=== PATIENT | male | born 1940 | race Caucasian/White ===

== ENCOUNTER 2023-09-09 21:34 | Emergency (ER) | payer MEDICARE, OTHER, SELFPAY ==
--- NOTE | 2023-09-09 21:56 | ED_ITS ---
HPI - Weakness General Chief complaint: Weakness Stated complaint: UNABLE TO AMULATE W/ WEAKNESS IN R LEG Time Seen by Provider: 09/09/23 21:43 Source: patient and EMS Mode of arrival: EMS Limitations: no limitations History of Present Illness ED Provider: Oliver Yepez PA-C HPI Narrative: 83-year-old male with history of afib on eliquis, HTN, HLD, bronchiectasis, asthma, chronic BLE edema, and bilateral knee replacements presents to the ER via EMS for evaluation of weakness in the right leg causing him the inability to ambulate transiently. He had an MRI this afternoon for hip injury 1 month ago, he did not eat or drink all day because he did not want to have to go to the bathroom during the scan. After the scan went to dinner with his and when they were leaving dinner he could not lift his right leg up into the car. EMS was called and he was brought here for further evaluation. Reports similar episodes of this when he was dehydrated. Feeling stronger now while lying in stretcher and able to easily lift both legs up off of the bed. Denies weakness in any other parts of body. Complaint: focal weakness Onset (ago): hour(s) Duration: now resolved Location: RLE Migration: none Severity: similar to previous episodes Context: trauma/injury and history of similar Related Data Allergies Allergy/AdvReac Type Severity Reaction Status Date / Time cefazolin Allergy Rash Verified 09/09/23 22:38 Review of Systems 2 Review of Systems: Yes all other systems are reviewed and are negative [facility] Social History Social History Alcohol intake: current Alcohol intake frequency: a few times a week Smoked in Last 30 Days: No Advance Directives: No Advance Directives Information Provided: No Do you have a plan to hurt others: No Plan Physical Exam 2 Vital Signs: Vital Signs: Last Vital Signs Temp 98.2 F 09/09/23 22:35 Pulse 110 H 09/09/23 22:35 Resp 16 09/09/23 22:35 BP 106/50 L 09/09/23 22:35 Pulse Ox 98 09/09/23 22:35 O2 Del Method Room Air 09/09/23 22:35 BMI result Body Mass Index 50.1 Appearance: Alert. Oriented X3. No acute distress. Head: normocephalic, atraumatic. Eyes: Pupils equal, round and reactive to light. Neck: Normal inspection. Neck supple. CVS: Tachycardic heart rate and irregular rhythm. Pulses normal. Respiratory: No respiratory distress. Diffuse wheezes throughout lung cheema (chronic). Abdomen: Soft and nontender. +BS x4 Skin: Skin warm and dry. Normal skin turgor. No rashes. Several small areas of ecchymosis on arms and legs. skin tear right elbow area Extremities: 4+ bilateral lower extremity edema (chronic) w. erythema. No joint swelling. Neuro/psych: Oriented X 3. No motor deficit. No sensory deficit. CN II-XII intact. Normal speech and cognition. Medical Decision Making Medical Decision Making [facility] Narrative: 83-year-old male with history of afib on eliquis, HTN, HLD, bronchiectasis, asthma, chronic BLE edema, and bilateral knee replacements presents to the ER via EMS for evaluation of weakness in the right leg causing him the inability to ambulate transiently. Patient now is able to fully move his right leg and hip. He states had a similar episode when he was going up stairs and had weakness in the right hip. At that time he was dehydrated. On examination today patient is able to fully range the right lower extremity and hip. Strength is equal and symmetrical throughout. No evidence of acute neurologic process. He is up ambulating with a walker which is his baseline. His vital signs showed some tachycardia initially which improved without intervention. Basic labs were unremarkable. His lower extremity swelling is chronic. He is on antibiotics for lower extremity cellulitis. He states it is getting better. Low clinical suspicion for TIA as this seems to have been a muscle fatigue issue when trying to flex the right leg. History of similar episodes and patient is improved. Just had MRI of the hip and will follow-up with orthopedics. Stable for discharge home with outpatient follow-up. Differential Diagnosis Differential Diagnoses: The differential diagnosis associated with the presentation includes TIA, CVA, right hip AVN, osteoarthritis, general deconditioning, lower extremity swelling Admission/Observation Consideration of admission/observation: Escalation of care including admission/observation considered Elderly male with transient weakness, considered admission for possible TIA however does not seem to be the clinical presentation today Lab Data [facility] Lab Attestation statement: I reviewed the patient's lab results. 09/09/23 22:50 09/09/23 22:50 Labs: Lab Results 06/06/24 Range/Units 22:50 WBC 8.7 (4.8-10.8) X10*3/uL RBC 3.75 L (4.60-5.80) X10*6/uL Hgb 13.4 L (14.0-18.0) g/dl Hct 39.4 L (42.0-52.0) % MCV 105.1 H (80.0-98.0) fL MCH 35.7 H (27.0-33.0) pg MCHC 34.0 (31.0-36.0) g/dl RDW 14.0 (11.0-16.0) % Plt Count 147 L (160-400) X10*3/uL MPV 10.3 (9.4-12.4) fL Immature Gran % (Auto) 0.5 H (0.0-0.4) % Neut % (Auto) 76.6 H (45-73) % Lymph % (Auto) 11.6 L (20-40) % [place] % (Auto) 9.7 (2-11) % Eos % (Auto) 1.3 (0-4) % Baso % (Auto) 0.3 (0-2) % Lymph # (Auto) 1.0 L (1.2-4.9) X10*3/uL [place] # (Auto) 0.8 (0.1-1.2) X10*3/uL Eos # (Auto) 0.1 (0.0-0.4) X10*3/uL Baso # (Auto) 0.0 (0.0-0.2) X10*3/uL Abs Immat Gran (auto) 0.04 H (0.00-0.03) X10*3/uL Absolute Neuts (auto) 6.6 (2.0-8.3) x10*3/uL Absolute Nucleated RBC 0.000 (0.0-0.012) X10*3/uL Nucleated RBC % (auto) 0.0 (0.0-0.2) /100WBC Sodium 143 (135-145) mmol/L Potassium 3.7 (3.3-5.1) mmol/L Chloride 107 (96-108) mmol/L Carbon Dioxide 24 (22-29) mmol/L Anion Gap 16 (12-20) BUN 20 H (9-16) mg/dL Creatinine 0.74 (0.5-1.4) mg/dL Estim Creat Clear Calc 122.2 Estimated GFR > 60 Random Glucose 148 H (60-115) mg/dL Calcium 9.1 (8.4-10.2) mg/dL Magnesium 1.6 (1.6-2.6) mg/dL Total Bilirubin 1.5 H (0.0-1.0) mg/dL Direct Bilirubin 0.6 H (0.0-0.5) mg/dL AST 16 (5-37) U/L ALT 14 (0-40) U/L Alkaline Phosphatase 129 H (39-117) U/L Total Protein 6.6 (6.5-8.0) g/dL Albumin 3.3 L (3.5-5.0) g/dL Independent Historian Clinical information obtained from an independent historian. History obtained from or confirmed by: Spouse and EMS Tests considered The following testing was considered but not selected: CT of the head was considered Chronic Conditions Patient?s care impacted by: Other (Lower extremity swelling, AFib) Critical Care Time Critical Care Time Critical Care Time: No Discharge Plan Discharge Clinical Impression: Swelling of both lower extremities, Weakness of right hip Patient Disposition: Home, Self-Care Instructions: Leg Edema (ED) Additional Instructions: Your lab workup today showed some mild anemia, which was at her baseline. Your lab work did not show any evidence of dehydration. Follow-up with your orthopedic for results of the MRI. If you develop new or worsening symptoms call 911 or come back to the ER for further evaluation. Print Language: Macedonian
[2023-09-09 22:15] VITALS: BP 106/50; PULSE 110; RESP 16; TEMP 36.8; O2SAT 94
[2023-09-09 22:28] VITALS: BP 140/80; PULSE 16; O2SAT 96
[2023-09-09 22:35] VITALS: BP 106/50; PULSE 110; RESP 16; TEMP 36.8; O2SAT 98; BMI 50.1
[2023-09-09 22:53] LABS: MANUAL DIFF FLAG NO
[2023-09-09 22:54] LABS: Basophils Percent Auto 0.3 % (0-2); Eosinophils Absolute Auto 0.1 X10*3/uL (0.0-0.4); Eosinophils Percent Auto 1.3 % (0-4); Hematocrit 39.4 % (42.0-52.0); Hemoglobin 13.4 g/dl (14.0-18.0); Imm Gran Abs Auto 0.04 X10*3/uL (0.00-0.03); Imm Gran Pct Auto 0.5 % (0.0-0.4); Lymphocytes Percent Auto 11.6 % (20-40); Mean Corpuscular Hemoglobin 35.7 pg (27.0-33.0); Mean Corpuscular Volume 105.1 fL (80.0-98.0); Mean Platelet Volume 10.3 fL (9.4-12.4); Monocytes Absolute Auto 0.8 X10*3/uL (0.1-1.2); Monocytes Percent Auto 9.7 % (2-11); Neutrophils Absolute Auto 6.6 x10*3/uL (2.0-8.3); Neutrophils Percent Auto 76.6 % (45-73); Platelet Count 147 X10*3/uL (160-400); Red Blood Count 3.75 X10*6/uL (4.60-5.80); White Blood Count 8.7 X10*3/uL (4.8-10.8)
--- NOTE | 2023-09-09 22:56 | PC.NURSE ---
pt presents from [facility] via EMS. pt was ambulating to his car when he had a sudden onset of right leg weakness preventing him from ambulating. pt had an MRI at [facility] today. no fall, no LOC, no HS
--- NOTE | 2023-09-09 22:57 | PC.NURSE ---
pending labs an ambulation trial
[2023-09-09 23:08] LABS: Alanine Aminotransferase 14 U/L (0-40); Albumin Level 3.3 g/dL (3.5-5.0); Alkaline Phosphatase 129 U/L (39-117); Anion Gap 16 (12-20); Aspartate Amino Transferase 16 U/L (5-37); Bilirubin Direct 0.6 mg/dL (0.0-0.5); Bilirubin Total 1.5 mg/dL (0.0-1.0); Blood Urea Nitrogen 20 mg/dL (9-16); Calcium 9.1 mg/dL (8.4-10.2); Carbon Dioxide 24 mmol/L (22-29); Chloride 107 mmol/L (96-108); Creatinine Clr Calc Pharmacy 122.2; Estimated Glomerular Filt Rate > 60; Glucose Random 148 mg/dL (60-115); Magnesium 1.6 mg/dL (1.6-2.6); Potassium 3.7 mmol/L (3.3-5.1); Sodium 143 mmol/L (135-145); Total Protein 6.6 g/dL (6.5-8.0)
[2023-09-10 00:35] VITALS: BP 106/50; PULSE 110; RESP 16; TEMP 36.8; O2SAT 98
== END 2023-09-10 00:37 | disposition home or self-care (01) ==
PROVIDERS: Physician Assistant; Emergency Provider Internal Medicine; PCP Nurse Practitioner Family
DX: R26.2 Difficulty in walking, not elsewhere classified (principal); I48.91 Unspecified atrial fibrillation; R60.0 Localized edema; R53.1 Weakness; Z79.01 Long term (current) use of anticoagulants; Z79.899 Other long term (current) drug therapy
CPT/HCPCS: 36415; 80048; 80076; 83735; 85025; 99283; 99284

== ENCOUNTER 2024-01-10 11:09 | Outpatient (REF) | payer MEDICARE, OTHER, SELFPAY ==
--- NOTE | ~2024-01-10 | CT_ITS ---
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 COMPARISON: None available. TECHNIQUE: Test bolus sequences followed by intravenous administration 75 mL of Omnipaque 350 intravenous contrast. Volumetric imaging was performed in the axial plane from the skull base to the vertex. Precontrast and delayed postcontrast imaging of the head was also performed. The data was processed at the cytogenetics technologist workstation for generation of MIP sequences. Three-dimensional volume rendered reformatted images were also generated at an offline 3-D workstation. The degree of stenosis determined by NASCET criteria. This CT examination was performed using dose optimization techniques as appropriate, variously including the following: *Automated exposure control *Adjustment of mA and/or kV according to patient size (this includes techniques or standardized protocols for targeted exams where dose is matched to indication/reason for exam; i.e. extremities or head) *Use of iterative reconstruction technique DLP: 2615 mGy-cm. FINDINGS: CT HEAD: Moderate generalized diffuse brain parenchymal volume loss is noted, with associated [id number] prominence of the 3rd and lateral ventricles, likely reflecting volume loss. There are scattered subtle, small, patchy zones of hypodensity in the white matter of both cerebral hemispheres, likely reflecting minimal chronic ischemic microangiopathy in a patient of this age. There is a tiny hypodensity in the inferior right putamen bordering the globus pallidus, which could reflect a tiny remote lacunar infarct or perivascular space. There is a 3 mm hypodensity bordering the left globus pallidus and anterior limb of the left internal capsule, which may reflect an age-indeterminate lacune, with a similar finding in the left lateral thalamus. No intracranial hemorrhage or extra-axial fluid collection. No intracranial mass lesions or pathologic intracranial enhancement are identified. The bony structures appear intact and the visualized airspaces are predominantly unopacified. Visualized orbital structures appear intact with evidence of previous bilateral lens replacements. CTA: The visualized V3 segments of the vertebral arteries are normal in caliber and patent bilaterally. There are small zones of calcified plaque in the V4 segments of the proximal intracranial vertebral arteries with less than 50% diameter reduction stenosis. The basilar artery is normal in caliber and configuration. The left PICA is visualized. A right PICA is present but the origin is not well seen. The superior cerebellar and posterior cerebral arteries are patent and normal in caliber. The intracranial ICAs are patent and normal in caliber. The M1 segments, MCA bifurcations and M2 branches are patent and normal in caliber. There is normal arborization of the M2 branches bilaterally. The A1 and A2 segments are patent and normal in caliber. The anterior communicating artery is diminutive but unremarkable. The posterior communicating arteries are not visualized. Delayed venous views demonstrate normal opacification of the major dural venous sinuses. The left jugular bulb is diminutive and not well visualized. CT/CT angio head IMPRESSION: 1. Essentially unremarkable CT angiogram of the brain. No evidence for intracranial arterial stenosis, occlusion, aneurysm or AVM. 2. No pathologic intracranial enhancement. No extra-axial fluid collection, space-occupying process or mass effect. 3. Moderate generalized diffuse brain parenchymal volume loss and minimal chronic ischemic microangiopathy in the white matter of both cerebral hemispheres. 4. Tiny remote lacunar infarct versus perivascular space in the inferior right putamen and age-indeterminate lacune in the left globus pallidus and left lateral thalamus. Electronically signed by: Fabian Leon MD 03/08/2024 04:12 PM QUINN YEN
[2024-01-10] MEDS: iohexoL 350 MG/ML 75 ML INFUS..BTL IV (12:57)
[2024-01-10 14:25] LABS: Creatinine POC 0.7 mg/dL (0.5-1.4); GFR POC > 60
== END 2024-01-10 11:10 | disposition home or self-care (01) ==
LOC: HO.CT 11:09
PROVIDERS: PCP Family Medicine; Visit Provider Psychiatry & Neurology Neurology
DX: G83.30 Monoplegia, unspecified affecting unspecified side (principal)
CPT/HCPCS: 70496; 82565; Q9967

== ENCOUNTER 2024-05-29 14:18 | Inpatient (IN) | payer OTHER, SELFPAY ==
[2024-05-29] VITALS (21 sets, daily range): BP systolic 74–219; BP diastolic 34–191; PULSE 72–160; RESP 15–38; TEMP 36.6–40.1; O2SAT 94–99; BMI 46.8; BMI 45.0
--- NOTE | ~2024-05-29 | XR_ITS ---
EXAMINATION: XR CHEST 1 VIEW HISTORY: SOB COMPARISON: There are no prior studies for comparison. FINDINGS: A single AP portable view of the chest performed at 2:48 PM is submitted. There are mild increased interstitial markings which may be chronic. No focal airspace opacity is seen. There is no pleural effusion, pneumothorax, or pulmonary vascular congestion. The heart is normal in size given technique. There is degenerative disc disease of the spine. There is severe degenerative change of the bilateral shoulders. XR/XR chest 1V IMPRESSION: Mild increased interstitial markings which may be chronic. Electronically signed by: Salvatore Jackson MD 05/29/2024 03:04 PM [facility]
--- NOTE | ~2024-05-29 | US_ITS ---
CLINICAL HISTORY: Septic shock, UTI, R O obstruction US abdomen limited Comparison: None Findings: Examination is limited by bowel gas. Pancreas is not visualized. The liver is normal in size with increased echogenicity. There is no intrahepatic bile duct dilatation. The common duct is 4.0 mm in diameter. There are gallstones in the gallbladder. Normal wall thickness of the gallbladder. The right kidney is 10.6 cm in length. 5.7 x 4.6 x 4.7 cm cyst with septation in the midpole. No ascites. IMPRESSION: Cholelithiasis. Hepatic steatosis. Complex cyst of the right kidney with thin septation. This document has been electronically signed by: Kiran Mckeon MD on 05/29/2024 18:37:30
--- NOTE | ~2024-05-29 | CT_ITS ---
CLINICAL HISTORY: cholelithiasis CT abdomen and pelvis without contrast Comparison: None Findings: Examination is limited by without contrast. Atelectatic change of the lung base. Liver, Pancreas, Spleen and both adrenals show normal size, shape and attenuation on present unenhanced scan. No CBD dilatation. There are stones in the gallbladder. Both kidneys reveal normal in size, shape, position and attenuation. Limited evaluation of the multiple cystic lesions of the bilateral kidneys. No kidney stone. No hydronephrosis. The IVC, aorta and portal vein are within normal position and caliber. Atherosclerosis calcification of the aorta. No evidence of retroperitoneal lymphadenopathy or ascites. Possible reactive inguinal lymph nodes. The visible parts of the bowel loops show no obvious mass lesions or wall thickening. Mild colonic diverticulosis. Appendix appears normal. Urinary bladder reveals normal lumen and smalls. The pelvic organs are unremarkable. Multilevel degenerative changes of the lumbar spine. There is vacuum phenomena in the T12-L1. Possible Schmorl's node of the superior endplate of L1. IMPRESSION: Cholelithiasis. No noncontrast CT evidence of acute cholecystitis. Limited evaluation of the multiple cystic lesions of the bilateral kidneys. There are complex cystic lesions of the bilateral kidneys. Ultrasound follow-up as indicated. Mild colonic diverticulosis. Additional findings as above. This document has been electronically signed by: Kiran Mckeon MD on 05/29/2024 20:48:34
--- NOTE | 2024-05-29 14:32 | ECG_ITS ---
Test Reason : sob Blood Pressure : */* mmHG Vent. Rate : 123 BPM Atrial Rate : * BPM P-R Int : * ms QRS Dur : 90 ms QT Int : 332 ms P-R-T Axes : * 25 7 degrees QTcB Int : 475 ms Atrial fibrillation with rapid ventricular response Abnormal ECG When compared with ECG of 24-Jun-2007 14:46, Atrial fibrillation has replaced Sinus rhythm Vent. rate has increased by 51 bpm Non-specific change in ST segment in Lateral leads Referred By: Darrel Ordoñez Electronically Signed By: JOHN JAIN
--- NOTE | 2024-05-29 14:48 | ED_ITS ---
HPI - General Adult General Chief complaint: Altered Mental Status Stated complaint: AMS,FEVER,RAPID AFIB 150 PER EMS Time Seen by Provider: 05/29/24 14:32 Source: patient, family (Spouse) and EMS Mode of arrival: EMS Limitations: no limitations History of Present Illness ED Provider: DR. Ordoñez HPI narrative: 84-year-old male history of AFib on Eliquis, HTN, HLD, bronchiectasis, asthma use CPAP at nighttime at home, chronic bilateral lower extremity lymphedema on Lasix, presented by EMS from home after was found with a change mental status and confusion as per , also complaining of shortness of breath and coughing. With bilateral lower extremities cellulitis. Related Data Home Medications ?Medication ?Instructions ?Recorded ?Confirmed allopurinol 300 mg tablet 300 mg PO DAILY 05/29/24 apixaban 5 mg tablet (Eliquis) 5 mg PO BID 05/29/24 atorvastatin 40 mg tablet 40 mg PO BEDTIME 05/29/24 fluticasone fur. 200 mcg-umeclid 1 ea inhalation DAILY 05/29/24 62.5 mcg-vilant 25 mcg inhalat.powder (Trelegy Ellipta) furosemide 40 mg tablet 40 mg PO BID 05/29/24 gabapentin 300 mg capsule 900 mg PO TID 05/29/24 metoprolol tartrate 25 mg tablet 25 mg PO BID 05/29/24 mupirocin 2 % topical ointment 1 appl topical TID 05/29/24 potassium chloride 20 mEq 20 meq PO BID 05/29/24 tablet,extended release ropinirole 1 mg tablet 1.5 mg PO QPM 05/29/24 tamsulosin 0.4 mg capsule 0.4 mg PO BEDTIME 05/29/24 triamcinolone acetonide 0.1 % 1 appl topical BID 05/29/24 topical cream Allergies Allergy/AdvReac Type Severity Reaction Status Date / Time cefazolin Allergy Rash Verified 05/29/24 14:34 Review of Systems 2 Review of Systems: All other systems are reviewed and are negative Constitutional: Reports as per HPI and Reports no additional constitutional complaints Eyes: Reports as per HPI and Reports no additional eye complaints Reports system reviewed and no additional complaints, except as documented Cardiovascular: Reports as per HPI and Reports no additional cardiovascular complaints Respiratory: Reports as per HPI and Reports no additional respiratory complaints Gastrointestinal: Reports as per HPI and Reports no additional gastrointestinal complaints Genitourinary: Reports no additional female genitourinary complaints Musculoskeletal: Reports no additional musculoskeletal complaints Skin/Breast: Reports system reviewed and no additional complaints, except as docu Psychiatric: Reports no additional psychiatric complaints Endocrine: Reports no additional endocrine complaints Hematologic/Lymphatic: Reports no additional hematologic/lymphatic complaints Allergic/Immunologic: Reports no additional allergic/immunologic complaints Reports system reviewed and no additional complaints, except as documented and Reports Abnormal speech present [facility] Past Medical History Medical History (Updated 05/29/24 @ 20:31 by Aisha Couch NP) Alcohol abuse Lymphedema LES (obstructive sleep apnea) Asthma Hyperlipidemia Hypertension Atrial fibrillation Congestive heart failure Social History Social History Household Members: Spouse Housing: House Do you presently have visiting nurse or other home services: No Alcohol intake: current Alcohol intake frequency: a few times a week Patient Tobacco Use Status: Former Tobacco user Tobacco use type: Cigarette Smoked in Last 30 Days: No e-Cigarette/Vaping Use: Former Use Use of substances other than those prescribed or required for medical reasons: No Have you been hit, kicked, punched, or otherwise hurt by someone within the past year? If so, by whom?: No Do you feel safe in your current relationship?: Yes Is there a partner from a previous relationship who is making you feel unsafe now?: No Are you made to feel afraid or neglected: No Advance Directives: Yes Advance Directives Information Provided: Yes Advance Directives on File: No Advance Directives Date on File: 05/29/24 Do you have a plan to hurt others: No Plan Recently lost weight without trying: No How much weight loss: Unsure Eating poorly because of decreased appetite: No Nutrition screen score: 2 Nutrition Risks: No Nutritional Risk Poor oral hygiene: No Physical Exam ED Vital Signs: Vital Signs - 24 hr 05/29/24 14:31 05/29/24 14:37 05/29/24 14:46 Temperature Pulse Rate 134 H 130 H Respiratory Rate 30 H 33 H 32 H Blood Pressure 219/191 H Pulse Oximetry 95 Oxygen Delivery Method CPAP Oxygen Flow Rate 05/29/24 15:27 05/29/24 15:47 05/29/24 16:16 Temperature 104.2 F H 103.6 F H 103.3 F H Pulse Rate 149 H 135 H 132 H Respiratory Rate 38 H 22 H 28 H Blood Pressure 122/34 L 103/39 L 89/79 L Pulse Oximetry 94 96 98 Oxygen Delivery Method CPAP CPAP CPAP Oxygen Flow Rate 05/29/24 16:29 05/29/24 16:45 05/29/24 17:03 Temperature 103.1 F H 102.7 F H 102.4 F H Pulse Rate 112 H 121 H 120 H Respiratory Rate 24 H 26 H 22 H Blood Pressure 76/37 L 82/40 L 79/40 L Pulse Oximetry 98 97 99 Oxygen Delivery Method CPAP CPAP CPAP Oxygen Flow Rate 05/29/24 17:18 05/29/24 17:54 05/29/24 18:19 Temperature 102 F H 99.5 F 99.9 F Pulse Rate 114 H 112 H 116 H Respiratory Rate 22 H 15 16 Blood Pressure 74/35 L 99/44 L 88/48 L Pulse Oximetry 98 99 98 Oxygen Delivery Method CPAP Oxymask Oxymask Oxygen Flow Rate 2 2 BMI result Body Mass Index 46.8 Vital signs have been reviewed and appear to be correct. Blood pressure elevated. Heart rate normal. Respiratory rate normal. Temperature normal. Oxygen saturation normal. Appearance: Alert. Oriented X3. No acute distress. Head: Normal external exam. Normocephalic. Atraumatic. No Teague signs noted. No raccoon eyes noted Eyes: PERRLA. EOMI. Conjunctiva and sclera normal. Eyelids normal. ENT: TM's Normal. Pharynx normal. Uvula midline. Moist mucous membranes. No trismus noted. No drooling noted. No muffled voice noted. Neck: Normal inspection. Neck supple. FROM. No adenopathy. Thyroid Normal. No meningeal signs. No neck mass noted. CVS: Normal heart rate and rhythm. Heart sound normal. No murmurs noted. Pulses normal throughout. Respiratory: No respiratory distress. Painless inspiration. Breath sounds normal. No wheezes/rales/rhonchi noted. Chest nontender. No accessory muscle usage noted or decreased air movement noted. Abdomen: Soft and nontender. Bowel sounds normal in all 4 quadrants. No distention noted. No organomegaly noted. No visible injury noted. Back: No CVA tenderness. Full range of motion noted. Skin: Skin warm and dry. Normal skin color. Normal skin turgor. No rashes/lesions/lacerations noted. Extremities: Bilateral +2 lower extremity edema, +erythema + redness. Extremities exhibit normal range of motion. Extremities nontender. Neuro: Oriented X 3. Cranial nerve exam: II-XII are grossly intact No motor deficit. No sensory deficit. Reflexes normal. Course Reevaluation(s) Reevaluation #1: Patient is septic meet criteria for septic shock secondary to bilateral lower extremity cellulitis and UTI, had 1 episode of hypotension after receiving a 1 L of fluid, 500 cc of fluid bolus was ordered, please refer to sepsis exclusion order, will start on Levophed and ICU admission. Time: 16:53 Reevaluation #2: FOCUSED EXAM: Hypotension did not improve with IV fluids/albumin boluses can not get the patient 30 cc/kg secondary to CHF, will start on Levophed drip, the case discussed with Dr. Malone who accepted the patient to ICU. Ultrasound shows no obstructive uropathy. Time: 20:00 Medications Administered Generic Name Dose Route Start Last Admin Trade Name Freq PRN Reason Stop Dose Admin Apixaban 5 mg 05/29/24 21:00 05/29/24 20:23 Apixaban 5 Mg Tablet PO 5 mg BID ELGIN Administration Norepinephrine Bitartrate 8 mg in 250 mls @ 0 mls/hr 05/29/24 18:30 05/29/24 18:38 Levophed IVCONT 0.07 mcg/kg/min .Q0M ELGIN 19.44 mls/hr Titration Protocol Per Protocol Cefepime HCl 2 gm in 50 mls @ 100 mls/hr 05/29/24 20:00 05/29/24 20:23 Maxipime IV 100 mls/hr Q12H ELGIN Administration Potassium Phosphate 15 mmol in 250 mls @ 62.5 mls/hr 05/29/24 20:04 05/29/24 20:23 Kphos IV 05/30/24 00:03 62.5 mls/hr ONCE ONE Administration Ropinirole HCl 0.5 mg 05/29/24 21:00 05/29/24 20:23 Ropinirole Hcl 0.5 Mg Tablet PO 0.5 mg BEDTIME ELGIN Administration Discontinued Medications Generic Name Dose Route Start Last Admin Trade Name Freq PRN Reason Stop Dose Admin Ceftriaxone Sodium 1 gm 05/29/24 14:32 05/29/24 15:10 Ceftriaxone Sodium 1 Gm Vial IVPUSH 05/29/24 14:33 1 gm ONCE ONE Administration Albuterol Sulfate 5 mg/ 0 mg 05/29/24 14:46 05/29/24 14:57 Albuterol/Ipratropium 3 ml INHALE 05/29/24 14:47 7.5 each ONCE ONE Administration Furosemide 40 mg 05/29/24 20:06 05/29/24 20:22 Furosemide 40 Mg/4 Ml Vial IVPUSH 05/29/24 20:07 40 mg ONCE ONE Administration Protocol Sodium Chloride 1,000 mls @ 999 mls/hr 05/29/24 14:32 05/29/24 16:12 Ns IV 05/29/24 15:32 Infused .Q1H1M ONE Infusion Magnesium Sulfate 2 gm in 50 mls @ 25 mls/hr 05/29/24 14:32 05/29/24 17:10 Magnesium Sulfate/H2o IV 05/29/24 16:31 Infused ONCE ONE Infusion Acetaminophen 1,000 mg in 100 mls @ 400 mls/hr 05/29/24 15:38 05/29/24 16:04 Ofirmev IV 05/29/24 15:52 Infused ONCE ONE Infusion Vancomycin HCl 1,500 mg/ 500 mls @ 333.333 mls/hr 05/29/24 15:39 05/29/24 17:53 Sodium Chloride IV 05/29/24 17:08 Infused ONCE ONE Infusion Sodium Chloride 1,000 mls @ 500 mls/hr 05/29/24 16:26 05/29/24 18:20 Ns IV 05/29/24 18:25 Infused .Q2H ONE Infusion Albumin Human 50 mls @ 100 mls/hr 05/29/24 16:57 05/29/24 17:53 Kedbumin 25 % IV 05/29/24 17:26 Infused ONCE ONE Infusion Influenza Virus Vaccine 0.5 ml 05/29/24 20:04 05/29/24 20:39 Flu Vacc [id number](6mos Up)/Pf 0.5 Ml Syringe IM 05/29/24 20:05 Not Given .ONCE ONE Methylprednisolone Sodium Succinate 125 mg 05/29/24 14:32 05/29/24 15:10 Methylprednisolone Sod Succ 125 Mg/2 Ml Vial IVPUSH 05/29/24 14:33 125 mg ONCE ONE Administration Medical Decision Making Differential Diagnosis Differential Diagnoses: The differential diagnosis associated with the presentation includes (Pneumonia, pneumothorax, pleural effusion, congestive heart failure, UTI, pyelonephritis, obstructive uropathy, septic shock, electrolyte derangement, severe anemia.) Admission/Observation Consideration of admission/observation: Escalation of care including admission/observation considered Lab Data MDM Lab Attestation statement: I reviewed the patient's lab results. 05/29/24 15:07 05/29/24 15:07 Labs: Lab Results 05/29/24 05/29/24 05/29/24 Range/Units 15:07 15:11 16:17 WBC 17.4 H (4.8-10.8) X10*3/uL RBC 3.83 L (4.60-5.80) X10*6/uL Hgb 13.3 L (14.0-18.0) g/dl Hct 39.0 L (42.0-52.0) % MCV 101.8 H (80.0-98.0) fL MCH 34.7 H (27.0-33.0) pg MCHC 34.1 (31.0-36.0) g/dl RDW 15.4 (11.0-16.0) % Plt Count 130 L (160-400) X10*3/uL MPV 10.5 (9.4-12.4) fL Immature Gran % (Auto) Cancelled Neut % (Auto) Cancelled Lymph % (Auto) Cancelled [place] % (Auto) Cancelled Eos % (Auto) Cancelled Baso % (Auto) Cancelled Lymph # (Auto) Cancelled [place] # (Auto) Cancelled Eos # (Auto) Cancelled Baso # (Auto) Cancelled Abs Immat Gran (auto) Cancelled Absolute Neuts (auto) Cancelled Absolute Nucleated RBC 0.000 (0.0-0.012) X10*3/uL Nucleated RBC % (auto) 0.0 (0.0-0.2) /100WBC Neutrophils % (Manual) 84 H (45-73) % Band Neutrophils % 8 H (3-5) % Lymphocytes % (Manual) 3 L (20-40) % Monocytes % (Manual) 5 (2-11) % Abs Neuts (Manual) 16.0 H (2.0-8.3) X10*3/uL Lymphocytes # (Manual) 0.5 L (1.2-4.9) X10*3/uL Monocytes # (Manual) 0.9 (0.1-1.2) X10*3/uL Toxic Vacuolation PRESENT Platelet Estimate NORMAL (NORMAL) Plt Morphology Comment NORMAL RBC Morphology NORMAL Ovalocytes 1+ (5-14) /OIF Keely Cells 1+ (0-2) /OIF Schistocytes 1+ (0-2) /OIF Smear Tech's Comments MANUAL DIFF Hold Blue Top SEE NOTE Sodium 139 (135-145) mmol/L Potassium 3.3 (3.3-5.1) mmol/L Chloride 104 (96-108) mmol/L Carbon Dioxide 26 (22-29) mmol/L Anion Gap 12 (12-20) BUN 19 H (9-16) mg/dL Creatinine 0.79 (0.5-1.4) mg/dL Estim Creat Clear Calc 105.0 Estimated GFR > 60 Random Glucose 154 H (60-115) mg/dL Lactic Acid 2.0 (0.5-2.0) mmol/L Calcium 9.1 (8.4-10.2) mg/dL Phosphorus 1.5 L (2.7-4.5) mg/dL Total Bilirubin 3.8 H (0.0-1.0) mg/dL Direct Bilirubin 0.4 (0.0-0.5) mg/dL AST 22 (5-37) U/L ALT 6 (0-40) U/L Alkaline Phosphatase 127 H (39-117) U/L Troponin I High Sens 21.9 (<3.5-35.0) ng/L B-Natriuretic Peptide 194 H (<100) pg/mL Total Protein 7.5 (6.5-8.0) g/dL Albumin 3.4 L (3.5-5.0) g/dL Lipase 11 (8-78) U/L Urine Color Dark Yellow Urine Appearance Turbid Urine pH 7.5 (5.0-9.0) Ur Specific [place] 1.020 (1.005-1.025) Urine Protein 30 (1+) H (Neg-Trace) mg/dL Urine Glucose (UA) Negative (Negative) mg/dL Urine Ketones Negative (Negative) mg/dL Urine Blood Trace H (Negative) Urine Nitrite Negative (Negative) Ur Leukocyte Esterase Large (3+) H (Negative) Urine RBC 6-10 H (0-2) /HPF Urine WBC >50 H (0-5) /HPF Ur Squamous Epith Cells 6-10 (0-2) /HPF Urine Bacteria 4+ (None Seen) Hyaline Casts 3-5 (0-2) /LPF Influenza Type A (PCR) NEGATIVE (Negative) Influenza Type B (PCR) NEGATIVE (Negative) RSV RNA Qual (PCR) NEGATIVE (Negative) SARS-CoV-2 RNA (RT-PCR) NEGATIVE (Negative) Independent Interpretation I performed an independent interpretation of an: Plain X-Ray (Chest:Mild increased interstitial markings which may be chronic.) and Ultrasound (Of the abdomen pelvis showing cholelithiasis.) Radiology Impression Discussion of test interpretation with radiology: I have reviewed the radiologist's reading. Critical Care Time Critical Care Time Critical Care Time: Yes Total Critical Care Time: 60 Attestation: The patient was critically ill with a high probability of imminent or life- threatening deterioration. I spent greater than 30 minutes of discontinuous time evaluating the patient, delivering critical care at the bedside, discussing evaluating data with consultants. Critical care time does not include time spent performing separately billable procedures or teaching. Time spent performing critical care was 60 minutes. Discharge Plan Discharge Clinical Impression: Altered mental status, Septic shock, Cellulitis, Acute UTI Patient Disposition: Admitted As Inpatient
[2024-05-29] MEDS: Albuterol Sulfate 5 MG, Albuterol/Iprat 2.5/0.5MG 3 ML 3 ML INHALE (14:57)
[2024-05-29] MEDS: cefTRIAXone sodium 1 GM VIAL IVPUSH (15:10)
[2024-05-29] MEDS: Magnesium Sulfate/H2O 2 GM/50 ML PIGGYBACK IV (15:10)
[2024-05-29] MEDS: methylPREDNISolone Sod Succ 125 MG/2 ML VIAL IVPUSH (15:10)
[2024-05-29] MEDS: 0.9 % Sodium Chloride 1,000 ML 999 ML IV (15:11)
[2024-05-29 15:19] LABS: Hemoglobin 13.3 g/dl (14.0-18.0); Mean Corpuscular HGB Conc 34.1 g/dl (31.0-36.0); Mean Corpuscular Hemoglobin 34.7 pg (27.0-33.0); Mean Corpuscular Volume 101.8 fL (80.0-98.0); Mean Platelet Volume 10.5 fL (9.4-12.4); Platelet Count 130 X10*3/uL (160-400); Red Blood Count 3.83 X10*6/uL (4.60-5.80); Red Cell Distribution Width 15.4 % (11.0-16.0); White Blood Count 17.4 X10*3/uL (4.8-10.8)
--- NOTE | 2024-05-29 15:30 | PC.NURSE ---
Addendum entered by Macey Alves 05/29/24 20:34: no IVF (30ml/kg) per MD order d/t hx CHF. Original Note: pt presents to the ED biba from home - called EMS d/t increased AMS (unknown baseline) x for an unknown amount of time. per family members - pt recently admitted for PNA. upon EMS arrival - pt noted to 95% on RA but extremely tachypneic in the 40s. pt placed on CPAP via EMS s/p duoneb. upon ED arrival - RT bedside - pt remains on cpap at this time d/t remaining tachypneic and displaying w/ sob/wob. afib RVR on the vehicle monitor technician - HR between 115-160bpm. pt denies chest pain/palpitations. 20gIV in the right AC via EMS - patent intact. additional 18gIV in the left AC - labs obtained/sent to lab. delay in abx administration during sepsis alert d/t pt being uncooperative w/ staff as well as medical equipment and being a difficult stick. eventually another 20gIV in the left hand. abx/IVF administered per provider order. bedside for support. plan of care ongoing. call patel placed within reach.
[2024-05-29 15:38] LABS: B Type Natriuretic Peptide 194 pg/mL (<100); Troponin-I High Sensitivity 21.9 ng/L (<3.5-35.0)
[2024-05-29] MEDS: Acetaminophen 1,000 MG/100 ML PIGGYBACK 400 MG IV (15:49)
[2024-05-29] MEDS: vancomycin HCL 1,500 MG in 0.9 % Sodium Chloride 500 ML 333.33 MG IV (15:50)
[2024-05-29 15:52] LABS: SLIDE REVIEW MANUAL DIFF
[2024-05-29 15:58] LABS: Band Neutrophils Percent 8 % (3-5); Lymphocytes Absolute Manual 0.5 X10*3/uL (1.2-4.9); Lymphocytes Percent Manual 3 % (20-40); Monocytes Absolute Manual 0.9 X10*3/uL (0.1-1.2); Monocytes Percent Manual 5 % (2-11); Neutrophils Percent Manual 84 % (45-73); Ovalocytes 1+ (5-14) /OIF; RBC Morphology NORMAL; Schistocytes 1+ (0-2) /OIF
[2024-05-29 15:59] LABS: Influenza A PCR NEGATIVE (Negative); Influenza B PCR NEGATIVE (Negative); Resp Syncy Virus RNA Qual PCR NEGATIVE (Negative); SARS COV2 PCR INHOUSE NEGATIVE (Negative); Toxic Vacuolation PRESENT
[2024-05-29 16:00] LABS: Burr Cells 1+ (0-2) /OIF; Platelet Estimate NORMAL (NORMAL); Platelet Morphology Comment NORMAL
[2024-05-29 16:24] LABS: Appearance Urine Turbid; Color Urine Dark Yellow; Glucose Urine UA Negative (Negative); Leukocyte Esterase Urine Large (3+) (Negative); Nitrite Urine Negative (Negative); PH 7.5 (5.0-9.0); UMIC TRIGGER UACC YES; Urine Blood Trace (Negative); Urine Ketones Negative (Negative); Urine Protein 30 (1+) mg/dL (Neg-Trace)
[2024-05-29] MEDS: 0.9 % Sodium Chloride 1,000 ML 500 ML IV (16:27)
[2024-05-29 16:29] LABS: Bacteria Urine 4+ (None Seen); UACC Culture Trigger YES; WBC Urine >50 /HPF (0-5)
--- NOTE | 2024-05-29 16:29 | PM.SEPSBOL4 ---
Sepsis Bolus Exclusion Sepsis Bolus Exclusion CHF/Renal Failure Date of Occurrence: 05/29/24 Time of Occurrence:: 16:30 This patient met severe sepsis criteria due to the following condition(s):: Hypotension In my clinical judgement the administration of 30 ml/kg of crystalloid would be detrimental to this patient due to the patient's following conditions:: NYHA class III or IV Heart Failure(symptoms with low exertion or rest) Replace the 30 mls/kg with (Zero amount not acceptable and all fluids for severe sepsis must be given at GREATER than 125 mls/hr) *Note: One of the cheema must be documented Crystalloids amount given in mls: (rate must be at least 150cc/hr): 1,500 Colloids amount given in mls:: 100 At a rate of (must be > 125 cchr):: 250
--- NOTE | 2024-05-29 16:30 | PC.NURSE ---
pt noted to be hypotensive despite previous interventions. additional IVF bolus administered per provider order. effectiveness pending.
[2024-05-29 17:13] LABS: Alanine Aminotransferase 6 U/L (0-40); Albumin Level 3.4 g/dL (3.5-5.0); Anion Gap 12 (12-20); Bilirubin Direct 0.4 mg/dL (0.0-0.5); Bilirubin Total 3.8 mg/dL (0.0-1.0); Blood Urea Nitrogen 19 mg/dL (9-16); Calcium 9.1 mg/dL (8.4-10.2); Carbon Dioxide 26 mmol/L (22-29); Chloride 104 mmol/L (96-108); Estimated Glomerular Filt Rate > 60; Glucose Random 154 mg/dL (60-115); Lipase 11 U/L (8-78); Potassium 3.3 mmol/L (3.3-5.1); Sodium 139 mmol/L (135-145); Total Protein 7.5 g/dL (6.5-8.0)
[2024-05-29 17:14] LABS: Alkaline Phosphatase 127 U/L (39-117)
[2024-05-29] MEDS: Albumin Human 25 % 50 ML 100 ML IV (17:18)
--- NOTE | 2024-05-29 17:20 | PC.NURSE ---
pt continues to remain hypotensive despite additional IVF boluses. provider notified/aware. medication administered per provider order. ICU being consulted by ED MD at this time.
--- OUTSIDE RECORDS SUMMARY | 2024-05-29 17:47 | XMS_ITS | Encounter Summary ---
Author Name [facility] Organization [facility] [place] Address [address] [place] [address] Care Team Providers Care Cell Room Operator Name Role Phone SOTO DESAI Primary Care Provider Unavaila ble Insurance Providers: All historical and current Section Date Range: From patient's date of to the date document was created. This section includes the names of all active insurance providers for the patient. Insurance Provider Type of Coverage Plan Name Start of Policy Coverage End of Policy Coverage Group Number Member ID Insurance Provider's Telephone Number Policy Cano's Name Patient's Relationship to Policy Cano [employer] SUPPLEMEN JUAN Apr 05, 2007 MEDICAR E SUPPLEM E [id number] [phone] MILLER,WILL MATTEO PATIENT [employer] CO MEDICARE SUPPLEMEN JUAN BANKE RS Apr 05, 2007 NONE [id number] MILLER,WILL MATTEO PATIENT MEDICARE (WNR) MEDICARE (M) PART A Apr 05, 2007 PART A [id number] MILLER,WILL MATTEO PATIENT MEDICARE (WNR) MEDICARE (M) PART B Apr 05, 2007 PART B [id number] [phone] MILLER,WILL MATTEO PATIENT MEDICARE (WNR) MEDICARE (M) PART A Apr 05, 2007 PART A [id number] [phone] MILLER,WILL MATTEO PATIENT MEDICARE (WNR) MEDICARE (M) PART B Apr 05, 2007 PART B [id number] AREN MILLER PATIENT Selected Encounter This section includes the information on record at [place] for the Encounter. Date/Time Encounter Type Encounter Description Reason Provider Source May 04, 2024 08:18 AM NQHP OL DIG ASSMT&MGMT 5-10 [facility] ICD-10-CM I48.91 Unspecified atrial fibrillation KATHY WHITMAN A IHE Encounter Template Text not used by [place] Assessments - Encounter Diagnoses This section includes the primary and secondary diagnoses documented for the Encounter. Date/Time Primary/Secondary Diagnosis Diagnosis Name Provider Source May 04, 2024 08:18 AM PRIMARY Unspecified atrial fibrillation SOTO GEE [facility] Plan of Treatment: Future Appointments (+ 6 months) and Future Tests (+/- 45 days) The Plan of Treatment section includes future care activities for the patient from all [place] treatmentfacilities. This section includes future appointments and future orders which are active, pending or scheduled. Future Appointments This section includes appointments that were scheduled to occur 6 months from the date of the Encounter, up to a maximum of 20 appointments. The data comes from all [place] treatment facilities. Appointment Date/Time Appointment Type Appointme nt Facility Name Jul 26, 2024 02:00 PM AMBULATORY - MEDICINE [facility] Vital Signs: All taken on the encounter date This section contains inpatient and outpatient Vital Signs collected on the date of the Encounter. Date/Time Temperature Pulse Blood Pressure Respiratory Rate SP02 Pain Height Weight Body Mass Index Source May 04, 2024 12:58 PM 98.1 92 107/58 20 96 0 71 302 42 [facility] Social History: Smoking Status (Most current) and Tobacco Use (All prior to encounter date) This section includes the most current, and the historical, smoking and tobacco- related health factors from the [place] facility where the Encounter took place. Current Smoking Status This section includes the most current smoking, or tobacco-related health factor, from the [place] facility where the Encounter took place. Date/Time Current Smoking Status Comment Isael contreras Jul 29, 2023 02:00 PM [place]-TOBACCO FORMER USER [facility] Tobacco Use History This section includes a history of the smoking, or tobacco-related health factors, that were collected on or before the date of the Encounter. The data comes from the [place] facility where the Encounter took place. Date/Time Smoking Status/Tobac co Use Comment Facility Jul 29, 2023 02:00 PM VA-TOBACCO QUIT 15 YRS OR MORE [facility] [facility] Jul 09, 2022 02:00 PM VA-TOBACCO NEVER USED [facility] [place] [facility] Jul 10, 2021 02:30 PM VA-TOBACCO FORMER USER [facility] [place] [facility] Jul 10, 2021 02:30 PM VA-TOBACCO QUIT 15 YRS OR MORE [facility] [place] [facility] May 28, 2020 10:30 AM VA-TOBACCO FORMER USER [facility] [place] [facility] May 28, 2020 10:30 AM VA-TOBACCO QUIT 15 YRS OR MORE [facility] [place] [facility] May 21, 2019 08:03 AM VA-TOBACCO FORMER USER [facility] [place] [facility] May 21, 2019 08:03 AM VA-TOBACCO QUIT 15 YRS OR MORE [facility] [place] [facility] May 24, 2018 11:31 AM VA-TOBACCO FORMER USER [facility] [place] [facility] May 24, 2018 11:31 AM VA-TOBACCO QUIT 15 YRS OR MORE [facility] [place] [facility] Mar 09, 2017 10:08 AM QUIT TOBACCO USE > 7 YEARS AGO [facility] [place] [facility] Feb 19, 2016 10:24 AM QUIT TOBACCO USE > 7 YEARS AGO quit 40 yrs ago [facility] [place] [facility] Mar 08, 2015 01:01 PM QUIT TOBACCO USE > 7 YEARS AGO 40 yrs ago [facility] [place] [facility] Feb 02, 2007 10:39 AM QUIT TOBACCO USE > 7 YEARS AGO quit 40 years ago [facility] [place] [facility] Encounter Notes: All associated encounter notes This section contains the clinical notes associated to the Encounter. Date/Time Encounter Note(s) Provider Source May 04, 2024 08:36 AM ADDENDUM: LOCAL TITLE: Addendum STANDARD TITLE: ADDENDUM DATE OF NOTE: MAY 04, 2024@08:36:40 ENTRY DATE: MAY 04, 2024@08:36:41 AUTHOR: SHEILA MADDOX EXP COSIGNER: URGENCY: STATUS: COMPLETED Alert to PCP please note discrepency in medications prescribed by [facility] vs [facility] Taken from [facility] Portal PCP note DOS: 05/03/24 Provider: Dr. Heath A/P: 1. Septic shock: resolved 2. Pneumonia: resolved 3. Atrial Fibrillation: Rate controlled 4. Bronchiectasis since age 19: stable same plan f/u w pulmonology Ordered: CBC w/ Differential, Comprehensive Metabolic Panel, Hemoglobin A1C 5. Diabetes mellitus with diabetic neuropathy: stable same plan 6. Essential hypertension: BP at goal continue current plan patient had been on metoprolol 100 mg twice daily but is in the hospital decreased to 25 twice daily his home BPs are in the 1 teens to 120s systolic Ordered: CBC w/ Differential, Comprehensive Metabolic Panel, Hemoglobin A1C 7. Type 2 diabetes mellitus with obesity: At goal con't same plan Ordered: CBC w/ Differential, Comprehensive Metabolic Panel, Hemoglobin A1C 8. Type 2 diabetes mellitus: At goal con't same plan Ordered: CBC w/ Differential, Comprehensive Metabolic Panel, Hemoglobin A1C 9. Severe obesity: work on diet and exercise 10. Right arm numbness: Neurology consult per patient request 11. 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 Ordered: CBC w/ Differential, Comprehensive Metabolic Panel, Hemoglobin A1C Orders: Metoprolol, 25 mg, 1, tablet, By Mouth, 2 times a day Medication Llisting from Visit: Albuterol (Eqv-ProAir HFA), Inhalation Allopurinol, 300 mg, Daily Alprazolam, By Mouth ammonium lactate 12% topical lotion, 2 times a day atorvastatin 40 mg tablet, Daily Compression Stockings Eliquis 5 mg, 2 times a day Gabapentin, 900 mg HydroCORTisone, 2.5 mg Lasix 40 mg Daily metoprolol 25 mg 2 times a day Multivitamin Daily pantoprazole 40 mg Potassium Citrate 1080 mg, 2 times a day rOPINIRole 0.5 mg, 4 times a day Spiriva Respimat 60 ACT 2.5 mcg/inh, 2 puffs, Daily, tadalafil tamsulosin 0.4 mg Daily Vitamin C Daily Vitamin D3 Daily Wixela Inhub 500 mcg-50 mcg, 2 times a day zinc (as acetate) 50 mg Daily /es/ Sheila Maddox MSN RN CNL Primary Care RN Signed: 05/04/2024 08:44 Receipt Acknowledged By: 05/04/2024 09:57 /eliu/ LILLIANA Arthur DNP, CNL Primary Care Nurse Practitioner === --- Original Document --- 05/04/24 [facility] PRESCRIPTION NOTE: Pharmacy has received a [facility] prescription. The prescription below CANNOT BE FILLED due to the absence of an active consult. Clinic: [facility] Adult Provider: Salvatore Heath [address] [place] [address] P: [phone] eRx Drug : metoprolol 25 mg oral tablet eRx SIG : 1 tablet By Mouth 2 times a day qty: 60 refills: 5 Please re-write the above prescription for the [place] input a new consult. IF A NEW CONSULT IS PLACED PLEASE: 1. Reach out to the to have them get a new prescription, OR 2. Call the community care provider's office directly for them to resend Thank you /eliu/ SOTO GEE CC Treatment Technician Signed: 05/04/2024 08:20 Receipt Acknowledged By: 05/04/2024 09:56 /eliu/ LILLIANA Arthur DNP, CNL Primary Care Nurse Practitioner 05/04/2024 08:44 /eliu/ Sheila JON Primary Care SHEILA ZAMAN [facility] [place] [facility] May 04, 2024 08:18 AM PHARMACY OUTPATIENT MEDICATION MGT NOTE: LOCAL TITLE: [facility] PRESCRIPTION NOTE STANDARD TITLE: PHARMACY OUTPATIENT MEDICATION MGT NOTE DATE OF NOTE: MAY 04, 2024@08:18 ENTRY DATE: MAY 04, 2024@08:18:36 AUTHOR: SOTO GEE COSIGNER: URGENCY: STATUS: COMPLETED [facility] PRESCRIPTION NOTE Has ADDENDA Pharmacy has received a COMM[facility]ITY CARE prescription. The prescription below CANNOT BE FILLED due to the absence of an active consult. Clinic: [facility] Adult Provider: Salvatore Heath [address] [place] [address] P: [phone] eRx Drug : metoprolol 25 mg oral tablet eRx SIG : 1 tablet By Mouth 2 times a day qty: 60 refills: 5 Please re-write the above prescription for the [place] input a new consult. IF A NEW CONSULT IS PLACED PLEASE: 1. Reach out to the to have them get a new prescription, OR 2. Call the community care provider's office directly for them to resend Thank you /eliu/ SOTO GEE CC Treatment Technician Signed: 05/04/2024 08:20 Receipt Acknowledged By: 05/04/2024 09:56 /eliu/ Soto Desai DNP, SENIOR HUMAN RESOURCES REPRESENTATIVE-BC, CNL Primary Care Nurse Practitioner 05/04/2024 08:44 /es/ Sheila Maddox MSN RN CNL Primary Care RN 05/04/2024 ADDENDUM STATUS: COMPLETED Alert to PCP please note discrepency in medications prescribed by [facility] PCP vs [facility] Taken from [facility] Portal PCP note DOS: 05/03/24 Provider: Dr. Heath A/P: 1. Septic shock: resolved 2. Pneumonia: resolved 3. Atrial Fibrillation: Rate controlled 4. Bronchiectasis since age 19: stable same plan f/u w pulmonology Ordered: CBC w/ Differential, Comprehensive Metabolic Panel, Hemoglobin A1C 5. Diabetes mellitus with diabetic neuropathy: stable same plan 6. Essential hypertension: BP at goal continue current plan patient had been on metoprolol 100 mg twice daily but is in the hospital decreased to 25 twice daily his home BPs are in the 1 teens to 120s systolic Ordered: CBC w/ Differential, Comprehensive Metabolic Panel, Hemoglobin A1C 7. Type 2 diabetes mellitus with obesity: At goal con't same plan Ordered: CBC w/ Differential, Comprehensive Metabolic Panel, Hemoglobin A1C 8. Type 2 diabetes mellitus: At goal con't same plan Ordered: CBC w/ Differential, Comprehensive Metabolic Panel, Hemoglobin A1C 9. Severe obesity: work on diet and exercise 10. Right arm numbness: Neurology consult per patient request 11. 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 Ordered: CBC w/ Differential, Comprehensive Metabolic Panel, Hemoglobin A1C Orders: Metoprolol, 25 mg, 1, tablet, By Mouth, 2 times a day Medication Llisting from Visit: Albuterol (Eqv-ProAir HFA), Inhalation Allopurinol, 300 mg, Daily Alprazolam, By Mouth ammonium lactate 12% topical lotion, 2 times a day atorvastatin 40 mg tablet, Daily Compression Stockings Eliquis 5 mg, 2 times a day Gabapentin, 900 mg HydroCORTisone, 2.5 mg Lasix 40 mg Daily metoprolol 25 mg 2 times a day Multivitamin Daily pantoprazole 40 mg Potassium Citrate 1080 mg, 2 times a day rOPINIRole 0.5 mg, 4 times a day Spiriva Respimat 60 ACT 2.5 mcg/inh, 2 puffs, Daily, tadalafil tamsulosin 0.4 mg Daily Vitamin C Daily Vitamin D3 Daily Wixela Inhub 500 mcg-50 mcg, 2 times a day zinc (as acetate) 50 mg Daily /es/ Sheila Maddox MSN RN CNL Primary Care RN Signed: 05/04/2024 08:44 Receipt Acknowledged By: * AWAITING SIGNATURE * SOTO DESAI WILLIAM R [facility]
--- OUTSIDE RECORDS SUMMARY | 2024-05-29 17:47 | XMS_ITS | Continuity of Care Document ---
Author Organization [facility] Address [address] [place] [address]- Care Team Providers Care Manager Bar Name Role Phone Salvatore Heath DO Primary Care Physician Encounter [facility] Date(s): 04/17/24 - 05/17/24 [facility] [address] [place] [address]- Encounter Type: Triage Allergies, Adverse Reactions, Alerts Substance Criticality Severity Reaction Reaction Severity Status cefazolin rash hives Active amoxicillin Diarrhea Diarrhea Active Farxiga 1 Urinary bladder Acti ve Bactrim DS Foggy mind Active Other Environmental Allergy 2 Active 1urinary urgency 2pt sts told allergy to cats, dogs, environmental Immunizations Given and Recorded Vaccine Date Status Refusal Reason RSV vaccine preF3, recombinant 12/15/23 Recorded influenza virus vaccine, inactivated 12/15/23 Sea rded influenza virus vaccine, inactivated 12/28/22 Sea rded influenza virus vaccine, inactivated 01/30/22 Sea rded influenza virus vaccine, inactivated 12/27/18 Sea rded influenza virus vaccine, inactivated 1 01/12/18 Re corded influenza virus vaccine, inactivated 2 01/11/17 Re corded influenza virus vaccine, inactivated 01/05/17 Sea rded influenza virus vaccine, inactivated 01/09/16 Give n influenza virus vaccine, inactivated 3 01/02/15 Gi camila influenza virus vaccine, inactivated 4 12/27/13 Gi camila influenza virus vaccine, inactivated 5 04/11/13 Gi camila influenza virus vaccine, inactivated 01/02/10 Give n SARS-CoV-2 mRNA ([id number]) vax 6 01/13/23 Recorded [id number] bivalent booster vax 03/05/22 Recorded SARS-CoV-2 (COVID-19) mRNA-1273 vaccine 08/30/21 R ecorded SARS-CoV-2 (COVID-19) mRNA-1273 vaccine 03/25/21 R ecorded SARS-CoV-2 (COVID-19) mRNA-1273 vaccine 05/22/20 R ecorded SARS-CoV-2 (COVID-19) mRNA BNT-162b2 vac 7 04/24/20 Recorded Influenza Virus Vaccine (oldterm) 01/18/20 Recorde d Influenza Virus Vaccine (oldterm) 8 12/28/18 Recor ded Influenza Virus Vaccine (oldterm) 01/03/05 Given pneumococcal 13-valent vaccine 07/18/14 Given tetanus/diphtheria/pertussis, acel(Tdap) 04/11/13 Given influ virus vac, H1N1, inactive(oldterm) 9 01/26/11 Given pneumococcal 23-valent vaccine 07/30/10 Given Pneumococcal Vaccine (oldterm) 01/03/05 Given Tetanus Toxoid Vaccine (oldterm) 09/11/03 Given [facility]: [facility] 5Admin Note: 12-16 [place] [facility] [place] 7Result Comment: [facility] at the [place] [facility] 9Admin Note: rcvd elsewhere Problem List Condition Confirmation Course Effective Dates Status Health Status Informant Allergic rhinitis Confirmed Active Anxiety Confirmed Active Asthma 1, 2 Confirmed 06/18/08 Active Atrial Fibrillation Confirmed Active Bronchiectasis since age 19 Confirmed Active Cellulitis of leg Confirmed Active Diabetes mellitus with diabetic neuropathy Confirmed Active Leg wound, left Confirmed Active 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 Erectile dysfunction Confirmed 09/02/06 Active Essential hypertension Confirmed Active FH - Family history 3 Confirmed 12/19/07 Active Tremor of both hands Confirmed Active Hypercholesterolemia Confirmed Active Iron deficiency anemia Confirmed Active Anticoagulant long-term use Confirmed Active Right arm numbness Confirmed Active LES - Obstructive sleep apnea 4 Confirmed 06/18/08 Active Pneumonia Confirmed Active Prostatic hypertrophy Confirmed 04/10/08 Active Restless legs syndrome Confirmed Active Septic shock Confirmed Active Severe obesity Confirmed Active Type 2 diabetes mellitus Confirmed Active Type 2 diabetes mellitus with obesity Confirmed Active 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 The patient's father had lung disease he was a smoker and also had osteoarthritis and a basal cell cancer. Mom may have had congestive heart failure and had arthritis and fractured her hip and had hypertension. One sister has asthma. 4CPAP 12 cm H2O Social History Social History Type Response Smoking Status Former smoker, quit more than 30 days ago entered on: 01/27/24 Sex Sex Representation Male (finding) Patient Care team information Care Team Personnel Name: Tereza Livingston RN Position: [facility] RN Supv Member Role: Primary Care Nurse Name: Parminder Hyman RN Position: S RN Member Role: Primary Care Nurse Name: George Laura RN Position: S RN Member Role: Primary Care Nurse Name: Salvatore Heath DO Position: [facility] Physician - Primary Care Member Role: PCP Address: [address] [place], [place] [id number] Telecom: Name: Brandi Bonilla RN Position: [facility] OB RN Member Role: Primary Care Nurse Name: Sheila Mayer RN Position: [facility] SN RN Member Role: Primary Care Nurse Care Team Related Persons Name: TEJ MILLER Insurance Providers Guarantor name: CHANDRIKA ANGELA Health Plan Information #: 1 Payer: MEDICARE PART B OUTPT Member Number: NA Policy Number: NA Group Number: NA Health Plan Information #: 2 Payer: I10 MEDICARE SUPPL 2NDRY Member Number: NA Policy Number: NA Group Number: NA
--- OUTSIDE RECORDS SUMMARY | 2024-05-29 17:47 | XMS_ITS | Continuity of Care Document ---
Author Organization [facility] Address [address] [place] [address]- Care Team Providers Care Decal Decorator Name Role Phone Salvatore Heath DO Primary Care Physician Encounter [facility] Date(s): 01/27/24 - 05/07/24 [facility] [address] [place] [place] [address] Attending Physician: Estelita Trejo MD Admitting Physician: Estelita Trejo MD Referring Physician: Salvatore Heath DO Encounter Type: Pre-OutPatient One Time Allergies, Adverse Reactions, Alerts Substance Criticality Severity Reaction Reaction Severity Status cefazolin rash hives Active amoxicillin Diarrhea Diarrhea Active Bactrim DS Foggy mind Active Other Environmental Allergy 1 Active Farxiga 2 Urinary bladder Acti ve 1pt sts told allergy to cats, dogs, environmental 2urinary urgency Immunizations Given and Recorded Vaccine Date Status [...] vaccine, inactivated 01/02/10 Give n SARS-CoV-2 mRNA ([id number]) vax 6 01/13/23 Recorded [id number] bivalent booster vax 03/05/22 Recorded SARS-CoV-2 (COVID-19) [...] [facility] 5Admin Note: [facility]-16 [place] [facility] [place] 7Result Comment: [facility] at the [place] 8[facility] Comment[facility] 9Admin Note: rcvd elsewhere [...] Team Personnel Name: Tereza Livingston RN Position: S RN Supv Member Role: Primary Care Nurse Name: Parminder Hyman RN Position: S RN Member Role: Primary Care Nurse Name: George Laura RN Position: S RN Member Role: Primary Care Nurse Name: Salvatore Heath DO Position: S Physician - Primary Care Member Role: PCP Address: [address] [place] [address] Telecom: Name: Brandi Bonilla RN Position: [facility] OB RN Member Role: Primary Care Nurse Name: Sheila Mayer RN Position: [facility] SN RN Member Role: Primary Care Nurse Care Team Related Persons Name: TEJ MILLER Insurance Providers Guarantor name: CHANDRIKA MILLER Health Plan Information #: 2 Payer: I10 MEDICARE SUPPL 2NDRY Member Number: [id number] Policy Number: NA Group Number: [id number] Health Plan Information #: 1 Payer: MEDICARE PART B OUTPT Member Number: [id number] Policy Number: NA Group Number: NA
--- OUTSIDE RECORDS SUMMARY | 2024-05-29 17:47 | XMS_ITS | Continuity of Care Document ---
Author Organization [facility] Brian lt Address [address] [place] [address]- Care Team Providers Care Technical Asst Name Role Phone Salvatore Heath DO Primary Care Physician [phone] [place] [facility] [place]03[place]24 - 05/10/24 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) - 05/02/24 Type 2 diabetes mellitus(Discharge Diagnosis) - 05/02/24 Severe obesity(Discharge Diagnosis) - 05/02/24 Right arm numbness(Discharge Diagnosis) - 05/03/24 Attending Physician: Salvatore Heath DO Encounter Type: Office Visit Allergies, Adverse Reactions, Alerts Substance Criticality Severity [...] vaccine, inactivated 01/02/10 Give n SARS-CoV-2 mRNA ([id number]-wcpp-fzgba) vax 6 01/13/23 Recorded [id number] bivalent booster vax 03/05/22 Recorded SARS-CoV-2 (COVID-19) [...] [facility] [place] [facility] 9Admin Note: rcvd elsewhere [...] sister has asthma. 4CPAP 12 cm H2O Diagnosis Diagnosis Type Effective Dates Health Status Clinical Service Informant Septic shock Discharge Diagnosis 05/02/24 Pneumonia Discharge Diagnosis 05/02/24 Atrial Fibrillation Discharge Diagnosis 05/02/24 Bronchiectasis since age 19 Discharge Diagnosis 05/02/24 Diabetes mellitus with diabetic neuropathy Discharge Diagnosis 05/02/24 Essential hypertension Discharge Diagnosis 05/02/24 Type 2 diabetes mellitus with obesity Discharge Diagnosis 05/02/24 Type 2 diabetes mellitus Discharge Diagnosis 05/02/24 Severe obesity Discharge Diagnosis 05/02/24 Right arm numbness Discharge Diagnosis 05/03/24 Vital Signs Most recent to oldest [Reference Range]: 1 Height 180 cm (05/03/24 3:51 PM) Weight 137 kg (05/03/24 3:51 PM) Oxygen Saturation [94-100 %] 96 % (05/03/24 3:51 PM) Pulse Rate [55-90 bpm] 72 bpm (05/03/24 3:51 PM) Body Mass Index [18.5-24.99 kg/m2] 42.28 kg/m2 *>HHI* (05/03/24 3:51 PM) Blood Pressure [90-138/55-84 mm Hg] 106/ 72mm Hg (05/03/24 3:51 PM) Respiratory Rate [16-30 br/min] 16 br/mi n (05/03/24 3:51 PM) Mode of Delivery (Oxygen) Room air (05/03/24 3:51 PM) Blood pressure sites Arm, left (05/03/24 3:51 PM) Temperature Route Oral (05/03/24 3:51 PM) Weight Obtained Via Standing scale (05/03/24 3:51 PM) Social History Social History Type Response Smoking Status Former smoker, quit more than 30 days ago entered on: 01/27/24 Sex Sex Representation Male (finding) Note * Landy Magana: PERFORM Event Display: Patient Education/Instruction Authored Date: [id number] Ambulatory Adult Visit Summary [facility] Adult [facility] [address] [place] [address] Name: CHANDRIKA MILLER : 1940?? Visit: 05/03/2024 15:37?? Ambulatory Visit Instructions ?? Your Care Team Primary Care Provider Salvatore Heath DO? This Visit Provider Salvatore Heath DO Diagnosis Septic shock Pneumonia Atrial Fibrillation Bronchiectasis since age 19 Diabetes mellitus with diabetic neuropathy Essential hypertension Type 2 diabetes mellitus with obesity Type 2 diabetes mellitus Severe obesity Right arm numbness 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 Vitals Signs Pulse Rate: 72 bpm Height: 180 cm Respiratory Rate: 16 br/min Weight: 137 kg Systolic Blood Pressure: 106 mm Hg Body Mass Index:??42.28 kg/m2??Critical Diastolic Blood Pressure: 72 mm Hg Body surface area: 2.62 Oxygen Saturation: 96 % ?? What to do next Instructions From Your Provider BP at goal continue current plan check BP at home and bring to next visit Con't current medication Labs today?? elevated legs?? Call if gain > 2lbs 2 days in a row or 5 lbs in one day? followup if leg swelling or Shortness or breath??worsens changes or fails to resolve? Scheduled Follow-Up Appointments Wednesday 8:50 AM EST ?? With: Salvatore Heath DO Where: [facility] [address] [place] [address]- Status: Pending 2024 9:30 AM EST ?? With: Mylene Carrington Where: [facility] [address] [place] [address]- Status: Pending Follow-Up Appointments Follow Up with??f/u 1 month Why: Keep MW visit 05/31 Follow Up with??PCP 1 month Future Orders Comprehensive Metabolic Panel - Routine, Once, 07/30/23 3:00:00 EDT, Future Order, [facility], Blood?? Lipid Panel - Routine, Once, 07/30/23 3:00:00 EDT, Future Order, [facility], Blood?? Hemoglobin A1C (Monitoring) - Routine, Once, 07/30/23 3:00:00 EDT, Future Order, [facility], Blood?? Microalbumin Urine (Urine Microalbumin) - Routine, Once, 07/30/23 3:00:00 EDT, [facility], Urine?? CBC w/ Differential - Routine, Once, 07/30/23 3:00:00 EDT, Future Order, [facility], Blood?? Hepatic Function Panel - Routine, Once, 12/15/23 3:00:00 EDT, Future Order, [facility], Blood?? Hemoglobin A1C (Monitoring) (Hgb A1C (Monitoring)) - Routine, Once, 12/29/23 10:49:00 EDT, Order for Today, [facility], Blood?? Microalbumin Urine - Routine, Once, 12/29/23 10:49:00 EDT, Order for Today, [facility], Urine?? CBC w/ Differential - Routine, Once, 05/03/24 16:39:00 EST, Order for Today, [facility], Blood?? Comprehensive Metabolic Panel - Routine, Once, 05/03/24 16:39:00 EST, Order for Today, [facility], Blood?? Hemoglobin A1C (Monitoring) (Hgb A1C (Monitoring)) - Routine, Once, 05/03/24 16:39:00 EST, Order for Today, [facility], Blood?? Medications The list below reflects the information in our records and provided by you today along with any changes made during this visit. Please continue your medications until treatment is completed or stopped by your provider. If this is different from the information you have or there are other questions,please contact the prescribing provider. What How Much When Why Instructions Changed Metoprolol (metoprolol 25 mg oral tablet) 1 tab(s) Oral Twice a day Pickup at [facility] Unchanged Albuterol (Albuterol (Eqv-ProAir HFA)) Inhalation PRN ?? Unchanged Allopurinol 300 Milligram Oral Daily Unchanged Alprazolam Oral Unchanged Ammonium Lactate 12% (ammonium lactate 12% topical lotion) 1 luan Topically Twice a day Duration: 14 Days apply and rub in well ?? Unchanged apixaban (Eliquis 5 mg oral tablet) 1 tab(s) Oral Twice a day Duration: 30 Days Unchanged Ascorbic Acid (Vitamin C) Oral Daily Unchanged Atorvastatin (atorvastatin 40 mg oral tablet) 1 tab(s) Oral Daily Unchanged Cholecalciferol (Vitamin D3 2000 intl units oral capsule) 1 capsule Oral Daily Unchanged Durable Medical Equipment (1 pair wrap-around compression stockings knee high bilateral) See instructions 1 pair wrap around knee high compression stockings bilateral use as directed Length of need Lifetime height 180 cm weight 158.4 dx lower extremity edema, venous insufficiency. Icd 10 R60.0 R06.00 ?? Unchanged Durable Medical Equipment (Aquacel Ag) See instructions Wound of right leg Leg wound, left Use as directed ?? Unchanged Durable Medical Equipment (Compression Stockings) See instructions Knee high, 20-30 mmHg compression DX: ??Venous insufficiency edema use as directed ?? Unchanged Durable Medical Equipment (CPAP Equipment) See instructions CPAP SUPPLIES MASK, TUBING, FILTERS, HEADGEAR AND WATER CHAMBER DX: LES ?? Unchanged Durable Medical Equipment (Heavy duty bariatric rollator walker with large seat and breaks) See instructions Balance problem Use as directed DX: Balance problems ??R26.81 Height: 5'11 Weight 340lbs. Length of need: Lifetime ?? Unchanged Durable Medical Equipment (Wheelchair) See instructions HEIGHT: 6'0 WEIGHT: 362 LBS DX: all, gait weakness, imbalance, severe obesity ?? Unchanged Fluticasone-Salmeterol (Wixela Inhub 500 mcg-50 mcg inhalation powder) 1 inhalation Inhalation Twice a day rinse mouth and throat after use, j44.9 ?? Unchanged Furosemide (Lasix 40 mg oral tablet) 1 tab(s) Oral Daily Unchanged Gabapentin 900 Milligram Oral Unchanged HydroCORTisone 2.5 Milligram PRN ?? Unchanged Multivitamin Oral Daily Unchanged Pantoprazole (pantoprazole 40 mg oral delayed release tablet) 1 tab(s) Unchanged Potassium Citrate 1,080 Milligram Oral Twice a day Unchanged Ropinirole (rOPINIRole 0.5 mg oral tablet) 1 tab(s) Oral 4 times a day Unchanged tadalafil Oral Here and there ?? Unchanged Tamsulosin (tamsulosin 0.4 mg oral capsule) 1 capsule Oral Daily Unchanged Tiotropium (Spiriva Respimat 60 ACT 2.5 mcg/ inh inhalation aerosol) 2 puff(s) Inhalation Daily Duration: 30 Days Unchanged Zinc Acetate (zinc (as acetate) 50 mg oral capsule) 1 capsule Oral Daily Pharmacy Information [facility]: [address], [place] [id number] [phone] Test Performed Below is a partial list of the tests performed during your Visit. You may have had other tests and procedures not included in this list. Please discuss all test results with your provider. CBC w/ Differential?-- Results Pending -- Comprehensive Metabolic Panel?-- Results Pending -- Hgb A1C (Monitoring)?-- Results Pending -- Medications and Immunizations Administered Medications Given During Visit No medications given during this visit.?? Allergies (NKA means No Known Allergies) Bactrim DS??(Foggy mind) Farxiga??(Urinary bladder) Other Environmental Allergy amoxicillin??(Diarrhea, Diarrhea) cefazolin??(rash, hives) Common Emergency Awareness Tips IS IT A STROKE? Act FAST and Check for these signs: FACE Does the face look uneven? ARM Does one arm drift down? SPEECH Does their speech sound strange? TIME Call at any sign of stroke ?? Heart Attack Signs Chest discomfort: Most heart attacks involve discomfort in the center of the chest and lasts more than a few minutes, or goes away and comes back. It can feel like uncomfortable pressure, squeezing, fullness or pain. Discomfort in upper body: Symptoms can include pain or discomfort in one or both arms, back, neck, jaw or stomach. Shortness of breath: With or without discomfort. Other signs: Breaking out in a cold sweat, nausea, or lightheaded. Remember, MINUTES DO MATTER. If you experience any of these heart attack warning signs, call to get immediate medical attention! ?? Smoking can increase your chances of developing chronic health problems and can cause harmful effects to other family members in your house. If you smoke, you are strongly encouraged to quit. Please call [facility] at [phone] or [phone] ([phone]) or log in to [email or web address] for referrals to smoking cessation programs. ?? The National Suicide Prevention Hotline is available 26/10 if you or someone you know needs to find a reason to keep living. By calling 4-036-439-TradeHero (4794) you'll be connected to a skilled, trained counselor at a crisis center in your area. [facility] Portal You can view and manage your care through the patient portal or by using a health care luan of your choosing. [facility] is a website that allows you to securely view your medical information including your hospital discharge summary, office visit summaries, medications and follow-up visits. You can also request appointments, renew medications, and request access to your medical information using a health care luan of your choosing, or just ask a question. You can enroll at [email or web address] or register during your next office visit. [facility], in keeping with [facility] guidance, no longer requires face masks for staff, patientsor visitors in most situations. Similiar to time spent indoors at other locations, there is the chance that you were exposed to repiratory viruses during your time with us (such as flu or COVID-19). If you develop symptoms concerning for a viral respiratory infection, please seek testing (and treatment if indicated) from your medical provider or home test kit. ?? Disclaimer: The information provided is of a general nature and is intended to be used in conjunction with the recommendations and advice of your health care practitioner. Every effort has been made to ensure that the information provided is accurate and complete at the time it is provided to you however, as your needs change, or, as new information becomes available, different or additional instructions may be required. ?? If you have questions, please consult with your primary care provider or pharmacist, as appropriate. This information is not intended to serve as substitution for assessment and evaluation by a qualified health care provider. If you do not have a primary care provider, you may find a [facility] provider by calling [facility] at [phone]. Patient Care team information Care Team Personnel Name: Tereza Livingston RN Position: [facility] RN Supv Member Role: Primary Care Nurse Name: Parminder Hyman RN Position: S RN Member Role: Primary Care Nurse Name: George Laura RN Position: S RN Member Role: Primary Care Nurse Name: Salvatore Heath DO Position: [facility] Physician - Primary Care Member Role: PCP Address: [address] [place] [id number] Telecom: Name: Brandi Bonilla RN Position: [facility] OB RN Member Role: Primary Care Nurse Name: Sheila Mayer RN Position: [facility] SN RN Member Role: Primary Care Nurse Care Team Related Persons Name: TEJ MILLER Insurance Providers Guarantor name: CHANDRIKA MILLER Health Plan Information #: 1 Payer: MEDICARE PART B OUTPT Member Number: [id number] Policy Number: NA Group Number: NA Health Plan Information #: 2 Payer: I10 MEDICARE SUPPL 2NDRY Member Number: [id number] Policy Number: NA Group Number: [id number] Health Plan Information #: 3 Payer: [facility] [facility] Member Number: [id number] Policy Number: NA Group Number: NA
--- OUTSIDE RECORDS SUMMARY | 2024-05-29 17:47 | XMS_ITS | Continuity of Care Document ---
Author Organization [facility] Brian lt Address [address] [place] [address]- Care Team Providers Care Store Leader Name Role Phone Salvatore Heath DO Primary Care Physician [phone] En[place] [facility] [place] 04/25/24 - 05/25/24 [facility] Adult [address] [place] [address]- Encounter Type: Triage Allergies, Adverse Reactions, Alerts [...] vaccine, inactivated 01/02/10 Give n SARS-CoV-2 mRNA (tlxhwow-qbvl-psezn) vax 6 01/13/23 Recorded [id number] bivalent booster vax 03/05/22 Recorded SARS-CoV-2 (COVID-19) [...] [facility]: [facility] [place] [facility] [place] [facility] [facility] [place] [facility] [place] 8[facility] 9Admin Note: rcvd elsewhere [...] Team Personnel Name: Tereza Livingston RN Position: [facility] RN Supv Member Role: Primary Care Nurse Name: Parminder Hyman RN Position: S RN Member Role: Primary Care Nurse Name: George Laura RN Position: S RN Member Role: Primary Care Nurse Name: Salvatore Heath DO Position: [facility] Physician - Primary Care Member Role: PCP Address: [address] [place] [address] Telecom: Name: Brandi Bonilla RN Position: [facility] OB RN Member Role: Primary Care Nurse Name: Sheila Mayer RN Position: [facility] SN RN Member Role: Primary [...]
--- OUTSIDE RECORDS SUMMARY | 2024-05-29 17:47 | XMS_ITS | Continuity of Care Document ---
Author Organization [facility] Brian lt Address [address] [place] [address]- Care Team Providers Care Bung Driver Name Role Phone Salvatore Heath DO Primary Care Physician Encounter [facility] [place] Date(s): 04/11/24 - 05/11/24 [facility] Adult [address] [place] [address]- Encounter Type: Triage Allergies, Adverse Reactions, Alerts Substance Criticality Severity Reaction Reaction Severity Status cefazolin rash hives Active amoxicillin Diarrhea Diarrhea Active Bactrim DS Foggy mind Active Farxiga 1 Urinary bladder Acti ve Other Environmental Allergy 2 Active 1urinary urgency [...] vaccine, inactivated 01/02/10 Give n SARS-CoV-2 mRNA (gdlvlqo-anax-ricmd) vax 6 01/13/23 Recorded [id number] bivalent booster vax 03/05/22 Recorded SARS-CoV-2 (COVID-19) [...] [facility]: [facility] 5[place] [place] [facility] [place] [facility] [place] 8[facility] 9Admin Note: rcvd elsewhere [...] Team Personnel Name: Tereza Livingston RN Position: [facility] RN Supv Member Role: Primary Care Nurse Name: Parminder Hyman RN Position: S RN Member Role: Primary Care Nurse Name: George Laura RN Position: S RN Member Role: Primary Care Nurse Name: Salvatore Heath DO Position: [facility] Physician - Primary Care Member Role: PCP Address: [address] [place] [address] Telecom: Name: Brandi Bonilla RN Position: [facility] [...]
--- OUTSIDE RECORDS SUMMARY | 2024-05-29 17:47 | XMS_ITS ---
Author Organization [facility] Address [address] [place] [address] Care Team Providers Care Duco Polisher Name Role Phone Salvatore Heath Primary Care Provider José Ryder [phone] REASON FOR VISIT rs from 02/09/24 t Encounters Encounter Location Date Provider Diagnosis [address] [address] 02/04/2024 José Cook Plan Of Treatment Next Appt Details Provider Name:Aiyana camilo, 06/20/2024 03:00:00 PM, [address] [place] [address], [phone], Progress Notes * Soto MILLERDOB:1940 (83 yo M)Acc No.[id number]:02/04/2024 Patient:?Soto Miller :1940???Age:83 Y???Sex:Male Address:[address] [place] [address], [phone] * true * Date:? Generated for Printi ng/Faxing/eTransmitting on:?05/29/2024 05:47 PM EST
--- OUTSIDE RECORDS SUMMARY | 2024-05-29 17:47 | XMS_ITS | Continuity of Care Document ---
Author Organization [facility] Brian lt Address [address] [place] [address]- Care Team Providers Care Risk Assessor Name Role Phone Salvatore Heath DO Primary Care Physician [phone] Encounter [facility] [place] Date(s): 04/28/24 - 05/28/24 [facility] Adult [address] [place] [address]- Encounter Type: Triage Allergies, Adverse Reactions, Alerts [...] vaccine, inactivated 01/02/10 Give n SARS-CoV-2 mRNA (zoeewqe-wxok-bdayl) vax 6 01/13/23 Recorded [id number] bivalent booster vax 03/05/22 Recorded SARS-CoV-2 (COVID-19) [...] [facility]: GOT AT [facility]: [place] [facility] [place] [facility] [place] [facility]: [facility] Problem List Condition Confirmation Course Effective Dates Status Health Status Informant Allergic rhinitis Confirmed Active Anxiety Confirmed Active Asthma 1, 2 Confirmed 06/18/08 Active Atrial Fibrillation Confirmed Active Bronchiectasis since age 19 Confirmed Active Diabetes mellitus with diabetic neuropathy [...] Obstructive sleep apnea 4 Confirmed 06/18/08 Active Medicare annual wellness visit, subsequent Confirmed Active Pneumonia Confirmed Active Prostatic hypertrophy Confirmed [...] Team Personnel Name: Tereza Livingston RN Position: [facility] RN Supv Member Role: Primary Care Nurse Name: Parminder Hyman RN Position: S RN Member Role: Primary Care Nurse Name: George Laura RN Position: S RN Member Role: Primary Care Nurse Name: Salvatore Heath DO Position: S Physician - Primary Care Member Role: PCP Address: [address] [place] [address] Telecom: Name: Brandi Bonilla RN Position: [facility] OB RN Member Role: Primary Care Nurse Name: Sheila Mayer RN Position: [facility] SN RN Member Role: Primary Care [...]
--- OUTSIDE RECORDS SUMMARY | 2024-05-29 17:47 | XMS_ITS | Continuity of Care Document ---
Author Organization [facility] Address [address] [place] [address]- Care Team Providers Care Paramedic Name Role Phone Salvatore Heath DO Primary Care Physician [place] [facility] [place] 05/13/24 [facility] [address] [place], [place] [address] Encounter Type: Triage Allergies, Adverse Reactions, Alerts [...] vaccine, inactivated 01/02/10 Give n SARS-CoV-2 mRNA (ggjgqnt-mwvd-yukvr) vax 6 01/13/23 Recorded [id number] bivalent booster vax 03/05/22 Recorded SARS-CoV-2 (COVID-19) [...] [facility] Note: GOT AT [facility] 5Admin [place]: [place] [place] [facility] [place] [facility] Comment[facility] at [facility] [place] 8[facility] 9Admin Note: rcvd elsewhere [...] Team Personnel Name: Tereza Livingston RN Position: [facility] RN Supv Member Role: Primary Care Nurse Name: Parminder Hyman RN Position: S RN Member Role: Primary Care Nurse Name: George Laura RN Position: S RN Member Role: Primary Care Nurse Name: Salvatore Heath DO Position: [facility] Physician - Primary Care Member Role: PCP Address: [address] [place], [place] [id number] Telecom: Name: Brandi Bonilla RN Position: [facility] OB RN Member Role: Primary Care Nurse Name: Sheila Mayer RN Position: [facility] SN RN Member Role: Primary [...]
--- OUTSIDE RECORDS SUMMARY | 2024-05-29 17:47 | XMS_ITS ---
Author Organization [facility] Address [address] [place] [address] Care Team Providers Care Survey Supervisor Name Role Phone Salvatore Heath Primary Care Provider José Ryder Unavailable [phone] Aiyana Fong [phone] Encounters Encounter Location Date Provider Diagnosis [address] [address] 02/09/2024 Aiyana Fong Plan Of Treatment Next Appt Details Provider Name:Aiyana camilo, 06/20/2024 03:00:00 PM, [address] [place], [address], Progress Notes * Soto MILLERDOB:1940 (84 yo M)Acc No.[id number]:02/09/2024 Progress Note Patient:?Soto MILLER Provider:?Aiyana Fong DPM :1940???Age:83 Y???Sex:Male Gigi e:02/09/2024 Address:[address] [place] [id number] Pcp:Salvatore Heath Subjective: * Chief Complaints: * ??? * Medical History:? Objective: * Vitals:? Assessment: Plan: * Treatment: * Images: * The named appointment provid er may or may not be the originator of this progress note, and it is not deemed complete until electronically signed by the appointment provider. Sign off status: Pending * Provider:?Aiyana Fong DPM Date:?09/2023 Generated for Anmol busby/Rohini/Genaroitting on:?05/29/2024 05:47 PM EST
--- OUTSIDE RECORDS SUMMARY | 2024-05-29 17:47 | XMS_ITS | Encounter Summary ---
Author Name [facility] Organization [facility] Address [address] [place] [id number] Care Team Providers Care Blanket Folder Name Role Phone DESAI, SOTO Primary Care Provider Unavaila ble Insurance Providers: [...] Apr 05, 2007 MEDICAR E SUPPLEM E [id number] [phone] MILLER,WILL MATTEO PATIENT [employer] [place] MEDICARE SUPPLEMEN JUAN BANKE RS Apr 05, 2007 NONE [id number] [phone] MILLER,WILL MATTEO PATIENT MEDICARE (WNR) MEDICARE (M) PART A Apr 05, 2007 PART A [id number] [phone] MILLER,WILL MATTEO PATIENT MEDICARE (WNR) MEDICARE (M) PART B Apr 05, 2007 PART B [id number] MILLER,WILL MATTEO PATIENT MEDICARE (WNR) MEDICARE (M) PART A Apr 05, 2007 PART A [id number] MILLER,WILL MATTEO PATIENT MEDICARE (WNR) MEDICARE (M) PART B Apr 05, 2007 PART B [id number] MILLERAREN PATIENT Selected Encounter This section includes the information on record at [place] for the Encounter. Date/Time Encounter Type Encounter Description Reason Provider Source Jul 29, 2023 02:00 PM OFFICE O/P EST MOD 30 MIN PRIMARY CARE/MEDICINE ICD-10-CM G25.81 Restless legs syndrome ANNA DESAI AM IHE Encounter Template Text not used by [place] Assessments - Encounter Diagnoses This section includes the primary and secondary diagnoses documented for the Encounter. Date/Time Primary/Secondary Diagnosis Diagnosis Name Provider Source August 07, 2023 12:14 PM PRIMARY Restless legs syndrome DESAIAREN [facility] August 07, 2023 12:14 PM SECONDARY Mild intermittent asthma with (acute) exacerbation DESAIAREN [facility] Ari [facility] August 07, 2023 12:14 PM SECONDARY Unspecified atrial fibrillation DESAIAREN [facility] Plan of Treatment: Future Appointments (+ 6 months) and Future Tests (+/- 45 days) The Plan of Treatment section includes future care activities for the patient from all [place] treatmentfacilities. This section includes future appointments and future orders which are active, pending or scheduled. Future Appointments This section includes appointments that were scheduled to occur 6 months from the date of the Encounter, up to a maximum of 20 appointments. The data comes from all [place] treatment facilities. Appointment Date/Time Appointment Type Appointme nt Facility Name Jan 28, 2024 02:00 PM AMBULATORY - MEDICINE [facility] Lab Results: +/- 30 days of the encounter This section includes the Chemistry and Hematology Lab Results on record with [place] for the patient. Radiology Reports and Pathology Reports are provided separately, in subsequent sections. Lab Results This section contains the Chemistry/Hematology Results that were resulted 30 days before or 30 daysafter the date of the Encounter. Date/Time Source Result Type Result - Unit Interpretation Reference Range Comment Jul 20, 2023 09:06 AM [facility] PT & INR (PROTIME) Specimen Type: PLASMA No comment entered. Ordering Provider: ANNA DESAI AM Report Released Date/Time: Jul 15, 2023 11:55 AM Reporting [facility] [address] [facility] [address] Performing Lab: [facility] [address] [facility] [address] INR 1.6 PROTIME 17.5 s H 10.0-13.1 Jul 20, 2023 09:06 AM [facility] LIPID PANEL, NON FASTING Specimen Type: SERUM No comment entered. Ordering Provider: ANNA DESAI AM Report Released Date/Time: Jul 15, 2023 11:55 AM Reporting Lab: [facility] [address] [facility] [facility] [address] Performing Lab: [address] [address] CHOLESTEROL 119 mg/dL TRIGLYCERIDE 52 mg/dL 0-150 LDL calculated 62 mg/dL 0-129 CHOL/HDL 2.5 HDL CHOLESTEROL 47 mg/dL 40-60 Jul 20, 2023 09:06 AM [facility] BASIC METABOLIC PANEL (non-fasting) Specimen Type: SERUM No comment entered. Ordering Provider: ANNA DESAI AM Report Released Date/Time: Jul 15, 2023 11:55 AM Reporting Lab: [facility] [address] [facility] [address] Performing Lab: [address] [address] UREA NITROGEN 25 mg/dL 7-25 GLUCOSE 118 mg/dL H 65-100 SODIUM 138 mmol/L 135-145 POTASSIUM 4.2 mmol/L 3.5-5.0 CHLORIDE 102 mmol/L 100-110 CO2 28 meq/L 20-30 CREATININE, Serum 0.85 mg/dL 0.50-1.40 eGFR(CKD-EPI 2020) 87 mL/min >60 Jul 20, 2023 09:06 AM [facility] CBC Specimen Type: BLOOD No comment entered. Ordering Provider: ANNA DESAI AM Report Released Date/Time: Jul 15, 2023 11:55 AM Reporting Lab: [address] [address] Performing Lab: [address] [address] WBC 6.78 10*3/uL 4.50-11.00 RBC 3.89 10*6/uL L 4.23-5.66 HGB 13.7 g/dL 12.8-17 HCT 40.8 39.2-50.4 MCV 104.9 fL H 82-99 MCHC 33.6 g/dL 30.8-35.1 PLT 131 10*3/uL L 140-360 RDW-CV 13.4 12.0-16.0 MCH 35.2 pg H 26.2-32.6 Jul 20, 2023 09:06 AM [facility] LIVER FUNCTION Specimen Type: SERUM No comment entered. Ordering Provider: ANNA DESAI AM Report Released Date/Time: Jul 15, 2023 11:55 AM Reporting Lab: [address] [address] Performing Lab: [address] [address] PROTEIN,TOTAL 6.7 g/dL 6.0-8.3 ALBUMIN 3.4 g/dL L 3.5-5.0 ALKALINE PHOSPHATASE 127 U/L 40-150 AST 17 U/L 5-34 ALT 14 U/L BILIRUBIN, TOTAL 1.9 mg/dL H 0.2-1.2 BILIRUBIN, DIRECT 0.7 mg/dL H 0-0.5 Jul 20, 2023 09:05 AM [facility] HEMOGLOBIN A1C PANEL Specimen Type: BLOOD Comment: Values obtained from A1C measurements can vary. For atypical A1C assays, a reported value of 7.0 could actually be between 6.72 and 7.28 if measured by a reference method. A reported value of 9.0 could actually be between 8.73 and 9.27. Ref: http://www.ngs p.org/CAPdata. asp Ordering Provider: ANNA DESAI AM Report Released Date/Time: Jul 19, 2023 08:18 AM Reporting Lab: [address] [address] Performing Lab: [facility] [place] [facility] [address] [facility] [address] HEMOGLOBIN A1C 6.4 H 4.0-5.6 Vital Signs: All taken on the encounter date This section contains inpatient and outpatient Vital Signs collected on the date of the Encounter. Date/Time Temperature Pulse Blood Pressure Respiratory Rate SP02 Pain Height Weight Body Mass Index Source Jul 29, 2023 01:54 PM 98 77 98/50 20 98 5 71 344 48 [facility] [place] [facility] Social History: Smoking Status (Most current) and Tobacco Use (All prior to encounter date) This section includes the most current, and the historical, smoking and tobacco- related health factors from the [place] facility where the Encounter took place. Current Smoking Status This section includes the most current smoking, or tobacco-related health factor, from the [place] facility where the Encounter took place. Date/Time Current Smoking Status Comment [facility] it Jul 29, 2023 02:00 PM VA-TOBACCO FORMER USER [facility] [place] [facility] Tobacco Use History This section includes a history of the smoking, or tobacco-related health factors, that were collected on or before the date of the Encounter. The data comes from the [place] facility where the Encounter took place. Date/Time Smoking Status/Tobac co Use Comment Facility Jul 29, 2023 02:00 PM VA-TOBACCO QUIT 15 YRS OR MORE [facility] [place] [facility] Jul 09, 2022 02:00 PM VA-TOBACCO NEVER USED [facility] [place] [facility] Jul 10, 2021 02:30 PM VA-TOBACCO FORMER USER [facility] [place] [facility] Jul 10, 2021 02:30 PM VA-TOBACCO QUIT 15 YRS OR MORE [facility] [place] [facility] May 28, 2020 10:30 AM VA-TOBACCO FORMER USER [facility] [place] [facility] May 28, 2020 10:30 AM VA-TOBACCO QUIT 15 YRS OR MORE [facility] [place] [facility] May 21, 2019 08:03 AM VA-TOBACCO FORMER USER [facility] [place] [facility] May 21, 2019 08:03 AM VA-TOBACCO QUIT 15 YRS OR MORE [facility] [place] [facility] May 24, 2018 11:31 AM VA-TOBACCO FORMER USER [facility] [place] [facility] May 24, 2018 11:31 AM VA-TOBACCO QUIT 15 YRS OR MORE [facility] [place] [facility] Mar 09, 2017 10:08 AM QUIT TOBACCO USE > 7 YEARS AGO [facility] [place] [facility] Feb 19, 2016 10:24 AM QUIT TOBACCO USE > 7 YEARS AGO quit 40 yrs [facility] [place] [facility] Mar 08, 2015 01:01 PM QUIT TOBACCO USE > 7 YEARS AGO 40 yrs ago [facility] [place] [facility] Feb 02, 2007 10:39 AM QUIT TOBACCO USE > 7 YEARS AGO quit 40 years [facility] Encounter Notes: All associated encounter notes This section contains the clinical notes associated to the Encounter. Date/Time Encounter Note(s) Provider Source Sep 24, 2023 09:29 AM PRIMARY CARE TELEPHONE ENCOUNTER NOTE: LOCAL TITLE: TELEPHONE NOTE/PRIMARY CARE STANDARD TITLE: PRIMARY CARE TELEPHONE ENCOUNTER NOTE DATE OF NOTE: SEP 24, 2023@09:29 ENTRY DATE: SEP 24, 2023@09:29:29 AUTHOR: SHEILA BARBA EXP COSIGNER: URGENCY: STATUS: COMPLETED Taken from , system error unable to save note: Message 09/24/[address] Desai: I I now require men?s diapers . How do I go about getting them size 56. To 66 I have had PT for the past year. Now I was I was seen by [facility] I could not lift my right Leg. They have ordered PT for my right hip on 09/13. Also saw my primary for Celulitis both legs today.. My local. Doctor was not happy with my. Blood Work Vet had sent several SMs which were not understood by RN. RN contacted Vet via phone to understand concerns/requests Vet has concerns for medication renewals, explained process through [facility] as far as setting refills and requesting renewals. Also provided RN direct ext with any concerns. Vet will send SM later today with any medications needed as he will review pill box first. Vet also expressed his recent labs at community PCP office were concerning, will alert PCP to this. It is unclear if additional labs were viewed by community PCP. Vet also asks about obtaining incontinance briefs, pull up style for his waist size. Sizes discussed, he reports frequency of using 4 per day. Order entered HFS by PCP as this is a new item for Vet. Will alert PCP to above message from Vet as FYI. /eliu/ Sheila ROPER RN DANAY Primary Care RN Signed: 09/24/2023 09:34 Receipt Acknowledged By: 09/24/2023 12:49 /LILLIANA Crouch DNP, CNL Primary Care Nurse Practitioner SHEILA BARBA [facility] Sep 20, 2023 07:20 AM ACCOUNTING OF DISCLOSURES NOTE: LOCAL TITLE: STATE PRESCRIPTION DRUG MONITORING PROGRAM STANDARD TITLE: ACCOUNTING OF DISCLOSURES NOTE DATE OF NOTE: SEP 20, 2023@07:20:33 ENTRY DATE: SEP 20, 2023@07:20:33 AUTHOR: SOTO DESAI EXP COSIGNER: URGENCY: STATUS: COMPLETED This PDMP query was submitted by Soto Desai SCUBA DIVER. The clinical justification for this PDMP query is to review controlled substances prescribed outside of the [facility], and any additional information that may become available, as an important component of standard clinical care, and in accordance with [facility] policy. Patient information was shared with the PDMP [place]. Prescription(s) filled outside the [facility] in the last 90 days are noted. However, they do not raise significant safety concerns and do not influence the treatment plan at this time. see /eliu/ LILLIANA Arthur DNP, DANAY Primary Care Nurse Practitioner Signed: 09/20/2023 07:[address] [facility] Jul 29, 2023 02:21 PM PRIMARY CARE NURSE PRACTITIONER OUTPATIENT NOTE: LOCAL TITLE: NURSE PRACTITIONER OUTPATIENT NOTE STANDARD TITLE: PRIMARY CARE NURSE PRACTITIONER OUTPATIENT NOTE DATE OF NOTE: JUL 29, 2023@14:21 ENTRY DATE: JUL 29, 2023@14:21:28 AUTHOR: SOTO DESAI EXP COSIGNER: URGENCY: STATUS: COMPLETED Chief complaint: Patient is a 83 year old [place]. HPI: Pleasant male here to follow up. He is followed in the community, PCP, Nettie Jolly SCUBA DIVER at [facility], Dr Mullen cardiology. [facility] pulm. Allergies: CEFAZOLIN The following VA and Non-VA meds were reconciled with patient. The patient was educated on the use of the medications including indication and side effects. Active and Recently Outpatient Medications (excluding Supplies): Active Outpatient Medications Status = 1) ALBUTEROL 3/IPRATROP 0.5MG/3ML INHL 3ML INHALE 1 VIAL ACTIVE (3ML) IN NEBULIZER FOUR TIMES DAILY NEEDED FOR BREATHING 2) ALBUTEROL 90MCG (CFC-F) 200D ORAL INHL INHALE 2 PUFFS ACTIVE BY MOUTH EVERY 4 HOURS NEEDED 3) ALLOPURINOL 300MG TAB TAKE ONE TABLET BY MOUTH DAILY ACTIVE 4) APIXABAN 5MG TAB TAKE ONE TABLET BY MOUTH TWICE DAILY ACTIVE 5) ATORVASTATIN CALCIUM 40MG TAB TAKE ONE TABLET BY ACTIVE MOUTH ONCE DAILY FOR CHOLESTEROL 6) FLUTICAS 500/SALMETEROL 50 INHL DISK 60 INHALE 1 PUFF ACTIVE (S) BY MOUTH TWICE DAILY - RINSE MOUTH AFTER USE 7) GABAPENTIN 300MG CAP TAKE THREE CAPSULES BY MOUTH ACTIVE THREE TIMES A DAY 8) LOSARTAN 25MG TAB TAKE ONE TABLET BY MOUTH ONCE DAILY ACTIVE (S) FOR BLOOD PRESSURE/HEART 9) METOPROLOL TARTRATE 100MG TAB TAKE ONE TABLET BY ACTIVE MOUTH TWICE DAILY FOR BLOOD PRESSURE/HEART 10) POTASSIUM CITRATE 10MEQ SA TAB TAKE ONE TABLET BY ACTIVE MOUTH TWICE DAILY 11) ROPINIROLE HCL 0.5MG TAB TAKE TWO TABLETS BY MOUTH ACTIVE (S) EVERY AFTERNOON NEEDED AND TAKE THREE TABLETS AT BEDTIME 12) TAMSULOSIN HCL 0.4MG CAP TAKE ONE CAPSULE BY MOUTH AT ACTIVE BEDTIME Inactive Outpatient Medications Status = 1) FUROSEMIDE 40MG TAB TAKE ONE TABLET BY MOUTH ONCE DAILY TO REMOVE FLUID/CONTROL BLOOD PRESSURE Active Non-VA Medications Status = 1) Non-VA CHOLECALCIF 25MCG (D3-1,000UNIT) TAB 2000UNIT ACTIVE BY MOUTH DAILY 2) Non-VA COENZYME Q10 CAP/TAB 200MG BY MOUTH DAILY ACTIVE 3) Non-VA MULTIVITAMIN/MINERALS CAP/TAB 1 TABLET BY ACTIVE MOUTH DAILY 4) Non-VA TIZANIDINE HCL TAB DIRECTED BY MOUTH ACTIVE DIRECTED 5) Non-VA TRIAMCINOLONE ACETONIDE 0.1% CREAM THIN LAYER ACTIVE TOPICALLY TWICE DAILY NEEDED 18 Total Medications Review of Systems: Constitutional: (-)for Fevers, chills, weakness, nights sweats On examination: 98 F [36.7 C] (07/29/2023 13:54)98/50 (07/29/2023 13:54)77 (07/29/2023 13:54)20 (07/29/2023 13:54)5 (07/29/2023 13:54)BMI: 48.1344 lb [156.04 kg] (07/29/2023 13:54) is alert and oriented X3 Cardiovasc: 2plus carotids without bruits, no JVD Heart Reguler rate and irreg rhythm NL S1S2 no S3 or murmur Respiration: Normal respiratory effort, some bilat wheezing ABD: Benign normal active bowel sounds no HSM no rebound or referred pain EXT: 2+ bilat lower ext edema. CMS intact. All diagnostics from past month were reviewed with patient. Assessment/plan: Active problems - Computerized Problem List is the source for the followin. Restless legs - stable on ropinirole 2. Atrial fibrillation - rate controlled 3. Parkinson's disease - was following with neurology, presently sx stable on current medication 4. Obstructive sleep apnea syndrome - uses CPAP 5. History of lung lobectomy (SNOMED CT [id number]) - Follows non va pulm, stable. He has nebulizer alb, suggested using 1-2 times per day and as needed. 6. edema - recent ECHO, he was told stable. Was seen by vascular, being monitored Review of medial record = 5mins Time spent with Patient including shared decision making = 20 mins Post visit documentation = 5mins Total time = 30 mins Follow up visit in 6 mos. Alert to PACT RN - Labs as necessary to address clinical status. Medication Reconciliation: Outpatient: Has the patient been taking medications as documented in the EMLR? YES: The patient has been taking medications as documented in the EMLR. Essential Medication List for Review used to complete this medication reconciliation. INCLUDED IN THIS LIST: Alphabetical list of active outpatient prescriptions dispensed from this [place] (local) and dispensed from another [place] or [facility] facility (remote) as well as inpatient orders (local, pending and active), local clinic medications, locally documented non-VA medications, and local prescriptions that have or been discontinued in the past 90 days. - All changes in medications, including all non-VA/Herbal/OTC medications were entered into CPRS. - If there were any medications the patient should no longer take, they were discontinued. - The patient/caregiver was instructed to update this list, discard old lists, and take this list to the next appointment, whether with a VA or non-VA provider. /eliu/ Soto Desai [facility], OPTIMIZATION CONSULTANT-, CNL Primary Care Nurse Practitioner Signed: 07/29/2023 14:34 SOTO DESAI [facility] [place] [facility] Jul 29, 2023 02:02 PM PREVENTIVE MEDICINE NURSING NOTE: LOCAL TITLE: CLINICAL REMINDERS/NURSING STANDARD TITLE: PREVENTIVE MEDICINE NURSING NOTE DATE OF NOTE: JUL 29, 2023@14:02 ENTRY DATE: JUL 29, 2023@14:02:25 AUTHOR: JEYSON CASSIDY EXP COSIGNER: URGENCY: STATUS: COMPLETED Suicide Screen: C-SSRS Screening [place]-Suicide Severity Rating Scale (C-SSRS Screener) 1. Over the past month, have you wished you were or wished you could go to sleep and not wake up? No 2. Over the past month, have you had any actual thoughts of killing yourself? No 3. Over the past month, have you been thinking about how you might do this? Response not required due to responses to other questions. 4. Over the past month, have you had these thoughts and had some intention of acting on them? Response not required due to responses to other questions. 5. Over the past month, have you started to work out or worked out the details of how to kill yourself? Response not required due to responses to other questions. 6. If yes, at any time in the past month did you intend to carry out this plan? Response not required due to responses to other questions. 7. In your lifetime, have you ever done anything, started to do anything, or prepared to do anything to end your life (for example, collected pills, obtained a gun, gave away valuables, went to the roof but didn't jump)? No 8. If YES, was this within the past 3 months? Response not required due to responses to other questions. Homelessness/Food Insecurity Screen: In the past 2 months, have you been living in stable housing that you own, rent, or stay in as part of a household? Yes - Living in stable housing. Are you worried or concerned that in the next 2 months you may NOT have stable housing that you own, rent, or stay in as part of a household? No - Not worried about housing near future The reports the following: Within the past 12 months, you worried whether your food would run out before you got money to buy more. Never true Within the past 12 months, the food you bought just didn't last and you didn't have money to get more. Never true Depression Screening: Perform PHQ-2 A PHQ-2 screen was performed. The score was 0 which is a negative screen for depression. Over the past two weeks, how often have you been bothered by the following problems? 1. Little interest or pleasure in doing things Not at all 2. Feeling down, depressed, or hopeless Not at all Tobacco Use Screening: The patient is a former tobacco user. The patient quit fifteen or more years ago. Alcohol Use Screen (AUDIT-C): Alcohol Screen: SCREEN FOR ALCOHOL (AUDIT-C) An alcohol screening test (AUDIT-C) was negative (score=1). 1. How often did you have a drink containing alcohol in the past year? Consider a drink to be a 12 ounce can or bottle of regular beer, 8 ounces of malt liquor, a 5 ounce glass of table wine, or a 1.5 ounce shot of liquor (like scotch, gin, or vodka). Monthly or less 2. How many drinks containing alcohol did you have on a typical day when you were drinking in the past year? One or two drinks 3. How often did you have six or more drinks on one occasion in the past year? Never /es/ Jeyson Cassidy, Health Optical Systems Engineer CUST[employer]S BROKERAGE AGENT,PRIMARY CARE Signed: 07/29/2023 14:04 JEYSON CASSIDY [facility]
--- OUTSIDE RECORDS SUMMARY | 2024-05-29 17:47 | XMS_ITS | Patient Health Record ---
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 Role Phone Salvatore Heath Primary Care Provider José Ryder Unavailable [phone] Aiyana Fong Unavailable [phone] Allergies Allergen (clinical drug ingredient) Drug/Non Drug Allergy documented on EMR Reaction Allergy Type Onset Date Status PredniSONE afib Drug Allergy Active Medicinal cephalosporin and acting as antibacterial agent (FN) Cephalosporins redness Drug Allergy Active Results Component Value Reference Range Notes HEMOGLOBIN A1C (GLYCOHEMOGLO BIN) Reviewed date:12/21/2023 11:05:02 AM Interpretation: Performing Lab: Notes/Report: HEMOGLOBIN A1C (HH) 6.4 HEMOGLOBIN A1C (GLYCOHEMOGLO BIN) Reviewed date:01/10/2024 10:26:28 AM Interpretation: Performing Lab: Notes/Report: TOTAL HEMOGLOBIN (HGBA1C) 7.0 Reason For Referral No Information Medications Medication SIG (Take, Route, Frequency, Duration) Notes Start Date End Date Status Atorvastatin Calcium Active Calcium + D Active Econazole Nitrate 1 % 1 application to affected area Externally Once a day for 30 days 06/03/2015 Not-Taking Pantoprazole Sodium Active Econazole Nitrate 1 % 1 application to affected area Externally Once a day for 30 days Not-Taking zinc Active Losartan Potassium 50 MG 1 tablet Orally Once a day Active Econazole Nitrate 1 % 1 application to affected area Externally Once a day for 30 days Not-Taking Multivitamins as directed Orally Active Econazole Nitrate 1 % 1 application to affected area Externally Once a day for 30 days Not-Taking Nadolol Active Econazole Nitrate 1 % 1 application to affected area Externally Once a day for 30 days Not-Taking rOPINIRole HCl Activ e Pradaxa 150 MG 1 capsule Orally Twice a day for 30 day(s) Not-Taking Tamsulosin HCl Activ e Diclofenac 1 % top gel Not-Carlos ing Allopurinol 100 MG 1 tablet Orally Once a day for 30 day(s) Active Coumadin Not-Taking Albuterol Sulfate 0.63 MG/3ML as directed Inhalation PRN Active Physical Therapy . . . 2-3x/week for 3-4 weeks Not-Taking Eliquis Active Walking Boot/Pneumatic As directed Wear Daily for Until further notice Not-Taking Furosemide Active Econazole Nitrate 1 % 1 application to affected area Externally Once a day for 30 days 03/14/2014 Not-Taking Gabapentin Active Hydrocortisone 2.5 % 1 application to affected area Rectal Twice a day for 30 day(s) PRN Active Systane Not-Taking Clindamycin HCl 300 MG 1 capsule Orally every 12 hrs for 10 days 06/24/2023 Not-Taking potassium Active Clindamycin HCl 10days Not- Taking Vitamin D3 Active [employer] as directed 07/04/2014 Not-Taking Vitamin C Active Symbicort 80-4.5 MCG/ACT 2 puffs Inhalation Twice a day Not-Taking Wixela Inhub Active Potassium & Magnesium Aspartat 250-250 MG 1 capsule with a meal Orally Once a day for 30 day(s) Not-Taking [employer] Orthotics as directed A ctive Ciclopirox Olamine 0.77 % 1 application Externally Twice a day for 30 days Active Medical From: . . . Patient had hammertoe surgery left 4th toe, no PT for 48 hrs and minimal left foot activity for 1 week 12/14/2023 Active Doxycycline Monohydrate 100 MG 1 capsule Orally Twice a day for 7 days 12/21/2023 Active Voltaren 1 % as directed Externally Not-Taking Immunizations Vaccine Route Administration Date Status Comme nts COVID-19 Moderna Vaccine Unknown 05/22/2020 Administere d 1# 04/19/20 Influenza Unknown 12/04/2022 Administered Social History Tobacco Use: Social History Observation Description Date Details (start date - stop date) Former Smoker NA - NA Tobacco Use/Smoking Question Answer Notes Are you a: former smoker Additional Findings: Tobacco Non-User Current no n-smoker Alcohol Screen Question Answer Notes Did you have a drink contain ing alcohol in the past year? Yes How often did you have a dri nk containing alcohol in the past year? 4 or more times a week (4 points) Points 4 Interpretation Positive Tobacco use other than smoking: Question Answer Notes Are you an other tobacco user? 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 (321759752518022) Unspecified atherosclerosis of zuni arteries of extremities, 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 Problem Non-pressure chronic ulcer of other part of left foot limited to breakdown of skin (L97.521) Active confirmed Problem Acquired hammer toe of left foot (1530015744666958 ) Other hammer toe(s) (acquired), left foot (M20.42) Active confirmed Problem Acquired hammer toe of left foot (9965300434596646 ) Other hammer toe(s) (acquired), left foot (M20.42) Active confirmed Problem Acquired hammer toe of right foot (8247586625498815 ) Hammer toe of right foot (M20.41) Active confirmed Problem Acquired hammer toe of left foot (5424434279465640 ) Hammer toe of left foot (M20.42) Active confirmed Problem 506829963 Lymphedema (I89.0) Active confirmed Problem Localized, primary osteoarthritis of the ankle and/or foot (364507849) Arthritis of joint of lesser toe, left (M19.072) Active confirmed Problem Ischemic ulcer o f left foot with fat layer exposed (L97.522) Active confirmed Response to treatment Vital Signs Blood pressure diastolic 61 mm Hg 03/22/2024 Height 5 ft 11 in in 03/22/2024 Blood pressure systolic 122 mm Hg 03/22/2024 Weight 322 lbs 03/22/2024 BMI 44.9 kg/m2 03/22/2024 Procedures Procedure Date Ordered Date Performed Result Body Sit e 42029-EDXIGAV SKIN/TISSUE 06/24/2023 N/A 55336- Debride <25 sq cm 10/13/2023 N/A Encounters Encounter Location Date Provider Diagnosis [address] [address] 06/24/2023 José Cook Tinea unguium B35.1 ; Pain in right toe(s) M79.674 ; Unspecified atherosclerosis of zuni arteries of extremities, bilateral legs I70.203 ; Pain in left toe(s) M79.675 ; Calcaneal spur, left foot M77.32 ; Dermatitis L30.9 ; Primary osteoarthritis, left ankle and foot M19.072 ; Xerosis cutis L85.3 ; Other hammer toe(s) (acquired), left foot M20.42 ; Non-pressure chronic ulcer of other part of left foot with fat layer exposed L97.522 and Abscess, toe, left L02.[address] [address] 07/28/2023 José Cook Non-pressure chronic ulcer of other part of left foot limited to breakdown of skin L97.521 ; Unspecified atherosclerosis of zuni arteries of extremities, bilateral legs I70.203 ; Pain in left toe(s) M79.675 ; Other hammer toe(s) (acquired), left foot M20.42 and Lymphedema I89.[address] [address] 09/01/2023 Aiyana Fong Pain in left toe(s) M79.675 ; Other hammer toe(s) (acquired), left foot M20.42 ; Tinea pedis of both feet B35.3 ; Ischemic ulcer of left foot with fat layer exposed L97.522 ; Arthritis of joint of lesser toe, left M19.072 and Unspecified atherosclerosis of zuni arteries of extremities, bilateral legs I70.[address] [address] 10/13/2023 José Cook Tinea unguium B35.1 ; Pain in right toe(s) M79.674 ; Unspecified atherosclerosis of zuni arteries of extremities, bilateral legs I70.203 ; Pain in left toe(s) M79.675 ; Calcaneal spur, left foot M77.32 ; Dermatitis L30.9 ; Primary osteoarthritis, left ankle and foot M19.072 ; Xerosis cutis L85.3 ; Other hammer toe(s) (acquired), left foot M20.42 and Non-pressure chronic ulcer of other part of left foot with fat layer exposed L97.[address] [address] 12/14/2023 Aiyana Perica Hammer toe of left foot M20.42 ; Unspecified atherosclerosis of zuni arteries of extremities, bilateral legs I70.203 and Non-pressure chronic ulcer of other part of left foot limited to breakdown of skin L97.[address] [address] 12/21/2023 Aiyana Perica Hammer toe of left foot M20.42 ; Unspecified atherosclerosis of zuni arteries of extremities, bilateral legs I70.203 and Non-pressure chronic ulcer of other part of left foot limited to breakdown of skin L97.[address] [address] 12/29/2023 Aiyana Perica Unspecified atherosclerosis of zuni arteries of extremities, bilateral legs I70.203 and Hammer toe of left foot M20.[address] [address] 03/22/2024 Aiyana Perica Unspecified atherosclerosis of zuni arteries of extremities, bilateral legs I70.203 ; Pain in left toe(s) M79.675 ; Pain in right toe(s) M79.674 and Tinea unguium B35.1 [facility] [address] [address] 06/24/[address] [address] 07/14/[address] [address] 07/29/[address] [address] 08/04/[address] [address] 12/14/2023 [facility] [address] [place] [address] 02/04/2024 José Cook Assessments Encounter Date Diagnosis (ICD Code) Assessment Notes Treatment Notes Treatment Clinical Notes Section Notes 06/24/2023 Tinea unguium (ICD-10 - B35.1) 06/24/2023 Pain in right toe(s) (ICD-10 - M79.674) 07/28/2023 Unspecified atherosclerosis of zuni arteries of extremities, bilateral legs (ICD-10 - I70.203) 07/28/2023 Non-pressure chronic ulcer of other part of left foot limited to breakdown of skin (ICD-10 - L97.521) 09/01/2023 Pain in left toe(s) (ICD-10 - M79.675) 09/01/2023 Other hammer toe(s) (acquired), left foot (ICD-10 - M20.42) 10/13/2023 Tinea unguium (ICD-10 - B35.1) 10/13/2023 Pain in right toe(s) (ICD-10 - M79.674) 12/14/2023 Unspecified atherosclerosis of zuni arteries of extremities, bilateral legs (ICD-10 - I70.203) 12/21/2023 Hammer toe of left foot (ICD-10 - M20.42) 12/29/2023 Unspecified atherosclerosis of zuni arteries of extremities, bilateral legs (ICD-10 - I70.203) 12/29/2023 Hammer toe of left foot (ICD-10 - M20.42) 12/14/2023 Hammer toe of left foot (ICD-10 - M20.42) 12/21/2023 Unspecified atherosclerosis of zuni arteries of extremities, bilateral legs (ICD-10 - I70.203) 03/22/2024 Pain in left toe(s) (ICD-10 - M79.675) 03/22/2024 Unspecified atherosclerosis of zuni arteries of extremities, bilateral legs (ICD-10 - I70.203) 12/21/2023 Non-pressure chronic ulcer of other part of left foot limited to breakdown of skin (ICD-10 - L97.521) 12/14/2023 Non-pressure chronic ulcer of other part of left foot limited to breakdown of skin (ICD-10 - L97.521) 10/13/2023 Unspecified atherosclerosis of zuni arteries of extremities, bilateral legs (ICD-10 - I70.203) 09/01/2023 Tinea pedis of both feet (ICD-10 - B35.3) 03/22/2024 Pain in right toe(s) (ICD-10 - M79.674) 07/28/2023 Pain in left toe(s) (ICD-10 - M79.675) 06/24/2023 Unspecified atherosclerosis of zuni arteries of extremities, bilateral legs (ICD-10 - I70.203) 06/24/2023 Pain in left toe(s) (ICD-10 - M79.675) 07/28/2023 Other hammer toe(s) (acquired), left foot (ICD-10 - M20.42) 09/01/2023 Ischemic ulcer of left foot with fat layer exposed (ICD-10 - L97.522) Response to treatment Patient Educated with: WOUND CARE INSTRUCTIONS. pdf (WOUND CARE INSTRUCTIONS. pdf) 10/13/2023 Pain in left toe(s) (ICD-10 - M79.675) 03/22/2024 Tinea unguium (ICD-10 - B35.1) 10/13/2023 Calcaneal spur, left foot (ICD-10 - M77.32) 09/01/2023 Arthritis of joint of lesser toe, left (ICD-10 - M19.072) 07/28/2023 Lymphedema (ICD-10 - I89.0) 06/24/2023 Calcaneal spur, left foot (ICD-10 - M77.32) 09/01/2023 Unspecified atherosclerosis of zuni arteries of extremities, bilateral legs (ICD-10 - I70.203) 06/24/2023 Dermatitis (ICD-10 - L30.9) 10/13/2023 Dermatitis (ICD-10 - L30.9) 10/13/2023 Primary osteoarthritis, left ankle and foot (ICD-10 - M19.072) 06/24/2023 Primary osteoarthritis, left ankle and foot (ICD-10 - M19.072) 06/24/2023 Xerosis cutis (ICD-10 - L85.3) 10/13/2023 Xerosis cutis (ICD-10 - L85.3) 10/13/2023 Other hammer toe(s) (acquired), left foot (ICD-10 - M20.42) 06/24/2023 Other hammer toe(s) (acquired), left foot (ICD-10 - M20.42) 06/24/2023 Non-pressure chronic ulcer of other part of left foot with fat layer exposed (ICD-10 - L97.522) 10/13/2023 Non-pressure chronic ulcer of other part of left foot with fat layer exposed (ICD-10 - L97.522) 06/24/2023 Abscess, toe, left (ICD-10 - L02.612) Plan Of Treatment Pending Test Test Name Order Date X ray : Foot, left 3V 01/28/2017 X ray : Foot, left 3V 04/06/2017 63546-ZHXRRAU NAIL, 6 OR MORE 01/28/2017 11563-YWOFYHT NAIL, 6 OR MORE 10/15/2016 95415-QJXVRSZ NAIL, 6 OR MORE 09/09/2015 97566-OSXVUTP NAIL, 6 OR MORE 12/26/2015 74742-INLNDKU NAIL, 6 OR MORE 04/16/2016 30812-SJSIATV NAIL, 6 OR MORE 07/16/2016 35372-DVLLAGO NAIL, 6 OR MORE 05/06/2017 68323-JXAIKLR NAIL, 6 OR MORE 07/15/2017 54222-HKACPSQ NAIL, 6 OR MORE 09/20/2017 42283-BKMURDN NAIL, 6 OR MORE 12/20/2017 63764-SOIGDFW NAIL, 6 OR MORE 01/08/2011 22666-UODUIDM NAIL, 6 OR MORE 04/16/2011 19137-SGSIWDO NAIL, 6 OR MORE 08/05/2011 74913-SWUZYZY NAIL, 6 OR MORE 11/04/2011 83117-HUFUXQH NAIL, 6 OR MORE 03/02/2012 55102-ENMZZKN NAIL, 6 OR MORE 06/01/2012 44958-FMECJCD NAIL, 6 OR MORE 08/17/2012 94228-HHQHDJD NAIL, 6 OR MORE 11/16/2012 89304-ZQSTGSV NAIL, 6 OR MORE 03/13/2013 00954-JOJOSRA NAIL, 6 OR MORE 06/19/2013 79160-SCPHYOE NAIL, 6 OR MORE 09/18/2013 84380-QBXIFKV NAIL, 6 OR MORE 12/20/2013 71828-GNDUNBG NAIL, 6 OR MORE 03/14/2014 72312-LTBWTTP NAIL, 6 OR MORE 07/04/2014 84018-TSYTPER NAIL, 6 OR MORE 10/01/2014 68861-ALCPGYO NAIL, 6 OR MORE 01/30/2015 50172-TVPRCSL NAIL, 6 OR MORE 06/03/2015 49536-Csdnyqiu Plate 03/13/2013 75826- Debride <25 sq cm 01/28/2017 97587- Debride <25 sq cm 02/11/2017 83309- Debride <25 sq cm 10/13/2023 96752-XDXATWS SKIN/TISSUE 03/10/2023 96550-ZGMNQBI SKIN/TISSUE 04/21/2023 85560-SHQAJZS SKIN/TISSUE 06/24/2023 99624-GETE SKIN LESIONS, OVER 4 05/06/19 18 86241-RGFJ SKIN LESIONS, OVER 4 01/29/20 17 74001-LJFL SKIN LESIONS, OVER 4 07/17/19 17 50835-LLKO SKIN LESIONS, OVER 4 10/16/19 17 12122-RNTC SKIN LESIONS, OVER 4 04/16/19 17 16747-IKSK SKIN LESIONS, OVER 4 12/26/19 16 59121-TOYE SKIN LESIONS, OVER 4 09/09/19 16 36016-YSYN SKIN LESIONS, OVER 4 12/21/19 18 83979-VXMD SKIN LESIONS, OVER 4 09/21/19 18 47955-ZNRY SKIN LESIONS, OVER 4 07/16/19 18 21082-BWLO SKIN LESIONS, OVER 4 04/21/19 19 97324-IXOL SKIN LESIONS, OVER 4 07/29/19 19 20607-CKRC SKIN LESIONS, OVER 4 10/28/19 19 32451-JYST SKIN LESIONS, OVER 4 01/24/20 19 66700-AHLN SKIN LESIONS, OVER 4 05/01/19 20 78463-SFVZ SKIN LESIONS, OVER 4 01/03/20 20 64608-ZPQR SKIN LESIONS, OVER 4 05/29/19 21 21217-KRCT SKIN LESIONS, OVER 4 08/30/19 21 25691-VKLM SKIN LESIONS, OVER 4 06/03/19 16 90141-VENB SKIN LESIONS, OVER 4 01/31/20 15 41442-NEPC SKIN LESIONS, OVER 4 10/02/19 15 65389-LLXT SKIN LESIONS, OVER 4 07/05/19 15 06850-WUZX SKIN LESIONS, OVER 4 03/14/20 14 27481-DSLO SKIN LESIONS, OVER 4 12/21/19 14 43234-NTYS SKIN LESIONS, OVER 4 09/19/19 14 43818-ONMV SKIN LESIONS, OVER 4 06/20/19 14 23075-DCYR SKIN LESIONS, OVER 4 03/13/20 13 98846-RIOR SKIN LESIONS, 2 TO 4 11/17/19 13 92978-FKHH SKIN LESIONS, 2 TO 4 08/18/19 13 39117-SZZD SKIN LESIONS, 2 TO 4 06/01/19 13 33695-TYLA SKIN LESIONS, 2 TO 4 03/02/20 12 87781-TNBF SKIN LESIONS, 2 TO 4 11/04/19 12 62232-SZAK SKIN LESIONS, 2 TO 4 08/05/19 12 43757-OCJZ SKIN LESIONS, 2 TO 4 04/16/19 12 80087-GIHNSGHI OF HEMATOMA/FLUID 018 Next Appt Details Provider Name:Aiyana camilo, 06/20/2024 03:00:00 PM, [address] [facility], [place], [address], Insurance Providers Payer Name Payer Address Payer Phone Subscriber Number Group Number Insured Name Patient Relationship to Insured Coverage Start Date Coverage End Date Medicare National [employer] [address] [place] [address] [id number] Soto Duran Self - patient is the insured 8 [employer] [address] [place] [address] [id number] Soto Duran Self - patient is the insured Medical (General) History Medical History History ICD Code measles chicken pox joint implants/screws kidney disease hypertension cataracts cancer back, hip, knee pain asthma Arthritis afib Cellulitis Surgical History Surgery Date(Month/Year) back surgery 2005 carpal tunnel surgery 2002 left knee replacement, right knee replac ement 2006, 2008 left lower lobe of lung removed 2010 cataracts OU 2008, 2009 right hand trigger finger 2011 AFIB correction 12/2011 flex n times 2 12/2023 Hospitalization History Reason Date(Month/Year) [facility] - Fall stay 2 nights 01/11/20 [facility] 2 days for Pneumonia 01/2016
--- OUTSIDE RECORDS SUMMARY | 2024-05-29 17:47 | XMS_ITS | Encounter Summary ---
Author Name [facility] Organization [facility] Address [address] [place] [address] Care Team Providers Care Shooting Gallery Operator Name Role Phone DESAI, SOTO Primary Care [...] Apr 05, 2007 MEDICAR E SUPPLEM E [id number] [phone] MILLER,WILL MATTEO PATIENT [facility] MEDICARE SUPPLEMEN JUAN BANKE RS Apr 05, 2007 NONE [id number] [phone] MILLER,WILL MATTEO PATIENT MEDICARE (WNR) MEDICARE (M) PART A Apr 05, 2007 PART A [id number] MILLER,WILL MATTEO PATIENT MEDICARE (WNR) MEDICARE (M) PART B Apr 05, 2007 PART B [id number] MILLER,WILL MATTEO PATIENT MEDICARE (WNR) MEDICARE (M) PART A Apr 05, 2007 PART A [id number] [phone] MILLER,WILL MATTEO PATIENT MEDICARE (WNR) MEDICARE (M) PART B Apr 05, 2007 PART B [id number] [phone] ANGELA,WILL MATTEO PATIENT Selected Encounter This section includes the information on record at [place] for the Encounter. Date/Time Encounter Type Encounter Description Reason Provider Source Jan 28, 2024 02:00 PM OFFICE O/P EST LOW 20 MIN PRIMARY CARE/MEDICINE ICD-10-CM J47.9 Bronchiectasis, uncomplicated DESAI,WILL MATTEO J IHE Encounter Template Text not used by [place] Assessments - Encounter Diagnoses This section includes the primary and secondary diagnoses documented for the Encounter. Date/Time Primary/Secondary Diagnosis Diagnosis Name Provider Source Jan 28, 2024 02:24 PM PRIMARY Bronchiectasis, uncomplicated PATTIE BARBA [facility] [place] [facility] Jan 28, 2024 02:24 PM SECONDARY Encounter for immunization PATTIE BARBA [facility] [place] [facility] Jan 28, 2024 02:24 PM SECONDARY Essential (primary) hypertension PATTIE BARBA [facility] [place] [facility] Jan 28, 2024 02:24 PM SECONDARY Obstructive sleep apnea (adult) (pediatric) PATTIE BARBA [facility] [place] [facility] Plan of Treatment: Future Appointments (+ 6 months) and Future Tests (+/- 45 days) The Plan of Treatment section includes future care activities for the patient from all [place] [facility]. This section includes future appointments and future orders which are active, pending or scheduled. Future Appointments This section includes appointments that were scheduled to occur 6 months from the date of the Encounter, up to a maximum of 20 appointments. The data comes from all [place] treatment facilities. Appointment Date/Time Appointment Type Appointme nt Facility Name Apr 07, 2024 02:30 PM AMBULATORY - MEDICINE [facility] [place] [facility] Apr 07, 2024 04:40 PM AMBULATORY - MEDICINE [facility] [place] [facility] May 04, 2024 01:00 PM AMBULATORY - MEDICINE [facility] [place] [facility] Jul 26, 2024 02:00 PM AMBULATORY - MEDICINE [facility] [place] [facility] Active, Pending, and Scheduled Orders This section includes a listing of several types of active, pending, and scheduled orders, including clinic medications orders, diagnostic test orders, procedure orders and consult orders; where the start date of the order is 45 days before the date of the Encounter or 45 days after the date of theEncounter. The data comes from all [place] treatment facilities. Test Date/Time Test Type Test Details Facility Name Jan 06, 2024 12:00 AM Laboratory - Chemistry Order MICROALBUMIN CREATININE RATIO PANEL URINE (RANDOM) SP [facility] Jan 28, 2024 02:12 PM Consult Order COMMUNITY CARE-PULMONARY Cons Salvage Worker's Choice [facility] Lab Results: +/- 30 days of the encounter This section includes the Chemistry and Hematology Lab Results on record with [place] for the patient. Radiology Reports and Pathology Reports are provided separately, in subsequent sections. Lab Results This section contains the Chemistry/Hematology Results that were resulted 30 days before or 30 daysafter the date of the Encounter. Date/Time Source Result Type Result - Unit Interpretation Reference Range Comment Jan 21, 2024 01:23 PM [facility] LIPID PANEL, NON FASTING Specimen Type: SERUM No comment entered. Ordering Provider: ANNA DESAI AM Report Released Date/Time: Jan 06, 2024 02:24 PM Reporting Lab: [address] [address] Performing Lab: [address] [address] CHOLESTEROL 123 mg/dL TRIGLYCERIDE 58 mg/dL 0-150 LDL calculated 72 mg/dL 0-129 CHOL/HDL 3.2 HDL CHOLESTEROL 39 mg/dL L 40-60 Jan 21, 2024 01:23 PM [facility] HEMOGLOBIN A1C PANEL Specimen Type: BLOOD Comment: Values obtained from A1C measurements can vary. For atypical A1C assays, a reported value of 7.0 could actually be between 6.72 and 7.28 if measured by a reference method. A reported value of 9.0 could actually be between 8.73 and 9.27. Ref: http://www.ngs p.org/CAPdata. asp Ordering Provider: ANNA DESAI AM Report Released Date/Time: Jan 06, 2024 02:24 PM Reporting Lab: [address] [place] [address] Performing Lab: [facility] [address] [facility] [address] [address] HEMOGLOBIN A1C 6.6 H 4.0-5.6 Jan 21, 2024 01:23 PM [facility] PT & INR (PROTIME) Specimen Type: PLASMA No comment entered. Ordering Provider: ANNA DESAI AM Report Released Date/Time: Jan 06, 2024 02:24 PM Reporting Lab: [facility] [address] [facility] [address] Performing Lab: [address] [address] INR 1.5 PROTIME 16.7 s H 10.0-13.1 Jan 21, 2024 01:23 PM [facility] BASIC METABOLIC PANEL (non-fasting) Specimen Type: SERUM No comment entered. Ordering Provider: ANNA DESAI AM Report Released Date/Time: Jan 06, 2024 02:24 PM Reporting Lab: [facility] [address] [facility] [address] Performing Lab: [address] [address] UREA NITROGEN 16 mg/dL 7-25 GLUCOSE 151 mg/dL H 65-100 SODIUM 141 mmol/L 135-145 POTASSIUM 4.1 mmol/L 3.5-5.0 CHLORIDE 106 mmol/L 100-110 CO2 28 meq/L 20-30 CREATININE, Serum 0.75 mg/dL 0.50-1.40 eGFR(CKD-EPI 2020) >90 mL/min >60 Jan 21, 2024 01:23 PM [facility] LIVER FUNCTION Specimen Type: SERUM No comment entered. Ordering Provider: ANNA DESAI AM Report Released Date/Time: Jan 06, 2024 02:24 PM Reporting Lab: [address] [address] Performing Lab: [address] [address] PROTEIN,TOTAL 6.0 g/dL 6.0-8.3 ALBUMIN 2.7 g/dL L 3.5-5.0 ALKALINE PHOSPHATASE 132 U/L 40-150 AST 16 U/L 5-34 ALT 14 U/L BILIRUBIN, TOTAL 1.4 mg/dL H 0.2-1.2 BILIRUBIN, DIRECT 0.6 mg/dL H 0-0.5 Jan 21, 2024 01:23 PM [facility] CBC Specimen Type: BLOOD No comment entered. Ordering Provider: ANNA DESAI AM Report Released Date/Time: Jan 06, 2024 02:24 PM Reporting Lab: [facility] [address] [facility] [address] Performing Lab: [address] [address] WBC 7.54 10*3/uL 4.50-11.00 RBC 3.49 10*6/uL L 4.23-5.66 HGB 12.0 g/dL L 12.8-17 HCT 36.7 L 39.2-50.4 MCV 105.2 fL H 82-99 MCHC 32.7 g/dL 30.8-35.1 PLT 185 10*3/uL 140-360 RDW-CV 14.4 12.0-16.0 MCH 34.4 pg H 26.2-32.6 Vital Signs: All taken on the encounter date This section contains inpatient and outpatient Vital Signs collected on the date of the Encounter. Date/Time Temperature Pulse Blood Pressure Respiratory Rate SP02 Pain Height Weight Body Mass Index Source Jan 28, 2024 01:52 PM 98.3 92 129/74 20 98 0 71 330 46 [facility] Immunizations: All administered on the encounter date This section contains immunizations associated to the Encounter. Immunization Series Date Issued Reaction Comments COVID-19 (MODERNA), MRNA, LN P-S, PF, 50 MCG/0.5 ML (AGES 12+ YEARS) Jan 28, 2024 Social History: Smoking Status (Most current) and Tobacco Use (All prior to encounter date) This section includes the most current, and the historical, smoking and tobacco- related health factors from the [place] facility where the Encounter took place. Current Smoking Status This section includes the most current smoking, or tobacco-related health factor, from the [place] facility where the Encounter took place. Date/Time Current Smoking Status Comment Facil [facility] Jul 29, 2023 02:00 PM VA-TOBACCO QUIT 15 YRS OR MORE [facility] [place] [facility] Tobacco Use History This section includes a history of the smoking, or tobacco-related health factors, that were collected on or before the date of the Encounter. The data comes from the PR facility where the Encounter took place. Date/Time Smoking Status/Tobac co Use Comment Facility Jul 29, 2023 02:00 PM VA-TOBACCO QUIT 15 YRS OR MORE [facility] [place] [facility] Jul 09, 2022 02:00 PM VA-TOBACCO NEVER USED [facility] [place] [facility] Jul 10, 2021 02:30 PM VA-TOBACCO FORMER USER [facility] [place] [facility] Jul 10, 2021 02:30 PM VA-TOBACCO QUIT 15 YRS OR MORE [facility] [place] [facility] May 28, 2020 10:30 AM VA-TOBACCO FORMER USER [facility] [place] [facility] May 28, 2020 10:30 AM VA-TOBACCO QUIT 15 YRS OR MORE [facility] [place] [facility] May 21, 2019 08:03 AM VA-TOBACCO FORMER USER [facility] [place] [facility] May 21, 2019 08:03 AM VA-TOBACCO QUIT 15 YRS OR MORE [facility] [place] [facility] May 24, 2018 11:31 AM VA-TOBACCO FORMER USER [facility] [place] [facility] May 24, 2018 11:31 AM VA-TOBACCO QUIT 15 YRS OR MORE [facility] [place] [facility] Mar 09, 2017 10:08 AM QUIT TOBACCO USE > 7 YEARS AGO [facility] [place] [facility] Feb 19, 2016 10:24 AM QUIT TOBACCO USE > 7 YEARS AGO quit 40 yrs ago [facility] [place] [facility] Mar 08, 2015 01:01 PM QUIT TOBACCO USE > 7 YEARS AGO 40 yrs ago [facility] [place] [facility] Feb 02, 2007 10:39 AM QUIT TOBACCO USE > 7 YEARS AGO quit 40 years ago [facility] Encounter Notes: All associated encounter notes This section contains the clinical notes associated to the Encounter. Date/Time Encounter Note(s) Provider Source Mar 23, 2024 03:02 PM ACCOUNTING OF DISCLOSURES NOTE: LOCAL TITLE: STATE PRESCRIPTION DRUG MONITORING PROGRAM STANDARD TITLE: ACCOUNTING OF DISCLOSURES NOTE DATE OF NOTE: MAR 23, 2024@15:02:39 ENTRY DATE: MAR 23, 2024@15:02:39 AUTHOR: SOTO DESAI EXP COSIGNER: URGENCY: STATUS: COMPLETED This PDMP query was submitted by Soto Desai VAT TENDER. The clinical justification for this PDMP query is to review controlled substances prescribed outside of the VA, and any additional information that may become available, as an important component of standard clinical care, and in accordance with [facility] policy. Patient information was shared with the PDMP [place]. No prescription(s) for controlled substances outside the VA were found in the last 90 days. /eliu/ Soto Desai DNP, CITY SURVEYOR-BC, CNL Primary Care Nurse Practitioner Signed: 03/23/2024 15:02 SOTO DESAI [facility] Jan 28, 2024 02:16 PM PRIMARY CARE NURSE PRACTITIONER OUTPATIENT NOTE: LOCAL TITLE: NURSE PRACTITIONER OUTPATIENT NOTE STANDARD TITLE: PRIMARY CARE NURSE PRACTITIONER OUTPATIENT NOTE DATE OF NOTE: JAN 28, 2024@14:16 ENTRY DATE: JAN 28, 2024@14:17:02 AUTHOR: SOTO DESAI EXP COSIGNER: URGENCY: STATUS: COMPLETED Chief complaint: Patient is a 83 year old . HPI: Pleasant male here to follow up. Feeling well. He is also followed in the community at [facility]. Allergies: CEFAZOLIN The following VA and Non-VA meds were reconciled with patient. The patient was educated on the use of the medications including indication and side effects. Active and Recently Outpatient Medications (excluding Supplies): Active Outpatient Medications Status 1) ALBUTEROL 3/IPRATROP 0.5MG/3ML INHL 3ML INHALE 1 VIAL ACTIVE (S) (3ML) IN NEBULIZER FOUR TIMES DAILY NEEDED FOR BREATHING 2) ALBUTEROL 90MCG (CFC-F) 200D ORAL INHL INHALE 2 PUFFS ACTIVE (S) BY MOUTH EVERY 4 HOURS NEEDED 3) ALLOPURINOL 300MG TAB TAKE ONE TABLET BY MOUTH DAILY ACTIVE 4) APIXABAN 5MG TAB TAKE ONE TABLET BY MOUTH TWICE DAILY ACTIVE 5) ATORVASTATIN CALCIUM 40MG TAB TAKE ONE TABLET BY ACTIVE (S) MOUTH ONCE DAILY FOR CHOLESTEROL 6) FLUTICAS 500/SALMETEROL 50 INHL DISK 60 INHALE 1 PUFF ACTIVE (S) BY MOUTH TWICE DAILY - RINSE MOUTH AFTER USE 7) FUROSEMIDE 40MG TAB TAKE ONE TABLET BY MOUTH ONCE ACTIVE (S) DAILY TO REMOVE FLUID/CONTROL BLOOD PRESSURE 8) GABAPENTIN 300MG CAP TAKE THREE CAPSULES BY MOUTH ACTIVE (S) THREE TIMES A DAY 9) LOSARTAN 25MG TAB TAKE ONE TABLET BY MOUTH ONCE DAILY ACTIVE FOR BLOOD PRESSURE/HEART 10) METOPROLOL TARTRATE 100MG TAB TAKE ONE TABLET BY ACTIVE MOUTH TWICE DAILY FOR BLOOD PRESSURE/HEART 11) POTASSIUM CITRATE 10MEQ SA TAB TAKE ONE TABLET BY ACTIVE MOUTH TWICE DAILY 12) ROPINIROLE HCL 0.5MG TAB TAKE TWO TABLETS BY MOUTH ACTIVE EVERY AFTERNOON NEEDED AND TAKE THREE TABLETS AT BEDTIME 13) TAMSULOSIN HCL 0.4MG CAP TAKE ONE CAPSULE BY MOUTH AT ACTIVE BEDTIME 14) TIOTROPIUM 2.5MCG/ACTUAT 60D ORAL INHL INHALE 2 PUFFS ACTIVE (S) BY MOUTH ONCE DAILY Active Non-VA Medications Status 1) Non-VA CHOLECALCIF 25MCG (D3-1,000UNIT) TAB 2000UNIT ACTIVE BY MOUTH DAILY 2) Non-VA COENZYME Q10 CAP/TAB 200MG BY MOUTH DAILY ACTIVE 3) Non-VA MULTIVITAMIN/MINERALS CAP/TAB 1 TABLET BY ACTIVE MOUTH DAILY 4) Non-VA TIZANIDINE HCL TAB DIRECTED BY MOUTH ACTIVE DIRECTED 5) Non-VA TRIAMCINOLONE ACETONIDE 0.1% CREAM THIN LAYER ACTIVE TOPICALLY TWICE DAILY NEEDED 19 Total Medications Review of Systems: Constitutional: (-)for Fevers, chills, weakness, nights sweats On examination: 98.3 F [36.8 C] (01/28/2024 13:52)129/74 (01/28/2024 13:52)92 (01/28/2024 13:52)20 (01/28/2024 13:52)0 (01/28/2024 13:52)BMI: 46.1330 lb [149.69 kg] (01/28/2024 13:52) is alert and oriented X3 Cardiovasc: 2plus carotids without bruits, no JVD Heart Reguler rate and rhythm NL S1S2 no S3 or murmur Respiration: Normal respiratory effort, lungs clear ABD: Benign normal active bowel sounds no HSM no rebound or referred pain EXT: no clubbing, edema, or cyanosis All diagnostics from past month were reviewed with patient. Assessment/plan: Active problems - Computerized Problem List is the source for the followin. Atrial fibrillation - rate controlled, follows [facility] card. 2. Parkinson's disease - follows with [facility] neuro, he had brain mri and has follow up to discuss. 3. Bronchiectasis - follows Dr. Trejo at [facility], recently started on spiriva 4. Obstructive sleep apnea syndrome - uses cpap 5. Hypertension - well controlled Health Care Maintenance: covid given in clinic Review of medial record = 5mins Time spent with Patient including shared decision making = 20 mins Post visit documentation = 5mins Total time = 30 mins Follow up visit in 6 mos. Medication Reconciliation: Outpatient: Has the patient been taking medications as documented in the EMLR? YES: The patient has been taking medications as documented in the EMLR. Essential Medication List for Review used to complete this medication reconciliation. INCLUDED IN THIS LIST: Alphabetical list of active outpatient prescriptions dispensed from this VA (local) and dispensed from another VA or DoD facility (remote) as well as inpatient orders [...] VA or non-VA provider. /eliu/ Soto Desai DNP, CITY SURVEYOR-BC, CNL Primary Care Nurse Practitioner Signed: 01/28/2024 14:23 SOTO DESAI [facility] [place] [facility] Jan 28, 2024 01:57 PM PREVENTIVE MEDICINE NURSING NOTE: LOCAL TITLE: CLINICAL REMINDERS/NURSING STANDARD TITLE: PREVENTIVE MEDICINE NURSING NOTE DATE OF NOTE: JAN 28, 2024@13:57 ENTRY DATE: JAN 28, 2024@13:57:34 AUTHOR: JEYSON CASSIDY COSIGNER: URGENCY: STATUS: COMPLETED CLINICAL REMINDERS/NURSING Has ADDENDA Advance Directive Screen MH AD: The patient has an Advance Directive on file at another [facility] that may require updating with the assistance of Social Work Service. A consult to Social Work Service has been entered. (See Orders) The patient received education about Advance Directives and written notification of his/her rights. Falls & Incontinence Screen: Falls Screen: 4. No falls within the past year. Incontinence Screen: During the past 12 months, has the patient has any characteristics of incontinence (ability, voiding, leakage, etc.)? No incontinence. RHS Screen: RHS Screen Session Format: Face to Face Environmental Check Upon inquiry, the individual reports that the environment is safe to proceed. Informed Consent to Screen and Document The individual consents to proceed with screening. The individual consents to documentation of responses. PRIMARY SCREEN: In the past 12 months, how often did a current or former intimate partner (e.g., boyfriend, girlfriend, , , sexual partner): 1. Scream or curse at you Never 2. Insult or talk down to you Never 3. Threaten you with harm Never 4. Physically hurt you Never 5. Force or pressure you to have sexual contact against your will, or when you were unable to say no Never ?? The HITS tool (items 1-4 above) is US copyright protected by Travis Santos MD, and the user has full rights to use it throughout the [place] system. PRIMARY SCREEN RESULT: The Primary Screen is NEGATIVE. 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 Lot: [id number] Exp Date: Sep 09, 2024 [facility]: [id number] Admin Route/Site: INTRAMUSCULAR/RIGHT DELTOID Dosage: 0.5mL Vaccine Information Statement(s): COVID-19 MRNA VACCINE (12+ YRS) VACCINE VIS Jan 21, 2023 (UKRAINIAN) Order By: Policy Administered By: Sheila Barba Vaccine administered without complications. /eliu/ Sheila Barba MSN RN CNL Primary Care RN Signed: 01/28/2024 14:25 JEYSON CASSIDY [facility]
--- OUTSIDE RECORDS SUMMARY | 2024-05-29 17:47 | XMS_ITS | Continuity of Care Document ---
Author Organization [facility] Will Brian lt Address [address] [place] [address]- Care Team Providers Care Supervisor [employer] Name Role Phone Salvatore Heath DO Primary Care Physician Encounter [facility] Date(s): 04/25/24 - 05/25/24 [facility] [address] [place] [address]- Encounter Type: Triage Allergies, Adverse Reactions, Alerts [...] vaccine, inactivated 01/02/10 Give n SARS-CoV-2 mRNA ([id number]) vax 6 01/13/23 Recorded [id number] bivalent booster vax 03/05/22 Recorded SARS-CoV-2 (COVID-19) [...] [facility] 4Admin Note: GOT AT [facility] 5Admin Note: 12-16 [place] [facility] [place] [facility] Comment: [facility] at the [place] [facility]Admin Note: [facility] elsewhere [...] Team Personnel Name: Tereza Livingston RN Position: [facility] RN Supv Member Role: Primary Care Nurse Name: Parminder Hyman RN Position: S RN Member Role: Primary Care Nurse Name: George Laura RN Position: S RN Member Role: Primary Care Nurse Name: Salvatore Heath DO Position: [facility] Physician - Primary Care Member Role: PCP Address: [address] [place], [place] [address] Telecom: Name: Brandi Bonilla RN Position: [facility] OB RN Member Role: Primary Care Nurse Name: Sheila Mayer RN Position: [facility] SN RN Member Role: Primary Care Nurse [...]
--- OUTSIDE RECORDS SUMMARY | 2024-05-29 17:47 | XMS_ITS ---
Author Organization [facility] mis[place] Address [address] [place] [address] Care Team Providers Care Web Specialist Name Role Phone Salvatore Heath Primary Care Provider José Ryder Unavailable [phone] Aiyana Fong Unavailable [phone] Allergies Allergen (clinical drug ingredient) Drug/Non Drug Allergy documented on EMR Reaction Allergy Type Onset Date Status PredniSONE afib Drug Allergy Active Medicinal cephalosporin and acting as antibacterial agent (FN) Cephalosporins redness Drug Allergy Active REASON FOR VISIT At Risk Footcare, Painful Nail(s) aggrevated by shoes and causing difficulty standing/walking. Medications Medication SIG (Take, Route, Frequency, Duration) Notes Start Date End Date Status Potassium & Magnesium Aspartat 250-250 MG 1 capsule with a meal Orally Once a day for 30 day(s) Not-Taking Atorvastatin Calcium Active Calcium + D Active Pantoprazole Sodium Active zinc Active Econazole Nitrate 1 % 1 application to affected area Externally Once a day for 30 days Not-Taking Econazole Nitrate 1 % 1 application to affected area Externally Once a day for 30 days Not-Taking Econazole Nitrate 1 % 1 application to affected area Externally Once a day for 30 days Not-Taking Econazole Nitrate 1 % 1 application to affected area Externally Once a day for 30 days Not-Taking Pradaxa 150 MG 1 capsule Orally Twice a day for 30 day(s) Not-Taking Coumadin Not-Taking Physical Therapy . . . 2-3x/week for 3-4 weeks Not-Taking Walking Boot/Pneumatic As directed Wear Daily for Until further notice Not-Taking Econazole Nitrate 1 % 1 application to affected area Externally Once a day for 30 days 03/14/2014 Not-Taking Econazole Nitrate 1 % 1 application to affected area Externally Once a day for 30 days 06/03/2015 Not-Taking Diclofenac 1 % top gel Not-Carlos ing Clindamycin HCl 300 MG 1 capsule Orally every 12 hrs for 10 days 06/24/2023 Not-Taking Clindamycin HCl 10days Not- Taking Custom Orthotics as directed 07/04/2014 Not-Taking Symbicort 80-4.5 MCG/ACT 2 puffs Inhalation Twice a day Not-Taking Ciclopirox Olamine 0.77 % 1 application Externally Twice a day for 30 days Active Medical From: . . . Patient had hammertoe surgery left 4th toe, no PT for 48 hrs and minimal left foot activity for 1 week 12/14/2023 Active Doxycycline Monohydrate 100 MG 1 capsule Orally Twice a day for 7 days 12/21/2023 Active Voltaren 1 % as directed Externally Not-Taking Systane Not-Taking Wixela Inhub Active Custom Orthotics as directed A ctive Multivitamins as directed Orally Active Nadolol Active rOPINIRole HCl Activ e Eliquis Active Furosemide Active Gabapentin Active Hydrocortisone 2.5 % 1 application to affected area Rectal Twice a day for 30 day(s) PRN Active Losartan Potassium 50 MG 1 tablet Orally Once a day Active Tamsulosin HCl Activ e Allopurinol 100 MG 1 tablet Orally Once a day for 30 day(s) Active Albuterol Sulfate 0.63 MG/3ML as directed Inhalation PRN Active Vitamin D3 Active Vitamin C Active potassium Active Social History Tobacco Use: Social History Observation Description Date Details (start date - stop date) Former Smoker NA - NA Tobacco Use/Smoking Question Answer Notes Are you a: former smoker Additional Findings: Tobacco Non-User Current no n-smoker Tobacco use other than smoking: Question Answer Notes Are you an other tobacco user? No Vital Signs Height 5 ft 11 in in 03/22/2024 Weight 322 lbs 03/22/2024 BMI 44.9 kg/m2 03/22/2024 Blood pressure systolic 122 mm Hg 03/22/20 24 Blood pressure diastolic 61 mm Hg 024 Encounters Encounter Location Date Provider Diagnosis [facility] [place] [address] [place] [address] 03/22/2024 Aiyana Fong Unspecified atherosclerosis of [place] arteries of extremities, bilateral legs I70.203 ; Pain in left toe(s) M79.675 ; Pain in right toe(s) M79.674 and Tinea unguium B35.1 Assessments Encounter Date Diagnosis (ICD Code) Assessment Notes Treatment Notes Treatment Clinical Notes Section Notes 03/22/2024 Unspecified atherosclerosis of [place] arteries of extremities, bilateral legs (ICD-10 - I70.203) 03/22/2024 Pain in left toe(s) (ICD-10 - M79.675) 03/22/2024 Pain in right toe(s) (ICD-10 - M79.674) 03/22/2024 Tinea unguium (ICD-10 - B35.1) Plan Of Treatment Next Appt Details Follow Up: 3 Months, Reason: Provider Name:Aiyana camilo, 06/20/2024 03:00:00 PM, [address] [place] [address], [id number], Procedure Notes * Category Sub-Category Detail Notes Debride Nail 6-10 Nail debridement Due to the cl inical pathology outlined in the exam findings, performance of this nail treatment is medically necessary as its management by an unskilled/untrained nonprofessional would put this patients foot and overall health at risk. Therefore, debridement to affected nail(s), as described in exam ( TA, T1, T2, T3, T4, T5, T6, T7, T8, T9, ), was performed exclusively by the physician of record to reduce/remove overall nail length, girth, thickness, subungual debris, and necrotic tissue, by manual and/or electrical means through the use of a nail nipper and/or dremel-type concrete grinder operator, to a more viable healthy nail plate or bed tissue 6-10 nails in total. Silver nitrate was used for any petechial bleeding as necessary. Definitive antifungal treatment options, both pharmaceutical and surgical, have been reviewed and discussed with the patient. The patient solely prefers the use of intermittent/as needed professional debridement services for their nail condition and understands the need for additional periodic treatments to maintain effectiveness in symptomatic relief - 08091 Keratoma Treatment Parring or Cutting o f Benign Hyperkeratotic Lesion(s) (-56) 2-4 Lesions - Due to the at risk nature of the patients medical condition as documented in the exam findings, performance of this keratoderma treatment is medically necessary as its management by an unskilled/untrained nonprofessional would put this patients foot and overall health at risk. Therefore, the benign hyperkeratotic lesions, ( 3) in total, locations as stated and described in the exam ( TA, T2, T5), were pared, and/or cut utilizing a sterile 15 blade, tissue nippers, and/or power dremel instrumentation by the physician of record - 06108 Progress Notes * Soto MILLERDOB:1940 (83 yo M)Acc No.[id number]:03/22/2024 Progress Note Patient:?Soto MILLER Provider:?Aiyana Fong DPM :1940???Age:83 Y???Sex:Male Gigi e:03/22/2024 Address:[address] [place], [place] [id number] Pcp:Salvatore Heath Subjective: * Chief Complaints: * ???At Risk FootcarePainful N ail(s) aggrevated by shoes and causing difficulty standing/walking. * HPI: ???At Risk footcare:?Pt States Last PCP Visit:?Date?12/22/2023 * ROS:?General/Constitutional:?Nausea?denies.?Vomiting?denies.?Hunger Thirst?denies.?Loss appetite?denies.?Chills?denies.?Fatigue?denies.?Fever?denies.?Night Sweats?denies.?Unexplained weight loss?denies.?Unexplained weight gain?denies.?HEENTM:?Dentures?denies.?Dizziness?denies.?Glasses/contacts?admits.?Retinopathy?den ies.?Blurred/double vision?denies.?TMJ?denies.?Discharge/drainage?denies.?Implants?denies.?Sore throat?denies.?Dental implants?denies.?Hard of hearing ?denies.?Difficulty chewing/swallowing/speaking?denies.?Nose bleeds?denies.?Sore mouth?denies.?Respiratory:?On O xygen?denies.?Pneumonia/pleurisy?denies.?Bronchitis?denies.?Emphysema?denies.?Co ughing?denies.?Cough blood?denies.?Shortness of breath?denies.?Wheezing?denies.?Cardiovascular:?Pacemaker?denies.?MVP?denies.?WPW?denies.?CHF?denies.?Heart attack?denies.?Septal defect?denies.?Rapid beat?denies.?Chest pain ?denies.?Atrial Fib.?admits.?Murmur/Palpitations?denies.?Gastrointestinal:?Hemorrhoids?denies.?Stomach/Abdominal pain?denies.?Dark blood stool?denies.?Irritable bowel ?denies.?Constipation?denies.?Diarrhea?denies.?Hematology:?Swelling?denies.?Clots?denies.?Varicose Veins?denies.?Bruising?denies.?Bleeding problem?denies.?Genitourinary:?Blood urine?denies.?Frequent/Painfu/urination/bladder control?denies.?Kidney stones?denies.?Infection (UTI)?denies.?Nephropathy?denies.?sex trans dis (STD)?denies.?Prostate?denies.?Musculoskeletal:?Hammertoes?denies.?Bunions?denies.?Back Pain?denies.?Muscle Cramps/ Resting?denies.?Muscle cramps / walking?denies.?Generalized aches and pains?denies.?Weakness?denies.?Integ.:?Mccartney?denies.?Scars?denies.?Corns/calluses?denies.?Ingrown nails?denies.?Painful nails?denies.?Open Sores?denies.?Rashes?denies.?Neurologic:?Difficulty sleeping?denies.?Brain disorder?denies.?Numbness?denies.?Balance t rouble?denies.?Confusion?denies.?Fainting/blackouts?denies.?Tingling?denies.?Federico mors?denies.? * Medical History:? * Surgical History:?back surge ry 2005carpal tunnel surgery 2003left knee replacement, right knee replacement 2006, 2009left lower lobe of lung removed 2011cataracts OU 2008, 2010right hand trigger finger 2012AFIB correction 12/2011flex n times 2 12/2023 * Hospitalization/Major Diagno stic Procedure:?[facility] 2 days for Pneumonia 01/2016[facility] - Fall stay 2 nights 01/11/20 * Family History:?Mother: dece ased, diagnosed with Family history of arthritis.?Father: , diagnosed with Other malignant neoplasm of unspecified site, Family history of arthritis.?Son(s): alive.?3 son(s) . .? * Social History:?Tobacco Use:?Tobacco Use/Smoking?Are you a:?former smoker ?Additional Findings: Tobacco Non-User?Current non-smoker ?Tobacco use other than smoking?Are you an other tobacco user??No * Medications:?TakingAtorvasta tin Calcium Calcium + D Pantoprazole Sodium zinc potassium Vitamin D3 Vitamin C Tamsulosin HCl Allopurinol 100 MG Tablet 1 tablet Orally Once a day Albuterol Sulfate 0.63 MG/3ML Nebulization Solution as directed Inhalation , Notes to Pharmacist: PRNEliquis Furosemide Gabapentin Hydrocortisone 2.5 % Cream 1 application to affected area Rectal Twice a day , Notes to Pharmacist: PRNLosartan Potassium 50 MG Tablet 1 tablet Orally Once a day Multivitamins Tablet as directed Orally Nadolol rOPINIRole HCl Wixela Inhub Custom Orthotics as directed Ciclopirox Olamine 0.77 % Cream 1 application Externally Twice a day Medical From: . . . . Patient had hammertoe surgery left 4th toe, no PT for 48 hrs and minimal left foot activity for 1 week Doxycycline Monohydrate 100 MG Capsule 1 capsule Orally Twice a day Taking Atorvastatin Calcium Taking Calcium + D Taking Pantoprazole Sodium Taking zinc Taking potassium Taking Vitamin D3 Taking Vitamin C Taking Tamsulosin HCl Taking Allopurinol 100 MG Tablet 1 tablet Orally Once a day Taking Albuterol Sulfate 0.63 MG/3ML Nebulization Solution as directed Inhalation , Notes to Pharmacist: PRNTaking Eliquis Taking Furosemide Taking Gabapentin Taking Hydrocortisone 2.5 % Cream 1 application to affected area Rectal Twice a day , Notes to Pharmacist: PRNTaking Losartan Potassium 50 MG Tablet 1 tablet Orally Once a day Taking Multivitamins Tablet as directed Orally Taking Nadolol Taking rOPINIRole HCl Taking Wixela Inhub Taking Custom Orthotics as directed Taking Ciclopirox Olamine 0.77 % Cream 1 application Externally Twice a day Taking Medical From: . . . . Patient had hammertoe surgery left 4th toe, no PT for 48 hrs and minimal left foot activity for 1 week Taking Doxycycline Monohydrate 100 MG Capsule 1 capsule Orally Twice a day Not-Taking/PRNVoltaren 1 % Gel as directed Externally Systane Clindamycin HCl 300 MG Capsule 1 capsule Orally every 12 hrs Clindamycin HCl , Notes to Pharmacist: 10daysCustom Orthotics as directed Symbicort 80-4.5 MCG/ACT Aerosol 2 puffs Inhalation Twice a day Diclofenac , Notes to Pharmacist: 1 % top gelCoumadin Physical Therapy . . . . 2-3x/week Walking Boot/Pneumatic As directed Wear Daily Econazole Nitrate 1 % Cream 1 application to affected area Externally Once a day Econazole Nitrate 1 % Cream 1 application to affected area Externally Once a day Econazole Nitrate 1 % Cream 1 application to affected area Externally Once a day Econazole Nitrate 1 % Cream 1 application to affected area Externally Once a day Econazole Nitrate 1 % Cream 1 application to affected area Externally Once a day Econazole Nitrate 1 % Cream 1 application to affected area Externally Once a day Pradaxa 150 MG Capsule 1 capsule Orally Twice a day Potassium & Magnesium Aspartat 250-250 MG Capsule 1 capsule with a meal Orally Once a day Medication List reviewed and reconciled with the patientNot-Taking/PRN Voltaren 1 % Gel as directed Externally Not-Taking/PRN Systane Not-Taking/PRN Clindamycin HCl 300 MG Capsule 1 capsule Orally every 12 hrs Not-Taking/PRN Clindamycin HCl , Notes to Pharmacist: 10daysNot-Taking/PRN Custom Orthotics as directed Not-Taking/PRN Symbicort 80- 4.5 MCG/ACT Aerosol 2 puffs Inhalation Twice a day Not-Taking/PRN Diclofenac , Notes to Pharmacist: 1 % top gelNot-Taking/PRN Coumadin Not-Taking/PRN Physical Therapy . . . . 2-3x/week Not-Taking/PRN Walking Boot/Pneumatic As directed Wear Daily Not-Taking/PRN Econazole Nitrate 1 % Cream 1 application to affected area Externally Once a day Not-Taking/PRN Econazole Nitrate 1 % Cream 1 application to affected area Externally Once a day Not-Taking/PRN Econazole Nitrate 1 % Cream 1 application to affected area Externally Once a day Not-Taking/PRN Econazole Nitrate 1 % Cream 1 application to affected area Externally Once a day Not-Taking/PRN Econazole Nitrate 1 % Cream 1 application to affected area Externally Once a day Not-Taking/PRN Econazole Nitrate 1 % Cream 1 application to affected area Externally Once a day Not- Taking/PRN Pradaxa 150 MG Capsule 1 capsule Orally Twice a day Not-Taking/PRN Potassium & Magnesium Aspartat 250-250 MG Capsule 1 capsule with a meal Orally Once a day Medication List reviewed and reconciled with the patient * Allergies:?PredniSONE: afibC ephalosporins: rednessyes[Allergies Verified] Objective: * Vitals:?Ht: 5 ft 11 in, Wt: 322, BMI: 44.9, Shoe size: 15WW, BP: 122/61 mm Hg, BS: not taken, Wt-k.06 kg. * ???Past Orders: ???Lab:HEMOGLOBIN A1C (GLYCO HEMOGLOBIN) (Order Date - 12/05/2023) (Collection Date & Time - 12/05/2023 02:17 PM) ? Value Reference Range ?TOTAL HEMOGLOBIN (HGBA1C) 7.0 * Examination: ???Ophthalmology Referral: ?DIABETES EYE EXAM?Neurological: ?SENSORY:?Neurological exam reveals intact sensorium, pain sensation normal, vibration sensation intact, pinprick sensation is normal in the lower extremities, Pt denies, anesthesia, burning, paresthesia, tingling, B/L.?Dermatologic: ?SKIN FINDINGS:?Skin exam reveals Keratotic lesion(s) located at, Medial plantar, TA, T5, T2; compression wraps to B/L lower legs and feet.?Vascular: ?DP PULSES (B):?0/4, B/L.?PT PULSES (B):?0/4, B/L.?CAPILLARY FILL TIME:?3 secs. per digit. B/L.?TROPHIC CONDITION-TEXTURE/ELASTICITY/TURGOR/HAIR GROWTH (B):?with sparse to absent hair growth, fragile, thin, shiny skin.?PIGMENTATION:?mottled, B/L.?EDEMA (C):?3/4, B/L.?TELANGECTASIA:?absent.?Nails: ?NAILS are:?Elongated, overgrown, dystrophic, lytic, greater than 3mm thick, discolored and friable with crumbly malodorous subungual debris, with pain on palpation, TA, T1, T2, T3, T4, T5, T6, T7, T8, T9.?General Examination: ?GENERAL APPEARANCE:?Reveals a pleasant, alert, well nourished, well developed, well hydrated individual, who demonstrates proper attention to hygene/body habitus, and is in no acute distress.?ORIENTED:?person, place, and time.?Orthopedic: ?MUSCLE STRENGTH:?5/5 all groups in a symmetrical fashion, B/L.?GAIT ABNORMALITY:? walker-assisted, antalgic, apropulsive.?FOOT MORPHOLOGY:? Pes Planus structure, B/L.? Assessment: * Assessment: 1.?Pain in left toe(s) - M79 .675???2.?Unspecified atherosclerosis of [place] arteries of extremities, bilateral legs - I70.203 (Primary)???3.?Pain in right toe(s) - M79.674???4.?Tinea unguium - B35.1??? Plan: * Treatment: * Procedures:?Debride Nail 6-10:?Nail debridement?Due to the clinical pathology outlined in the exam findings, performance of this nail treatment is medically necessary as its management by an unskilled/untrained nonprofessional would put this patients foot and overall health at risk. Therefore, debridement to affected nail(s), as described in exam ( TA, T1, T2, T3, T4, T5, T6, T7, T8, T9, ), was performed exclusively by the physician of record to reduce/remove overall nail length, girth, thickness, subungual debris, and necrotic tissue, by manual and/or electrical means through the use of a nail nipper and/or dremel-type concrete grinder operator, to a more viable healthy nail plate or bed tissue 6- 10 nails in total. Silver nitrate was used for any petechial bleeding as necessary. Definitive antifungal treatment options, both pharmaceutical and surgical, have been reviewed and discussed with the patient. The patient solely prefers the use of intermittent/as needed professional debridement services for their nail condition and understands the need for additional periodic treatments to maintain effectiveness in symptomatic relief - 16382.?Keratoma Treatment:?Parring or Cutting of Benign Hyperkeratotic Lesion(s)?(-56) 2-4 Lesions - Due to the at risk nature of the patients medical condition as documented in the exam findings, performance of this keratoderma treatment is medically necessary as its management by an unskilled/untrained nonprofessional would put this patients foot and overall health at risk. Therefore, the benign hyperkeratotic lesions, ( 3) in total, locations as stated and described in the exam ( TA, T2, T5), were pared, and/or cut utilizing a sterile 15 blade, tissue nippers, and/or power dremel instrumentation by the physician of record - 70111.? * Procedure Codes:?87701 DEBRI DE NAIL, 6 OR MORE, Modifiers: XS 18420 TRIM SKIN LESIONS, 2 TO 4, Modifiers: XS , Q8 * Follow Up:?3 Months * Images: * Sign off status: Completed true * Provider:?Aiyana Fong DPM Date:? Generated for Anmol busby/Rohini/Giulia on:?05/29/2024 05:46 PM EST History and Physical Notes * HPI (History of Present Illness) Category Sub-Category Detail Notes Category Not es At Risk footcare Pt States Last PCP Visit: Date: Examination Category Sub-Category Detail Notes Category Not es Neurological SENSORY: Neurological exa m reveals intact sensorium, pain sensation normal, vibration sensation intact, pinprick sensation is normal in the lower extremities, Pt denies, anesthesia, burning, paresthesia, tingling, B/L Dermatologic SKIN FINDINGS: Skin exam reveal s Keratotic lesion(s) located at, Medial plantar, TA, T5, T2; compression wraps to B/L lower legs and feet Orthopedic GAIT ABNORMALITY: walker-assisted, antalg ic, apropulsive FOOT MORPHOLOGY: Pes Planus structure , B/L MUSCLE STRENGTH: 5/5 all groups in a symmetrical fashion, B/L General Examination GENERAL APPEARANCE: Reveals a pleasant, alert, well nourished, well developed, well hydrated individual, who demonstrates proper attention to hygene/body habitus, and is in no acute distress ORIENTED: person, place, and t carito Ophthalmology Referral DIABETES EYE EXAM Procedure Perform ed:: Yes ?Date of Exam Performed: 04/05/2023 Findings of Diabetic Eye Exam:: no retin opathy Vascular DP PULSES (B): 0/4, B/L PT PULSES (B): 0/4, B/L CAPILLARY FILL TIME: 3 secs. per digit. B/L TROPHIC CONDITION-TEXTURE/ELASTICITY/TURGOR/HAIR GROWTH (B): with sparse to absent hair growth, fragi le, thin, shiny skin EDEMA (C): 3/4, B/L TELANGECTASIA: absent PIGMENTATION: mottled, B/L Nails NAILS are: Elongated, overg rown, dystrophic, lytic, greater than 3mm thick, discolored and friable with crumbly malodorous subungual debris, with pain on palpation, TA, T1, T2, T3, T4, T5, T6, T7, T8, T9
--- OUTSIDE RECORDS SUMMARY | 2024-05-29 17:48 | XMS_ITS | Continuity of Care Document ---
Author Organization [facility] Address [address] [place] [address]- Care Team Providers Care Supervisor Cigar Processing Name Role Phone Salvatore Heath DO Primary Care Physician Encounter [facility] Date(s): 04/07/24 - 05/07/24 [facility] [address] [place] [address] [address] [place], [place] [address] Attending Physician: AdmSandra saucedo Admitting Physician: AdmtrSandra Referring Physician: Admtr, Ar8 Encounter Type: Triage Allergies, Adverse Reactions, Alerts [...] vaccine, inactivated 01/02/10 Give n SARS-CoV-2 mRNA ([id number]) vax 6 01/13/23 Recorded [id number] bivalent booster vax 03/05/22 Recorded SARS-CoV-2 (COVID-19) [...] [facility]Admin Note: GOT AT [facility] 5Admin Note: 12-16 [place] [facility] [place] [facility]Result Comment: [facility] at the [place] [facility]Result [facility]Admin Note: rcvd elsewhere [...] Care Nurse Name: Salvatore Heath DO Position: [facility] Physician - Primary Care Member Role: PCP Address: [address] [place] [address] Telecom: Name: Brandi Bonilla RN Position: [facility] OB RN Member Role: Primary Care Nurse Name: Sheila Mayer RN Position: [facility] SN RN Member Role: Primary Care Nurse [...]
--- OUTSIDE RECORDS SUMMARY | 2024-05-29 17:48 | XMS_ITS | Clinical Summary ---
Author Organization [facility] Address [address] [place] [address] Phone Care Team Providers Care Bi Tester Name Role Phone Salvatore Heath DO Primary Care Provider [phone] Allergies Active Allergy Reactions Criticality Noted Date Comments Amoxicillin-Pot Clavulanate Diarrhea Low 02/09/2024 Cefazolin Rash Medium 02/09/2024 Tolerated ceftazidime at [facility] 04/04/24 Medications albuterol HFA (PROAIR HFA ; PROVENTIL HFA ; VENTOLIN HFA) 90 mcg/actuation inhaler Inhale 2 puffs by mouth every 6 hours as needed. 0 Active allopurinoL (ZYLOPRIM) 300 mg tablet Take 1 tablet (300 mg total) by mouth daily. 0 Active apixaban (ELIQUIS) 5 mg tablet Take 1 tablet (5 mg total) by mouth 2 times daily. 0 Active atorvastatin (LIPITOR) 40 mg tablet Take 1 tablet (40 mg total) by mouth daily. 0 Active cholecalcifero l (VITAMIN D-3) 50 mcg (2,000 unit) capsule Take 1 capsule (2,000 Units total) by mouth daily. 0 Active fluticasone propion-salmet Kwesi (ADVAIR DISKUS) 500-50 mcg/dose diskus inhaler Inhale by mouth. 3 Active furosemide (LASIX) 40 mg tablet Take 1 tablet (40 mg total) by mouth. 0 Active gabapentin (NEURONTIN) 300 mg capsule Take 3 capsules (900 mg total) by mouth 3 (three) times a day. 4 Active potassium citrate (UROCIT-K) 10 mEq (1,080 mg) CR tablet Take 1 tablet (10 mEq total) by mouth 2 times daily. 0 Active rOPINIRole (REQUIP) 0.5 mg tablet Take 1 tablet (0.5 mg total) by mouth. 2 tablets by mouth at 3 PM and 3 tablets at 9 PM 0 Active tamsulosin (FLOMAX) 0.4 mg 24 hr capsule Take 1 capsule (0.4 mg total) by mouth. 0 Active zinc acetate 50 mg (zinc) capsule Take 50 mg by mouth. 0 Active multivitamin with minerals tablet Take 1 tablet by mouth 1 (one) time each day. Active ascorbic acid (VITAMIN C) 500 mg CR capsule Take 1 capsule (500 mg total) by mouth 1 (one) time each day. Active cyanocobalamin (VITAMIN B-12) 250 mcg tablet Take 1 tablet (250 mcg total) by mouth 1 (one) time each day. Active triamcinolone (KENALOG) 0.1 % cream Apply topically 2 (two) times a day. 195 g 4 Active metoprolol tartrate (LOPRESSOR) 25 mg tablet Take 1 tablet (25 mg total) by mouth 2 (two) times a day. 5 Active ipratropium-al buteroL (DUONEB) 0.5-2.5 mg/3 mL nebulizer solutionIndica tions:Wheezing Take 3 mL by nebulization 4 (four) times a day if needed for wheezing. 5 Active fluticasone/um eclidin/vilant er (TRELEGY ELLIPTA INHL) Inhale by mouth. Active mupirocin (BACTROBAN) 2 % ointment Apply topically 3 (three) times a day for 14 days. 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 02/09/2024 Lymphedema, not elsewhere classified 02/09/2024 Resolved Problems Problem Noted Date Diagnosed Date Resolved Date Hypotension 04/03/2024 04/06/2024 Encounters Date Type Department Care Team Description 04/26/2024 2:45 PM EST Office Visit [facility] [address] [place] [phone] Sonal Robert, JUAN JOSE Chronic venous hypertension (idiopathic) with ulcer and inflammation of left lower extremity (CMS/HCC) (Primary Dx); Lymphedema, not elsewhere classified 04/20/2024 8:45 AM EST Office Visit [facility] [address] [place] [phone] Edy Grove MD Lymphedema, not elsewhere classified (Primary Dx); Chronic venous hypertension (idiopathic) with ulcer and inflammation of left lower extremity (CMS/HCC); Non-pressure chronic ulcer of other part of left lower leg limited to breakdown of skin (CMS/HCC); Abrasion of left lower leg, initial encounter; Ulcer of left lower leg, limited to breakdown of skin (CMS/HCC) 04/14/2024 Lab Requisition [facility] [address] [place] [phone] Isabel Cardona MD Encounter for other general examination 04/10/[address] [facility] [address] [place] [phone] Isabel Cardona MD Encounter for other general examination 04/07/2024 Lab Requisition [facility] [address] [place] [phone] Isabel Cardona MD Encounter for other general examination 04/03/2024 12:38 AM EST - 04/06/2024 4:13 PM EST Hospital Encounter [facility] [place] [phone] Hardy Evans MD Zhang, He, MD Matsuo, Ken, MD Chaudhary, Radhika, MD D'Souza, Keith Mccall MD Congestive heart failure, unspecified HF chronicity, unspecified heart failure type (CMS/HCC) (Primary Dx); Hypotension, unspecified hypotension type; Wheezing Discharge Disposition: [facility]dc Facility 03/20/2024 Telephone [facility] [address] [place] [phone] Mylene Parks RN Wound Care 03/15/2024 3:00 PM EST Office Visit [facility] [address] [place] [phone] Sonal Robert MANAGER WIND Chronic venous hypertension (idiopathic) with ulcer and inflammation of right lower extremity (CMS/HCC) (Primary Dx); Non-pressure chronic ulcer of other part of right lower leg limited to breakdown of skin (CMS/HCC); Lymphedema, not elsewhere classified; Chronic venous hypertension (idiopathic) with ulcer and inflammation of left lower extremity (CMS/HCC); Non-pressure chronic ulcer of other part of left lower leg limited to breakdown of skin (CMS/HCC) 03/08/2024 11:15 AM EST Office Visit [facility] [address] [place] [phone] Sonal Robert MANAGER [employer]IND Chronic venous hypertension (idiopathic) with ulcer and inflammation of right lower extremity (CMS/HCC) (Primary Dx); Non-pressure chronic ulcer of other part of right lower leg limited to breakdown of skin (CMS/HCC); Lymphedema, not elsewhere classified; Non-pressure chronic ulcer of other part of left lower leg limited to breakdown of skin (CMS/HCC); Chronic venous hypertension (idiopathic) with ulcer and inflammation of left lower extremity (CMS/HCC) from Last 3 Months Surgical History Surgery Date Site/Laterality Comments CATARACT EXTRACTION Bilateral LUNG LOBECTOMY 04/05/2010 - 04/04/2011 Left KNEE SURGERY Bilateral CARPAL TUNNEL RELEASE Bilateral Medical History Medical History Date Comments Lymphedema Hypertension Arthritis Asthma Bronchiectasis (CMS/HCC) Cataract Skin cancer A-fib (CMS/HCC) CHF (congestive heart failure) (CMS/HCC) Pneumonia Family History Medical History Relation Name Comments No Known Problems Father Relation Name Status Comments Father Social History Tobacco Use Types Packs/Day Years Used Date Smoking Tobacco: Former Cigarettes 0.5 11 1 4 - 1974 Smokeless Tobacco: Never Tobacco Cessation:Counseling Given: Not Answered Alcohol Use Standard Drinks/Week Comments Yes 14 (1 standard drink = 0.6 oz pu re alcohol) Interpersonal Safety Answer Date Record ed Physical Abuse 04/03/2024 Verbal Abuse 04/03/2024 Sex and Gender Information Value Date Recorded Sex Assigned at Not on file Legal Sex Male 4:08 PM EST Gender Identity Not on file Sexual Orientation Not on file Obstetrics History Last Filed Vital Signs Vital Sign Reading Time Taken Comments Blood Pressure 108/39 04/26/2024 2:39 PM EST Pulse 78 04/26/2024 2:39 PM EST Temperature 36.2 ??C (97.2 ??F) 04/26/2024 2:39 PM ES T Respiratory Rate 18 04/26/2024 2:39 PM EST Oxygen Saturation 98% 04/26/2024 2:39 PM EST Inhaled Oxygen Concentration - - Weight 146 kg (322 lb) 04/04/2024 9:30 AM EST Height 180 cm (5' 10.87 ) 04/04/2024 9:30 AM EST Body Mass Index 45.08 04/04/2024 9:30 AM EST Plan of Treatment Health Maintenance Due Date Last Done Comments Diabetes: Annual Foot Exam 1952 Diabetes: Annual Retina Eye Exam 1950 Hepatitis A Vaccines (1 of 2 - Risk 2-dose series) 1961 Cholesterol Screening (Lipid Panel) 03/04/2022 Depression Screening 03/04/2022 Medicare Annual Wellness Visit 03/04/2022 Social Influencers of Health Screening 03/04/2022 DTaP,Tdap,and Td Vaccines (5 - Td or Tdap) 04/11/2023 04/11/2013, 04/05/2012, 10/20/2010, Additional history exists Diabetes: Annual Urine Albumin-Creatinine Ratio (uACR) 02/09/2024 Diabetes: Blood Sugar Control Test (HGBA1C) 10/02/2024 04/03/2024 Falls Risk Assessment 04/06/2025 04/06/2024 Diabetes: Annual GFR (Glomerular Filtration Rate) 04/14/2025 04/14/2024, 04/10/2024, 04/07/2024, Additional history exists Hypertension/CHF/CAD Annual BMP Blood Test 04/14/2025 04/14/2024, 04/10/2024, 04/07/2024, Additional history exists Pneumococcal Vaccine: 50+ Years Completed 07/18/2014, 06/03/2014, 10/20/2010, Additional history exists Zoster Vaccines Completed 05/24/2018, 05/2017, 07/19/2008 Influenza Vaccine Completed 12/15/2023, , 01/30/2022, Additional history exists RSV Immunization Patients 60+ Years Old Completed 12/15/2023 COVID-19 Vaccine Completed 01/28/2024, 02/2023, 03/05/2022, Additional history exists HIB Vaccines Aged Out No longer eligi ble based on patient's age to complete this topic HPV Vaccines Aged Out No longer eligi ble based on patient's age to complete this topic Hepatitis B Vaccines Aged Out No long er eligible based on patient's age to complete this topic IPV Vaccines Aged Out No longer eligi ble based on patient's age to complete this topic MMR Vaccines Aged Out No longer eligi ble based on patient's age to complete this topic Meningococcal ACWY Vaccine Aged Out N o longer eligible based on patient's age to complete this topic Meningococcal B Vacine Aged Out No lo nger eligible based on patient's age to complete this topic RSV Immunization Patients Under 20 months Aged Out No longer eligible based on patient's age to complete this topic Varicella Vaccines Aged Out No longer eligible based on patient's age to complete this topic Goals Goal Patient Goal Type Associated Problems Recent Progress Patient-Stated? Author Wound volume breakdown reduced by X% by week 4 Care Plan Impaired Tissue No Paola Villalobos RN Wound volume breakdown reduced by X% by week 8 Care Plan Impaired Tissue No Paola Villalobos RN Wound volume breakdown reduced by X% by week 12 Care Plan Impaired Tissue No Paola Villalobos RN Quit using tobacco (cigarettes, smokeless, etc) Care Plan Education needed on impact of smoking on wound Paola Leslie RN Reduce tobacco use (cigarettes, smokeless, etc) Care Plan Education needed on impact of smoking on wound No Paloa Villalobos RN Decrease Wound Volume by X% by date (in notes) Care Plan Education needed on impact of smoking on wound No Paola Villalobos RN Patient and Caregiver Understand Wound Care Education Care Plan Education needed related to ulceration/compr omised skin integrity. No Paola Villalobos RN Procedures Procedure Name Priority Date/Time Associated Diagnosis Comments WOUND CARE PROCEDURE Routine 04/20/2024 9:45 AM EST Lymphedema, not elsewhere classified LAVENDER - EDTA Routine 04/14/2024 6:24 AM EST Encounter for other general examination MAGNESIUM Routine 04/14/2024 6:24 AM EST Encounter for other general examination BASIC METABOLIC PANEL Routine 04/14/2024 6:24 AM EST Encounter for other general examination CBC WITH AUTO DIFFERENTIAL Routine 04/10/2024 5:55 AM EST Encounter for other general examination MAGNESIUM Routine 04/10/2024 5:55 AM EST Encounter for other general examination CBC AND DIFFERENTIAL Routine 04/10/2024 5:55 AM EST Encounter for other general examination COMPREHENSIVE METABOLIC PANEL Routine 04/10/2024 5:55 AM EST Encounter for other general examination CBC WITH AUTO DIFFERENTIAL Routine 04/07/2024 5:36 AM EST Encounter for other general examination MAGNESIUM Routine 04/07/2024 5:36 AM EST Encounter for other general examination CBC AND DIFFERENTIAL Routine 04/07/2024 5:36 AM EST Encounter for other general examination COMPREHENSIVE METABOLIC PANEL Routine 04/07/2024 5:36 AM EST Encounter for other general examination POCT GLUCOSE BLOOD Routine 04/06/2024 12 :10 PM EST POCT GLUCOSE BLOOD Routine 04/06/2024 7: 45 AM EST LAVENDER - EDTA Routine 04/06/2024 5:38 AM EST EXTRA TUBES Routine 04/06/2024 5:38 AM EST MAGNESIUM Routine 04/06/2024 5:38 AM EST BASIC METABOLIC PANEL Routine 04/06/2024 5:38 AM EST POCT GLUCOSE BLOOD Routine 04/05/2024 9: 35 PM EST POCT GLUCOSE BLOOD Routine 04/05/2024 5: 07 PM EST POCT GLUCOSE BLOOD Routine 04/05/2024 11 :49 AM EST POCT GLUCOSE BLOOD Routine 04/05/2024 7: 30 AM EST COMPLETE BLOOD COUNT Timed 04/05/2024 4:49 AM EST BASIC METABOLIC PANEL Timed 04/05/2024 4:49 AM EST MAGNESIUM Timed 04/05/2024 4:49 AM EST PHOSPHORUS Timed 04/05/2024 4:49 AM EST POCT GLUCOSE BLOOD Routine 04/04/2024 9: 28 PM EST POCT GLUCOSE BLOOD Routine 04/04/2024 3: 29 PM EST POCT GLUCOSE BLOOD Routine 04/04/2024 11 :44 AM EST TRANSTHORACIC ECHOCARDIOGRAM (TTE) COMPLETE W/ CONTRAST Routine 04/04/2024 9:31 AM EST Congestive heart failure, unspecified HF chronicity, unspecified heart failure type (CMS/HCC) MRSA PCR Routine 04/04/2024 9:01 AM EST POCT GLUCOSE BLOOD Routine 04/04/2024 7: 45 AM EST VANCOMYCIN, TROUGH Timed 04/04/2024 4: 51 AM EST HEPATIC FUNCTION PANEL Routine 4:50 AM EST COMPLETE BLOOD COUNT Timed 04/04/2024 4:50 AM EST BASIC METABOLIC PANEL Timed 04/04/2024 4:50 AM EST MAGNESIUM Timed 04/04/2024 4:50 AM EST PHOSPHORUS Timed 04/04/2024 4:50 AM EST POCT GLUCOSE BLOOD Routine 04/03/2024 9: 04 PM EST POCT GLUCOSE BLOOD Routine 04/03/2024 4: [address] CHEST WO CONTRAST STAT 04/03/2024 4:33 PM EST US ABDOMEN COMPLETE Routine 04/03/2024 2 :40 PM EST POCT GLUCOSE BLOOD Routine 04/03/2024 11 :57 AM EST POCT GLUCOSE BLOOD Routine 04/03/2024 8: 38 AM EST ECG 12-LEAD Routine 04/03/2024 7:34 AM EST XR CHEST 1 VIEW Routine 04/03/2024 6:41 AM EST GENERAL Routine 04/03/2024 6:00 AM EST Congestive heart failure, unspecified HF chronicity, unspecified heart failure type (CMS/HCC) Hypotension, unspecified hypotension type LACTATE DEHYDROGENASE Add-On 04/03/2024 5:47 AM EST HAPTOGLOBIN Add-On 04/03/2024 5:47 AM EST RETICULOCYTE COUNT Add-On 04/03/2024 5: 47 AM EST HEMOGLOBIN A1C Add-On 04/03/2024 5:47 AM EST HEPATIC FUNCTION PANEL STAT 5:47 AM EST ACTIVATED PARTIAL THROMBOPLASTIN TIME STAT 04/03/2024 5:47 AM EST PROTHROMBIN TIME WITH INR STAT 04/03/2024 5:47 AM EST COMPLETE BLOOD COUNT Timed 04/03/2024 5:47 AM EST BASIC METABOLIC PANEL Timed 04/03/2024 5:47 AM EST MAGNESIUM Timed 04/03/2024 5:47 AM EST PHOSPHORUS Timed 04/03/2024 5:47 AM EST CULTURE BLOOD STAT 04/03/2024 5:47 AM EST CULTURE BLOOD Routine 04/03/2024 5:47 AM EST RESPIRATORY VIRUS PANEL MOLECULAR STUDY Routine 04/03/2024 3:20 AM EST URINALYSIS WITH REFLEX MICROSCOPIC Routine 04/03/2024 3:19 AM EST URINALYSIS WITH REFLEX MICROSCOPIC Routine 04/03/2024 3:19 AM EST LEGIONELLA ANTIGEN URINE, EIA Routine 04/03/2024 3:19 AM EST WOUND CARE PROCEDURE Routine 03/15/2024 4:26 PM EST Lymphedema, not elsewhere classified Chronic venous hypertension (idiopathic) with ulcer and inflammation of left lower extremity (CMS/HCC) Non-pressure chronic ulcer of other part of left lower leg limited to breakdown of skin (CMS/HCC) WOUND CARE PROCEDURE Routine 03/15/2024 4:25 PM EST Lymphedema, not elsewhere classified Chronic venous hypertension (idiopathic) with ulcer and inflammation of left lower extremity (CMS/HCC) Non-pressure chronic ulcer of other part of left lower leg limited to breakdown of skin (CMS/HCC) WOUND CARE PROCEDURE Routine 03/08/2024 12:18 PM EST Lymphedema, not elsewhere classified Non-pressure chronic ulcer of other part of left lower leg limited to breakdown of skin (CMS/HCC) Chronic venous hypertension (idiopathic) with ulcer and inflammation of left lower extremity (CMS/HCC) WOUND CARE PROCEDURE Routine 03/08/2024 12:17 PM EST Chronic venous hypertension (idiopathic) with ulcer and inflammation of right lower extremity (CMS/HCC) Non-pressure chronic ulcer of other part of right lower leg limited to breakdown of skin (CMS/HCC) Lymphedema, not elsewhere classified from Last 3 Months Results * Wound Care Procedure (04/20/2024 9:45 AM EST) Narrative Edy Grove MD - 04/20/2024 9:45 AM EST Edy Grove MD ? 04/20/2024 10:50 AM Wound Care Procedure Date/Time: 04/20/2024 9:45 AM Performed by: Edy Grove MD Authorized by: Edy Grove MD ?? Consent: ??Consent obtained: ??Verbal ??Consent given by: ??Patient ??Risks, benefits, and alternatives were discussed: yes ?Risks discussed: ??Infection and pain ??Alternatives discussed: ??Delayed treatment [place] protocol: ??Procedure explained and questions answered to patient or proxy's satisfaction: yes ?Relevant documents present and verified: yes ?Patient identity confirmed: ??Verbally with patient Sedation: ??Sedation type: ??None Anesthesia: ??Anesthesia method: ??None Procedure details: ??Indications comment: ??Lymphedema ??Wound location: ??Leg ??Leg location: ??R lower leg Dressing: ??Wrapped with: Coban 2. Post-procedure details: ??Procedure completion: ??Tolerated Edy Grove MD IN CLINIC/BEDSIDE ORDERAB LES Final Result * Lavender tube (04/14/2024 6:24 AM EST) Only the most recent of2 resultswithin the time period is included. Extra Tube Hold for add-ons. 04/14/2024 9:01 AM EST [facility] Comment:Auto resulted. Blood Venous blood specimen / Unknown Venipuncture / Unknown 04/14/2024 6:24 AM EST 04/14/2024 7:39 AM EST Isabel Cardona MD LAB BLOOD ORDERABLES Final Resu lt Performing Organization Address [facility]/ZIP Co de Phone Number [facility] [address] [place] [address], [place] [phone] * (ABNORMAL) Magnesium (04/14/2024 6:24 AM EST) Only the most recent of7 resultswithin the time period is included. [facility] Magnesium 1.8(L) 1.9 - 2.6 mg/dL LAB CHEMISTRY METHOD 04/14/2024 8:16 AM EST [facility] Blood Venous blood specimen / Unknown Venipuncture / Unknown 04/14/2024 6:24 AM EST 04/14/2024 7:39 AM EST us Isabel Cardona MD LAB BLOOD ORDERABLES Final Resu lt Performing Organization Address City/[facility]/ZIP Co de Phone Number [facility] [address] [place] [address], [place] [phone] * (ABNORMAL) Basic metabolic panel (04/14/2024 6:24 AM EST) Only the most recent of5 resultswithin the time period is included. Sodium 135 133 - 145 mmol/L LAB CHEMISTRY METHOD 04/14/2024 8:16 AM [facility] Potassium 4.0 3.5 - 5.5 mmol/L LAB CHEMISTRY METHOD 04/14/2024 8:16 AM [facility] Chloride 101 96 - 110 mmol/L LAB CHEMISTRY METHOD 04/14/2024 8:16 AM [facility] CO2 30 21 - 32 mmol/L LAB CHEMISTRY METHOD 04/14/2024 8:16 AM [facility] Anion Gap 4 3 - 11 LAB CHEMISTRY METHOD 04/14/2024 8:16 AM [facility] Glucose 142(H) 70 - 100 mg/dL LAB CHEMISTRY METHOD 04/14/2024 8:16 AM [facility] BUN 29(H) 5 - 25 mg/dL LAB CHEMISTRY METHOD 04/14/2024 8:16 AM [facility] Creatinine 0.71 0.70 - 1.30 mg/dL LAB CHEMISTRY METHOD 04/14/2024 8:16 AM [facility] eGFR 92 >=60 mL/min/1. 73m2 LAB CHEMISTRY METHOD 04/14/2024 8:16 AM [facility] Comment:Calculation based on the??Chronic Kidney Disease Epidemiology Collaboration (CKD-EPI) equation refit??without adjustment for race. BUN/Creatinine Ratio 40.8 LAB CHEMISTRY METHOD 04/14/2024 8:16 AM [facility] Calcium 8.8 8.5 - 10.5 mg/dL LAB CHEMISTRY METHOD 04/14/2024 8:16 AM [facility] Blood Venous blood specimen / Unknown Venipuncture / Unknown 04/14/2024 6:24 AM EST 04/14/2024 7:39 AM EST us Isabel Cardona MD LAB BLOOD ORDERABLES Final Resu lt [facility] [address] [place] [address], [place] [phone] * (ABNORMAL) CBC auto differential (04/10/2024 5:55 AM EST) Only the most recent of2 resultswithin the time period is included. WBC 8.3 4.8 - 10.8 K/mcL LAB HEMETOLOGY METHOD 04/10/2024 1:37 PM [facility] RBC 4.20(L) 4.50 - 5.50 M/mcL LAB HEMETOLOGY METHOD 04/10/2024 1:37 PM [facility] Hemoglobin 14.2 13.5 - 17.5 g/dL LAB HEMETOLOGY METHOD 04/10/2024 1:37 PM [facility] Hematocrit 44.1 42.0 - 54.0 % LAB HEMETOLOGY METHOD 04/10/2024 1:37 PM [facility] MCV 104.5(H) 79.0 - 98.0 FL LAB HEMETOLOGY METHOD 04/10/2024 1:37 PM [facility] MCH 33.6(H) 27.0 - 32.0 pcg LAB HEMETOLOGY METHOD 04/10/2024 1:37 PM [facility] MCHC 32.2 32.0 - 37.0 g/dL LAB HEMETOLOGY METHOD 04/10/2024 1:37 PM [facility] RDW 14.0 11.0 - 15.0 % LAB HEMETOLOGY METHOD 04/10/2024 1:37 PM [facility] Platelets 197 130 - 400 K/mcL LAB HEMETOLOGY METHOD 04/10/2024 1:37 PM [facility] MPV 11.1(H) 7.0 - 11.0 FL LAB HEMETOLOGY METHOD 04/10/2024 1:37 PM [facility] NRBC 0.0 <1.0 % LAB HEMETOLOGY METHOD 04/10/2024 1:37 PM [facility] NRBC Absolute 0.00 <0.10 K/mcL LAB HEMETOLOGY METHOD 04/10/2024 1:37 PM [facility] Neutrophils Relative 65.7 % LAB HEMETOLOGY METHOD 04/10/2024 1:37 PM [facility] Lymphocytes Relative 21.7 % LAB HEMETOLOGY METHOD 04/10/2024 1:37 PM [facility] Monocytes Relative 8.6 % LAB HEMETOLOGY METHOD 04/10/2024 1:37 PM [facility] Eosinophils Relative 2.4 % LAB HEMETOLOGY METHOD 04/10/2024 1:37 PM [facility] Basophils Relative 0.5 % LAB HEMETOLOGY METHOD 04/10/2024 1:37 PM [facility] Immature Granulocytes Relative 1.1 % LAB HEMETOLOGY METHOD 04/10/2024 1:37 PM [facility] Neutrophils Absolute 5.46 1.50 - 7.00 K/mcL LAB HEMETOLOGY METHOD 04/10/2024 1:37 PM [facility] Lymphocytes Absolute 1.80 1.00 - 5.00 K/mcL LAB HEMETOLOGY METHOD 04/10/2024 1:37 PM [facility] Monocytes Absolute 0.71 0.20 - 1.00 K/mcL LAB HEMETOLOGY METHOD 04/10/2024 1:37 PM [facility] Eosinophils Absolute 0.20 0.00 - 0.50 K/mcL LAB HEMETOLOGY METHOD 04/10/2024 1:37 PM [facility] Basophils Absolute 0.04 0.00 - 0.20 K/mcL LAB HEMETOLOGY METHOD 04/10/2024 1:37 PM [facility] Immature Granulocytes Absolute 0.09(H) 0.00 - 0.03 K/mcL LAB HEMETOLOGY METHOD 04/10/2024 1:37 PM EST [facility] Blood Venous blood specimen / Unknown Venipuncture / Unknown 04/10/2024 5:55 AM EST 04/10/2024 12:12 PM EST us Isabel Cardona MD LAB BLOOD ORDERABLES Final Resu lt [facility] [address] [place] [address], [place] [phone] * (ABNORMAL) Comprehensive metabolic panel (04/10/2024 5:55 AM EST) Only the most recent of2 resultswithin the time period is included. Sodium 136 133 - 145 mmol/L LAB CHEMISTRY METHOD 04/10/2024 5:14 PM [facility] Potassium 3.9 3.5 - 5.5 mmol/L LAB CHEMISTRY METHOD 04/10/2024 5:14 PM [facility] Chloride 99 96 - 110 mmol/L LAB CHEMISTRY METHOD 04/10/2024 5:14 PM [facility] CO2 30 21 - 32 mmol/L LAB CHEMISTRY METHOD 04/10/2024 5:14 PM [facility] Anion Gap 7 3 - 11 LAB CHEMISTRY METHOD 04/10/2024 5:14 PM [facility] Glucose 102(H) 70 - 100 mg/dL LAB CHEMISTRY METHOD 04/10/2024 5:14 PM [facility] BUN 29(H) 5 - 25 mg/dL LAB CHEMISTRY METHOD 04/10/2024 5:14 PM [facility] Creatinine 0.70 0.70 - 1.30 mg/dL LAB CHEMISTRY METHOD 04/10/2024 5:14 PM [facility] eGFR 92 >=60 mL/min/1. 73m2 LAB CHEMISTRY METHOD 04/10/2024 5:14 PM [facility] Comment:Calculation based on the??Chronic Kidney Disease Epidemiology Collaboration (CKD-EPI) equation refit??without adjustment for race. BUN/Creatinine Ratio 41.4 LAB CHEMISTRY METHOD 04/10/2024 5:14 PM [facility] Calcium 8.7 8.5 - 10.5 mg/dL LAB CHEMISTRY METHOD 04/10/2024 5:14 PM [facility] AST (SGOT) 14 10 - 42 unit/L LAB CHEMISTRY METHOD 04/10/2024 5:14 PM [facility] ALT (SGPT) 21 10 - 60 unit/L LAB CHEMISTRY METHOD 04/10/2024 5:14 PM [facility] Alkaline Phosphatase 126(H) 42 - 121 unit/L LAB CHEMISTRY METHOD 04/10/2024 5:14 PM [facility] Total Protein 6.6 6.0 - 8.0 g/dL LAB CHEMISTRY METHOD 04/10/2024 5:14 PM [facility] Albumin 3.0(L) 3.2 - 5.0 g/dL LAB CHEMISTRY METHOD 04/10/2024 5:14 PM [facility] Total Bilirubin 1.8(H) 0.0 - 1.4 mg/dL LAB CHEMISTRY METHOD 04/10/2024 5:14 PM [facility] Blood Venous blood specimen / Unknown Venipuncture / Unknown 04/10/2024 5:55 AM EST 04/10/2024 12:12 PM EST us Isabel Cardona MD LAB BLOOD ORDERABLES Final Resu lt [facility] [address] [place] [address], [place] [phone] * (ABNORMAL) POCT Glucose, blood (04/06/2024 12:10 PM EST) Only the most recent of14 resultswithin the time period is included. Glucose POCT 145(H) 70 - 105 mg/dL 04/06/2024 12:[address] [facility] Blood Capillary blood specimen / Unknown 04/06/2024 12:10 PM EST 04/06/2024 12:12 PM EST Keith Garcia MD LAB POINT OF CARE T EST DOCKED DEVICE UNSOLICITED RESULTS Final Result [facility] [address] [place] [address], [place] [phone] * (ABNORMAL) Complete blood count (04/05/2024 4:49 AM EST) Only the most recent of3 resultswithin the time period is included. [facility] WBC 10.0 4.0 - 10.5 K/mcL LAB HEMETOLOGY METHOD 04/05/2024 5:54 AM [facility] RBC 3.72(L) 4.70 - 6.00 M/mcL LAB HEMETOLOGY METHOD 04/05/2024 5:54 AM [facility] Hemoglobin 12.4(L) 13.5 - 18.0 g/dL LAB HEMETOLOGY METHOD 04/05/2024 5:54 AM [facility] Hematocrit 39.2(L) 42.0 - 54.0 % LAB HEMETOLOGY METHOD 04/05/2024 5:54 AM [facility] MCV 105.4(H) 78.0 - 100.0 FL LAB HEMETOLOGY METHOD 04/05/2024 5:54 AM [facility] MCH 33.3(H) 27.0 - 31.0 pcg LAB HEMETOLOGY METHOD 04/05/2024 5:54 AM [facility] MCHC 31.6(L) 32.0 - 36.0 g/dL LAB HEMETOLOGY METHOD 04/05/2024 5:[address] [facility] RDW 14.1(H) 11.5 - 14.0 % LAB HEMETOLOGY METHOD 04/05/2024 5:[address] [facility] Platelets 149(L) 150 - 450 K/mcL LAB HEMETOLOGY METHOD 04/05/2024 5:[address] [facility] MPV 10.4 8.3 - 11.8 FL LAB HEMETOLOGY METHOD 04/05/2024 5:[address] [facility] Blood Venous blood specimen / Unknown Venipuncture / Unknown 04/05/2024 4:49 AM EST 04/05/2024 5:29 AM EST Hardy Evans MD LAB BLOOD ORDERABLES F inal Result [facility] [address] [place] [address], [place] [phone] * Phosphorus (04/05/2024 4:49 AM EST) Only the most recent of3 resultswithin the time period is included. Phosphorus 3.3 2.4 - 5.1 mg/dL LAB CHEMISTRY METHOD 04/05/2024 6:[address] [facility] Blood Venous blood specimen / Unknown Venipuncture / Unknown 04/05/2024 4:49 AM EST 04/05/2024 5:29 AM EST us Hardy Evans MD LAB BLOOD ORDERABLES F inal Result [facility] [address] [place] [address], [place] [phone] * (ABNORMAL) TRANSTHORACIC ECHOCARDIOGRAM (TTE) COMPLETE W/ CONTRAST (04/04/2024 9:31 AM EST) [facility] BSA 2.7 m2 CV PACS LV EDV (A2C) 209 mL CV PACS LV EDV (A4C) 164 mL CV PACS LV Diastolic Volume (BP) 187(A) 62 - 150 mL CV PACS LV ESV (A2C) 94 mL CV PACS LV ESV (A4C) 95 mL CV PACS LV Systolic Volume (BP) 95(A) 21 - 61 mL CV PACS IVSD 1.0 0.6 - 1.0 cm CV PACS LVIDD 5.8 4.2 - 5.8 cm CV PACS LVIDS 3.8 2.5 - 4.0 cm CV PACS LVOT Diameter 2.2 cm CV PACS LVOT Mean Grad 2 mmHg CV PACS LVOT Peak VTI 22.9 cm CV PACS LVOT Mean Wander 0.7 m/s CV PACS LVOT Peak Wander 1.1 m/s CV PACS LVOT Peak Gradient 5 mmHg CV PACS LVPWD 0.8 0.6 - 1.0 cm CV PACS Ejection Fraction (A2C) 55 % CV PACS Ejection Fraction (A4C) 42 % CV PACS Ejection Fraction (BP) 49 % CV PACS LVOT Area 3.8 cm2 CV PACS LVOT Stroke Volume 87 mL CV PACS Left Atrium Minor [place] 8.5 cm CV PACS Left Atrium Major [place] 9.2 cm CV PACS LA Area Sys (A2C) 38 cm2 CV PACS LA Area Sys (A4C) 40 cm2 CV PACS LA Volume (BP) 137 mL CV PACS LA Size 4.4 cm CV PACS RA Area 39.5 cm2 CV PACS RA 2D Volume 147 mL CV PACS AV Peak Wander 1.4 m/s CV PACS AV Peak Gradient 8 mmHg CV PACS AV Area Peak Velocity 3.0 cm2 CV PACS Aortic Sinus Valsalva 3.9 cm CV PACS Ascending Aorta 3.9 cm CV PACS PV Peak Velocity 0.9 m/s CV PACS PV Peak Gradient 3 mmHg CV PACS RV Diastolic Basal Dimension 4.5(A) 2.5 - 4.1 cm CV PACS RV Diastolic Mid Dimension 3.3 1.9 - 3.5 cm CV PACS RV S' 12 cm/s CV PACS TAPSE 23 mm CV PACS LV ESV Index (A4C) 37 mL/m2 CV PACS LV EDV Index (A4C) 64 mL/m2 CV PACS LVOT Stroke Index 34 mL/m2 CV PACS LA Dimension Index 2D 1.7 cm/m2 CV PACS Relative Wall Thickness ratio 0.28 CV PACS FS 34 % CV PACS LV Mass 2D 203 g CV PACS Ascending Aorta Index 1.51 cm/m2 CV PACS LVOT flow 266 mL/s CV PACS RA 2D Volume Index 57 mL/m2 CV PACS JOCELYN Index (Pk Wander) 1.16 cm2/m2 CV PACS LVIDD Index 2.25 cm/m2 CV PACS LVIDS Index 1.47 cm/m2 CV PACS AV Velocity Ratio 0.79 CV PACS LV Systolic Volume Index (BP) 37 mL/m2 CV PACS LV Diastolic Volume Index (BP) 72 mL/m2 CV PACS LA Volume Index (BP) 53 mL/m2 CV PACS LV Mass Index 2D 79 g/m2 CV PACS LV EDV Index (A2C) 81 mL/m2 CV PACS LV ESV Index (A2C) 36 mL/m2 CV PACS Anatomical Region Laterality Modality Ultrasound Narrative 04/04/2024 4:36 PM EST ?Technically limited study with poor acoustic windows ?Left ventricle cavity size is normal. Left ventricular systolic function is mildly decreased. EF by 2D Buchanan biplane is 49%. ?The left ventricular wall motion is globally hypokinetic. ?No regional LV wall motion abnormalities noted. ?Left ventricle wall thickness is normal. ?RV was not well-visualized but appears to be mildly enlarged with low normal systolic function ?Severely dilated right and left atrium ?Mild mitral, tricuspid and pulmonic regurgitation. ?The Sinus of Valsalva is dilated (3.9 cm). The ascending aorta is dilated (3.9 cm). ?There is no prior study available for comparison. Left Ventricle Left ventricle cavity size is normal. Wall thickness is normal. Systolic function is mildly decreased. The quantitative EF by 2D Buchanan biplane is 49%. There are no regional LV wall motion abnormalities. Unable to assess diastolic function due to atrial fibrillation. Right Ventricle Right ventricle cavity is mildly dilated. Systolic function is low normal. Left Atrium Left atrium cavity is severely dilated. Left atrium volume index is severely increased. Right Atrium Right atrium cavity is severely dilated. IVC/SVC Inferior vena cava is dilated. RA pressures is estimated to be 15 mmHg (IVC diameter >21 mm and decreases <50% during inspiration). Mitral Valve Mitral valve structure is normal. There is mild regurgitation. There is no significant stenosis noted. Tricuspid Valve Tricuspid valve structure is normal. There is mild regurgitation. There is no significant tricuspid valve stenosis. Aortic Valve The aortic valve is trileaflet. The leaflets are not thickened and exhibit normal excursion. There is no regurgitation or stenosis. Pulmonic Valve The pulmonic valve was not well visualized. There is mild pulmonic valve regurgitation. No significant pulmonary valve stenosis noted. Ascending Aorta The Sinus of Valsalva is dilated (3.9 cm). The ascending aorta is dilated (3.9 cm). Pericardium Pericardium appears normal. There is no pericardial effusion. Study Details Overall the study quality was adequate. Definity contrast was given to enhance imaging. Study was difficult due to: poor endocardial visualization and patient body habitus. Prior Study There is no prior study available for comparison. Wall Scoring Baseline Score Index: 2.00 The left ventricular wall motion is globally hypokinetic. Hardy Evans MD CV ECHO PROCEDURES Fin al Result * MRSA molecular study (04/04/2024 9:01 AM EST) Pathologist [facility] MRSA Screen PCR Negative Negative LAB MOLECULAR DIAGNOSTICS METHOD 04/04/2024 10:[address] [facility] Swab Both anterior nares / Unknown Non-blood Collection / Unknown 04/04/2024 9:01 AM EST 04/04/2024 9:13 AM EST Ileana Izaguirre MD LAB MICROBIOLOGY - GENERAL ORDERABLES Final Result [facility] [address] [place] [address], [place] [phone] * (ABNORMAL) Vancomycin, trough (04/04/2024 4:51 AM EST) Pathologist [facility] Vancomycin Trough 23.7(HH) 5.0 - 10.0 mcg/mL LAB CHEMISTRY METHOD 04/04/2024 6:31 AM [facility] Blood Venous blood specimen / Unknown Venipuncture / Unknown 04/04/2024 4:51 AM EST 04/04/2024 5:58 AM EST Da Mckeon MD LAB BLOOD ORDERABLES Final Resul t [facility] [address] [place] [address], [place] [phone] * (ABNORMAL) Hepatic function panel (04/04/2024 4:50 AM EST) Only the most recent of2 resultswithin the time period is included. [facility] ALT (SGPT) 12 10 - 49 unit/L LAB CHEMISTRY METHOD 04/04/2024 6:52 AM [facility] AST (SGOT) 29 <34 unit/L LAB CHEMISTRY METHOD 04/04/2024 6:52 AM [facility] Alkaline Phosphatase 100 46 - 116 unit/L LAB CHEMISTRY METHOD 04/04/2024 6:52 AM [facility] Bilirubin, Direct 0.8(H) 0.0 - 0.3 mg/dL LAB CHEMISTRY METHOD 04/04/2024 6:52 AM [facility] Total Bilirubin 1.9(H) 0.2 - 1.1 mg/dL LAB CHEMISTRY METHOD 04/04/2024 6:52 AM [facility] Total Protein 6.0 5.7 - 8.2 g/dL LAB CHEMISTRY METHOD 04/04/2024 6:52 AM [facility] Albumin 3.0(L) 3.2 - 4.8 g/dL LAB CHEMISTRY METHOD 04/04/2024 6:52 AM [facility] Globulin, Total 3.0 2.3 - 3.5 g/dL LAB CHEMISTRY METHOD 04/04/2024 6:[address] [facility] A/G Ratio 1.0 1.0 - 1.7 LAB CHEMISTRY METHOD 04/04/2024 6:[address] [facility] Blood Venous blood specimen / Unknown Venipuncture / Unknown 04/04/2024 4:50 AM EST 04/04/2024 5:59 AM EST us Da Mckeon MD LAB BLOOD ORDERABLES Final Resul t [facility] [address] [place] [address], [place] [phone] * CT Chest wo Contrast (04/03/2024 4:33 PM EST) Anatomical Region Laterality Modality Body Computed Tomogra phy 04/03/2024 4:52 PM EST Impressions 04/03/2024 4:56 PM EST * ??Patchy density predominantly along the left lower lobe and most prominent towards the left lung base and most compatible with pneumonia. * ??Small left pleural effusion with questionable trace right pleural fluid. * ??Mild prominence of interstitial markings predominantly along the interlobular septae and most prominent along the right upper lobe. Findings likely represent mild chronic interstitial changes. * ??Mild cardiomegaly. * ??Atherosclerosis. * ??Small scattered mediastinal lymph nodes, likely reactive. Report reviewed and signed by : Dr. Joseph Escalante MD on 04/03/2024 4:56 PM. Workstation Name - [id number] -------- FINAL REPORT -------- Dictated By: Joseph Escalante Dictated Date: 04/03/2024 16:52 ET Assigned Physician: Joseph Escalante Reviewed and Electronically Signed By: Joseph Escalante Signed Date: 04/03/2024 16:56 ET Workstation ID: [id number] Transcribed By: Self Edit Transcribed Date: 04/03/2024 16:52 ET Narrative 04/03/2024 4:56 PM EST TECHNIQUE: ??Reformatted images were obtained by post processing in multiple planes. A patient individualized dose optimization technique was employed for this procedure. CONTRAST: No contrast. ?? COMPARISON: Correlation is made with x-ray performed earlier the same day. FINDINGS: AXILLA/SUPRACLAVICULAR: There is no axillary or supraclavicular adenopathy by size criteria. MEDIASTINUM ADENOPATHY: There are small scattered mediastinal lymph nodes predominantly seen along the prevascular region with additional small lymph nodes in the right paratracheal, pretracheal, AP window and subcarinal regions. The largest lymph node measures approximately 1.1 cm short axis. AIRWAY: Central tracheobronchial tree is unremarkable. VASCULATURE: There is [id number] atherosclerosis of the thoracic aorta and coronary arteries. MASS: There are no mediastinal masses. CARDIAC: Heart is mildly enlarged. Mild calcified coronary artery disease. TOYA: There is no definite hilar adenopathy on this unenhanced study. LUNGS: There is mild prominence of interstitial markings predominantly along the interlobular septae and most prominent along the right upper lobe. Findings likely represent mild chronic interstitial changes. There is patchy density seen predominantly along the left lower lobe and most prominent towards the left lung base and most compatible with pneumonia. PULMONARY NODULES: There are no discrete pulmonary masses or nodules within the visualized aerated lungs. PLEURA: There is a small left pleural effusion with questionable trace right pleural fluid. CHEST WALL: Unremarkable. LIMITED ABDOMEN: Visualized superior liver, spleen and pancreas are normal on this unenhanced study. OSSEOUS: Bone windows show multilevel thoracic spondylosis. Procedure Note Joseph Escalante MD - 04/03/2024 TECHNIQUE: Reformatted images were obtained by post processing inmultiple planes. A patient individualized dose optimization technique wasemployed for this procedure. CONTRAST: No contrast. COMPARISON: Correlation is made with x-ray performed earlier the sameday. FINDINGS: AXILLA/SUPRACLAVICULAR: There is no axillary or supraclavicular adenopathyby size criteria. MEDIASTINUM ADENOPATHY: There are small scattered mediastinal lymph nodespredominantly seen along the prevascular region with additional smalllymph nodes in the right paratracheal, pretracheal, AP window andsubcarinal regions. The largest lymph node measures approximately 1.1 cmshort axis. AIRWAY: Central tracheobronchial tree is unremarkable. VASCULATURE: There is vpoc-[id number] atherosclerosis of the thoracicaorta and coronary arteries. MASS: There are no mediastinal masses. CARDIAC: Heart is mildly enlarged. Mild calcified coronary artery disease. TOYA: There is no definite hilar adenopathy on this unenhanced study. LUNGS: There is mild prominence of interstitial markings predominantlyalong the interlobular septae and most prominent along the right upperlobe. Findings likely represent mild chronic interstitial changes. Thereis patchy density seen predominantly along the left lower lobe and mostprominent towards the left lung base and most compatible with pneumonia. PULMONARY NODULES: There are no discrete pulmonary masses or noduleswithin the visualized aerated lungs. PLEURA: There is a small left pleural effusion with questionable traceright pleural fluid. CHEST WALL: Unremarkable. LIMITED ABDOMEN: Visualized superior liver, spleen and pancreas are normalon this unenhanced study. OSSEOUS: Bone windows show multilevel thoracic spondylosis. IMPRESSION: * Patchy density predominantly along the left lower lobe and mostprominent towards the left lung base and most compatible with pneumonia. * Small left pleural effusion with questionable trace right pleuralfluid. * Mild prominence of interstitial markings predominantly along theinterlobular septae and most prominent along the right upper lobe.Findings likely represent mild chronic interstitial changes. * Mild cardiomegaly. * Atherosclerosis. * Small scattered mediastinal lymph nodes, likely reactive. Report reviewed and signed by : Dr. Joseph Escalante MD on 04/03/2024 4:56PM. Workstation Name - [id number] -------- FINAL REPORT -------- Dictated By: Joseph Escalante Dictated Date: 04/03/2024 16:52 ET Assigned Physician: Joseph Escalante Reviewed and Electronically Signed By: Joseph Escalante Signed Date: 04/03/2024 16:56 ET Workstation ID: [id number] Transcribed By: Self Edit Transcribed Date: 04/03/2024 16:52 ET us Da Mckeon MD IMG CT PROCEDURES Final Result * US Abdomen Complete (04/03/2024 2:40 PM EST) Anatomical Region Laterality Modality Body Ultrasound 04/03/2024 3:24 PM EST Impressions 04/03/2024 3:27 PM EST * ??Cholelithiasis with no evidence for acute cholecystitis or biliary dilatation. * ??Bilateral renal cysts. Report reviewed and signed by : Dr. Joseph Escalante MD on 04/03/2024 3:27 PM. Workstation Name - [id number] -------- FINAL REPORT -------- Dictated By: Joseph Escalante Dictated Date: 04/03/2024 15:24 ET Assigned Physician: Joseph Escalante Reviewed and Electronically Signed By: Joseph Escalante Signed Date: 04/03/2024 15:27 ET Workstation ID: [id number] Transcribed By: Self Edit Transcribed Date: 04/03/2024 15:24 ET Narrative 04/03/2024 3:27 PM EST COMPARISON: No prior studies. FINDINGS: LIVER: Normal. BILE DUCTS: There is no biliary dilatation. The common duct measures approximately 2 mm in diameter. GALLBLADDER: The gallbladder shows echogenic foci along the dependent portion of the lumen with posterior shadowing compatible with gallstones. There is no gallbladder wall thickening or pericholecystic fluid. There is no sonographic Bang sign. RIGHT KIDNEY: The right kidney measures approximately 12.4 cm. There is no hydronephrosis, nephrolithiasis or focal renal masses. There is an upper pole cyst measuring 4.7 x 5.4 x 4.3 cm. LEFT KIDNEY: The left kidney measures approximately 10.9 cm. There is no hydronephrosis, nephrolithiasis or focal renal masses. There is a mid kidney cyst measuring 3.6 x 4.2 x 3.6 cm. There is an upper pole exophytic cyst measuring 3.7 x 3.6 x 2.7 cm. SPLEEN: Normal. PANCREAS: Visualized pancreas appears normal although detail is partially obscured by overlying bowel gas. AORTA: Normal. IVC: The visualized portion of the IVC appears normal. PERITONEAL FLUID: There is no free fluid. PORTAL VEIN: Color Doppler imaging demonstrates normal color flow indicating patency. Procedure Note Joseph Escalante MD - 04/03/2024 COMPARISON: No prior studies. FINDINGS: LIVER: Normal. BILE DUCTS: There is no biliary dilatation. The common duct measuresapproximately 2 mm in diameter. GALLBLADDER: The gallbladder shows echogenic foci along the dependentportion of the lumen with posterior shadowing compatible with gallstones.There is no gallbladder wall thickening or pericholecystic fluid. There isno sonographic Bang sign. RIGHT KIDNEY: The right kidney measures approximately 12.4 cm. There is nohydronephrosis, nephrolithiasis or focal renal masses. There is an upperpole cyst measuring 4.7 x 5.4 x 4.3 cm. LEFT KIDNEY: The left kidney measures approximately 10.9 cm. There is nohydronephrosis, nephrolithiasis or focal renal masses. There is a midkidney cyst measuring 3.6 x 4.2 x 3.6 cm. There is an upper pole exophyticcyst measuring 3.7 x 3.6 x 2.7 cm. SPLEEN: Normal. PANCREAS: Visualized pancreas appears normal although detail is partiallyobscured by overlying bowel gas. AORTA: Normal. IVC: The visualized portion of the IVC appears normal. PERITONEAL FLUID: There is no free fluid. PORTAL VEIN: Color Doppler imaging demonstrates normal color flowindicating patency. IMPRESSION: * Cholelithiasis with no evidence for acute cholecystitis or biliarydilatation. * Bilateral renal cysts. Report reviewed and signed by : Dr. Joseph Escalante MD on 04/03/2024 3:27PM. Workstation Name - [id number] -------- FINAL REPORT -------- Dictated By: Joseph Escalante Dictated Date: 04/03/2024 15:24 ET Assigned Physician: Joseph Escalante Reviewed and Electronically Signed By: Joseph Escalante Signed Date: 04/03/2024 15:27 ET Workstation ID: [id number] Transcribed By: Self Edit Transcribed Date: 04/03/2024 15:24 ET Da Mckeon MD G US PROCEDURES Final Result * ECG 12 lead (04/03/2024 7:34 AM EST) Ventricular Rate ECG 83 BPM GEMUSE Atrial Rate 111 BPM GEMUSE QRS Duration 94 ms GEMUSE Q-T Interval 408 ms GEMUSE QTc 479 ms GEMUSE R [place] 45 degrees GEMUSE T [place] 31 degrees GEMUSE ECG Interpretation Atrial fibrillation with premature ventricular or aberrantly conducted complexes Prolongation of QT interval Abnormal ECG No previous ECGs available Confirmed by Osman Carrillo ([id number]) on 04/03/2024 9:16:30 AM GEMUSE 04/03/2024 7:34 AM EST 04/03/2024 9:16 AM EST us Hardy Evans MD ECG ORDERABLES Final Result GEMUSE * XR Chest 1 View (04/03/2024 6:41 AM EST) Anatomical Region Laterality Modality Body Radiographic Francia ging 04/03/2024 7:25 AM EST Impressions 04/03/2024 7:27 AM EST Cardiomegaly with mild pulmonary venous congestion/congestive heart failure. Retrocardiac infiltrate in keeping with asymmetric pulmonary edema or pneumonia. Report reviewed and signed by : Dr. Jonathan Jose MD on 04/03/2024 7:27 AM. Workstation Name - [id number] -------- FINAL REPORT -------- Dictated By: Jonathan Jose Dictated Date: 04/03/2024 07:25 ET Assigned Physician: Jonathan Jose Reviewed and Electronically Signed By: Jonathan Jose Signed Date: 04/03/2024 07:27 ET Workstation ID: [id number] Transcribed By: Self Edit Transcribed Date: 04/03/2024 07:25 ET Narrative 04/03/2024 7:27 AM EST VIEWS: AP view of the chest. COMPARISON: ??No prior. ?? FINDINGS: Cardiac silhouette is enlarged with effacement of the left heart border. ??Unfolded aorta. ??Prominence of the pulmonary vascularity and interstitium. ??Retrocardiac infiltrate with effacement of the left heart border. ??Cannot exclude left effusion. ??No pneumothorax. ??Degenerative changes dorsal spine. ??Degenerative changes of the shoulder joints with loss of the subacromial space bilaterally in keeping with rotator cuff tears. Procedure Note Gaston Jose MD - 04/03/2024 VIEWS: AP view of the chest. COMPARISON: No prior. FINDINGS: Cardiac silhouette is enlarged with effacement of the left heartborder. Unfolded aorta. Prominence of the pulmonary vascularity andinterstitium. Retrocardiac infiltrate with effacement of the left heartborder. Cannot exclude left effusion. No pneumothorax. Degenerativechanges dorsal spine. Degenerative changes of the shoulder joints withloss of the subacromial space bilaterally in keeping with rotator cufftears. IMPRESSION: Cardiomegaly with mild pulmonary venous congestion/congestive heartfailure. Retrocardiac infiltrate in keeping with asymmetric pulmonaryedema or pneumonia. Report reviewed and signed by : Dr. Jontahan Jose MD on 04/03/2024 7:27AM. Workstation Name - [id number] -------- FINAL REPORT -------- Dictated By: Jonathan Jose Dictated Date: 04/03/2024 07:25 ET Assigned Physician: Jonathan Jose Reviewed and Electronically Signed By: Jonathan Jose Signed Date: 04/03/2024 07:27 ET Workstation ID: [id number] Transcribed By: Self Edit Transcribed Date: 04/03/2024 07:25 ET Hardy Evans MD IMG XR PROCEDURES Elina l Result * Arterial Line (04/03/2024 6:00 AM EST) Narrative Da Mckeon MD - 04/03/2024 6:00 AM EST Herber Heath MD ? 04/03/2024 11:48 AM Arterial Line Date/Time: 04/03/2024 6:00 AM Performed by: Herber Heath MD Authorized by: Da Mckeon MD ?? Consent: ??Consent obtained: ??Verbal and written ??Consent given by: ??Patient ??Risks discussed: ??Bleeding and infection [place] protocol: ??Procedure explained and questions answered to patient or proxy's satisfaction: yes ?Relevant documents present and verified: yes ?Test results available: yes ?Imaging studies available: yes ?Required blood products, implants, devices, and special equipment available: yes ?Site/side marked: yes ?Immediately prior to procedure, a time out was called: yes ?Patient identity confirmed: ??Arm band Indications: ??Indications: ??Hemodynamic instability Pre-procedure details: ??Skin preparation: ??Chlorhexidine with alcohol Sedation: ??Sedation type: ??None Anesthesia: ??Anesthesia method: ??Local infiltration ??Local anesthetic: ??Lidocaine 1% w/o epi Procedure specific details: ?? 20G arterial catheter placed in right radial artery without acute complication Post-procedure details: ??Procedure completion: ??Tolerated well, no immediate complications us Da Mckeon MD IN CLINIC/BEDSIDE ORDERABLES Fin al Result * Blood Culture, Peripheral Draw #2 (04/03/2024 5:47 AM EST) Only the most recent of2 resultswithin the time period is included. Pathologist [facility] Culture, Blood No growth at 5 days LAB MICROBIOLOGY METHOD 04/08/2024 7:[address] [facility] Blood Venous blood specimen / Unknown Venipuncture / Unknown 04/03/2024 5:47 AM EST 04/03/2024 6:04 AM EST us Hardy Evans MD LAB MICROBIOLOGY - GEN ERAL ORDERABLES Final Result [facility] [address] [place] [address], [place] [phone] * (ABNORMAL) Activated Partial Thromboplastin Time - STAT (04/03/2024 5:47 AM EST) Pathologist [facility] aPTT 38.1(H) 25.0 - 37.0 sec LAB COAGULATION METHOD 04/03/2024 6:[address] [facility] Blood Venous blood specimen / Unknown Venipuncture / Unknown 04/03/2024 5:47 AM EST 04/03/2024 6:14 AM EST us Hardy Evans MD LAB BLOOD ORDERABLES F inal Result Performing Organization Address [facility]/ZIP Co de Phone Number [facility] [address] [place] [address], * (ABNORMAL) Prothrombin Time with INR - STAT (04/03/2024 5:47 AM EST) [facility] Protime 18.5(H) 10.5 - 13.3 sec LAB COAGULATION METHOD 04/03/2024 6:[address] [facility] INR 1.6(H) 0.8 - 1.1 LAB COAGULATION METHOD 04/03/2024 6:[address] [facility] Blood Venous blood specimen / Unknown Venipuncture / Unknown 04/03/2024 5:47 AM EST 04/03/2024 6:[address] [facility] - 04/03/2024 6:32 AM EST Std. Therapy ?2.0-3.0 INR High Dose Therapy 3.0-4.5 INR Ranges may vary depending on clinical indications and protocol. us Hardy Evans MD LAB BLOOD ORDERABLES F inal Result Performing Organization Address [facility]/ZIP Co de Phone Number [facility] [address] [place] [id number], [place] [phone] * Reticulocyte count (04/03/2024 5:47 AM EST) [facility] Retic Ct Pct 1.4 0.7 - 1.7 % LAB HEMETOLOGY METHOD 04/03/2024 9:[address] [facility] Blood Venous blood specimen / Unknown Venipuncture / Unknown 04/03/2024 5:47 AM EST 04/03/2024 6:13 AM EST us Da Mckeon MD LAB BLOOD ORDERABLES Final Resul t Performing Organization Address [facility] Co de Phone Number [facility] [address] [place] [address], * Lactate dehydrogenase (04/03/2024 5:47 AM EST) LDH 225 120 - 246 unit/L LAB CHEMISTRY METHOD 04/03/2024 9:[address] [facility] Blood Venous blood specimen / Unknown Venipuncture / Unknown 04/03/2024 5:47 AM EST 04/03/2024 6:12 AM EST us Da Mckeon MD LAB BLOOD ORDERABLES Final Resul t Performing Organization Address [facility] Phone Number [facility] [address] [place] [address], * (ABNORMAL) Hemoglobin A1c (04/03/2024 5:47 AM EST) Hemoglobin A1C 6.8(H) <5.7 % LAB CHEMISTRY METHOD 04/03/2024 11:[address] [facility] Mean Bld Glu Estim. 148 mg/dL LAB CHEMISTRY METHOD 04/03/2024 11:[address] [facility] Blood Venous blood specimen / Unknown Venipuncture / Unknown 04/03/2024 5:47 AM EST 04/03/2024 6:[address] [facility] - 04/03/2024 11:26 AM EST ADA Guidelines: ?? Increased risk Diabetes Mellitus A1C 5.7 - 6.4% and Fasting Blood Glucose 100 - 125 mg/dl Diabetes Mellitus: A1C >6.5% and Fasting Blood Glucose >125 mg/dl us Da Mckeon MD LAB BLOOD ORDERABLES Final Resul t Performing Organization Address [facility]/ZIP Co de Phone Number [facility] [address] [place] [address], [place] [phone] * Haptoglobin (04/03/2024 5:47 AM EST) [facility] Haptoglobin 114 30 - 200 mg/dL LAB CHEMISTRY METHOD 04/03/2024 9:[address] [facility] Blood Venous blood specimen / Unknown Venipuncture / Unknown 04/03/2024 5:47 AM EST 04/03/2024 6:12 AM EST Da Mckeon MD LAB BLOOD ORDERABLES Final Resul t [facility] [address] [place] [address], [place] [phone] * Respiratory virus panel molecular study (04/03/2024 3:20 AM EST) [facility] Adenovirus Not Detected Not Detected LAB MICROBIOLOGY METHOD 04/03/2024 11:[address] [facility] Influenza A PCR Not Detected Not Detected LAB MICROBIOLOGY METHOD 04/03/2024 11:[address] [facility] Comment:Performance characte ristics for Influenza A were established when A/H1 and A/H3 were the predominant influenza viruses in circulations. Test performance may vary depending upon the dominant strains in circulation or the emergence of novel influenza strains which may not be detected. Influenza A H1 Not Detected Not Detected LAB MICROBIOLOGY METHOD 04/03/2024 11:[address] [facility] Influenza A H3 Not Detected Not Detected LAB MICROBIOLOGY METHOD 04/03/2024 11:[address] [facility] Influenza B PCR Not Detected Not Detected LAB MICROBIOLOGY METHOD 04/03/2024 11:[address] [facility] Parainfluenza Virus 1 Not Detected Not Detected LAB MICROBIOLOGY METHOD 04/03/2024 11:[address] [facility] Parainfluenza Virus 2 Not Detected Not Detected LAB MICROBIOLOGY METHOD 04/03/2024 11:[address] [facility] Parainfluenza Virus 3 Not Detected Not Detected LAB MICROBIOLOGY METHOD 04/03/2024 11:[address] [facility] Parainfluenza Virus 4 Not Detected Not Detected LAB MICROBIOLOGY METHOD 04/03/2024 11:[address] [facility] Human Metapneumovirus A and B Not Detected Not Detected LAB MICROBIOLOGY METHOD 04/03/2024 11:[address] [facility] RSV A Not Detected Not Detected LAB MICROBIOLOGY METHOD 04/03/2024 11:47 AM [facility] RSV B Not Detected Not Detected LAB MICROBIOLOGY METHOD 04/03/2024 11:47 AM [facility] Rhinovirus Not Detected Not Detected LAB MICROBIOLOGY METHOD 04/03/2024 11:47 AM [facility] Comment:Due to the Similarit y between Human Rhinovirus and Enterovirus, some strains of Enterovirus may be Detected as Rhinovirus. Cross Reactivity with Human Poliovirus 2, Human Poliovirus 3, Enterovirus D68, and Coxsackie A24 was demonstrated through empirical testing. Swab Both anterior nares / Unknown Non-blood Collection / Unknown 04/03/2024 3:20 AM EST 04/03/2024 3:52 AM EST [facility] - 04/03/2024 11:47 AM EST ASSAY NOTES: 1. Interpret results together with patients's medical history, clinical signs, and symptoms, and the results of other diagnostic tests. 2. Detection of Viral and or Bacterial targets are dependent on proper specimen collection, handling, transport, storage, and preparation. Failure to observe proper procedures in any of these steps could lead to incorrect results. 3. Positive and Negative predictive values are highly dependent on prevalence. When prevalence is high, false negative results are more likely to occur. When prevalence is low, false positive results are more likely to occur. Hardy Evans MD LAB MICROBIOLOGY - GEN ERAL ORDERABLES Final Result [facility] [address] [place] [address], * (ABNORMAL) Urinalysis with reflex microscopic (04/03/2024 3:19 AM EST) Color, Urine Yellow Yellow LAB URINALYSIS - AUTOMATED METHOD 04/03/2024 6:39 AM [facility] Clarity, Urine Clear Clear LAB URINALYSIS - AUTOMATED METHOD 04/03/2024 6:39 AM [facility] Specific [place] Urine 1.009 1.005 - 1.030 LAB URINALYSIS - AUTOMATED METHOD 04/03/2024 6:39 AM [facility] pH, Urine 6.0 5.0 - 8.0 pH LAB URINALYSIS - AUTOMATED METHOD 04/03/2024 6:39 AM [facility] Leukocytes, Urine Negative Negative WBCs/mcL LAB URINALYSIS - AUTOMATED METHOD 04/03/2024 6:39 AM [facility] Nitrite, Urine Negative Negative LAB URINALYSIS - AUTOMATED METHOD 04/03/2024 6:39 AM [facility] Protein, Urine Negative Negative mg/dL LAB URINALYSIS - AUTOMATED METHOD 04/03/2024 6:39 AM [facility] Glucose, Urine Normal Normal mg/dL LAB URINALYSIS - AUTOMATED METHOD 04/03/2024 6:39 AM [facility] Ketones, Urine Negative Negative, <10 mg/dL LAB URINALYSIS - AUTOMATED METHOD 04/03/2024 6:39 AM [facility] Urobilinogen, Urine Normal Normal (<2.0) mg/dL LAB URINALYSIS - AUTOMATED METHOD 04/03/2024 6:39 AM [facility] Bilirubin, Urine Negative Negative mg/dL LAB URINALYSIS - AUTOMATED METHOD 04/03/2024 6:39 AM [facility] Blood, Urine 0.1(A) <=1.0 mg/dL LAB URINALYSIS - AUTOMATED METHOD 04/03/2024 6:39 AM [facility] Urine Urine specimen from urinary conduit / Unknown Non-blood Collection / Unknown 04/03/2024 3:19 AM EST 04/03/2024 6:34 AM EST Hardy Evans MD LAB URINE ORDERABLES F inal Result [facility] [address] [place] [id number], * Legionella antigen urine, EIA (04/03/2024 3:19 AM EST) Legionella Antigen, Ur Negative Negative 04/03/2024 7:38 AM [facility] Urine Urine specimen obtained by clean catch procedure / Unknown Non-blood Collection / Unknown 04/03/2024 3:19 AM EST 04/03/2024 6:34 AM EST Hardy Evans MD LAB URINE ORDERABLES F inal Result [facility] [address] [place] [id number], * Wound Care Procedure Venous Ulcer Left;Lower Leg (03/15/2024 4:26 PM EST) Narrative Lorraine Lawrence RN - 03/15/2024 4:26 PM EST Lorraine Lawrence RN ? 03/15/2024 ??4:56 PM Wound Care Procedure Venous Ulcer Left;Lower Leg Date/Time: 03/15/2024 4:26 PM Performed by: Lorraine Lawrence RN Authorized by: Sonal Robert NP ?? Associated wounds: Wound Venous Ulcer 01/12/24 Leg Left;Lower Consent: ??Consent obtained: ??Verbal ??Consent given by: ??Patient ??Risks, benefits, and alternatives were discussed: yes ?Risks discussed: ??Infection and pain ??Alternatives discussed: ??Delayed treatment [place] protocol: ??Procedure explained and questions answered to patient or proxy's satisfaction: yes ?Relevant documents present and verified: yes ?Test results available: yes ?Patient identity confirmed: ??Verbally with patient Sedation: ??Sedation type: ??None Anesthesia: ??Anesthesia method: ??None Procedure details: ??Indications: open wounds ?Wound location: ??Leg ??Leg location: ??L lower leg ??Wound age (days): ??>14 Dressing: ??Dressing: coban 2 compression system. Post-procedure details: ??Procedure completion: ??Tolerated us Sonal Robert NP IN CLINIC/BEDSIDE ORDERABLES Final Result * Wound Care Procedure Venous Ulcer Right;Lower Leg (03/15/2024 4:25 PM EST) Lorraine Mathews RN - 03/15/2024 4:25 PM EST Lorraine Lawrence RN ? 03/15/2024 ??4:56 PM Wound Care Procedure Venous Ulcer Right;Lower Leg Date/Time: 03/15/2024 4:25 PM Performed by: Lorraine Lawrence RN Authorized by: Sonal Robert NP ?? Associated wounds: Wound Venous Ulcer 01/12/24 Leg Right;Lower Consent: ??Consent obtained: ??Verbal ??Consent given by: ??Patient ??Risks, benefits, and alternatives were discussed: yes ?Risks discussed: ??Infection and pain ??Alternatives discussed: ??Delayed treatment [place] protocol: ??Procedure explained and questions answered to patient or proxy's satisfaction: yes ?Relevant documents present and verified: yes ?Test results available: yes ?Patient identity confirmed: ??Verbally with patient Sedation: ??Sedation type: ??None Anesthesia: ??Anesthesia method: ??None Procedure details: ??Indications: open wounds ?Wound location: ??Leg ??Leg location: ??R lower leg ??Wound age (days): ??>14 Dressing: ??Dressing: coban 2 compression system. Post-procedure details: ??Procedure completion: ??Tolerated Sonal Robert NP IN CLINIC/BEDSIDE ORDERABLES Final Result * Wound Care Procedure Venous Ulcer Left;Lower Leg (03/08/2024 12:18 PM EST) Lorraine Mathews RN - 03/08/2024 12:18 PM EST Lorraine Lawrence RN ? 03/08/2024 ??1:27 PM Wound Care Procedure Venous Ulcer Left;Lower Leg Date/Time: 03/08/2024 12:18 PM Performed by: Lorraine Lawrence RN Authorized by: Sonal Robert NP ?? Associated wounds: Wound Venous Ulcer 01/12/24 Leg Left;Lower Consent: ??Consent obtained: ??Verbal ??Consent given by: ??Patient ??Risks, benefits, and alternatives were discussed: yes ?Risks discussed: ??Infection and pain ??Alternatives discussed: ??Delayed treatment [place] protocol: ??Procedure explained and questions answered to patient or proxy's satisfaction: yes ?Relevant documents present and verified: yes ?Test results available: yes ?Patient identity confirmed: ??Verbally with patient Sedation: ??Sedation type: ??None Anesthesia: ??Anesthesia method: ??None Procedure details: ??Indications: open wounds ?Wound location: ??Leg ??Leg location: ??L lower leg ??Wound age (days): ??>14 Dressing: ??Dressing: coban 2 wrap system. Post-procedure details: ??Procedure completion: ??Tolerated Sonal Robert NP IN CLINIC/BEDSIDE ORDERABLES Final Result * Wound Care Procedure Venous Ulcer Right;Lower Leg (03/08/2024 12:17 PM EST) Lorraine Mathews RN - 03/08/2024 12:17 PM EST Lorraine Lawrence RN ? 03/08/2024 ??1:27 PM Wound Care Procedure Venous Ulcer Right;Lower Leg Date/Time: 03/08/2024 12:17 PM Performed by: Lorraine Lawrence RN Authorized by: Sonal Robert NP ?? Associated wounds: Wound Venous Ulcer 01/12/24 Leg Right;Lower Consent: ??Consent obtained: ??Verbal ??Consent given by: ??Patient ??Risks, benefits, and alternatives were discussed: yes ?Risks discussed: ??Infection and pain ??Alternatives discussed: ??Delayed treatment [place] protocol: ??Procedure explained and questions answered to patient or proxy's satisfaction: yes ?Relevant documents present and verified: yes ?Test results available: yes ?Patient identity confirmed: ??Verbally with patient Sedation: ??Sedation type: ??None Anesthesia: ??Anesthesia method: ??None Procedure details: ??Indications: open wounds ?Wound location: ??Leg ??Leg location: ??R lower leg ??Wound age (days): ??>14 Dressing: ??Dressing: coban 2 wrap system. Post-procedure details: ??Procedure completion: ??Tolerated us Sonal Robert NP IN CLINIC/BEDSIDE ORDERABLES Final Result from Last 3 Months Additional Health Concerns Active Problems Noted Date Diagnosed Date Impaired Tissue 02/23/2024 Education needed on impact of smoking on wound 1 04/24/2023 Education needed related to ulceration/compromised skin integrity. 02/23/2024 [place] [id number] [employer] Advance Directives * Full Code - Confirmed (Latest Code Status on File) Date Activated Date Inactivated Comments 04/03/2024 1:48 AM 04/06/2024 6:[address] [facility] was ascertained in the following way: Code status discussion: discussion with patient To update the patient's code status, place a code status order. Do not modify or discontinue any currently active code status orders. * Full Code - Default Date Activated Date Inactivated Comments 04/03/2024 1:46 AM 04/03/2024 1:48 AM This is or nigel is used when code status has not been discussed with the patient, or code status is otherwise unknown/unconfirmed To update the patient's code status, place a code status order. Do not modify or discontinue any currently active code status orders. Care Teams Bi Tester Relationship Specialty Start Date End Date [facility] [place] [place] [facility] - General Family Medicine 02/09/24
--- OUTSIDE RECORDS SUMMARY | 2024-05-29 17:48 | XMS_ITS ---
Author Name [facility] Organization Unknown Results Test Name/Text Value Interpretation Date Range Source Final No growth at 5 days. Normal [id number] [facility] Glucose Bld-mCnc 145mg/dL Above high normal [id number] 70 - 105 [facility] Glucose Bld-mCnc 113mg/dL Above high normal [id number] 70 - 105 [facility] Glucose SerPl-mCnc 111mg/dL Normal [id number] 70 - 199 [facility] eGFRcr SerPlBld CKD-EPI 2020 90mL/min/1.73m2 Normal [id number] - [facility] Creat SerPl-mCnc 0.76mg/dL Normal [id number] 0.7 - 1.3 [facility] Calcium SerPl-mCnc 9.6mg/dL Normal [id number] 8.7 - 10 .4 [facility] CO2 SerPl-sCnc 29mmol/L Normal [id number] 20 - 31 [facility] Sodium SerPl-sCnc 141mmol/L Normal [id number] 136 - 145 [facility] BUN SerPl-mCnc 21mg/dL Normal [id number] 9 - 23 [facility] BUN/Creat SerPl 27.6 Above high normal [id number] 12 - 20 [facility] Anion Gap SerPl-sCnc 6 Normal [id number] 5 - 14 [facility] Chloride SerPl-sCnc 106mmol/L Normal [id number] 98 - 10 7 [facility] Potassium SerPl-sCnc 3.8mmol/L Normal [id number] 3.5 - 5.1 [facility] Magnesium SerPl-mCnc 1.8mg/dL Normal [id number] 1.6 - 2.6 [facility] Glucose Bld-mCnc 170mg/dL Above high normal [id number] 70 - 105 [facility] Glucose Bld-mCnc 190mg/dL Above high normal [id number] 70 - 105 [facility] Glucose Bld-mCnc 172mg/dL Above high normal [id number] 70 - 105 [facility] POCT Comment Notified Nurse Normal [id number] [facility] Glucose Bld-mCnc 125mg/dL Above high normal [id number] 70 - 105 [facility] Glucose SerPl-mCnc 124mg/dL Normal [id number] 70 - 199 [facility] eGFRcr SerPlBld CKD-EPI 2020 90mL/min/1.73m2 Normal [id number] - [facility] Creat SerPl-mCnc 0.77mg/dL Normal [id number] 0.7 - 1.3 [facility] Calcium SerPl-mCnc 9.2mg/dL Normal [id number] 8.7 - 10 .4 [facility] CO2 SerPl-sCnc 27mmol/L Normal [id number] 20 - 31 [facility] Sodium SerPl-sCnc 141mmol/L Normal [id number] 136 - 145 [facility] BUN SerPl-mCnc 19mg/dL Normal [id number] 9 - 23 [facility] BUN/Creat SerPl 24.7 Above high normal [id number] 12 - 20 [facility] Anion Gap SerPl-sCnc 8 Normal [id number] 5 - 14 [facility] Chloride SerPl-sCnc 106mmol/L Normal [id number] 98 - 10 7 [facility] Potassium SerPl-sCnc 4mmol/L Normal [id number] 3.5 - 5.1 [facility] Phosphate SerPl-mCnc 3.3mg/dL Normal [id number] 2.4 - 5.1 [facility] Magnesium SerPl-mCnc 2mg/dL Normal [id number] 1.6 - 2.6 [facility] MCV RBC Auto 105.4FL Above high normal [id number] 78 - 1 00 [facility] RBC # Bld Auto 3.72M/mcL Below low normal [id number] 4.7 - 6 [facility] WBC # Bld Auto 10K/mcL Normal [id number] 4 - 10.5 [facility] RDW RBC Auto-Rto 14.1% Above high normal [id number] 11 .5 - 14 [facility] Hct VFr Bld Auto 39.2% Below low normal [id number] 42 - 54 [facility] Platelet # Bld Auto 149K/mcL Below low normal [id number] 150 - 450 [facility] PMV Bld Auto 10.4FL Normal [id number] 8.3 - 11.8 [facility] Hgb Bld-mCnc 12.4g/dL Below low normal [id number] 13.5 - 18 [facility] MCH RBC Qn Auto 33.3pcg Above high normal [id number] 27 - 31 [facility] MCHC RBC Auto-mCnc 31.6g/dL Below low normal [id number] 3 2 - 36 [facility] Glucose Bld-mCnc 229mg/dL Above high normal [id number] 70 - 105 [facility] Glucose Bld-mCnc 252mg/dL Above high normal [id number] 70 - 105 [facility] Glucose Bld-mCnc 151mg/dL Above high normal [id number] 70 - 105 [facility] MRB mecC Islt/Spm Ql Negative Normal [id number] - [facility] Glucose Bld-mCnc 195mg/dL Above high normal [id number] 70 - 105 [facility] Glucose SerPl-mCnc 182mg/dL Normal [id number] 70 - 199 [facility] eGFRcr SerPlBld CKD-EPI 2020 94mL/min/1.73m2 Normal [id number] - [facility] Creat SerPl-mCnc 0.66mg/dL Below low normal [id number] 0.7 - 1.3 [facility] Calcium SerPl-mCnc 8.8mg/dL Normal 8.7 - 10 .4 [facility] CO2 SerPl-sCnc 24mmol/L Normal 20 - 31 [facility] Sodium SerPl-sCnc 139mmol/L Normal [id number] 136 - 145 [facility] BUN SerPl-mCnc 17mg/dL Normal [id number] 9 - 23 [facility] BUN/Creat SerPl 25.8 Above high normal 12 - 20 [facility] Anion Gap SerPl-sCnc 6 Normal 5 - 14 [facility] Chloride SerPl-sCnc 109mmol/L Above high normal 98 - 107 [facility] Potassium SerPl-sCnc 3.9mmol/L Normal 3.5 - 5.1 [facility] ALT SerPl-cCnc 12unit/L Normal 10 - 49 [facility] AST SerPl-cCnc 29unit/L Normal - 34 [facility] Globulin Ser Calc-mCnc 3g/dL Normal 2.3 - 3.5 [facility] Bilirub Direct SerPl-mCnc 0.8mg/dL Above high normal 0 - 0.3 [facility] ALP SerPl-cCnc 100unit/L Normal 46 - 116 [facility] Bilirub SerPl-mCnc 1.9mg/dL Above high normal 0.2 - 1.1 [facility] Albumin/Glob SerPl 1 Normal 1 - 1.7 [facility] Prot SerPl-mCnc 6g/dL Normal 5.7 - 8.2 [facility] Albumin SerPl-mCnc 3g/dL Below low normal [id number] 3 .2 - 4.8 [facility] Magnesium SerPl-mCnc 2.1mg/dL Normal 1.6 - 2.6 [facility] Phosphate SerPl-mCnc 2.3mg/dL Below low normal [id number] 2.4 - 5.1 [facility] Vancomycin Trough SerPl-mCnc 23.7mcg/mL Critically high 5 - 10 [facility] MCV RBC Auto 105.8FL Above high normal [id number] 78 - 1 00 [facility] RBC # Bld Auto 3.1M/mcL Below low normal [id number] 4.7 - [facility] B[facility] Auto 10.2K/mcL Normal 4 - 10.5 [facility] RDW RBC Auto-Rto 14.1% Above high normal [id number] 11 .5 - 14 [facility] Hct VFr Bld Auto 32.8% Below low normal [id number] 42 - 54 [facility] Platelet # Bld Auto 128K/mcL Below low normal [id number] 150 - 450 [facility] PMV Bld Auto 10.8FL Normal [id number] 8.3 - 11.8 [facility] Hgb Bld-mCnc 10.6g/dL Below low normal [id number] 13.5 - 18 [facility] MCH RBC Qn Auto 34.2pcg Above high normal [id number] 27 - 31 [facility] MCHC RBC Auto-mCnc 32.3g/dL Normal [id number] 32 - 36 [facility] POCT Comment Notified Nurse Normal [id number] [facility] Glucose Bld-mCnc 279mg/dL Above high normal [id number] 70 - 105 [facility] POCT Comment Notified Nurse Normal [id number] [facility] Glucose Bld-mCnc 199mg/dL Above high normal [id number] 70 - 105 [facility] Glucose Bld-mCnc 168mg/dL Above high normal [id number] 70 - 105 [facility] HPIV1 RNA Nph Ql FRANK+probe Not Detected Normal - [facility] FLUBV RNA Nph Ql FRANK+probe Not Detected Normal - [facility] HPIV2 RNA Nph Ql FRANK+probe Not Detected Normal - [facility] Rhinovirus Not Detected Normal - [facility] FLUAV RNA Nph Ql FRANK+probe Not Detected Normal - [facility] HPIV3 RNA Nph Ql FRANK+probe Not Detected Normal - [facility] RSV A RNA Nph Ql FRANK+probe Not Detected Normal - [facility] FLUAV H3 RNA Nph Ql FRANK+probe Not Detected Normal - [facility] HAdV DNA Upper resp Ql FRANK+probe Not Detected Normal - [facility] FLUAV H1 RNA Nph Ql FRANK+probe Not Detected Normal - [facility] HPIV4 RNA Nph Ql FRANK+probe Not Detected Normal - [facility] RSV B RNA Nph Ql FRANK+probe Not Detected Normal - [facility] hMPV B RNA Spec Ql FRANK+probe Not Detected Normal - [facility] Glucose Bld-mCnc 148mg/dL Normal [facility] HbA1c MFr Bld 6.8% Above high normal [id number] - 5.7 [facility] LDH SerPl L to P-cCnc 225unit/L Normal 120 - 246 [facility] Haptoglob SerPl-mCnc 114mg/dL Normal [id number] 30 - 200 [facility] Retics/100 RBC NFr Auto 1.4% Normal [id number] 0.7 - 1.7 [facility] Glucose Bld-mCnc 135mg/dL Above high normal [id number] 70 - 105 [facility] Legionella Ag Spec Ql Negative Normal - [facility] Magnesium SerPl-mCnc 1.4mg/dL Below low normal 1.6 - 2.6 [facility] ALT SerPl-cCnc 9unit/L Below low normal [id number] 10 - 49 [facility] AST SerPl-cCnc 23unit/L Normal [id number] - 34 [facility] Globulin Ser Calc-mCnc 3.2g/dL Normal 2.3 - 3.5 [facility] Bilirub Direct SerPl-mCnc 0.9mg/dL Above high normal 0 - 0.3 [facility] ALP SerPl-cCnc 113unit/L Normal 46 - 116 [facility] Bilirub SerPl-mCnc 3.4mg/dL Above high normal 0.2 - 1.1 [facility] Albumin/Glob SerPl 1.1 Normal 1 - 1.7 [facility] Prot SerPl-mCnc 6.6g/dL Normal 5.7 - 8.2 [facility] Albumin SerPl-mCnc 3.4g/dL Normal 3.2 - 4. 8 [facility] Glucose SerPl-mCnc 144mg/dL Normal 70 - 199 [facility] eGFRcr SerPlBld CKD-EPI 2020 91mL/min/1.73m2 Normal - [facility] Creat SerPl-mCnc 0.75mg/dL Normal 0.7 - 1.3 [facility] Calcium SerPl-mCnc 8.9mg/dL Normal 8.7 - 10 .4 [facility] CO2 SerPl-sCnc 24mmol/L Normal 20 - 31 [facility] Sodium SerPl-sCnc 142mmol/L Normal 136 - 145 [facility] BUN SerPl-mCnc 18mg/dL Normal 9 - 23 [facility] BUN/Creat SerPl 24 Above high normal 12 - 20 [facility] Anion Gap SerPl-sCnc 8 Normal 5 - 14 [facility] Chloride SerPl-sCnc 110mmol/L Above high normal 98 - 107 [facility] Potassium SerPl-sCnc 3.6mmol/L Normal 3.5 - 5.1 [facility] Phosphate SerPl-mCnc 3.5mg/dL Normal 2.4 - 5.1 [facility] Clarity Ur Clear Normal - [facility] Prot Ur Strip-mCnc Negative Normal - [facility] Glucose Ur Ql Normal Normal [id number] - [facility] Color Ur Yellow Normal [id number] - [facility] Hgb Ur Ql 0.1 Abnormal [id number] - [facility] Bilirub Ur Ql Negative Normal [id number] - [facility] pH Ur 6pH Normal [id number] 5 - 8 [facility] Leukocyte esterase Ur Ql Strip Negative Normal [id number] - [facility] Urobilinogen Ur-mCnc Normal Normal [id number] - [facility] Nitrite Ur Ql Negative Normal [id number] - [facility] Ketones Ur-mCnc Negative Normal [id number] - [facility] Sp Gr Ur 1.009 Normal [id number] 1.005 - 1.03 [facility] aPTT PPP 38.1sec Above high normal [id number] 25 - 37 [facility] INR PPP 1.6 Above high normal [id number] 0.8 - 1.1 [facility] PT Bld 18.5sec Above high normal [id number] 10.5 - 13 .3 [facility] MCV RBC Auto 105.9FL Above high normal [id number] 78 - 1 00 [facility] RBC # Bld Auto 3.7M/mcL Below low normal [id number] 4.7 - 6 [facility] WBC # Bld Auto 19.1K/mcL Above high normal [id number] 4 - 10.5 [facility] RDW RBC Auto-Rto 14.1% Above high normal [id number] 11 .5 - 14 [facility] Hct VFr Bld Auto 39.2% Below low normal [id number] 42 - 54 [facility] Platelet # Bld Auto 141K/mcL Below low normal [id number] 150 - 450 [facility] PMV Bld Auto 10.7FL Normal [id number] 8.3 - 11.8 [facility] Hgb Bld-mCnc 12.6g/dL Below low normal [id number] 13.5 - 18 [facility] MCH RBC Qn Auto 34.1pcg Above high normal [id number] 27 - 31 [facility] MCHC RBC Auto-mCnc 32.1g/dL Normal [id number] 32 - 36 [facility] eGFR 60mL/min Normal - [facility] Sodium Level 141mmol/L Normal [id number] 136 - 145 [facility] CO2 28mmol/L Normal [id number] 20 - 31 [facility] Potassium Level 3.3mmol/L Below low normal [id number] 3.5 - 5.1 [facility] Chloride 106mmol/L Normal [id number] 98 - 107 [facility] Calcium Level 8.9mg/dL Normal [id number] 8.7 - 10.4 [facility] eGFR Afri-Amer 60mL/min Normal - [facility] Glucose Level 122mg/dL Above high normal [id number] 74 - 106 [facility] BUN/Creat Ratio 24.7 Above high normal [id number] 10 - 20 [facility] Anion Gap 7mmol/L Normal [id number] 6 - 14 [facility] Creatinine 0.81mg/dL Normal [id number] 0.7 - 1.3 [facility] BUN 20mg/dL Normal [id number] 9 - 23 [facility] Time Analyzed 20:20:17 [facility] Device SYR[place] [facility] pCO2 Venous 43mmHg Normal [id number] 40 - 52 [facility] HCO3 Venous 27mEq/L Normal [id number] 22 - 28 [facility] Base Excess 2.2 [facility] pH Venous 7.42 Normal [id number] 7.32 - 7.42 [facility] pO2 Venous 31mmHg Normal [id number] 30 - 50 [facility] History of Medication Use Medication Directions Dispensed Refills Start Date End Date Stat cyanocobalamin (VITAMIN B-12) 250 mcg tablet Take 1 tablet (250 mcg total) by mouth 1 (one) time each day. active furosemide (LASIX) injection 40 mg 40 mg, intravenous, Daily, First dose (after last modification) on Catarina 04/06/24 at 1000, Hold if SBP , 110 hg 04/04/2024 5 active furosemide (LASIX) 40 mg tablet Take 1 tablet (40 mg total) by mouth. 01/16/2020 active fluticasone propion-salmeteroL (ADVAIR DISKUS) 500-50 mcg/dose diskus inhaler Inhale by mouth. 05/05/2022 acti ve cefTAZidime (FORTAZ) 2 g in sodium chloride 0.9 % 100 mL IVPB - MBP 2 g, intravenous, at 200 mL/hr, Administer over 30 Minutes, Every 8 hours, First dose on Wed04/03/24 at 0945, For 5 days, Mini-Bag Plus bag, Indication: Pneumonia, Nosocomial 04/03/2024 4 aborted Glucagon HCl (rDNA) injection 1 mg 1 mg, intramuscular, Once as needed, low blood sugar, severe hypoglycemia, Starting on Wed04/03/24 at 0147, For 1 dose 04/03/2024 active furosemide (LASIX) injection 60 mg 60 mg, intravenous, Once, On Wed04/03/24 at 0245, For 1 dose 04/03/2024 active perflutren lipid microsphere (DEFINITY) 1.3 mL in sodium chloride 0.9% 8.7 mL injection 10 mL, intravenous, Administer over 10 Minutes, Once in imaging, Starting on Wed04/04/24 at 0931, For 1 dose, CV Medication Orders 04/04/2024 4 completed predniSONE (DELTASONE) 10 mg tablet Take 2 tablets (20 mg total) by mouth 1 (one) time each day for 1 day, THEN 1 tablet (10 mg total) 1 (one) time each day for 2 days. 04/07/2024 5 active zinc acetate 50 mg (zinc) capsule Take 50 mg by mouth. 02/26/2020 active magnesium sulfate 2 gram/50 mL (4 %) IVPB 2 g 2 g, intravenous, at 25 mL/hr, Administer over 2 Hours, Once, On Wed04/03/24 at 0915, For 1 dose 04/03/2024 4 completed rOPINIRole (REQUIP) tablet 1.5 mg 1.5 mg, oral, Nightly, First dose on Wed04/03/24 at 2100, Indications: restless leg syndrome 04/04/2024 4 aborted ascorbic acid (VITAMIN C) 500 mg CR capsule Take 1 capsule (500 mg total) by mouth 1 (one) time each day. active polyethylene glycol (MIRALAX) packet 17 g 17 g, oral, Daily, First dose on Wed04/03/24 at 0900, Bowel Regimen - for prevention of constipation 04/03/2024 active Triamcinolone 0.1% Cream 30 gm tube - Patient's Own Med Topical, Daily, First dose on Wed04/05/24 at 1345, Both lower extremities 02/23/2024 active potassium citrate (UROCIT-K) 10 mEq (1,080 mg) CR tablet Take 1 tablet (10 mEq total) by mouth 2 times daily. 01/16/2020 active dextrose (D50W) 50% injection 12.5 g 12.5 g, intravenous, Every 15 min PRN, low blood sugar, moderate hypoglycemia *Patient is Unconscious, NPO, unable to swallow: BG 54 - 69 mg/dl*, Starting on Wed04/03/24 at 0147 04/03/2024 active gabapentin (NEURONTIN) capsule 900 mg 900 mg, oral, 3 times daily, First dose on Wed04/03/24 at 0900 09/23/2023 active tamsulosin (FLOMAX) 24 hr capsule 0.4 mg 0.4 mg, oral, Daily, First dose on Wed04/03/24 at 0900, Withhold if SBP <90 For oral administration: capsules should be swallowed whole (Do not crush, chew, or open). For tube administration: open capsule and administer with water (granules should NOT be crushed). 01/19/2020 active Problems Problem Status Onset Date Problem Type Date of Resolution Source Lymphedema, not elsewhere classified active 2024-02-09 ProblemAct [facility] Community acquired pneumonia active 2024-04-06 ProblemAct [facility] Non-pressure chronic ulcer of other part of right lower leg limited to breakdown of skin active 2024-02-09 ProblemAct [facility] Hypertensive disorder, systemic arterial (disorder) active [facility]Act [facility] Atrial fibrillation (disorder) active [facility]Act [facility] Acute diastolic congestive heart failure active 2024-04-06 ProblemAct [facility] Non-pressure chronic ulcer of other part of left 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
--- OUTSIDE RECORDS SUMMARY | 2024-05-29 17:48 | XMS_ITS | Encounter Summary ---
Author Name [facility] [facility] Address [address] [place] [address] Care Team Providers Care Chimney Builder Helper Name Role Phone CHANDRIKA PLATT Primary Care Provider Unavaila ble Insurance Providers: [...] Apr 05, 2007 MEDICAR E SUPPLEM E [id number] [phone] MILLER,WILL MATTEO PATIENT [employer] MEDICARE SUPPLEMEN JUAN BANKE RS Apr 05, 2007 NONE [id number] MILLER,WILL MATTEO PATIENT MEDICARE (WNR) MEDICARE (M) PART A Apr 05, 2007 PART A [id number] MILLER,WILL MATTEO PATIENT MEDICARE (WNR) MEDICARE (M) PART B Apr 05, 2007 PART B [id number] [phone] MILLER,WILL MATTEO PATIENT MEDICARE (WNR) MEDICARE (M) PART A Apr 05, 2007 PART A [id number] [phone] MILLER,WILL MATTEO PATIENT MEDICARE (WNR) MEDICARE (M) PART B Apr 05, 2007 PART B [id number] AREN MILLER PATIENT Selected Encounter This section includes the information on record at [place] for the Encounter. Date/Time Encounter Type Encounter Description Reason Provider Source May 02, 2024 10:07 AM OFF/OP EST AUGUST X REQ PHY/QHP PRIMARY CARE/MEDICINE ICD-10-CM J44.9 Chronic obstructive pulmonary disease, unspecified JUSTO DUMONT [facility] Encounter Template Text not used by [place] Assessments - Encounter Diagnoses This section includes the primary and secondary diagnoses documented for the Encounter. Date/Time Primary/Secondary Diagnosis Diagnosis Name Provider Source May 02, 2024 10:09 AM PRIMARY Chronic obstructive pulmonary disease, unspecified JUSTO DUMONT [facility] Plan of Treatment: Future Appointments (+ 6 months) and Future Tests (+/- 45 days) The Plan of Treatment section includes future care activities for the patient [facility] [place] [facility] This section includes future appointments and future orders which are active, pending or scheduled. Future Appointments This section includes appointments that were scheduled to occur 6 months from the date of the Encounter, up to a maximum of 20 appointments. The data comes from all [place] treatment facilities. Appointment Date/Time Appointment Type Appointme nt Facility Name May 04, 2024 01:00 PM AMBULATORY - MEDICINE [facility] Jul 26, 2024 02:00 PM AMBULATORY - MEDICINE [facility] Social History: Smoking Status (Most current) and Tobacco Use (All prior to encounter date) This section includes the most current, and the historical, smoking and tobacco- related health factors from the [place] facility where the Encounter took place. Current Smoking Status This section includes the most current smoking, or tobacco-related health factor, from the [place] facility where the Encounter took place. Date/Time Current Smoking Status Comment Facil ity Jul 29, 2023 02:00 PM [place]-TOBACCO QUIT 15 YRS OR MORE [facility] Tobacco Use History This section includes a history of the smoking, or tobacco-related health factors, that were collected on or before the date of the Encounter. The data comes from the [place] facility where the Encounter took place. Date/Time Smoking Status/Tobac co Use Comment Facility Jul 29, 2023 02:00 PM [place]-TOBACCO QUIT 15 YRS OR MORE [facility] [place] [facility] Jul 09, 2022 02:00 PM VA-TOBACCO NEVER USED [facility] [place] [facility] Jul 10, 2021 02:30 PM VA-TOBACCO FORMER USER [facility] [place] [facility] Jul 10, 2021 02:30 PM VA-TOBACCO QUIT 15 YRS OR MORE [facility] [place] [facility] May 28, 2020 10:30 AM VA-TOBACCO FORMER USER [facility] [place] [facility] May 28, 2020 10:30 AM VA-TOBACCO QUIT 15 YRS OR MORE [facility] [place] [facility] May 21, 2019 08:03 AM VA-TOBACCO FORMER USER [facility] [place] [facility] May 21, 2019 08:03 AM VA-TOBACCO QUIT 15 YRS OR MORE [facility] [place] [facility] May 24, 2018 11:31 AM VA-TOBACCO FORMER USER [facility] [place] [facility] May 24, 2018 11:31 AM VA-TOBACCO QUIT 15 YRS OR MORE [facility] [place] [facility] Mar 09, 2017 10:08 AM QUIT TOBACCO USE > 7 YEARS AGO [facility] [place] [facility] Feb 19, 2016 10:24 AM QUIT TOBACCO USE > 7 YEARS AGO quit 40 yrs ago [facility] [place] [facility] Mar 08, 2015 01:01 PM QUIT TOBACCO USE > 7 YEARS AGO 40 yrs ago [facility] [place] [facility] Feb 02, 2007 10:39 AM QUIT TOBACCO USE > 7 YEARS AGO quit 40 years ago [facility] [place] [facility] Encounter Notes: All associated encounter notes This section contains the clinical notes associated to the Encounter. Date/Time Encounter Note(s) Provider Source May 02, 2024 10:08 AM ACCOUNTING OF DISCLOSURES NOTE: LOCAL TITLE: STATE PRESCRIPTION DRUG MONITORING PROGRAM STANDARD TITLE: ACCOUNTING OF DISCLOSURES NOTE DATE OF NOTE: MAY 02, 2024@10:08:06 ENTRY DATE: MAY 02, 2024@10:08:06 AUTHOR: JUSTO DUMONT EXP COSIGNER: URGENCY: STATUS: COMPLETED This PDMP query was submitted by Justo Dumont. The clinical justification for this PDMP query is to review controlled substances prescribed outside of the [facility], and any additional information that may become available, as an important component of standard clinical care, and in accordance with [facility] policy. Patient information was shared with the PDMP [facility] [place]. No prescription(s) for controlled substances outside the [facility] were found in the last 90 days. /eliu/ JUSTO RODRIGUEZ MS,PA-C PHYSICIAN COMMERCIAL COLLECTOR Signed: 05/02/2024 10:09 JUSTO DUMONT [facility]
--- OUTSIDE RECORDS SUMMARY | 2024-05-29 17:48 | XMS_ITS | Continuity of Care Document ---
Author Organization [facility] Address [address] [place] [address]- Care Team Providers Care Medical Office Secretary Name Role Phone Salvatore Heath DO Primary Care Physician [phone] Encounter [facility] Date(s): 04/20/24 - 05/20/24 [facility] [address] [place] [address]- Encounter Type: Triage Allergies, Adverse Reactions, Alerts Substance Criticality Severity Reaction Reaction Severity Status cefazolin rash hives Active amoxicillin Diarrhea Diarrhea Active Farxiga 1 Urinary bladder Acti ve Other Environmental Allergy 2 Active Bactrim DS Foggy mind Active 1urinary urgency 2pt sts told allergy [...] vaccine, inactivated 01/02/10 Give n SARS-CoV-2 mRNA ([id number]) vax 6 01/13/23 Recorded [id number] bivalent booster vax 03/05/22 Recorded SARS-CoV-2 (COVID-19) [...] [facility]Admin Note: GOT AT [facility] 5Admin Note: 12-16 [place] [facility] [place] 7Result Comment: [facility] at the [place] [facility]Admin Note: rcvd elsewhere [...] Team Personnel Name: Tereza Livingston RN Position: [facility] RN Supv Member Role: Primary Care Nurse Name: Parminder Hyman RN Position: S RN Member Role: Primary Care Nurse Name: George Laura RN Position: S RN Member Role: Primary Care Nurse Name: Salvatore Heath DO Position: [facility] Physician - Primary Care Member Role: PCP Address: [address] [place], [place] [address] Telecom: Name: Brandi Bonilla RN Position: [facility] OB RN Member Role: Primary Care Nurse Name: Sheila Mayer RN Position: [facility] SN RN Member Role: Primary Care [...]
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
--- OUTSIDE RECORDS SUMMARY | 2024-05-29 17:48 | XMS_ITS | Encounter Summary ---
Author Organization [facility] Address [address] [place] [address] Care Team Providers Care Chief Of Service Name Role Phone Kumar Salvatore Camejo Primary Care Provider [phone] Encounter Details Date Type Department Care Team (Late st Contact Info) Description 04/14/2024 Lab Requisition [facility] - Main Lab [address] [facility] [place] [address] Isabel Cardona MD [address] [place] [address] Encounter for other general examination Social History Tobacco Use Types Packs/Day Years Used Date Smoking Tobacco: Former Cigarettes 0.5 11 1 964 - 3884 Smokeless Tobacco: Never Alcohol Use Standard Drinks/Week [...] Procedure Name Priority Date/Time Associated Diagnosis Comments LAVENDER - EDTA Routine 04/14/2024 6:24 AM EST Encounter for other general examination MAGNESIUM Routine 04/14/2024 6:24 AM EST Encounter for other general examination BASIC METABOLIC PANEL Routine 04/14/2024 6:24 AM EST Encounter for other general examination documented in this encounter Results * Lavender tube (04/14/2024 6:24 AM EST) Extra Tube Hold for add-ons. 04/14/2024 9:01 AM EST [facility] Comment:Auto resulted. Blood Venous blood specimen / Unknown Venipuncture / Unknown 04/14/2024 6:24 AM EST 04/14/2024 7:39 AM EST us Isabel Cardona MD LAB BLOOD ORDERABLES Final Resu lt [facility] [address] [place] [address], [place] [phone] * (ABNORMAL) Magnesium (04/14/2024 6:24 AM EST) Magnesium 1.8(L) 1.9 - 2.6 mg/dL LAB CHEMISTRY METHOD 04/14/2024 8:16 AM EST [facility] Blood Venous blood specimen / Unknown Venipuncture / Unknown 04/14/2024 6:24 AM EST 04/14/2024 7:39 AM EST us Isabel Cardona MD LAB BLOOD ORDERABLES Final Resu lt [facility] [address] [place] [address], [place] [phone] * (ABNORMAL) Basic metabolic panel (04/14/2024 6:24 AM EST) Sodium 135 133 - 145 mmol/L LAB CHEMISTRY METHOD 04/14/2024 8:16 AM [facility] Potassium 4.0 3.5 - 5.5 mmol/L LAB CHEMISTRY METHOD 04/14/2024 8:16 AM [facility] Chloride 101 96 - 110 mmol/L LAB CHEMISTRY METHOD 04/14/2024 8:16 AM [facility] CO2 30 21 - 32 mmol/L LAB CHEMISTRY METHOD 04/14/2024 8:16 AM [facility] Anion Gap 4 3 - 11 LAB CHEMISTRY METHOD 04/14/2024 8:16 AM [facility] Glucose 142(H) 70 - 100 mg/dL LAB CHEMISTRY METHOD 04/14/2024 8:16 AM [facility] BUN 29(H) 5 - 25 mg/dL LAB CHEMISTRY METHOD 04/14/2024 8:16 AM [facility] Creatinine 0.71 0.70 - 1.30 mg/dL LAB CHEMISTRY METHOD 04/14/2024 8:16 AM [facility] eGFR 92 >=60 mL/min/1. 73m2 LAB CHEMISTRY METHOD 04/14/2024 8:16 AM [facility] Comment:Calculation based on the??Chronic Kidney Disease Epidemiology Collaboration (CKD-EPI) equation refit??without adjustment for race. BUN/Creatinine Ratio 40.8 LAB CHEMISTRY METHOD 04/14/2024 8:16 AM [facility] Calcium 8.8 8.5 - 10.5 mg/dL LAB CHEMISTRY METHOD 04/14/2024 8:16 AM EST [facility] Blood Venous blood specimen / Unknown Venipuncture / Unknown 04/14/2024 6:24 AM EST 04/14/2024 7:39 AM EST us Isabel Cardona MD LAB BLOOD ORDERABLES Final Resu lt [facility] [address] [place] [address], [place] [phone] documented in this encounter Visit Diagnoses Diagnosis Encounter for other general examination documented in this encounter Additional Health Concerns Active Problems Noted Date Diagnosed Date Impaired Tissue 02/23/2024 Education needed on impact of smoking on wound 1 04/24/2023 Education needed related to ulceration/compromised skin integrity. 02/23/2024 documented as of this encounter Care Teams Chief Of Service Relationship Specialty Start Date End Date [facility] [place] [place] P[facility] - General Family Medicine 02/09/24 documented as of this encounter
--- OUTSIDE RECORDS SUMMARY | 2024-05-29 17:48 | XMS_ITS | Continuity of Care Document ---
Author Name [facility] Organization [facility] Care Team Providers Care Learning Disabilities Resource Teacher Name Role Phone [facility] Unavailable Unavailable Problems Combined list of problems from Department of Defense and Veterans Affairs facilities. It does not include entries that were removed or entered in error. Problem Status Onset Date Problem Type Date of Resolution Comments Source Alcohol abuse Active Condition [place] [facility] [place] [facility] Arthritis/DJD Active Condition Jan Entered By: CHANDRIKA WAN Comment: -- left knee replacement 07/10 at [facility], rt TKR 11/11 [place] [facility] [place] [facility] Asthma (SNOMED CT 797799738) Active Condition Sep 15, 2012 Entered By: CHANDRIKA WAN Comment: -- followed by Dr. Manas Villagomez at [facility] Atrial fibrillation Active Condition Dec 01, 2011 Entered By: CHANDRIKA WAN Comment: -- onset noted 11/14 while on prednisone for asthmaSep 2011 Entered By: CHANDRIKA WAN Comment: treated with cardioversion 12/15, Dr. SilvaNov 2015 Entered By: CHANDRIKA WAN Comment: seen by Brody Phipps MD [facility] cardiology for annual f/u 01/28/Aug 2018 Entered By: CHANDRIKA PLATT Comment: s [facility] [place] [facility] Atrial fibrillation Active Condition Dec 02, 2018 Entered By: CHANDRIKA PLATT Comment: on apixaban [facility] [place] [facility] Atrial fibrillation (SNOMED CT 40454030) Active Condition [facility] [place] [facility] Benign Prostatic Hypertrophy With Outflow Obstruction (SCT 644441806) [facility] [place] [facility] Bronchiectasis Active Condition Mar Entered By: SABAS FRYE Comment: pulmonology ( Dr Villagomez) at [facility] follows . Hx of LLL lobectomy 2010.Also [place] [facility]CP [facility] Mathe[place] [facility] [place] [facility] Carcinoma of Skin,Basal Cell Active Condition Mar 15, 2008 Entered By: CHANDRIKA WAN Comment: -- [place] in [place] by Dr. Shin [place] [facility] [place] [facility] Dermatitis or Eczema Active Condition [facility] [place] [facility] Duodenitis Hemorrhagic Active Condition Dec 05, 2008 Entered By: CHANDRIKA WAN Comment: -- presumed due to NSAID's, noted on EGD 11/11 [place] [facility] [place] [facility] Environmental Allergies Active Condition Sep 15, 2012 Entered By: CHANDRIKA WAN Comment: -- treated with monthly allergy shots [facility] Dr. Webster [facility] [place] [facility] Erectile dysfunction Active Condition [facility] [place] [facility] Gastroesophageal Reflux Disorder Active Condition [facility] [place] [facility] Hearing Loss [facility] [place] [facility] History of lung lobectomy (SNOMED CT [id number]) Active Condition Sep 19 011 Entered By: CHANDRIKA WAN Comment: -- LLL lobectomy due to infection at [facility] 07[facility] [place] [facility] Hyperlipidemia (SNOMED CT 16291498) Active Condition [facility] [place] [facility] Hypertension (SNOMED CT 72282961) Active Condition [facility] [place] [facility] Kidney Stones (ICD-9-CM 592.0) Active Condition Oct 19 3 Entered By: CHANDRIKA WAN Comment: -- uric acid stones [facility] [place] [facility] Lichenification Active Condition May 14, 2017 Entered By: SABAS FRYE Comment: rash on back ,chronic [facility] [place] [facility] Long-term current use of anticoagulant Active Condition [facility] Low back pain (SNOMED CT 232035040) Active Condition Feb 02, 2008 Entered By: CHANDRIKA WAN Comment: L3-[address] Sellers at [facility] 2004 [place] [facility] [place] [facility] Microscopic Hematuria Active Condition Dec 30, 2011 Entered By: CHANDRIKA WAN Comment: -- followed by urologist Dr. Diamond [facility] [place] [facility] Morbid obesity Active Condition [facility] [place] [facility] Obesity (SNOMED CT 830614473) Active Condition [facility] [place] [facility] Obstructive sleep apnea (SNOMED CT 01559450) Active Condition Jan 06, 2010 Entered By: CHANDRIKA WAN Comment: -- treated with CPAP with nasal pillows [facility] [place] [facility] Obstructive sleep apnea syndrome Active Condition Mar 09, 2017 Entered By: SABAS FRYE Comment: has CPAP he usesJan 27, 2018 Entered By: DYLLAN MALCOLM Comment: PFT results of 10/27/16:Mild ventilatory defect , without obstruction.No bronchodilator response. [facility] [place] [facility] Parkinson's disease Active Condition [facility] [place] [facility] Pneumonia Active Condition Jan 20 Entered By: CHANDRIKA WAN Comment: -- LLL, severe, with sepsis, [facility] 01/18 [facility] [place] [facility] Renal Cysts Active Condition Feb 02, 2008 Entered By: CHANDRIKA WAN Comment: followed by u/s at [facility] 2007 Entered By: CHANDRIKA WAN Comment: follow-up due in October 2008 [facility] [place] [facility] Restless legs Active Condition [facility] [place] [facility] Shoulder tendinitis (SNOMED CT 195935681) Active Condition [facility] [place] [facility] Tremor Active Condition Mar 09 Entered By: SABAS FRYE Comment: hands -unvhanged with movement [facility] [place] [facility] Under care of multiple providers Active Condition Oct 05 018 Entered By: DYLLAN MALCOLM Comment: non [place] primary care - DR MATHEWS( [facility] primary care)Oct 05, 2017 Entered By: DYLLAN MALCOLM Comment: [place] cardiology - dr phipps ( seen 10/04/17Jul 2017 Entered By: DYLLAN MALCOLM Comment: pulm - DR VILLAGOMEZ - [facility] 10/07/17 [place] [facility] [place] [facility] Impotence of organic origin Inactive Condition 03/15/2008 [facility] [place] [facility] Kidney Stones Inactive Condition 02[facility]02/2008 [facility] rising creatinine 08/15 Inactive Condition 02/11/2013 [facility] [place] [facility] Diagnosis: ICD-10-CM J45.21 Mild intermittent asthma with (acute) exacerbation Active Diagnosis [facility] [place] [facility] Diagnosis: ICD-10-CM I48.91 Unspecified atrial fibrillation Active Diagnosis [facility] [place] [facility] Diagnosis: ICD-10-CM J44.9 Chronic obstructive pulmonary disease, unspecified Active Diagnosis [facility] [place] [facility] Diagnosis: ICD-10-CM J47.9 Bronchiectasis, uncomplicated Active Diagnosis [facility] [place] [facility] Diagnosis: ICD-10-CM G25.81 Restless legs syndrome Active Diagnosis [facility] [place] [facility] Diagnosis: ICD-10-CM Z46.1 Encounter for fitting and adjustment of hearing aid Active Diagnosis [facility] [place] [facility] Diagnosis: ICD-10-CM H90.3 Sensorineural hearing loss, bilateral Active Diagnosis [facility] [place] [facility] Diagnosis: ICD-10-CM Z46.0 Encounter for fit/adjst of spectacles and contact lenses Active Diagnosis [facility] [place] [facility] Diagnosis: ICD-10-CM Z96.1 Presence of intraocular lens Active Diagnosis [facility] Diagnosis: ICD-10-CM I10 Essential (primary) hypertension Active Diagnosis [facility] Medications Combined list of outpatient medications from Department of Defense and Veterans Affairs facilities.Medications provided include 1) outpatient medications from the last 15 months, and 2) patient-reported medications. Medication Details Route Status Patient Instructions Prescription Expires Prescription Number Last Dispense Date Ordering Provider Order Date Order Qty Source ALBUTEROL 90MCG/ACTUA T (CFC-F) INHL,ORAL,8 .5GM DOSE COUNTER INHALE 2 PUFFS BY MOUTH EVERY 4 HOURS NEEDED RESPIR ATORY (INHAL ATION) ACTIVE 09/24/2024 [id number] CHANDRIKA PLATT 2023 1 [facility] ALBUTEROL 90MCG/ACTUA T (CFC-F) INHL,ORAL,8 .5GM DOSE COUNTER INHALE 2 PUFFS BY MOUTH EVERY 4 HOURS NEEDED RESPIR ATORY (INHAL ATION) DISCONT INUED 07/29/2023 [id number] 4 CHANDRIKA PLATT 2022 1 [facility] ALBUTEROL SO4 3MG/IPRATRO PIUM BR 0.5MG/3ML INHL,3ML INHALE 1 VIAL (3ML) IN NEBULIZE R FOUR TIMES DAILY NEEDED FOR BREATHIN G RESPIR ATORY (INHAL ATION) HOLD 09/24/2024 [id number] CHANDRIKA PLATT 2023 120 [facility] [place] ALBUTEROL SO4 3MG/IPRATRO PIUM BR 0.5MG/3ML INHL,3ML INHALE 1 VIAL (3ML) IN NEBULIZE R FOUR TIMES DAILY NEEDED FOR BREATHIN G RESPIR ATORY (INHAL ATION) DISCONT INUED 07/29/2023 [id number] 4 CHANDRIKA PLATT 2022 120 [facility] ALLOPURINOL 300MG TAB TAKE ONE TABLET BY MOUTH DAILY ORAL SUSPEND ED 05/05/2025 [id number] 5 CHANDRIKA PLATT 2024 90 [facility] ALLOPURINOL 300MG TAB TAKE ONE TABLET BY MOUTH DAILY ORAL DISCONT INUED 09/24/2024 [id number] 5 CHANDRIKA PLATT 2023 90 [facility] [place] [facility] ALLOPURINOL 300MG TAB TAKE ONE TABLET BY MOUTH DAILY ORAL DISCONT INUED 12/01/2023 [id number] 4 CHANDRIKA PLATT 2022 90 [facility] [place] [facility] [facility] ALPRAZOLAM 0.5MG TAB TAKE ONE TABLET BY MOUTH ONCE DAILY NEEDED FOR ANXIETY/ NERVES ORAL ACTIVE 06/01/2024 [id number] 5 REESE DUMONT 2024 30 [facility] [place] [facility] ALPRAZOLAM 0.5MG TAB TAKE ONE TABLET BY MOUTH ONCE DAILY NEEDED FOR ANXIETY/ NERVES ORAL DISCONT INUED 04/22/2024 [id number] CHANDRIKA PLATT 2023 30 [facility] [place] [facility] ALPRAZOLAM 0.5MG TAB TAKE ONE TABLET BY MOUTH ONCE DAILY NEEDED FOR ANXIETY/ NERVES ORAL 10/20/2023 [id number] CHANDRIKA PLATT 2023 30 [facility] APIXABAN 5MG TAB TAKE ONE TABLET BY MOUTH TWICE DAILY ORAL SUSPEND ED 05/05/2025 [id number] 5 CHANDRIKA PLATT 2024 180 [facility] APIXABAN 5MG TAB TAKE ONE TABLET BY MOUTH TWICE DAILY ORAL DISCONT INUED 09/24/2024 [id number] 5 CHANDRIKA PLATT 2023 180 [facility] APIXABAN 5MG TAB TAKE ONE TABLET BY MOUTH TWICE DAILY ORAL DISCONT INUED 12/01/2023 [id number] 4 CHANDRIKA PLATT 2022 180 [facility] [place] [facility] ATORVASTATI N CA 40MG TAB TAKE ONE TABLET BY MOUTH ONCE DAILY FOR CHOLESTE ROL ORAL ACTIVE 05/05/2025 [id number] 5 CHANDRIKA PLATT 2024 90 [facility] ATORVASTATI N CA 40MG TAB TAKE ONE TABLET BY MOUTH ONCE DAILY FOR CHOLESTE ROL ORAL DISCONT INUED 09/24/2024 [id number] 4 CHANDRIKA PLATT 2023 90 [facility] [place] ATORVASTATI N CA 40MG TAB TAKE ONE TABLET BY MOUTH ONCE DAILY FOR CHOLESTE ROL ORAL DISCONT INUED 12/01/2023 [id number] 4 CHANDRIKA PLATT 2022 90 [facility] CHOLECALCIF CONCEPCION 25MCG (1,000UNIT) TAB TAKE TWO TABLETS BY MOUTH DAILY ORAL ACTIVE LEONORA WAN LLIASujey S [facility] COENZYME Q10 CAP/TAB TAKE 200MG BY MOUTH DAILY ORAL ACTIVE LEONORA WAN LLIASujey S 2014 [facility] FLUTICASONE 500MCG/SALM ETEROL 50MCG INHL,ORAL,D ISKUS,60 INHALE 1 PUFF BY MOUTH TWICE DAILY - RINSE MOUTH AFTER USE RESPIR ATORY (INHAL ATION) ACTIVE 04/28/2025 [id number] Dudley PACE 2024 3 [facility] FLUTICASONE 500MCG/SALM ETEROL 50MCG INHL,ORAL,D ISKUS,60 INHALE 1 PUFF BY MOUTH TWICE DAILY - RINSE MOUTH AFTER USE RESPIR ATORY (INHAL ATION) DISCONT INUED 09/24/2024 [id number] 4 CHANDRIKA PLATT 2023 3 [facility] [place] [facility] FLUTICASONE 500MCG/SALM ETEROL 50MCG INHL,ORAL,D ISKUS,60 INHALE 1 PUFF BY MOUTH TWICE DAILY - RINSE MOUTH AFTER USE RESPIR ATORY (INHAL ATION) DISCONT INUED 12/01/2023 [id number] 4 CHANDRIKA PLATT 2022 3 [facility] FUROSEMIDE 40MG TAB TAKE ONE TABLET BY MOUTH ONCE DAILY TO REMOVE FLUID/CO NTROL BLOOD PRESSURE ORAL SUSPEND ED 05/05/2025 [id number] 5 CHANDRIKA PLATT 2024 90 [facility] FUROSEMIDE 40MG TAB TAKE ONE TABLET BY MOUTH ONCE DAILY TO REMOVE FLUID/CO NTROL BLOOD PRESSURE ORAL DISCONT INUED 09/24/2024 [id number] 5 CHANDRIKA PLATT 2023 90 [facility] [place] [facility] FUROSEMIDE 40MG TAB TAKE ONE TABLET BY MOUTH ONCE DAILY TO REMOVE FLUID/CO NTROL BLOOD PRESSURE ORAL DISCONT INUED 07/10/2023 [id number] 4 CHANDRIKA PLATT 2022 90 [facility] [place] GABAPENTIN 300MG CAP TAKE THREE CAPSULES BY MOUTH THREE TIMES A DAY ORAL SUSPEND ED 05/05/2025 [id number] 5 CHANDRIKA PLATT 2024 810 [facility] [place] [facility] GABAPENTIN 300MG CAP TAKE THREE CAPSULES BY MOUTH THREE TIMES A DAY ORAL DISCONT INUED 09/23/2024 [id number] 4 CHANDRIKA PLATT 2023 810 [facility] [place] GABAPENTIN 300MG CAP TAKE THREE CAPSULES BY MOUTH THREE TIMES A DAY ORAL DISCONT INUED 08/21/2023 [id number] 4 OLGA MARTÍNEZ 2022 810 [facility] LOSARTAN 25MG TAB TAKE ONE TABLET BY MOUTH ONCE DAILY FOR BLOOD PRESSURE /HEART ORAL ACTIVE 05/05/2025 [id number] 5 CHANDRIKA PLATT 2024 90 [facility] LOSARTAN 25MG TAB TAKE ONE TABLET BY MOUTH ONCE DAILY FOR BLOOD PRESSURE /HEART ORAL DISCONT INUED 09/24/2024 [id number] 4 CHANDRIKA PLATT 2023 90 [facility] LOSARTAN 25MG TAB TAKE ONE TABLET BY MOUTH ONCE DAILY FOR BLOOD PRESSURE /HEART ORAL DISCONT INUED 12/01/2023 [id number] CHANDRIKA PLATT 2022 90 [facility] METOPROLOL TARTRATE 100MG TAB TAKE ONE TABLET BY MOUTH TWICE DAILY FOR BLOOD PRESSURE /HEART ORAL DISCONT INUED (EDIT) 09/24/2024 [id number] 5 CHANDRIKA PLATT 2023 180 [facility] METOPROLOL TARTRATE 100MG TAB TAKE ONE TABLET BY MOUTH TWICE DAILY FOR BLOOD PRESSURE /HEART ORAL DISCONT INUED 12/01/2023 [id number] CHANDRIKA PLATT 2022 180 [facility] METOPROLOL TARTRATE 25MG TAB TAKE ONE TABLET BY MOUTH TWICE DAILY FOR BLOOD PRESSURE /HEART ORAL ACTIVE 05/05/2025 [id number] 5 CHANDRIKA PLATT 2024 180 [facility] METOPROLOL TARTRATE 25MG TAB TAKE ONE TABLET BY MOUTH TWICE DAILY FOR BLOOD PRESSURE /HEART ORAL DISCONT INUED 05/05/2025 [id number] CHANDRIKA PLATT 2024 180 [facility] MULTIVITAMI NS W/MINERALS TAB TAKE ONE TABLET BY MOUTH DAILY ORAL ACTIVE LEONORA WAN 2011 [facility] [place] POTASSIUM CITRATE 10MEQ TAB,SA TAKE ONE TABLET BY MOUTH TWICE DAILY ORAL SUSPEND ED 05/05/2025 [id number] 5 CHANDRIKA PLATT 2024 200 [facility] POTASSIUM CITRATE 10MEQ TAB,SA TAKE ONE TABLET BY MOUTH TWICE DAILY ORAL DISCONT INUED 09/24/2024 [id number] 5 CHANDRIKA PLATT 2023 200 [facility] POTASSIUM CITRATE 10MEQ TAB,SA TAKE ONE TABLET BY MOUTH TWICE DAILY ORAL DISCONT INUED 12/01/2023 [id number] CHANDRIKA PLATT 2022 200 [facility] ROPINIROLE HCL 0.5MG TAB TAKE TWO TABLETS BY MOUTH EVERY AFTERNOO N NEEDED AND TAKE THREE TABLETS AT BEDTIME ORAL SUSPEND ED 05/05/2025 [id number] 5 CHANDRIKA PLATT 2024 450 [facility] ROPINIROLE HCL 0.5MG TAB TAKE TWO TABLETS BY MOUTH EVERY AFTERNOO N NEEDED AND TAKE THREE TABLETS AT BEDTIME ORAL DISCONT INUED 09/24/2024 [id number] 5 CHANDRIKA PLATT 2023 450 [facility] ROPINIROLE HCL 0.5MG TAB TAKE TWO TABLETS BY MOUTH EVERY AFTERNOO N NEEDED AND TAKE THREE TABLETS AT BEDTIME ORAL DISCONT INUED 12/01/2023 [id number] OLGA MARTÍNEZ 2022 450 [facility] TAMSULOSIN HCL 0.4MG CAP TAKE ONE CAPSULE BY MOUTH AT BEDTIME ORAL 04/06/2024 [id number] 4 CHANDRIKA PLATT 2023 90 [facility] TIOTROPIUM 2.5MCG/ACTU AT INHL,ORAL,6 0D,4GM INHALE 2 PUFFS BY MOUTH ONCE DAILY ORAL ACTIVE 01/27/2025 [id number] Dudley PACE 2023 1 [facility] TIZANIDINE HCL TAB TAKE DIRECTED BY MOUTH DIRECTED ORAL ACTIVE CHANDRIKA PLATT 2022 [facility] TRIAMCINOLO NE ACETONIDE 0.1% CREAM,TOP APPLY A THIN LAYER TOPICALL Y TWICE DAILY NEEDED TOPICA L ACTIVE LEONORA WAN 2008 [facility] Allergies, Adverse Reactions, Alerts Combined list of allergies from Department of Defense and Veterans Affairs facilities. It does not include entries that were removed or entered in error. Substance Category Reaction Severity Reaction type Status Date Reported Comments Source CEFAZOLIN Propensity to adverse reactions to drug (finding) Urticaria [facility] 7 [facility] Immunizations Combined list of available immunizations from the Department of Defense and Veterans Affairs facilities. Immunization Series Date Given Administered By Site Reaction Lot Number CVX Code Drug Sample Mounter Status Comments Source COVID-19 (MODERNA), MRNA, LNP-S, PF, 50 MCG/0.5 ML (AGES 12+ YEARS) 2023 PATTIE BARBA ALEKSEY RIGHT DELTO ID [id number] 312 complet ed [facility] INFLUENZA, UNSPECIFIED FORMULATION 2022 88 complet ed High Dose [facility] INFLUENZA, UNSPECIFIED FORMULATION 2021 88 complet ed [facility] COVID-19 (MODERNA), MRNA, LNP-S, PF, 100 MCG/0.5 ML DOSE 2 2020 207 complet ed MOD; [id number]; 1 [facility] COVID-19 (MODERNA), MRNA, LNP-S, PF, 100 MCG/0.5 ML DOSE 1 2020 207 complet ed MOD; [id number]; 1 [facility] INFLUENZA, SEASONAL, INJECTABLE 2019 141 complet ed [facility] INFLUENZA, SEASONAL, INJECTABLE 2018 141 complet ed [facility] ZOSTER RECOMBINANT 2 2018 187 complet ed [facility] ZOSTER RECOMBINANT 1 2017 187 complet ed [facility] INFLUENZA, SEASONAL, INJECTABLE 2017 141 complet ed Outside Provider [facility] INFLUENZA, SEASONAL, INJECTABLE 2016 141 complet ed [facility] FLU,3 YRS (HISTORICAL) 2015 88 complet ed [facility] FLU,3 YRS (HISTORICAL) 2015 88 complet ed [facility] [place] FLU,3 YRS (HISTORICAL) 2014 88 complet ed local pharmacy [facility] [place] PNEUMOCOCCAL CONJUGATE PCV 13 2014 133 complet ed patient is certain that he received the pneumococ miguel 13 vaccine. [facility] FLU,3 YRS (HISTORICAL) 2013 88 complet ed [facility] FLU,3 YRS (HISTORICAL) 2012 88 complet ed Site: Left Deltoid [facility] DTAP, UNSPECIFIED FORMULATION 2012 107 complet ed community PCP [facility] FLU,3 YRS (HISTORICAL) 2011 88 complet ed [facility] FLU,3 YRS (HISTORICAL) 2010 88 complet ed [facility] PNEUMOCOCCAL, UNSPECIFIED FORMULATION 2010 109 complet ed [facility] TD(ADULT) UNSPECIFIED FORMULATION 2010 DMITRY [place] 139 complet ed [facility] FLU,3 YRS (HISTORICAL) 2009 88 complet ed [facility] FLU,3 YRS (HISTORICAL) 2009 88 complet ed [facility] NOVEL INFLUENZA-H1N 1-09, ALL FORMULATIONS 2009 128 complet ed [facility] FLU,3 YRS (HISTORICAL) 2008 88 complet ed [facility] ZOSTER LIVE 2008 MICHELE HUMPHREY 121 complet ed [facility] FLU,3 YRS (HISTORICAL) 2007 88 complet ed [facility] PNEUMOCOCCAL, UNSPECIFIED FORMULATION 2005 109 complet ed [facility] TD(ADULT) UNSPECIFIED FORMULATION 2005 139 complet ed [facility] PNEUMOCOCCAL, UNSPECIFIED FORMULATION 2002 109 complet ed [facility] Results Combined list of recent chemistry, hematology and other laboratory results from Department of Defense and Veterans Affairs, ranging from 15 months to all on record, depending upon the facility. Order Name Results Value Reference Range Date Interpretation Specimen Comments Source HEMOGLOBI N A1C PANEL HEMOGLOBIN A1C/HEMOGLO BIN.TOTAL IN BLOOD BY HPLC 6.6 4.0 - 5.6 01/20 H Specimen Type: BLOOD Comment: Values obtained from A1C measurement s can vary. For atypical A1C assays, a reported value of 7.0 could actually be between 6.72 and 7.28 if measured by a reference method. A reported value of 9.0 could actually be between 8.73 and 9.27. Ref: http://www. ngsp.org/[place] Pdata.asp Ordering Provider: LEONORA PLATT Report Released Date/Time: Jan 06, 2024 02:24 PM Reporting Lab: [address] [address] Performing Lab: [address] [address] [facility] LIPID PANEL, NON FASTING CHOLESTEROL [MASS/VOLUM E] IN SERUM OR PLASMA 123 mg/dL 01/20 Specimen Type: SERUM No comment entered. Ordering Provider: LEONORA PLATT Report Released Date/Time: Jan 06, 2024 02:24 PM Reporting Lab: [address] [address] Performing Lab: [address] [address] [facility] LIPID PANEL, NON FASTING TRIGLYCERID E [MASS/VOLUM E] IN SERUM OR PLASMA 58 mg/dL 0 - 150 01/20 Specimen Type: SERUM No comment entered. Ordering Provider: LEONORA PLATT Report Released Date/Time: Jan 06, 2024 02:24 PM Reporting Lab: [address] [address] Performing Lab: [address] [address] [facility] [place] LIPID PANEL, NON FASTING CHOLESTEROL IN LDL [MASS/VOLUM E] IN SERUM OR PLASMA BY CALCULATION 72 mg/dL 0 - 129 01/20 Specimen Type: SERUM No comment entered. Ordering Provider: LEONORA PLATT Report Released Date/Time: Jan 06, 2024 02:24 PM Reporting Lab: [facility] [address] [facility] [address] Performing Lab: [facility] [place] [facility] [address] [facility] [address] [facility] [place] LIPID PANEL, NON FASTING CHOLESTEROL .TOTAL/CHOL ESTEROL IN HDL [MASS RATIO] IN SERUM OR PLASMA 3.2 01/20 Specimen Type: SERUM No comment entered. Ordering Provider: LEONORA PLATT Report Released Date/Time: Jan 06, 2024 02:24 PM Reporting Lab: [facility] [address] [facility] [address] Performing Lab: [facility]ITALRL TRN [facility]CAREUSETS [address] [address] [facility]USE [facility] [place] LIPID PANEL, NON FASTING CHOLESTEROL IN HDL [MASS/VOLUM E] IN SERUM OR PLASMA 39 mg/dL 40 - 60 01/20 L Specimen Type: SERUM No comment entered. Ordering Provider: LEONORA PLATT Report Released Date/Time: Jan 06, 2024 02:24 PM Reporting Lab: [facility]ITALRCO[facility] HOSPITALTRN [place] [facility] [address] [facility] [address] Performing Lab: [facility]PITALRL [place]N [place] [address] [address] [facility]OSPITALRDCH [facility]ERN [facility] [place] PT & INR (PROTIME) INR IN PLATELET POOR PLASMA BY COAGULATION ASSAY 1.5 01/20 Specimen Type: PLASMA No comment entered. Ordering Provider: LEONORA PLATT Report Released Date/Time: Jan 06, 2024 02:24 PM Reporting Lab: [facility]ITALRCO[facility] HOSPITALTRN [facility]ALTHCAREUSE[address] [address] Performing Lab: [facility] [place] [facility] [address] [facility] [address] [facility] [place] [facility] [place] PT & INR (PROTIME) PROTHROMBIN TIME (PT) 16.7 s 10.0 - 13.1 01/20 H Specimen Type: PLASMA No comment entered. Ordering Provider: LEONORA PLATT Report Released Date/Time: Jan 06, 2024 02:24 PM Reporting Lab: [place] [facility] [facility] [address] [facility] [address] Performing Lab: [place] [facility] [facility] [address] [facility] [address] [facility] [place] LIVER FUNCTION PROTEIN [MASS/VOLUM E] IN SERUM OR PLASMA 6.0 g/dL 6.0 - 8.3 01/20 Specimen Type: SERUM No comment entered. Ordering Provider: LEONORA PLATT Report Released Date/Time: Jan 06, 2024 02:24 PM Reporting Lab: [facility] [place] [facility] [address] [facility] [address] Performing Lab: [place] [facility] [facility] [address] [facility] [address] [facility] [place] LIVER FUNCTION ALBUMIN [MASS/VOLUM E] IN SERUM OR PLASMA 2.7 g/dL 3.5 - 5.0 01/20 L Specimen Type: SERUM No comment entered. Ordering Provider: LEONORA PLATT Report Released Date/Time: Jan 06, 2024 02:24 PM Reporting Lab: [place] [facility] [place] [facility] [address] [facility] [address] Performing Lab: [place] [address] [address] [facility] LIVER FUNCTION ALKALINE PHOSPHATASE [ENZYMATIC ACTIVITY/VO LUME] IN SERUM OR PLASMA 132 U/L 40 - 150 01/20 Specimen Type: SERUM No comment entered. Ordering Provider: LEONORA PLATT Report Released Date/Time: Jan 06, 2024 02:24 PM Reporting Lab: [facility] [place] [facility] [address] [facility] [address] Performing Lab: [facility] [place] [facility] [address] [facility] [address] [place] [facility] [place] [facility] LIVER FUNCTION ASPARTATE AMINOTRANSF ERASE [ENZYMATIC ACTIVITY/VO LUME] IN SERUM OR PLASMA 16 U/L 5 - 34 01/20 Specimen Type: SERUM No comment entered. Ordering Provider: LEONORA PLATT Report Released Date/Time: Jan 06, 2024 02:24 PM Reporting Lab: [facility] [place] [facility] [address] [facility] [address] Performing Lab: [place] [facility] [facility] [address] [facility] [address] [place] [facility] [place] LIVER FUNCTION ALANINE AMINOTRANSF ERASE [ENZYMATIC ACTIVITY/VO LUME] IN SERUM OR PLASMA 14 U/L 01/20 Specimen Type: SERUM No comment entered. Ordering Provider: LEONORA PLATT Report Released Date/Time: Jan 06, 2024 02:24 PM Reporting Lab: [place] [facility] [address] [address] Performing Lab[facility] [place] [facility] [address] [facility] [address] [place] [facility] [place] LIVER FUNCTION BILIRUBIN.T OTAL [MASS/VOLUM E] IN SERUM OR PLASMA 1.4 mg/dL 0.2 - 1.2 01/20 H Specimen Type: SERUM No comment entered. Ordering Provider: LEONORA PLATT Report Released Date/Time: Jan 06, 2024 02:24 PM Reporting Lab: [facility] [place] [address] [address] Performing Lab: [facility] [place] [address] [address] [place] [facility] [place] LIVER FUNCTION BILIRUBIN.D IRECT [MASS/VOLUM E] IN SERUM OR PLASMA 0.6 mg/dL 0 - 0.5 01/20 H Specimen Type: SERUM No comment entered. Ordering Provider: LEONORA PLATT Report Released Date/Time: Jan 06, 2024 02:24 PM Reporting Lab: [place] [facility] [facility] [address] [facility] [address] Performing Lab: [place] [facility] [facility] [address] [facility] [address] [facility] [place] BASIC METABOLIC PANEL (non-fast ing) UREA NITROGEN [MASS/VOLUM E] IN SERUM OR PLASMA 16 mg/dL 7 - 25 01/20 Specimen Type: SERUM No comment entered. Ordering Provider: LEONORA PLATT Report Released Date/Time: Jan 06, 2024 02:24 PM Reporting Lab: [place] [facility] [facility] [address] [address] Performing Lab: [facility] [address] [facility] [place] BASIC METABOLIC PANEL (non-fast ing) GLUCOSE [MASS/VOLUM E] IN SERUM OR PLASMA 151 mg/dL 65 - 100 01/20 H Specimen Type: SERUM No comment entered. Ordering Provider: LEONORA PLATT Report Released Date/Time: Jan 06, 2024 02:24 PM Reporting Lab: [facility] [address] Performing Lab: [place] [facility] [facility] [address] [address] [facility] [place] BASIC METABOLIC PANEL (non-fast ing) SODIUM [MOLES/VOLU ME] IN SERUM OR PLASMA 141 mmol/L 135 - 145 01/20 Specimen Type: SERUM No comment entered. Ordering Provider: LEONORA PLATT Report Released Date/Time: Jan 06, 2024 02:24 PM Reporting Lab: [place] [facility] [facility] [address] Performing Lab: [place] [facility] [facility] [address] [address] [facility] BASIC METABOLIC PANEL (non-fast ing) POTASSIUM [MOLES/VOLU ME] IN SERUM OR PLASMA 4.1 mmol/L 3.5 - 5.0 01/20 Specimen Type: SERUM No comment entered. Ordering Provider: LEONORA PLATT Report Released Date/Time: Jan 06, 2024 02:24 PM Reporting Lab: [address] [address] Performing Lab: [address] [address] [facility] BASIC METABOLIC PANEL (non-fast ing) CHLORIDE [MOLES/VOLU ME] IN SERUM OR PLASMA 106 mmol/L 100 - 110 01/20 Specimen Type: SERUM No comment entered. Ordering Provider: LEONORA PLATT Report Released Date/Time: Jan 06, 2024 02:24 PM Reporting Lab: [address] [address] Performing Lab: [address] [address] [facility] BASIC METABOLIC PANEL (non-fast ing) CARBON DIOXIDE, TOTAL [MOLES/VOLU ME] IN SERUM OR PLASMA 28 meq/L 20 - 30 01/20 Specimen Type: SERUM No comment entered. Ordering Provider: LEONORA PLATT Report Released Date/Time: Jan 06, 2024 02:24 PM Reporting Lab: [address] [address] Performing Lab: [address] [address] [facility] BASIC METABOLIC PANEL (non-fast ing) CREATININE [MASS/VOLUM E] IN SERUM OR PLASMA 0.75 mg/dL 0.50 - 1.40 01/20 Specimen Type: SERUM No comment entered. Ordering Provider: LEONORA PLATT Report Released Date/Time: Jan 06, 2024 02:24 PM Reporting Lab: [facility] [place] [facility] [address] [facility] [address] Performing Lab: [facility] [place] [facility] [address] [facility] [address] [place] [facility] [place] [facility] BASIC METABOLIC PANEL (non-fast ing) GLOMERULAR FILTRATION RATE/1.73 SQ M.PREDICTED [VOLUME RATE/AREA] IN SERUM, PLASMA OR BLOOD BY CREATININE- BASED FORMULA (CKD-EPI 2020) >90mL/ min 60 01/20 Specimen Type: SERUM No comment entered. Ordering Provider: LEONORA PLATT Report Released Date/Time: Jan 06, 2024 02:24 PM Reporting Lab: [facility] [place] [facility] [address] [facility] [address] Performing Lab: [place] [address] [address] [facility] [place] [place] [facility] CBC LEUKOCYTES [#/VOLUME] IN BLOOD BY AUTOMATED COUNT 7.54 10*3/u L 4.50 - 11.00 01/20 Specimen Type: BLOOD No comment entered. Ordering Provider: LEONORA PLATT Report Released Date/Time: Jan 06, 2024 02:24 PM Reporting Lab: [facility] [place] [facility] [address] [facility] [address] Performing Lab: [facility] [address] [address] [place] [facility] [place] [facility] CBC ERYTHROCYTE S [#/VOLUME] IN BLOOD BY AUTOMATED COUNT 3.49 10*6/u L 4.23 - 5.66 01/20 L Specimen Type: BLOOD No comment entered. Ordering Provider: LEONORA PLATT Report Released Date/Time: Jan 06, 2024 02:24 PM Reporting Lab: [facility] [place] [address] [address] Performing Lab: [facility] [place] [address] [address] [place] [facility] [place] [facility] CBC HEMOGLOBIN [MASS/VOLUM E] IN BLOOD 12.0 g/dL 12.8 - 17 01/20 L Specimen Type: BLOOD No comment entered. Ordering Provider: LEONORA PLATT Report Released Date/Time: Jan 06, 2024 02:24 PM Reporting Lab: [facility] [place] [facility] [address] [facility] [address] Performing Lab: [facility] [place] [facility] [address] [facility] [address] [place] [facility] [place] [facility] CBC HEMATOCRIT [VOLUME FRACTION] OF BLOOD BY AUTOMATED COUNT 36.7 39.2 - 50.4 01/20 L Specimen Type: BLOOD No comment entered. Ordering Provider: LEONORA PLATT Report Released Date/Time: Jan 06, 2024 02:24 PM Reporting Lab: [facility] [place] [address] [address] Performing Lab: [place] [facility] [address] [address] [place] [facility] [place] [facility] CBC MCV [ENTITIC VOLUME] BY AUTOMATED COUNT 105.2 fL 82 - 99 01/20 H Specimen Type: BLOOD No comment entered. Ordering Provider: LEONORA PLATT Report Released Date/Time: Jan 06, 2024 02:24 PM Reporting Lab: [facility] [place] [address] [address] Performing Lab: [facility] [place] [address] [address] [place] [facility] [place] [facility] CBC MCHC [MASS/VOLUM E] BY AUTOMATED COUNT 32.7 g/dL 30.8 - 35.1 01/20 Specimen Type: BLOOD No comment entered. Ordering Provider: LEONORA PLATT Report Released Date/Time: Jan 06, 2024 02:24 PM Reporting Lab: [facility] [place] [address] [address] Performing Lab: [place] [facility] [address] [address] [place] [facility] [place] [facility] CBC PLATELETS [#/VOLUME] IN BLOOD BY AUTOMATED COUNT 185 10*3/u L 140 - 360 01/20 Specimen Type: BLOOD No comment entered. Ordering Provider: LEONORA PLATT Report Released Date/Time: Jan 06, 2024 02:24 PM Reporting Lab: [facility] [place] [facility] [address] [facility] [address] Performing Lab: [place] [facility] [place] [facility] [address] [facility] [address] [place] [facility] CBC ERYTHROCYTE DISTRIBUTIO N WIDTH [RATIO] BY AUTOMATED COUNT 14.4 12.0 - 16.0 01/20 Specimen Type: BLOOD No comment entered. Ordering Provider: LEONORA PLATT Report Released Date/Time: Jan 06, 2024 02:24 PM Reporting Lab: [place] [facility] [address] [address] Performing Lab: [place] [facility] [facility] [address] [facility] [address] [place] [facility] CBC MCH [ENTITIC MASS] BY AUTOMATED COUNT 34.4 pg 26.2 - 32.6 01/20 H Specimen Type: BLOOD No comment entered. Ordering Provider: LEONORA PLATT Report Released Date/Time: Jan 06, 2024 02:24 PM Reporting Lab: [facility] [place] [address] [address] Performing Lab: [facility] [place] [address] [address] [place] [facility] [place] [facility] PT & INR (PROTIME) INR IN PLATELET POOR PLASMA BY COAGULATION ASSAY 1.6 07/19 Specimen Type: PLASMA No comment entered. Ordering Provider: LEONORA PLATT Report Released Date/Time: Jul 15, 2023 11:55 AM Reporting Lab: [place] [facility] [address] [address] Performing Lab: [place] [address] [place] [address] [facility] [place] [place] [facility] PT & INR (PROTIME) PROTHROMBIN TIME (PT) 17.5 s 10.0 - 13.1 07/19 H Specimen Type: PLASMA No comment entered. Ordering Provider: LEONORA PLATT Report Released Date/Time: Jul 15, 2023 11:55 AM Reporting Lab: [place] [facility] [facility] [address] [facility] [address] Performing Lab: [place] [address] [address] [facility] [place] [facility] [place] LIPID PANEL, NON FASTING CHOLESTEROL [MASS/VOLUM E] IN SERUM OR PLASMA 119 mg/dL 07/19 Specimen Type: SERUM No comment entered. Ordering Provider: LEONORA PLATT Report Released Date/Time: Jul 15, 2023 11:55 AM Reporting Lab: [facility] [place] [address] [address] Performing Lab: [place] [address] [address] [facility] [place] [facility] [place] LIPID PANEL, NON FASTING TRIGLYCERID E [MASS/VOLUM E] IN SERUM OR PLASMA 52 mg/dL 0 - 150 07/19 Specimen Type: SERUM No comment entered. Ordering Provider: LEONORA PLATT Report Released Date/Time: Jul 15, 2023 11:55 AM Reporting Lab: [place] [facility] [address] [address] Performing Lab: [place] [facility] [address] [address] [facility] [place] [facility] [place] LIPID PANEL, NON FASTING CHOLESTEROL IN LDL [MASS/VOLUM E] IN SERUM OR PLASMA BY CALCULATION 62 mg/dL 0 - 129 07/19 Specimen Type: SERUM No comment entered. Ordering Provider: LEONORA PLATT Report Released Date/Time: Jul 15, 2023 11:55 AM Reporting Lab: [place] [facility] [address] [address] Performing Lab: [facility] [place] [facility] [address] [facility] [address] [facility] WSTRN [facility] [place] LIPID PANEL, NON FASTING CHOLESTEROL .TOTAL/CHOL ESTEROL IN HDL [MASS RATIO] IN SERUM OR PLASMA 2.5 07/19 Specimen Type: SERUM No comment entered. Ordering Provider: LEONORA PLATT Report Released Date/Time: Jul 15, 2023 11:55 AM Reporting Lab: [place] [facility] [facility] [address] [facility] [address] Performing Lab: [facility]N [facility] [address] [facility] [address] [facility]ITALRDCH [facility]ERN [facility] [place] LIPID PANEL, NON FASTING CHOLESTEROL IN HDL [MASS/VOLUM E] IN SERUM OR PLASMA 47 mg/dL 40 - 60 07/19 Specimen Type: SERUM No comment entered. Ordering Provider: LEONORA PLATT Report Released Date/Time: Jul 15, 2023 11:55 AM Reporting Lab: [facility] TRN [facility] [address] [facility] [address] Performing Lab: [facility] TRN [facility] [address] [facility] [address] [facility]ITALRDCH [facility]ERN [facility] [place] CBC LEUKOCYTES [#/VOLUME] IN BLOOD BY AUTOMATED COUNT 6.78 10*3/u L 4.50 - 11.00 07/19 Specimen Type: BLOOD No comment entered. Ordering Provider: LEONORA PLATT Report Released Date/Time: Jul 15, 2023 11:55 AM Reporting Lab: [facility]N [facility] [address] [facility] [address] Performing Lab: [place] [facility] [address] [facility] [address] [facility]ITALRDCH [facility]ERN [facility] [place] CBC ERYTHROCYTE S [#/VOLUME] IN BLOOD BY AUTOMATED COUNT 3.89 10*6/u L 4.23 - 5.66 07/19 L Specimen Type: BLOOD No comment entered. Ordering Provider: LEONORA PLATT Report Released Date/Time: Jul 15, 2023 11:55 AM Reporting Lab: [facility] [place] [facility] [address] [facility] [address] Performing Lab: [facility] [place] [facility] [address] [facility] [address] [facility] [place] [facility] CBC HEMOGLOBIN [MASS/VOLUM E] IN BLOOD 13.7 g/dL 12.8 - 17 07/19 Specimen Type: BLOOD No comment entered. Ordering Provider: LEONORA PLATT Report Released Date/Time: Jul 15, 2023 11:55 AM Reporting Lab: [facility] [place] [facility] [address] [facility] [address] Performing Lab: [facility] [place] [facility] [address] [facility] [address] [facility] [place] [facility] CBC HEMATOCRIT [VOLUME FRACTION] OF BLOOD BY AUTOMATED COUNT 40.8 39.2 - 50.4 07/19 Specimen Type: BLOOD No comment entered. Ordering Provider: LEONORA PLATT Report Released Date/Time: Jul 15, 2023 11:55 AM Reporting Lab: [facility] [place] [facility] [address] [facility] [address] Performing Lab: [facility] [place] [facility] [address] [facility] [address] [facility] [place] [facility] CBC MCV [ENTITIC VOLUME] BY AUTOMATED COUNT 104.9 fL 82 - 99 07/19 H Specimen Type: BLOOD No comment entered. Ordering Provider: LEONORA PLATT Report Released Date/Time: Jul 15, 2023 11:55 AM Reporting Lab: [facility] [place] [facility] [address] [facility] [address] Performing Lab: [facility] [place] [facility] [address] [facility] [address] [facility] [place] [facility] CBC MCHC [MASS/VOLUM E] BY AUTOMATED COUNT 33.6 g/dL 30.8 - 35.1 07/19 Specimen Type: BLOOD No comment entered. Ordering Provider: LEONORA PLATT Report Released Date/Time: Jul 15, 2023 11:55 AM Reporting Lab: [facility] [place] [facility] [address] [facility] [address] Performing Lab: [facility] [place] [facility] [address] [facility] [address] [facility] [place] [facility] CBC PLATELETS [#/VOLUME] IN BLOOD BY AUTOMATED COUNT 131 10*3/u L 140 - 360 07/19 L Specimen Type: BLOOD No comment entered. Ordering Provider: LEONORA PLATT Report Released Date/Time: Jul 15, 2023 11:55 AM Reporting Lab: [facility] [place] [facility] [address] [facility] [address] Performing Lab: [facility] [place] [address] [address] [facility] [place] [facility] CBC ERYTHROCYTE DISTRIBUTIO N WIDTH [RATIO] BY AUTOMATED COUNT 13.4 12.0 - 16.0 07/19 Specimen Type: BLOOD No comment entered. Ordering Provider: LEONORA PLATT Report Released Date/Time: Jul 15, 2023 11:55 AM Reporting Lab: [facility] [place] [address] [address] Performing Lab: [facility] [place] [address] [address] [facility] [place] [facility] CBC MCH [ENTITIC MASS] BY AUTOMATED COUNT 35.2 pg 26.2 - 32.6 07/19 H Specimen Type: BLOOD No comment entered. Ordering Provider: LEONORA PLATT Report Released Date/Time: Jul 15, 2023 11:55 AM Reporting Lab: [facility] [place] [facility] [address] [facility] [address] Performing Lab: [facility] [place] [address] [address] [facility] [place] [facility] BASIC METABOLIC PANEL (non-fast ing) UREA NITROGEN [MASS/VOLUM E] IN SERUM OR PLASMA 25 mg/dL 7 - 25 07/19 Specimen Type: SERUM No comment entered. Ordering Provider: LEONORA PLATT Report Released Date/Time: Jul 15, 2023 11:55 AM Reporting Lab: [facility] [address] [address] Performing Lab: [facility] [address] [address] [facility] BASIC METABOLIC PANEL (non-fast ing) GLUCOSE [MASS/VOLUM E] IN SERUM OR PLASMA 118 mg/dL 65 - 100 07/19 H Specimen Type: SERUM No comment entered. Ordering Provider: LEONORA PLATT Report Released Date/Time: Jul 15, 2023 11:55 AM Reporting Lab: [address] [address] Performing Lab: [address] [address] [facility] BASIC METABOLIC PANEL (non-fast ing) SODIUM [MOLES/VOLU ME] IN SERUM OR PLASMA 138 mmol/L 135 - 145 07/19 Specimen Type: SERUM No comment entered. Ordering Provider: LEONORA PLATT Report Released Date/Time: Jul 15, 2023 11:55 AM Reporting Lab: [address] [address] Performing Lab: [facility] [address] [address] [facility] BASIC METABOLIC PANEL (non-fast ing) POTASSIUM [MOLES/VOLU ME] IN SERUM OR PLASMA 4.2 mmol/L 3.5 - 5.0 07/19 Specimen Type: SERUM No comment entered. Ordering Provider: LEONORA PLATT Report Released Date/Time: Jul 15, 2023 11:55 AM Reporting Lab: [facility] [address] [address] Performing Lab: [facility] [place] [address] [facility] [address] [facility] BASIC METABOLIC PANEL (non-fast ing) CHLORIDE [MOLES/VOLU ME] IN SERUM OR PLASMA 102 mmol/L 100 - 110 07/19 Specimen Type: SERUM No comment entered. Ordering Provider: LEONORA PLATT Report Released Date/Time: Jul 15, 2023 11:55 AM Reporting Lab: [facility] [place] [address] [facility] [address] Performing Lab: [facility] [address] [facility] [address] [facility] BASIC METABOLIC PANEL (non-fast ing) CARBON DIOXIDE, TOTAL [MOLES/VOLU ME] IN SERUM OR PLASMA 28 meq/L 20 - 30 07/19 Specimen Type: SERUM No comment entered. Ordering Provider: LEONORA PLATT Report Released Date/Time: Jul 15, 2023 11:55 AM Reporting Lab: [address] [address] Performing Lab: [facility] [address] [facility] [address] [facility] BASIC METABOLIC PANEL (non-fast ing) CREATININE [MASS/VOLUM E] IN SERUM OR PLASMA 0.85 mg/dL 0.50 - 1.40 07/19 Specimen Type: SERUM No comment entered. Ordering Provider: LEONORA PLATT Report Released Date/Time: Jul 15, 2023 11:55 AM Reporting Lab: [facility] [address] [facility] [address] Performing Lab: [address] [address] [facility] BASIC METABOLIC PANEL (non-fast ing) GLOMERULAR FILTRATION RATE/1.73 SQ M.PREDICTED [VOLUME RATE/AREA] IN SERUM, PLASMA OR BLOOD BY CREATININE- BASED FORMULA (CKD-EPI 2020) 87 mL/min 60 07/19 Specimen Type: SERUM No comment entered. Ordering Provider: LEONORA PLATT Report Released Date/Time: Jul 15, 2023 11:55 AM Reporting Lab: [facility] [address] [facility] [address] Performing Lab: [facility] [address] [facility] [address] [facility] Vital Signs Combined list of inpatient and outpatient Vital Signs from Department of Defense and Veterans Affairs, ranging from 12 months to all on record, depending upon the facility. Vital Sign Value Date Comments Source SYSTOLIC BLOOD PRESSURE 107 05/04/19 12:58:04 [facility] DIASTOLIC BLOOD PRESSURE 58 025 12:58:04 [facility] PULSE OXIMETRY 96 05/04/2024 12:58:04 [facility] WEIGHT 302 05/04/2024 12:58:04 [facility] BMI 42 kg/m2 05/04/2024 12:58:04 [facility] PAIN 0 05/04/2024 12:58:04 [facility] HEIGHT 71 05/04/2024 12:58:04 [facility] TEMPERATURE 98.1 05/04/2024 12:58:04 [facility] PULSE 92 05/04/2024 12[facility]58:04 [facility] RESPIRATION 20 05/04/2024 12:58:04 [facility] SYSTOLIC BLOOD PRESSURE 129 01/28/20 24 13:52:09 [facility] DIASTOLIC BLOOD PRESSURE 74 024 13:52:09 [facility] PULSE OXIMETRY 98 01/28/2024 13:52:09 [facility] WEIGHT 330 01/28/2024 13:52:09 [facility] BMI 46 kg/m2 01/28/2024 13:52:09 [facility] PAIN 0 01/28/2024 13:52:09 [facility] HEIGHT 71 01/28/2024 13:52:09 [facility] TEMPERATURE 98.3 01/28/2024 13:52:09 [facility] PULSE 92 01/28/2024 13:52:09 [facility] RESPIRATION 20 01/28/2024 13:52:09 [facility] SYSTOLIC BLOOD PRESSURE 98 07/29/19 13:54:08 [facility] DIASTOLIC BLOOD PRESSURE 50 024 13:54:08 [facility] PULSE OXIMETRY 98 07/29/2023 13:54:08 [facility] WEIGHT 344 07/29/2023 13:54:08 [facility] BMI 48 kg/m2 07/29/2023 13:54:08 [facility] PAIN 5 07/29/2023 13:54:08 [facility] HEIGHT 71 07/29/2023 13:54:08 [facility] TEMPERATURE 98 07/29/2023 13:54:08 [facility] PULSE 77 07/29/2023 13:54:08 [facility] RESPIRATION 20 07/29/2023 13:54:08 [facility] Encounters Combined list of: 1) Encounters from Department of Veterans Affairs facilities going backup to the last 18 months, not all VA inpatient encounters are included; 2) Encounters from the Department of Defense facilities going backup to 280 months. Location Location Details Encounter Type Encounter Number Reason For Visit Attending Provider ADM Date DC Date Status Disposition Source [facility] Outpatient Encounter [id number] DARENSNOWKrish ALEXANDRA Rm 11/30 [facility] HEARING AID REPAIR/MOD IFYING [id number] Diagnos is: ICD-10- CM Z46.1 Encount er for fitting and adjustm ent of hearing aid SENIORLENARD 12/08 [facility] Outpatient Encounter [id number] FLACO BARBA 12/24 [facility] Outpatient Encounter [id number] 12/28 [facility] Outpatient Encounter [id number] MAURICE DAY 01/05 [facility] Outpatient Encounter [id number] 01/13 [facility] Outpatient Encounter [id number] FLACO BARBA 01/19 [facility] OFFICE O/P EST MOD 30-39 MIN [id number] Diagnos is: ICD-10- CM I10 Essenti al (primar y) hyperte Victoria Conde 01/21 [facility] HEARING AID FITTING/CH ECKING [id number] Diagnos is: ICD-10- CM Z46.1 Encount er for fitting and adjustm ent of hearing aid Aguila GONZALEZ 03/02 [facility] Outpatient Encounter [id number] 03/16 [facility] Outpatient Encounter [id number] 03/19 [facility] Outpatient Encounter [id number] ESTELLE HOPPER 04/06 [facility] [place] 1 [id number] Diagnos is: ICD-10- CM Z96.1 Presenc e of intraoc ular lens BARB,MAURICE H B 04/08 [facility] FIT SPECTACLES MONOFOCAL [id number] Diagnos is: ICD-10- CM Z46.0 Encount er for fit/adj st of spectac les and contact lenses BARB,MAURICE H B 04/08 [facility] Outpatient Encounter [id number] FLACO BARBA 04/12 [facility] Outpatient Encounter [id number] JEFF MARTÍNEZ 04/15 [facility] HEARING AID REPAIR/MOD IFYING [id number] Diagnos is: ICD-10- CM H90.3 Sensori neural hearing loss, bilater al ,LENARD OLE L 04/22 [facility] HEARING SERVICE [id number] Diagnos is: ICD-10- CM Z46.1 Encount er for fitting and adjustm ent of hearing aid SENIORLENARD 05/14 [facility] Outpatient Encounter [id number] FLACO BARBA 06/16 [facility] Outpatient Encounter [id number] FLACO BARBA 07/18 [facility] OFFICE O/P EST MOD 30 MIN [id number] Diagnos is: ICD-10- CM 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 Victoria PLATT 07/28 [facility] Outpatient Encounter [id number] FLACO BARBA 07/29 [facility] Outpatient Encounter [id number] FLACO BARBA 09/16 [facility] Outpatient Encounter [id number] 09/21 [facility] Outpatient Encounter [id number] FLACO BARBA 09/23 [facility] Outpatient Encounter [id number] 12/27 [facility] Outpatient Encounter [id number] 12/27 [facility] OFFICE O/P EST LOW 20 MIN [id number] Diagnos is: ICD-10- CM J47.9 Bronchi ectasis , uncompl icated Victoria PLATT J 01/27 [facility] Outpatient Encounter [id number] 03/23 [facility] Outpatient Encounter [id number] 04/07 [facility] Outpatient Encounter [id number] 04/11 [facility] Outpatient Encounter [id number] 04/26 [facility] Outpatient Encounter [id number] 05/02 [facility] Outpatient Encounter [id number] FLACO BARBA 05/02 [facility] OFF/OP EST MAY X REQ PHY/QHP [id number] Diagnos is: ICD-10- CM J44.9 Chronic obstruc tive pulmona ry disease , unspeci TIFFANY Almaguer 05/02 [facility] NQHP OL DIG ASSMT&MGMT 5-10 [id number] Diagnos is: ICD-10- CM I48.91 Unspeci fied atrial fibrill atzafar WHITMAN [place]IST[place] A 05/04 [place] [facility] [place] [place] OFFICE O/P EST HI 40 MIN [id number] Diagnos is: ICD-10- CM J45.21 Mild intermi ttent asthma with (acute) exacerb atVictoria Blankenship J 05/04 [facility] Social History Combined list of available smoking, tobacco, and other social history from Department of Defense and Veterans Affairs facilities. Social History Type Response Date Comment Source Tobacco smoking status [facility] FORMER USER 07/29/2023 [place] [facility] [place] [facility] History of tobacco use [place] QUIT 15 YRS OR MORE 07/29/2023 [place] [facility] [place] [facility] History of tobacco use [place] NEVER USED 07/09/2022 [place] [facility] [place] [facility] History of tobacco use [facility] FOR[facility] 07/10/2021 [place] [facility] [place] [facility] History of tobacco use [facility] FORMER USER 05/28/2020 [place] [facility] [place] [facility] History of tobacco use [place] QUIT 15 YRS OR MORE 05/21/2019 [place] [facility] [place] [facility] History of tobacco use [place] FORMER [place] 05/24/2018 [place] [facility] [place] [facility] History of tobacco use QUIT TOBACCO USE > 7 YEARS AGO 03/09/2017 [facility] History of tobacco use QUIT TOBACCO USE > 7 YEARS AGO 02/19/2016 quit 40 yrs ago [facility] History of tobacco use QUIT TOBACCO USE > 7 YEARS AGO 03/08/2015 40 yrs ago [place] [facility] [place] [facility] History of tobacco use QUIT TOBACCO USE > 7 YEARS AGO 02/02/2007 quit 40 years ago [facility] Plan of Care List of future care activities from Department of Veterans Affairs facilities. Additional future care activities may be listed in the Assessment and Plan section. Date/Time Care Activity Care Activity Detail Facili ty 07/26/2024 AMBULATORY - MEDICINE AMBULATORY - MEDICI [facility]
--- OUTSIDE RECORDS SUMMARY | 2024-05-29 17:48 | XMS_ITS | Encounter Summary ---
[facility] [address] [place] [address] Care Team Providers Care Allied Health Teacher Name Role Phone Kumar Salvatore Camejo Primary Care Provider [phone] Encounter Details Date Type Department Care Team (Late st Contact Info) Description 04/07/2024 Lab Requisition [facility] Lab [address] [facility] [email or web address] [address] Isabel Cardona MD [address] [place] [id number] Encounter for other general examination Social History Tobacco Use Types Packs/Day Years Used Date Smoking Tobacco: Former Cigarettes 0.5 11 1 964 - 5323 Smokeless Tobacco: Never Alcohol Use Standard Drinks/Week [...] Diagnosis Comments CBC WITH AUTO DIFFERENTIAL Routine 04/07/2024 5:36 AM EST Encounter for other general examination CBC AND DIFFERENTIAL Routine 04/07/2024 5:36 AM EST Encounter for other general examination MAGNESIUM Routine 04/07/2024 5:36 AM EST Encounter for other general examination COMPREHENSIVE METABOLIC PANEL Routine 04/07/2024 5:36 AM EST Encounter for other general examination documented in this encounter Results * (ABNORMAL) CBC auto differential (04/07/2024 5:36 AM EST) WBC 8.3 4.8 - 10.8 K/mcL LAB HEMETOLOGY METHOD 04/07/2024 9:28 AM [facility] RBC 4.10(L) 4.50 - 5.50 M/mcL LAB HEMETOLOGY METHOD 04/07/2024 9:28 AM [facility] Hemoglobin 13.9 13.5 - 17.5 g/dL LAB HEMETOLOGY METHOD 04/07/2024 9:28 AM [facility] Hematocrit 43.7 42.0 - 54.0 % LAB HEMETOLOGY METHOD 04/07/2024 9:28 AM [facility] MCV 106.3(H) 79.0 - 98.0 FL LAB HEMETOLOGY METHOD 04/07/2024 9:28 AM [facility] MCH 33.8(H) 27.0 - 32.0 pcg LAB HEMETOLOGY METHOD 04/07/2024 9:28 AM [facility] MCHC 31.8(L) 32.0 - 37.0 g/dL LAB HEMETOLOGY METHOD 04/07/2024 9:28 AM [facility] RDW 13.9 11.0 - 15.0 % LAB HEMETOLOGY METHOD 04/07/2024 9:28 AM [facility] Platelets 175 130 - 400 K/mcL LAB HEMETOLOGY METHOD 04/07/2024 9:28 AM [facility] MPV 11.0 7.0 - 11.0 FL LAB HEMETOLOGY METHOD 04/07/2024 9:28 AM [facility] NRBC 0.0 <1.0 % LAB HEMETOLOGY METHOD 04/07/2024 9:28 AM [facility] NRBC Absolute 0.00 <0.10 K/mcL LAB HEMETOLOGY METHOD 04/07/2024 9:28 AM [facility] Neutrophils Relative 67.2 % LAB HEMETOLOGY METHOD 04/07/2024 9:28 AM [facility] Lymphocytes Relative 22.4 % LAB HEMETOLOGY METHOD 04/07/2024 9:28 AM [facility] Monocytes Relative 9.0 % LAB HEMETOLOGY METHOD 04/07/2024 9:28 AM [facility] Eosinophils Relative 0.7 % LAB HEMETOLOGY METHOD 04/07/2024 9:28 AM [facility] Basophils Relative 0.2 % LAB HEMETOLOGY METHOD 04/07/2024 9:28 AM [facility] Immature Granulocytes Relative 0.5 % LAB HEMETOLOGY METHOD 04/07/2024 9:28 AM [facility] Neutrophils Absolute 5.56 1.50 - 7.00 K/mcL LAB HEMETOLOGY METHOD 04/07/2024 9:28 AM EST [facility] Lymphocytes Absolute 1.86 1.00 - 5.00 K/[facility] LAB HEMETOLOGY METHOD 04/07/2024 9:28 AM EST [facility] Monocytes Absolute 0.75 0.20 - 1.00 K/[facility] LAB HEMETOLOGY METHOD 04/07/2024 9:28 AM EST [facility] Eosinophils Absolute 0.06 0.00 - 0.50 K/[facility] LAB HEMETOLOGY METHOD 04/07/2024 9:28 AM EST [facility] Basophils Absolute 0.02 0.00 - 0.20 K/[facility] LAB HEMETOLOGY METHOD 04/07/2024 9:28 AM EST [facility]) [facility] Immature Granulocytes Absolute 0.04(H) 0.00 - 0.03 K/[facility] LAB HEMETOLOGY METHOD 04/07/2024 9:28 AM EST [facility] Blood Venous blood specimen / Unknown Venipuncture / Unknown 04/07/2024 5:36 AM EST 04/07/2024 8:31 AM EST us Isabel Cardona MD LAB BLOOD ORDERABLES Final Resu lt Performing Organization Address [facility] Co de Phone Number [facility] [address] [place] [address], * Magnesium (04/07/2024 5:36 AM EST) Magnesium 2.1 1.9 - 2.6 mg/dL LAB CHEMISTRY METHOD 04/07/2024 9:55 AM EST [facility] Blood Venous blood specimen / Unknown Venipuncture / Unknown 04/07/2024 5:36 AM EST 04/07/2024 8:31 AM EST us Isabel Cardona MD LAB BLOOD ORDERABLES Final Resu lt [facility] [address] [place] [address], * (ABNORMAL) Comprehensive metabolic panel (04/07/2024 5:36 AM EST) Sodium 137 133 - 145 mmol/L LAB CHEMISTRY METHOD 04/07/2024 9:55 AM EST [facility] Potassium 3.8 3.5 - 5.5 mmol/L LAB CHEMISTRY METHOD 04/07/2024 9:55 AM [facility] Chloride 100 96 - 110 mmol/L LAB CHEMISTRY METHOD 04/07/2024 9:55 AM [facility] CO2 32 21 - 32 mmol/L LAB CHEMISTRY METHOD 04/07/2024 9:55 AM [facility] Anion Gap 5 3 - 11 LAB CHEMISTRY METHOD 04/07/2024 9:55 AM [facility] Glucose 83 70 - 100 mg/dL LAB CHEMISTRY METHOD 04/07/2024 9:55 AM [facility] BUN 26(H) 5 - 25 mg/dL LAB CHEMISTRY METHOD 04/07/2024 9:55 AM [facility] Creatinine 0.81 0.70 - 1.30 mg/dL LAB CHEMISTRY METHOD 04/07/2024 9:55 AM [facility] eGFR 89 >=60 mL/min/1. 73m2 LAB CHEMISTRY METHOD 04/07/2024 9:55 AM [facility] Comment:Calculation based on the??Chronic Kidney Disease Epidemiology Collaboration (CKD-EPI) equation refit??without adjustment for race. BUN/Creatinine Ratio 32.1 LAB CHEMISTRY METHOD 04/07/2024 9:55 AM [facility] Calcium 8.7 8.5 - 10.5 mg/dL LAB CHEMISTRY METHOD 04/07/2024 9:55 AM [facility] AST (SGOT) 19 10 - 42 unit/L LAB CHEMISTRY METHOD 04/07/2024 9:55 AM [facility] ALT (SGPT) 19 10 - 60 unit/L LAB CHEMISTRY METHOD 04/07/2024 9:55 AM [facility] Alkaline Phosphatase 124(H) 42 - 121 unit/L LAB CHEMISTRY METHOD 04/07/2024 9:55 AM [facility] Total Protein 6.7 6.0 - 8.0 g/dL LAB CHEMISTRY METHOD 04/07/2024 9:55 AM [facility] Albumin 2.9(L) 3.2 - 5.0 g/dL LAB CHEMISTRY METHOD 04/07/2024 9:55 AM [facility] Total Bilirubin 1.6(H) 0.0 - 1.4 mg/dL LAB CHEMISTRY METHOD 04/07/2024 9:55 AM [facility] Blood Venous blood specimen / Unknown Venipuncture / Unknown 04/07/2024 5:36 AM EST 04/07/2024 8:31 AM EST us Isabel Cardona MD LAB BLOOD ORDERABLES Final Resu lt [facility] [address] [place] [address], documented in this encounter Visit Diagnoses Diagnosis Encounter for other general examination documented in this encounter Additional Health Concerns Active Problems Noted Date Diagnosed Date Impaired Tissue 02/23/2024 Education needed on impact of smoking on wound 1 04/24/2023 Education needed related to ulceration/compromised skin integrity. 02/23/2024 documented as of this encounter Care Teams Allied Health Teacher Relationship Specialty Start Date End Date Salvatore Heath DO [facility] [place], [place] PCP - General Family Medicine 02/09/24 documented as of this encounter
--- OUTSIDE RECORDS SUMMARY | 2024-05-29 17:48 | XMS_ITS ---
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 Name Role Phone DESAI SOTO Primary Care Provider Unavaila ble Insurance [...] Apr 05, 2007 MEDICAR E SUPPLEM E [id number] DURAN,WILL MATTEO PATIENT [employer] MEDICARE SUPPLEMEN JUAN BANKE RS Apr 05, 2007 NONE [id number] DURAN,WILL MATTEO PATIENT MEDICARE (WNR) MEDICARE (M) PART A Apr 05, 2007 PART A [id number] DURAN,WILL MATTEO PATIENT MEDICARE (WNR) MEDICARE (M) PART B Apr 05, 2007 PART B [id number] [phone] DURAN,WILL MATTEO PATIENT MEDICARE (WNR) MEDICARE (M) PART A Apr 05, 2007 PART A [id number] DURAN,WILL MATTEO PATIENT MEDICARE (WNR) MEDICARE (M) PART B Apr 05, 2007 PART B [id number] AREN DURAN PATIENT Selected Encounter This section includes the information on record at [place] for the Encounter. Date/Time Encounter Type Encounter Description Reason Provider Source May 02, 2024 09:59 AM Outpatient Encounter PRIMARY CARE/MEDICINE MINNIE BARBA Lisa Encounter Template Text not used by [place] Plan of Treatment: Future Appointments (+ 6 months) and Future Tests (+/- 45 days) The Plan of Treatment section includes future care activities for the patient from all [place] treatmentfacilities. This section includes future appointments and future orders which are active, pending or scheduled. Future Appointments This section includes appointments that were scheduled to occur 6 months from the date of the Encounter, up to a maximum of 20 appointments. The data comes from all [place] treatment facilities. Appointment Date/Time Appointment Type Appointme nt Facility Name May 04, 2024 01:00 PM AMBULATORY - MEDICINE [facility] [place] [facility] Jul 26, 2024 02:00 PM AMBULATORY - MEDICINE [facility] [place] [facility] Social History: Smoking Status (Most current) and Tobacco Use (All prior to encounter date) This section includes the most current, and the historical, smoking and tobacco- related health factors from the [place] facility where the Encounter took place. Current Smoking Status This section includes the most current smoking, or tobacco-related health factor, from the [place] facility where the Encounter took place. Date/Time Current Smoking Status Comment [facility] it Jul 29, 2023 02:00 PM [place]-[facility] [facility] 15 YRS OR [facility] [place] [facility] Tobacco Use History This section includes a history of the smoking, or tobacco-related health factors, that were collected on or before the date of the Encounter. The data comes from the [place] facility where the Encounter took place. Date/Time Smoking Status/Tobac co Use Comment Facility Jul 29, 2023 02:00 PM [facility]-TOBACCO QUIT 15 YRS OR MORE [facility] [facility] Jul 09, 2022 02:00 PM VA-TOBACCO NEVER USED [facility] [place] [facility] Jul 10, 2021 02:30 PM VA-TOBACCO FORMER USER [facility] [place] [facility] Jul 10, 2021 02:30 PM VA-TOBACCO QUIT 15 YRS OR MORE [facility] [place] [facility] May 28, 2020 10:30 AM VA-TOBACCO FORMER USER [facility] [facility] May 28, 2020 10:30 AM VA-TOBACCO QUIT 15 YRS OR MORE [facility] [place] [facility] May 21, 2019 08:03 AM VA-TOBACCO FORMER USER [facility] [place] [facility] May 21, 2019 08:03 AM VA-TOBACCO QUIT 15 YRS OR MORE [facility] [facility] May 24, 2018 11:31 AM VA-TOBACCO FORMER USER [facility] [place] [facility] May 24, 2018 11:31 AM VA-TOBACCO QUIT 15 YRS OR MORE [facility] [place] [facility] Mar 09, 2017 10:08 AM QUIT TOBACCO USE > 7 YEARS AGO [facility] [place] [place] [facility] Feb 19, 2016 10:24 AM QUIT TOBACCO USE > 7 YEARS AGO quit 40 yrs ago [facility] [place] [facility] Mar 08, 2015 01:01 PM QUIT TOBACCO USE > 7 YEARS AGO 40 yrs ago [facility] [facility] Feb 02, 2007 10:39 AM QUIT TOBACCO USE > 7 YEARS AGO quit 40 years ago [facility] [place] [facility] Encounter Notes: All associated encounter notes This section contains the clinical notes associated to the Encounter. Date/Time Encounter Note(s) Provider Source May 02, 2024 09:59 AM PRIMARY CARE SECUR E MESSAGING: LOCAL TITLE: PRIMARY CARE SECURE MESSAGING STANDARD TITLE: PRIMARY CARE SECURE MESSAGING DATE OF NOTE: MAY 02, 2024@09:59 ENTRY DATE: MAY 02, 2024@09:59:26 AUTHOR: SHEILA BARBA COSIGNER: URGENCY: STATUS: COMPLETED ------Original Message ------- Sent: 04/29/2024 01:21 PM ET From: SOTO DURAN To: Victoria DESAI_PRIMARY CARE_[facility] Subject: Medication:New prescription Dr Desai keeps cancel. Hospital since new yewars. Help me please No idea about my scripts. Refill please. Pneumonia and int care. Just got out Soto duran [phone] ------Original Message ------- Sent: 05/02/2024 09:59 AM ET From: SHEILA BARBA To: SOTO DURAN Subject: Medication:New prescription Good morning Soto Duran, I will alert Dr. Desai to your request for renewal of Alprazolam. Also I will alert Donald our [facility] to reach out to schedule a visit with Dr. Desai. I have requested records from your recent discharge from [facility]. Respectfully, Sheila Barba RN /es/ Sheila Barba MSN RN CNL Primary Care RN Signed: 05/02/2024 09:59 Receipt Acknowledged By: 05/02/2024 10:09 /eliu/ JUSTO RODRIGUEZ, MS,PA-C PHYSICIAN BUSINESS UNIT DIRECTOR for SHEILA MATHEW [facility]
--- OUTSIDE RECORDS SUMMARY | 2024-05-29 17:48 | XMS_ITS | Encounter Summary ---
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 Name Role Phone DESAI, SOTO Primary Care [...] Apr 05, 2007 MEDICAR E SUPPLEM E [id number] MILLER,WILL MATTEO PATIENT [employer] MEDICARE SUPPLEMEN JUAN BANKE RS Apr 05, 2007 NONE [id number] MILLER,WILL MATTEO PATIENT MEDICARE (WNR) MEDICARE (M) PART A Apr 05, 2007 PART A [id number] MILLER,WILL MATTEO PATIENT MEDICARE (WNR) MEDICARE (M) PART B Apr 05, 2007 PART B [id number] MILLER,WILL MATTEO PATIENT MEDICARE (WNR) MEDICARE (M) PART A Apr 05, 2007 PART A [id number] [phone] MILLER,WILL MATTEO PATIENT MEDICARE (WNR) MEDICARE (M) PART B Apr 05, 2007 PART B [id number] [phone] ANGELAWILL MATTEO PATIENT Selected Encounter This section includes the information on record at [place] for the Encounter. Date/Time Encounter Type Encounter Description Reason Provider Source May 04, 2024 01:00 PM OFFICE O/P EST HI 40 MIN PRIMARY CARE/MEDICINE ICD-10-CM J45.21 Mild intermittent asthma with (acute) exacerbation DESAI,WILL MATTEO J IHE Encounter Template Text not used by [place] Assessments - Encounter Diagnoses This section includes the primary and secondary diagnoses documented for the Encounter. Date/Time Primary/Secondary Diagnosis Diagnosis Name Provider Source May 04, 2024 01:48 PM PRIMARY Mild intermittent asthma with (acute) exacerbation DESAI[facility] May 04, 2024 01:48 PM SECONDARY Bronchopneumonia, unspecified organism [facility] May 04, 2024 01:48 PM SECONDARY Respiratory failure, unsp, unsp w hypoxia or hypercapnia DESAI[facility]ILL [facility] May 04, 2024 01:48 PM SECONDARY Sepsis, unspecified organism DES[facility],WILL [facility] May 04, 2024 01:48 PM SECONDARY Unspecified atrial fibrillation DESAI,WILL [facility] Plan of Treatment: Future Appointments (+ 6 months) and Future Tests (+/- 45 days) The Plan of Treatment section includes future care activities for the patient from all [place] treatmentfacilities. This section includes future appointments and future orders which are active, pending or scheduled. Future Appointments This section includes appointments that were scheduled to occur 6 months from the date of the Encounter, up to a maximum of 20 appointments. The data comes from all [place] treatment facilities. Appointment Date/Time Appointment Type Appointme nt Facility Name Jul 26, 2024 02:00 PM [facility] Vital Signs: All taken on the encounter date This section contains inpatient and outpatient Vital Signs collected on the date of the Encounter. Date/Time Temperature Pulse Blood Pressure Respiratory Rate SP02 Pain Height Weight Body Mass Index Source May 04, 2024 12:58 PM 98.1 92 107/58 20 96 0 71 302 42 [place] [facility] [place] [facility] Social History: Smoking Status (Most current) and Tobacco Use (All prior to encounter date) This section includes the most current, and the historical, smoking and tobacco- related health factors from the [place] facility where the Encounter took place. Current Smoking Status This section includes the most current smoking, or tobacco-related health factor, from the [place] facility where the Encounter took place. Date/Time Current Smoking Status Comment [facility] Jul 29, 2023 02:00 PM VA-TOBACCO FORMER USER [place] [facility] Tobacco Use History This section includes a history of the smoking, or tobacco-related health factors, that were collected on or before the date of the Encounter. The data comes from the [place] facility where the Encounter took place. Date/Time Smoking Status/Tobac co Use Comment Facility Jul 29, 2023 02:00 PM VA-TOBACCO QUIT 15 YRS OR MORE [facility] [place] [facility] Jul 09, 2022 02:00 PM VA-TOBACCO NEVER USED [facility] [place] [facility] Jul 10, 2021 02:30 PM VA-TOBACCO FORMER USER [facility] [place] [facility] Jul 10, 2021 02:30 PM VA-TOBACCO QUIT 15 YRS OR MORE [facility] [place] [place] [facility] May 28, 2020 10:30 AM VA-TOBACCO FORMER USER [facility] [place] [facility] May 28, 2020 10:30 AM VA-TOBACCO QUIT 15 YRS OR MORE [facility] [place] [place] [facility] May 21, 2019 08:03 AM VA-TOBACCO FORMER USER [facility] [place] [facility] May 21, 2019 08:03 AM VA-TOBACCO QUIT 15 YRS OR MORE [facility] [place] [place] [facility] May 24, 2018 11:31 AM VA-TOBACCO FORMER USER [facility] [place] [facility] May 24, 2018 11:31 AM VA-TOBACCO QUIT 15 YRS OR MORE [facility] [place] [facility] Mar 09, 2017 10:08 AM QUIT TOBACCO USE > 7 YEARS AGO [facility] [place] [facility] Feb 19, 2016 10:24 AM QUIT TOBACCO USE > 7 YEARS AGO quit 40 yrs ago [facility] Mar 08, 2015 01:01 PM QUIT TOBACCO USE > 7 YEARS AGO 40 yrs ago [facility] Feb 02, 2007 10:39 AM QUIT TOBACCO USE > 7 YEARS AGO quit 40 years ago [facility] Encounter Notes: All associated encounter notes This section contains the clinical notes associated to the Encounter. Date/Time Encounter Note(s) Provider Source May 04, 2024 01:40 PM PRIMARY CARE NURSE PRACTITIONER OUTPATIENT NOTE: LOCAL TITLE: NURSE PRACTITIONER OUTPATIENT NOTE STANDARD TITLE: PRIMARY CARE NURSE PRACTITIONER OUTPATIENT NOTE DATE OF NOTE: MAY 04, 2024@13:40 ENTRY DATE: MAY 04, 2024@13:40:24 AUTHOR: SOTO DESAI COSIGNER: URGENCY: STATUS: COMPLETED Chief complaint: Patient is a 84 year old . HPI: Pleasant male [place] here following hospitalization: Hospitalization at [place] Admit: 04/03/24 D/C: 04/06/24 Hospital Course: 83M with morbid obesity, LES, COPD, bronchiectasis, LLL lobectomy [2011], chronic AF with secondary hypercoagulable state, HTN, HLD, chronic venous insufficiency, BPH, RLS, gout, who was driving back to [place] from [place] with spouse and developed progressive dyspnea for which he had to char puller and was then BIBA to [facility] in shock and respiratory failure, no ICU beds available at so transferred directly to ICU here, where he is being treated for septic shock and respiratory failure from left- sided PNA and CHF exacerbation, AF/RVR, required Levophed, downgraded 04/04. # septic shock, acute hypoxic respiratory failure # LLL CAP, CHF exacerbation, likely diastolic # chronic bronchiectasis, COPD exacerbation # LES -per discussion with pt, he did admit being off Lasix 3-4 days prior to driving back, but had developed some cough, then, while driving back, chills followed by overt rigors -pt also noted he had lung resection d/t repeated infections in the LLL -initial CXR showed vascular congestion with retrocardiac infiltrates -CT showed patchy densities along LLL, small left effusion, interstitial prominence -Patient required Levophed transiently and treated with ceftazidime/vancomycin mainly d/t multiple Abx exposures d/t recurrent infections subsequently downgraded to IV ceftriaxone. -Patient on Lasix IV 40 mg daily -TTE-EF 49%, globally hypokinetic, severe dilatation of RA LA Impression septic shock, acute hypoxic respiratory failure, left lower lobe community-acquired pneumonia, COPD exacerbation, acute on chronic diastolic heart failure. Noncompliance with Lasix. Treated with IV ceftriaxone IV Lasix as well as steroids and nebulizers after which patient improved. Patient was not allergic to ceftriaxone and did not develop a rash. -Complete cefpodoxime 200 mg twice a day for 2 days -Prednisone 20 mg for 1 day then 10 mg for 2 days then stop -Continue Lasix 40 mg daily -Patient counseled to take medications regularly -Continue Advair -PRN DuoNebs currently no wheeze -Continue CPAP at night -BMP in 3 in 7 days time # Atrial fibrillation with RVR, secondary hypercoagulable state # HTN, HLD -metoprolol initially held but restarted a lower dose 25 mg twice daily. Patient takes metoprolol 100 mg twice daily his heart rate was controlled with 25 mg twice daily therefore discharged on metoprolol 25 mg twice daily. -cont Lipitor -Does not take losartan at home # morbid obesity, LES, chronic lymphedema -resume qhs CPAP at 12cm H2O -He follows with wound care at [facility] wound [place], will resume Mario wraps as before currently does not have any wounds # peripheral neuropathy, RLS, gout, BPH -cont allopurinol, gabapentin, ropinirole, Flomax # Venous stasis eczema both lower extremities-apply triamcinolone cream, 4 x 4, Kerlix and Mario wraps Following the hospital, he spent a couple of weeks in rehab for PT, did quite well, built strength. He is feeling better, he is followed in the community Dr. Heath in [facility], saw him last night, did labs including renal function there. He is followed by pulmonology at [facility] Dr. Trejo and plans to follow up with him. The only medication was a decrease in metoprolol to 25mg bid. Allergies: CEFAZOLIN The following VA and Non-VA meds were reconciled with patient. The patient was educated on the use of the medications including indication and side effects. Active and Recently Outpatient Medications (excluding Supplies): Active Outpatient Medications Status 1) ALBUTEROL 3/IPRATROP 0.5MG/3ML INHL 3ML INHALE 1 VIAL (3ML) HOLD IN NEBULIZER FOUR TIMES DAILY NEEDED FOR BREATHING 2) ALBUTEROL 90MCG (CFC-F) 200D ORAL INHL INHALE 2 PUFFS BY ACTIVE MOUTH EVERY 4 HOURS NEEDED 3) ALLOPURINOL 300MG TAB TAKE ONE TABLET BY MOUTH DAILY ACTIVE 4) APIXABAN 5MG TAB TAKE ONE TABLET BY MOUTH TWICE DAILY ACTIVE 5) ATORVASTATIN CALCIUM 40MG TAB TAKE ONE TABLET BY MOUTH ONCE ACTIVE (S) DAILY FOR CHOLESTEROL 6) FLUTICAS 500/SALMETEROL 50 INHL DISK 60 INHALE 1 PUFF BY ACTIVE MOUTH TWICE DAILY - RINSE MOUTH AFTER USE 7) FUROSEMIDE 40MG TAB TAKE ONE TABLET BY MOUTH ONCE DAILY TO ACTIVE REMOVE FLUID/CONTROL BLOOD PRESSURE 8) GABAPENTIN 300MG CAP TAKE THREE CAPSULES BY MOUTH THREE ACTIVE (S) TIMES A DAY 9) LOSARTAN 25MG TAB TAKE ONE TABLET BY MOUTH ONCE DAILY FOR ACTIVE BLOOD PRESSURE/HEART 10) METOPROLOL TARTRATE 25MG TAB TAKE ONE TABLET BY MOUTH TWICE ACTIVE (S) DAILY FOR BLOOD PRESSURE/HEART Indication: FOR HIGH BLOOD PRESSURE 11) POTASSIUM CITRATE 10MEQ SA TAB TAKE ONE TABLET BY MOUTH ACTIVE TWICE DAILY 12) ROPINIROLE HCL 0.5MG TAB TAKE TWO TABLETS BY MOUTH EVERY ACTIVE AFTERNOON NEEDED AND TAKE THREE TABLETS AT BEDTIME Indication: RESTLESS LEGS 13) TIOTROPIUM 2.5MCG/ACTUAT 60D ORAL INHL INHALE 2 PUFFS BY ACTIVE MOUTH ONCE DAILY Pending Outpatient Medications Status 1) ALPRAZOLAM 0.5MG TAB TAKE ONE TABLET BY MOUTH ONCE DAILY PENDING NEEDED /NERVES Indication: FOR ANXIETY Inactive Outpatient Medications Status 1) ALPRAZOLAM 0.5MG TAB TAKE ONE TABLET BY MOUTH ONCE DAILY NEEDED /NERVES Indication: FOR ANXIETY 2) TAMSULOSIN HCL 0.4MG CAP TAKE ONE CAPSULE BY MOUTH AT BEDTIME Active Non-VA Medications Status 1) Non-VA CHOLECALCIF 25MCG (D3-1,000UNIT) TAB 2000UNIT BY ACTIVE MOUTH DAILY 2) Non-VA COENZYME Q10 CAP/TAB 200MG BY MOUTH DAILY ACTIVE 3) Non-VA MULTIVITAMIN/MINERALS CAP/TAB 1 TABLET BY MOUTH DAILY ACTIVE 4) Non-VA TIZANIDINE HCL TAB DIRECTED BY MOUTH DIRECTED ACTIVE 5) Non-VA TRIAMCINOLONE ACETONIDE 0.1% CREAM THIN LAYER ACTIVE TOPICALLY TWICE DAILY NEEDED 21 Total Medications Review of Systems: Constitutional: (-)for Fevers, chills, weakness, nights sweats On examination: 98.1 F [36.7 C] (05/04/2024 12:58)107/58 (05/04/2024 12:58)92 (05/04/2024 12:58)20 (05/04/2024 12:58)0 (05/04/2024 12:58)BMI: 42.2302 lb [136.98 kg] (05/04/2024 12:58) is alert and oriented X3 Neck: supple without masses, trachea midline, ln not palpable, no thyromegaly Cardiovasc: 2plus carotids without bruits, no JVD [...] for the followin. Atrial fibrillation - rate controlled 2. Parkinson's disease - his community PCP has referred him to [facility] neurology. 3. Obstructive sleep apnea syndrome - using CPAP. 4. Sepsis/resp failure - improved Today I spent 40 minutes on some or all of the following: chart review, history, physical examination, treatment planning, education and counseling of the patient/family/chiropractic care, placing orders, communicating with other health care providers, completing health and wellness screenings (see below) and documentation in the electronic health record. Follow up visit as scheduled Medication Reconciliation: Outpatient: Has the patient been taking medications as documented in the EMLR? YES: The patient has been taking medications as documented in the EMLR. Essential Medication List for Review used to complete this medication reconciliation. INCLUDED IN THIS LIST: Alphabetical list of active outpatient prescriptions dispensed from this [place] (local) and dispensed from another [place] or DoD facility (remote) as well as [...] or non-VA provider. /eliu/ Soto Desai DNP, SUPERVISOR PERSONNEL CLERKS-BC, CNL Primary Care Nurse Practitioner Signed: 05/04/2024 13:47 SOTO [facility]
--- OUTSIDE RECORDS SUMMARY | 2024-05-29 17:48 | XMS_ITS ---
Author Name [facility] [place] Organization [place] Address [address] [place] [address] Care Team Providers Care Bureau Chief Name Role Phone DESAICHANDRIKA CHEN Primary Care Provider Unavaila ble Insurance Providers: [...] Apr 05, 2007 MEDICAR E SUPPLEM E [id number] ANGELA,WILL MATTEO PATIENT [employer] MEDICARE SUPPLEMEN JUAN BANKE RS Apr 05, 2007 NONE [id number] MILLER,WILL MATTEO PATIENT MEDICARE (WNR) MEDICARE (M) PART A Apr 05, 2007 PART A [id number] 49A MILLER,WILL MATTEO PATIENT MEDICARE (WNR) MEDICARE (M) PART B Apr 05, 2007 PART B [id number] [phone] MILLER,WILL MATTEO PATIENT MEDICARE (WNR) MEDICARE (M) PART A Apr 05, 2007 PART A [id number] MILLER,WILL MATTEO PATIENT MEDICARE (WNR) MEDICARE (M) PART B Apr 05, 2007 PART B [id number] AREN MILLER PATIENT Selected Encounter This section includes the information on record at [place] for the Encounter. Date/Time Encounter Type Encounter Description Reason Pro vider Source May 02, 2024 09:43 AM Outpatient Encounter TELEPHONE PRIMARY CARE IHE Encounter Template Text not used by [place] Plan of Treatment: Future Appointments (+ 6 months) and Future Tests (+/- 45 days) The Plan of Treatment section includes future care activities for the patient from all [place] treatmentfacilities. This section includes future appointments and future orders which are active, pending or scheduled. Future Appointments This section includes appointments that were scheduled to occur 6 months from the date of the Encounter, up to a maximum of 20 appointments. The data comes from all [place] treatment facilities. Appointment Date/Time Appointment Type Appointme nt Facility Name May 04, 2024 01:00 PM AMBULATORY - MEDICINE [place] [place] [facility] Jul 26, 2024 02:00 PM AMBULATORY - MEDICINE [facility] [place] [facility] Social History: Smoking Status (Most current) and Tobacco Use (All prior to encounter date) This section includes the most current, and the historical, smoking and tobacco- related health factors from the [place] facility where the Encounter took place. Current Smoking Status This section includes the most current smoking, or tobacco-related health factor, from the [place] facility where the Encounter took place. Date/Time Current Smoking Status Comment [facility] Jul 29, 2023 02:00 PM RI-TOBACCO QUIT 15 YRS OR MORE [place] [facility] [place] [facility] Tobacco Use History This section includes a history of the smoking, or tobacco-related health factors, that were collected on or before the date of the Encounter. The data comes from the [place] facility where the Encounter took place. Date/Time Smoking Status/Tobac co Use Comment Facility Jul 29, 2023 02:00 PM VA-TOBACCO QUIT 15 YRS OR MORE [place] [facility] [place] [facility] Jul 09, 2022 02:00 PM VA-TOBACCO NEVER USED [place] [facility] [place] [facility] Jul 10, 2021 02:30 PM VA-TOBACCO FORMER USER [place] [facility] [place] [facility] Jul 10, 2021 02:30 PM VA-TOBACCO QUIT 15 YRS OR MORE [place] [facility] [place] [facility] May 28, 2020 10:30 AM VA-TOBACCO FORMER USER [facility] [place] [facility] May 28, 2020 10:30 AM VA-TOBACCO QUIT 15 YRS OR MORE [facility] [place] [facility] May 21, 2019 08:03 AM VA-TOBACCO FORMER USER [facility] [place] [facility] May 21, 2019 08:03 AM VA-TOBACCO QUIT 15 YRS OR MORE [facility] [place] [facility] May 24, 2018 11:31 AM VA-TOBACCO FORMER USER [facility] [place] [facility] May 24, 2018 11:31 AM VA-TOBACCO QUIT 15 YRS OR MORE [facility] [place] [place] [facility] Mar 09, 2017 10:08 AM QUIT TOBACCO USE > 7 YEARS AGO [facility] [place] [place] [facility] Feb 19, 2016 10:24 AM QUIT TOBACCO USE > 7 YEARS AGO quit 40 yrs ago [facility] [place] [place] [facility] Mar 08, 2015 01:01 PM QUIT TOBACCO USE > 7 YEARS AGO 40 yrs ago [facility] [place] [place] [facility] Feb 02, 2007 10:39 AM QUIT TOBACCO USE > 7 YEARS AGO quit 40 years ago [facility] [place] [place] [facility] Encounter Notes: All associated encounter notes This section contains the clinical notes associated to the Encounter. Date/Time Encounter Note(s) Provider Source May 02, 2024 09:43 AM NONVA NOTE: LOCAL TITLE: NON-VA HOSPITALIZATIONS/ER STANDARD TITLE: NONVA NOTE DATE OF NOTE: MAY 02, 2024@09:43 ENTRY DATE: MAY 02, 2024@09:44:05 AUTHOR: FLACO BARBA EXP COSIGNER: URGENCY: STATUS: COMPLETED NON-VA HOSPITALIZATIONS/ER Has ADDENDA Taken from [facility] Hospitalization at [place] Admit: 04/03/24 D/C: 04/06/24 Hospital Course: 83M with morbid obesity, LES, COPD, bronchiectasis, LLL lobectomy [2011], chronic AF with secondary hypercoagulable state, HTN, HLD, chronic venous insufficiency, BPH, RLS, gout, who was driving back to [place] from [place] with spouse and developed progressive dyspnea for which he had to tap puller and was then BIBA to [facility] in shock and respiratory failure, no [...] H2O -He follows with wound care at [facility], will resume Mario wraps as before currently does not have any wounds # peripheral neuropathy, RLS, gout, BPH -cont allopurinol, gabapentin, ropinirole, Flomax # Venous stasis eczema both lower extremities-apply triamcinolone cream, 4 x 4, Kerlix and Mario wraps DC Medications: Cefpodoxime 200mg tablet, twice daily for 2 days PredniSONE 10mg, 2 tablets for 1 day, THEN 1 tablet for 2 days Ipratropium-albuteroL 0.5-2.5mg/3ml nebulizer, 4 times a day as needed Metoprolol tartrate 25mg twice daily Albuterol HFA 90mcg, 2 puffs every 6 hours as needed AllopurinoL 300mg daily Apixaban 5mg twice daily Ascorbic acid 500mg daily Atorvastatin 40mg daily Cholecalciferol 50mcg daily Cyanocobalamin 250mcg daily Fluticasone propion-salmeteroL daily Furosemide 40mg daily Gabapentin 300mg, 3 capsules 3 times a day Multivitamin with minerals daily Potassium citrate 10mEq twice daily ROPINIRole 0.5mg 2 tablets by mouth at 3 PM and 3 tablets at 9 PM Tamsulosin 0.4mg 24 hr daily Triamcinolone 0.1% cream twice daily Zinc acetate 50mg daily Disposition: Short-term rehab: [facility] [phone] Alert to PCP as EVELIN, Alert to [facility] for scheduliing RN requested records from Anna /eliu/ Flaco Barba MSN RN CNL Primary Care RN Signed: 05/02/2024 09:59 Receipt Acknowledged By: 05/02/2024 13:39 /ARIANNA Virgen ADVANCED NURSE'S COMPANION 05/03/2024 07:26 /eliu/ Chandrika Desai DNP, BILINGUAL SPEECH THERAPIST-BC, CNL Primary Care Nurse Practitioner 05/02/2024 ADDENDUM STATUS: COMPLETED spoke to and scheduled appointment. /ARIANNA Virgen ADVANCED NURSE'S COMPANION Signed: 05/02/2024 13:39 [facility]
--- OUTSIDE RECORDS SUMMARY | 2024-05-29 17:48 | XMS_ITS | Continuity of Care Document ---
Author Organization [facility] Address [address] [address]- [facility] Name Relationship Address Phone CHANDRIKA MILLER Personal Relationship Unknown Unava ilable TEJ MILLER spouse Unknown Unavailable CHANDRIKA MILLER Personal Relationship Unknown Unava ilable Care Team Providers Care Sulfonator Operator Name Role Phone Salvatore Heath DO Primary Care Physician [phone] Encounter [facility] Date(s[facility] 03/15/24 - 05/06/24 [facility] [address], [place] [address] Attending Physician: Mylene Carrington Admitting Physician: Mylene Carrington Referring Physician: Salvatore Heath DO Encounter Type: Pre Office Visit Allergies, Adverse Reactions, Alerts Substance [...] vaccine, inactivated 01/02/10 Give n SARS-CoV-2 mRNA ([id number]) vax 6 01/13/23 Recorded [id number] bivalent booster vax 03/05/22 Recorded SARS-CoV-2 (COVID-19) [...] [facility]Admin Note: GOT AT [facility] 5Admin Note: 12-16 [place] [facility] [place] 7Result Comment: [facility] at the [place] [facility]Admin Note: rcvd elsewhere [...] Care Nurse Name: Salvatore Heath DO Position: [facility] Physician - Primary Care Member Role: PCP Address: [address] [place] [address]- Telecom: Name: Brandi Bonilla RN Position: [facility] OB RN Member Role: Primary Care Nurse Name: Sheila Mayer RN Position: [facility] SN RN Member Role: Primary Care Nurse Care Team Related Persons Name: TEJ MILLER Insurance Providers Guarantor name: CHANDRIKA ANGELA Health Plan Information #: 1 Payer: MEDICARE PART B OUTPT Member Number: [id number] Policy Number: NA Group Number: NA Health Plan Information #: 2 Payer: I10 MEDICARE SUPPL [id number] Member Number: [id number] Policy Number: NA Group Number: [id number] Health Plan Information #: 3 Payer: [employer] [place] [employer] Member Number: [id number] Policy Number: NA Group Number: NA
--- NOTE | 2024-05-29 18:29 | PC.NURSE ---
pt transitioned off of cpap and placed on 2L via oxymask by RT. pt tolerating transition well. pt otherwise remains hypotensive/tachycardic. pt no longer tachypneic at this time. no sob/wob noted. respirations even/unlabored. plan of care ongoing.
[2024-05-29] MEDS: Norepinephrine Bitartrate/D5W 8 MG/250 ML PLAST..BAG 13.88 MG IVCONT (18:33)
--- NOTE | 2024-05-29 18:40 | PC.NURSE ---
norepinephrine infusing per provider order. see MAR for titrations [place] [facility] [place].
[2024-05-29 18:48] LABS: Aspartate Amino Transferase 22 U/L (5-37)
--- NOTE | 2024-05-29 18:50 | PC.NURSE ---
report given to JOSUE Rodriguez in the ICU at this time.
[2024-05-29 19:21] LABS: Phosphorus 1.5 mg/dL (2.7-4.5)
--- NOTE | 2024-05-29 19:38 | PC.NURSE ---
pt transported to CT and then ICU w/ this RN as well as transport.
--- NOTE | 2024-05-29 19:50 | P.HPCC_ITS ---
History of Present Illness Date of Service: 05/29/24 Attending physician on admission: Torrey Malone Chief Complaint: AMS The patient is a 84-year-old male with a past medical history of atrial fibrillation open ( on Eliquis), congestive heart failure,? hypertension, hyperlipidemia,? bronchiectasis, asthma,? LES, bilateral lower extremity lymphedema, and alcohol abuse? admits to drinking? 1-2 glass of whiskey daily,? who presented to the emergency department via ambulance with altered mental status.? According to EMS,? patient?s reported patient was altered,? and more confused today than he was yesterday.? EMS also reported AFib RVR to 150s en route to hospital.? ?On arrival to the emergency department,? patient is? febrile? to 104.2,? heart rate 150s? in AFib,? tachypneic to 40s,? and initially normotensive but later? blood pressures systolic of 70s.? ?Laboratory data significant for WBC 17.4, ? potassium 3.3, phos 1.5, alk phos 127, ?Urine positive for UTI? IMAGING:? Abdominal US: ? concerning for cholelithiasis ?Abdominal CT:? pending ED COURSE:? ?Due to patient history of congestive heart failure he received a total of 1.5 L fluid bolus and 100 mL of albumin,? Tylenol 1 g IV, magnesium 2 g, ceftriaxone 1 g, and vancomycin 1500 mg.? ? Despite fluid administration,? patient continued to be hypotensive? requiring initiation of vasopressors Review of Systems 2 Constitutional: Constitutional: Denies body ache(s) and Denies chills Eyes: Eyes: Denies change in vision Cardiovascular: Cardiovascular: Denies chest pain, Reports leg edema and Denies lightheadedness Respiratory: Respiratory: Denies cough and Denies wheezing Genitourinary: Genitourinary: Denies dysuria and Denies urinary frequency Musculoskeletal: Musculoskeletal: Denies myalgias Neurologic: Reports restless legs Allergic/Immunologic: Allergic/Immunologic: Denies wheezing PMFSH Past Medical History Medical History (Updated 05/29/24 @ 20:31 by Aihsa Couch NP) Alcohol abuse Lymphedema LES (obstructive sleep apnea) Asthma Hyperlipidemia Hypertension Atrial fibrillation Congestive heart failure Social History Social History Household Members: Spouse Housing: House Do you presently have visiting nurse or other home services: No Alcohol intake: current Alcohol intake frequency: a few times a week Patient Tobacco Use Status: Former Tobacco user Tobacco use type: Cigarette Smoked in Last 30 Days: No e-Cigarette/Vaping Use: Former Use Use of substances other than those prescribed or required for medical reasons: No Currently Displaying Signs/Symptoms of Drug Intoxication Withdrawal: No Have you been hit, kicked, punched, or otherwise hurt by someone within the past year? If so, by whom?: No Do you feel safe in your current relationship?: Yes Is there a partner from a previous relationship who is making you feel unsafe now?: No Are you made to feel afraid or neglected: No Advance Directives: Yes Advance Directives Information Provided: Yes Advance Directives on File: No Advance Directives Date on File: 05/29/24 Do you have a plan to hurt others: No Plan Recently lost weight without trying: No How much weight loss: Unsure Eating poorly because of decreased appetite: No Nutrition screen score: 2 Nutrition Risks: No Nutritional Risk Poor oral hygiene: No Meds Allergies Allergy/AdvReac Type Severity Reaction Status Date / Time cefazolin Allergy Rash Verified 05/29/24 14:34 Active Medications: Current Medications Apixaban (Apixaban 5 Mg Tablet) 5 mg PO BID ELGIN Heparin Sodium (Porcine) (Heparin Sodium,Porcine 5,000 Unit/Ml Vial) 5,000 unit SUBCUT Q8H ELGIN Norepinephrine Bitartrate (Levophed) 8 mg in 250 mls @ 0 mls/hr IVCONT .Q0M ELGIN; Protocol Last Titration: 05/29/24 18:38 Dose: 0.07 mcg/kg/min, 19.44 mls/hr Cefepime HCl (Maxipime) 2 gm in 50 mls @ 100 mls/hr IV Q12H ELGIN Ropinirole HCl (Ropinirole Hcl 0.5 Mg Tablet) 0.5 mg PO BEDTIME [facility] Home Medications ?Medication ?Instructions ?Recorded ?Confirmed ?Last Taken ?Type allopurinol 300 mg tablet 300 mg PO DAILY 05/29/24 05/29/24 05/29/24 History apixaban 5 mg tablet (Eliquis) 5 mg PO BID 05/29/24 05/29/24 05/29/24 History atorvastatin 40 mg tablet 40 mg PO BEDTIME 05/29/24 05/29/24 05/28/24 History fluticasone fur. 200 mcg-umeclid 1 ea inhalation DAILY 05/29/24 05/29/24 Unknown History 62.5 mcg-vilant 25 mcg inhalat.powder (Trelegy Ellipta) furosemide 40 mg tablet 40 mg PO BID 05/29/24 05/29/24 05/29/24 History gabapentin 300 mg capsule 900 mg PO TID 05/29/24 05/29/24 05/29/24 History metoprolol tartrate 25 mg tablet 25 mg PO BID 05/29/24 05/29/24 05/29/24 History potassium chloride 20 mEq 20 meq PO BID 05/29/24 05/29/24 05/29/24 History tablet,extended release ropinirole 1 mg tablet 1.5 mg PO BEDTIME 05/29/24 05/29/24 05/28/24 History tamsulosin 0.4 mg capsule 0.4 mg PO BEDTIME 05/29/24 05/29/24 05/28/24 History triamcinolone acetonide 0.1 % 1 appl topical DAILY PRN 05/29/24 05/29/24 05/29/24 History topical cream Inflammation Physical Exam 2 Vital Signs: Vital Signs: Last Vital Signs Temp 99.9 F 05/29/24 18:19 Pulse 115 H 05/29/24 18:38 Resp 16 05/29/24 18:19 BP 99/43 L 05/29/24 18:38 Pulse Ox 98 05/29/24 18:19 O2 Del Method Oxymask 05/29/24 18:19 O2 Flow Rate 2 05/29/24 18:19 BMI result Body Mass Index 46.8 SEPSIS FOCUS EXAM PERFORMED AT 1900 ?General:? Alert oriented x3 no acute distress.? Speaking full sentences.? Following all commands. ?HEENT:? Head is normocephalic, atraumatic, pupils equal round reactive to light accommodation bilaterally.? Extraocular movements appear intact.? Buccal mucosa is very dry, Neck is supple ?Cardiac:? AFib rate control, no murmurs rubs or gallops. ?Pulmonary:? Rhonchus throughout. No wheezes ?Abdomen:? ?Abdomen soft, non-tender, non-distended. Normal bowel sounds. No pulsatile mass. No hepatosplenomegaly. ?Musculoskeletal:? Moving all 4 extremities upon request a major joints, there is no crepitus or tenderness.? The strength is 5/5 bilaterally and throughout all 4 extremities.? Gait not assessed at this point. ?Neurologic:? cranial nerves 2-12 are grossly intact.? No focal deficits noted.Motor strength as above.?? ?Skin:? Bilateral lower extremity erythema. Bilateral lower extremity with pitting edema. Vascular:? 2+ pulses upper and lower extremities distally.? Results Labs 05/30/24 05:30 05/30/24 05:30 Labs: Laboratory Results - last 24 hr 05/29/24 05/29/24 05/29/24 15:07 15:11 16:17 MCV 101.8 H MCH 34.7 H MCHC 34.1 RDW 15.4 Plt Count 130 L MPV 10.5 Immature Gran % (Auto) Cancelled Neut % (Auto) Cancelled Lymph % (Auto) Cancelled [place] % (Auto) Cancelled Eos % (Auto) Cancelled Baso % (Auto) Cancelled Lymph # (Auto) Cancelled [place] # (Auto) Cancelled Eos # (Auto) Cancelled Baso # (Auto) Cancelled Abs Immat Gran (auto) Cancelled Absolute Neuts (auto) Cancelled Absolute Nucleated RBC 0.000 Nucleated RBC % (auto) 0.0 Neutrophils % (Manual) 84 H Band Neutrophils % 8 H Lymphocytes % (Manual) 3 L Monocytes % (Manual) 5 Abs Neuts (Manual) 16.0 H Lymphocytes # (Manual) 0.5 L Monocytes # (Manual) 0.9 Toxic Vacuolation PRESENT Platelet Estimate NORMAL Plt Morphology Comment NORMAL RBC Morphology NORMAL Ovalocytes 1+ (5-14) Keely Cells 1+ (0-2) Schistocytes 1+ (0-2) Smear Tech's Comments MANUAL DIFF Hold Blue Top SEE NOTE Anion Gap 12 Estim Creat Clear Calc 105.0 Estimated GFR > 60 Random Glucose 154 H Lactic Acid 2.0 Calcium 9.1 Phosphorus 1.5 L Total Bilirubin 3.8 H Direct Bilirubin 0.4 AST 22 ALT 6 Alkaline Phosphatase 127 H B-Natriuretic Peptide 194 H Total Protein 7.5 Albumin 3.4 L Lipase 11 Urine Color Dark Yellow Urine Appearance Turbid Urine pH 7.5 Ur Specific [place] 1.020 Urine Protein 30 (1+) H Urine Glucose (UA) Negative Urine Ketones Negative Urine Blood Trace H Urine Nitrite Negative Ur Leukocyte Esterase Large (3+) H Urine RBC 6-10 H Urine WBC >50 H Ur Squamous Epith Cells 6-10 Urine Bacteria 4+ Hyaline Casts 3-5 Influenza Type A (PCR) NEGATIVE Influenza Type B (PCR) NEGATIVE RSV RNA Qual (PCR) NEGATIVE SARS-CoV-2 RNA (RT-PCR) NEGATIVE Imaging Radiologist's Impressions: Impressions Chest X-Ray 05/29/24 14:32 IMPRESSION: Mild increased interstitial markings which may be chronic. Electronically signed by: Salvatore Jackson MD 05/29/2024 03:04 PM [facility] Assessment and Plan (1) Septic shock: Status: Acute (2) Acute UTI: Status: Acute (3) Cellulitis: Status: Acute (4) Pulmonary edema: Status: Acute (5) Congestive heart failure: Status: Acute (6) Atrial fibrillation: Status: Acute (7) Lymphedema: Status: Acute (8) Alcohol abuse: Status: Acute Plan 84-year-old male with a past medical history of atrial fibrillation open ( on Eliquis), congestive heart failure,? hypertension, hyperlipidemia,? bronchiectasis, asthma,? LES, bilateral lower extremity lymphedema, and alcohol abuse? admitted to ICU for management of septic shock likely from UTI vs? bilateral lower extremity cellulitis? Plan: Neuro:? ?No acute issues Cardiac:?? ?Septic shock- despite lactic being normal at 2,? patient did not respond to fluid bolus now requiring vasopressor support.? Source of infection? could be UTI vs? bilateral lower extremity cellulitis.? CT of the abdomen is pending to rule out hydro.? Received ceftriaxone and vancomycin in the emergency department. ? We will continue empiric antibiotics.? Patient on Levophed,? will wean off as appropriate ?Pulmonary edema:? patient has a history of heart failure, chest x-ray with some degree of pulmonary edema.? Require fluid administration for septic shock.? Will avoid further fluids and will diurese. Pulmonary: ?Acute hypoxic respiratory failure:? patient initially on CPAP, wean down to 2 L.? This is likely due to pulmonary edema.? Wean off supplemental oxygenation.? Use nocturnal CPAP due to history of LES.? Renal ?No acute issues Endo:?? ?No acute issues GI:?? ?Mild transaminitis:? patient does admit to drinking daily,? denies EtOH withdrawal before.? We will continue to monitor.? ID: ?Septic shock- blood cultures are pending. ? Possible sources are UTI versus bilateral extremity cellulitis.? Received vancomycin and ceftriaxone in the emergency department.? Will switched to cefepime and continue vancomycin. ? Blood cultures are pending.? Heme/Onc:?No acute issues Miscellaneous: ? history of alcohol abuse:? monitor for alcohol withdrawal symptoms? Prophylaxis: ? continue home Eliquis ? CODE: ? Full code? Critical care time: X 60 minutes of critical care time?
[2024-05-29] MEDS: Furosemide 40 MG/4 ML VIAL IVPUSH (20:22)
[2024-05-29] MEDS: Potassium Phosphate/NS 15 MMOL/250 ML PLAST..BAG 62.5 MMOL IV (20:23)
[2024-05-29] MEDS: cefEPime HCl/D5W 2 GM/50 ML PIGGYBACK IV (20:23)
[2024-05-29] MEDS: rOPINIRole HCL 0.5 MG TABLET PO (20:23)
[2024-05-29] MEDS: Apixaban 5 MG TABLET PO (20:23)
--- NOTE | 2024-05-29 21:43 | PHA.PROG ---
Admission Date/Time: May 29, 2024 18:29 Indication: SEPSIS Weight in k.2 kg Adjusted body weight in K KG Rena Lara body weight in K KG Obesity Dosing Indication % IBW: Serum Creatinine - Last 168 Hours 05/29/24 15:07 Creatinine 0.79 Estimated CrCl and GFR - Last 168 Hours 05/29/24 15:07 Estim Creat Clear Calc 105.0 Estimated GFR > 60 Vancomycin Loading Dose: 1500 MG Current Vancomycin Dosing Regimen: 1250 MG Q12H Vancomycin Monitoring using AUC goal of 400 - 600 range with trough as surrogate marker: PREDICTED AUC 549 Date and Time for next Vancomycin Level to be drawn: 05/29/24 @0900 (BEFORE 3RD DOSE) Pharmacist Comments on Vancomycin Plan: PATIENT NOT GIVEN APPROPRIATE LD OF 2000 MG. STARTING VANCO 1250 MG Q12H 8H AFTER 1ST DOSE. LEVEL BEFORE 3RD DOSE. PATIENT IS OBESE AND ELDERLY. MONITOR CR/LEVELS DAILY. MAY NEED TO CHANGE TO Q24H DOSING ONCE LEVEL IS THERAPEUTIC. CONTACTED RN IN ICU TO VERIFY AND CORRECT WEIGHT IN SYSTEM. Vancomycin dosing will take advantage of [employer] as a clinical decision support tool that uses Bayesian modeling to calculate individual patient's pharmacokinetic parameters and forecast the patient's drug concentration time course with the target goal AUC 24 range of 400 - 600 mg/L/hr.
--- NOTE | 2024-05-29 21:53 | PHA.MEDREC ---
Addendum entered by Gale Sagastume RPh 05/29/24 22:11: [facility] reviewed Original Note: Pharmacy Consult ? Medication Reconciliation Pharmacy has completed the medication reconciliation. Spoke with patients over the phone who was able to confirm most of her husbands medications except for the Mupirocin Ointment and the Tamsulosin 0.4mg tab and she was not sure about the dosage of the Ropinirole 1mg tab. I went and spoke with the patient and he confirmed he is not taking the Mupirocin Ointment anymore. He confirmed is taking the Tamsulosin 0.4mg tab once at bedtime and confirmed he is taking the Ropinirole 1mg tab 1 and 1/2 tabs at bedtime. The patient and his confirmed he is taking the Eliquis 5mg tab twice a day and the patient stated he took his morning dose of his medications this morning.
[2024-05-29] MEDS: rOPINIRole HCL 0.5 MG TABLET 1.5 MG PO (22:26)
[2024-05-29] MEDS: vancomycin HCL 1,250 MG in 0.9 % Sodium Chloride 250 ML 166.67 MG IV (22:28)
[2024-05-29] MEDS: Nystatin Powder 15 GM BOTTLE 1 APPL TOPICAL (23:58)
[2024-05-30] VITALS (26 sets, daily range): BP systolic 95–131; BP diastolic 44–85; PULSE 58–99; RESP 15–26; TEMP 36.3–37.4; O2SAT 93–100; BMI 44.9
[2024-05-30 05:41] LABS: VBG Base Excess 2.8 mmol/L; VBG HCO3 27 mmol/L (22-26); VBG pCO2 39 mmHg; VBG pH 7.43 (7.32-7.43); VBG pO2 38 mmHg
[2024-05-30 05:45] LABS: Venous Blood Gas Refer to POC result
[2024-05-30 05:52] LABS: Basophils Percent Auto 0.3 % (0-2); Hematocrit 36.4 % (42.0-52.0); Hemoglobin 11.9 g/dl (14.0-18.0); Imm Gran Abs Auto 0.12 X10*3/uL (0.00-0.03); Imm Gran Pct Auto 0.8 % (0.0-0.4); Lymphocytes Absolute Auto 0.4 X10*3/uL (1.2-4.9); Lymphocytes Percent Auto 2.6 % (20-40); MANUAL DIFF FLAG SCAN; Mean Corpuscular HGB Conc 32.7 g/dl (31.0-36.0); Mean Platelet Volume 10.6 fL (9.4-12.4); Monocytes Absolute Auto 0.3 X10*3/uL (0.1-1.2); Monocytes Percent Auto 2.2 % (2-11); Neutrophils Absolute Auto 14.3 x10*3/uL (2.0-8.3); Neutrophils Percent Auto 94.1 % (45-73); Platelet Count 120 X10*3/uL (160-400); Red Cell Distribution Width 15.7 % (11.0-16.0); SCAN SMEAR FLAG 1; White Blood Count 15.2 X10*3/uL (4.8-10.8)
[2024-05-30 06:09] LABS: Anion Gap 13 (12-20); Blood Urea Nitrogen 23 mg/dL (9-16); Calcium 8.5 mg/dL (8.4-10.2); Carbon Dioxide 24 mmol/L (22-29); Chloride 108 mmol/L (96-108); Creatinine Clr Calc Pharmacy 102.5; Estimated Glomerular Filt Rate > 60; Glucose Random 302 mg/dL (60-115); Phosphorus 2.6 mg/dL (2.7-4.5); Potassium 3.4 mmol/L (3.3-5.1); Sodium 142 mmol/L (135-145)
[2024-05-30 06:19] LABS: SLIDE REVIEW VERIFIED
[2024-05-30] MEDS: cefEPime HCl/D5W 2 GM/50 ML PIGGYBACK IV ×2 (07:54→20:28)
[2024-05-30] MEDS: Potassium Phosphate/NS 15 MMOL/250 ML PLAST..BAG 62.5 MMOL IV (07:54)
[2024-05-30] MEDS: Albumin Human 25 % 100 ML IV ×2 (07:54→13:24)
[2024-05-30] MEDS: Apixaban 5 MG TABLET PO ×2 (08:35→20:18)
[2024-05-30] MEDS: Gabapentin 300 MG CAPSULE 900 MG PO ×3 (08:35→20:19)
[2024-05-30 09:42] LABS: Vancomycin Random 15.3 mcg/mL (15-20)
--- NOTE | 2024-05-30 09:44 | PM.CCPN ---
Subjective Subjective Date of Service: 05/30/24 Interval History: 84-year-old gentleman with underlying history of AFib on Eliquis, congestive heart failure, hypertension, bronchiectasis, asthma LES on CPAP, chronic lower extremity lymphedema and alcohol dependence admitted on 05/29/2024 with septic shock with versus skin source. Patient with poor response to initial IV fluid/albumin resuscitation requiring initiation of pressor support and admission to the intensive care unit. Patient started on empiric antibiotics and cultures are pending. No events overnight. Titrated off pressor support. Critical Care Time (minutes): 30 Physical Exam Vital Signs: Vital Signs: Last Vital Signs Temp 97.8 F 05/30/24 08:00 Pulse 87 05/30/24 09:16 Resp 15 05/30/24 09:00 BP 115/60 05/30/24 09:16 Pulse Ox 94 05/30/24 09:00 O2 Del Method Oxymask 05/30/24 09:00 O2 Flow Rate 2 05/30/24 09:00 BMI result Body Mass Index 44.9 Const: General: no acute distress and alert Nutritional Appearance: obese Orientation/consciousness: Other orientation findings ( oriented) HEENT: Head: Yes atraumatic Eyes: General: appearance normal, both eyes and all related structures Sclerae: sclerae normal EOM: EOMs intact bilaterally Neck: Neck: Yes supple Lymphatic: no lymphadenopathy noted Resp: Effort & Inspection: normal respiratory effort and no use of accessory muscles Auscultation: clear to auscultation bilaterally Cardio: Rate: regular rate Rhythm: abnormal rhythm irregularly irregular Heart sounds: no gallops, no murmurs and no rubs GI: Palpation (GI): Soft to palpation and nontender Auscultation: normal bowel sounds Skin: General skin exam: other ( warm) Extrem: General: No clubbing, No cyanosis and Yes edema (1+ bilateral) Objective Data Labs 05/30/24 05:30 05/30/24 05:30 Labs: Laboratory Results - last 24 hr 05/29/24 05/29/24 05/29/24 15:07 15:11 16:17 WBC 17.4 H RBC 3.83 L Hgb 13.3 L Hct 39.0 L MCV 101.8 H MCH 34.7 H MCHC 34.1 RDW 15.4 Plt Count 130 L MPV 10.5 Immature Gran % (Auto) Cancelled Neut % (Auto) Cancelled Lymph % (Auto) Cancelled [place] % (Auto) Cancelled Eos % (Auto) Cancelled Baso % (Auto) Cancelled Lymph # (Auto) Cancelled [place] # (Auto) Cancelled Eos # (Auto) Cancelled Baso # (Auto) Cancelled Abs Immat Gran (auto) Cancelled Absolute Neuts (auto) Cancelled Absolute Nucleated RBC 0.000 Nucleated RBC % (auto) 0.0 Neutrophils % (Manual) 84 H Band Neutrophils % 8 H Lymphocytes % (Manual) 3 L Monocytes % (Manual) 5 Abs Neuts (Manual) 16.0 H Lymphocytes # (Manual) 0.5 L Monocytes # (Manual) 0.9 Toxic Vacuolation PRESENT Platelet Estimate NORMAL Plt Morphology Comment NORMAL RBC Morphology NORMAL Ovalocytes 1+ (5-14) Keely Cells 1+ (0-2) Schistocytes 1+ (0-2) Smear Tech's Comments MANUAL DIFF Hold Blue Top SEE NOTE VBG pH VBG pCO2 VBG pO2 VBG HCO3 VBG O2 Saturation VBG Base Excess Sodium 139 Potassium 3.3 Chloride 104 Carbon Dioxide 26 Anion Gap 12 BUN 19 H Creatinine 0.79 Estim Creat Clear Calc 105.0 Estimated GFR > 60 Random Glucose 154 H Lactic Acid 2.0 Calcium 9.1 Phosphorus 1.5 L Magnesium Total Bilirubin 3.8 H Direct Bilirubin 0.4 AST 22 ALT 6 Alkaline Phosphatase 127 H Troponin I High Sens 21.9 B-Natriuretic Peptide 194 H Total Protein 7.5 Albumin 3.4 L Lipase 11 Urine Color Dark Yellow Urine Appearance Turbid Urine pH 7.5 Ur Specific [place] 1.020 Urine Protein 30 (1+) H Urine Glucose (UA) Negative Urine Ketones Negative Urine Blood Trace H Urine Nitrite Negative Ur Leukocyte Esterase Large (3+) H Urine RBC 6-10 H Urine WBC >50 H Ur Squamous Epith Cells 6-10 Urine Bacteria 4+ Hyaline Casts 3-5 Random Vancomycin Influenza Type A (PCR) NEGATIVE Influenza Type B (PCR) NEGATIVE RSV RNA Qual (PCR) NEGATIVE SARS-CoV-2 RNA (RT-PCR) NEGATIVE 05/30/24 05/30/24 05/30/24 05:30 05:37 09:05 WBC 15.2 H RBC 3.50 L Hgb 11.9 L Hct 36.4 L MCV 104.0 H MCH 34.0 H MCHC 32.7 RDW 15.7 Plt Count 120 L MPV 10.6 Immature Gran % (Auto) 0.8 H Neut % (Auto) 94.1 H Lymph % (Auto) 2.6 L [place] % (Auto) 2.2 Eos % (Auto) 0.0 Baso % (Auto) 0.3 Lymph # (Auto) 0.4 L [place] # (Auto) 0.3 Eos # (Auto) 0.0 Baso # (Auto) 0.0 Abs Immat Gran (auto) 0.12 H Absolute Neuts (auto) 14.3 H Absolute Nucleated RBC 0.000 Nucleated RBC % (auto) 0.0 Neutrophils % (Manual) Band Neutrophils % Lymphocytes % (Manual) Monocytes % (Manual) Abs Neuts (Manual) Lymphocytes # (Manual) Monocytes # (Manual) Toxic Vacuolation Platelet Estimate Plt Morphology Comment RBC Morphology Ovalocytes Keely Cells Schistocytes Smear Tech's Comments VERIFIED Hold Blue Top VBG pH 7.43 VBG pCO2 39 VBG pO2 38 VBG HCO3 27 H VBG O2 Saturation 60.0 VBG Base Excess 2.8 Sodium 142 Potassium 3.4 Chloride 108 Carbon Dioxide 24 Anion Gap 13 BUN 23 H Creatinine 0.79 Estim Creat Clear Calc 102.5 Estimated GFR > 60 Random Glucose 302 H Lactic Acid Calcium 8.5 D Phosphorus 2.6 L Magnesium 2.0 Total Bilirubin Direct Bilirubin AST ALT Alkaline Phosphatase Troponin I High Sens B-Natriuretic Peptide Total Protein Albumin 3.0 L Lipase Urine Color Urine Appearance Urine pH Ur Specific [place] Urine Protein Urine Glucose (UA) Urine Ketones Urine Blood Urine Nitrite Ur Leukocyte Esterase Urine RBC Urine WBC Ur Squamous Epith Cells Urine Bacteria Hyaline Casts Random Vancomycin 15.3 Influenza Type A (PCR) Influenza Type B (PCR) RSV RNA Qual (PCR) SARS-CoV-2 RNA (RT-PCR) Microbiology Microbiology Results: Microbiology 05/29/24 16:29 Urine clean catch - Clean Catch Midstream Urine Culture - Preliminary Culture too young to evaluate. Progress Note: A&P Assessment and plan (1) Congestive heart failure: Status: Acute (2) Atrial fibrillation: Status: Acute (3) Acute UTI: Status: Acute (4) Cellulitis: Status: Acute (5) Lymphedema: Status: Acute (6) LES (obstructive sleep apnea): Status: Acute Plan Assessment: 84-year-old gentleman admitted with septic shock with cellulitic versus source Plan: Neuro: No acute issues. Cardiac: Septic shock resolved, titrated off pressor support. Underlying history of congestive heart failure and AFib on anticoagulation. Pulmonary: No acute issues. Underlying history of LES on nocturnal CPAP. Renal: No acute issues. No evidence of hydronephrosis. Endo: No acute issues. GI: No acute issues. ID: Unclear etiology of underlying septic shock, versus skin source, continue empiric antibiotics. Cultures are pending. Heme/Onc: No acute issues. Psych: No acute issues. Miscellaneous: No acute issues. Prophylaxis: Heparin Diet: Regular Critical care time spent: 30 minutes Quality Stroke Does the patient have a stroke diagnosis?: No VTE Prior VTE?: No VTE Risk Level:: Medical - moderate - high VTE Device Contraindication: Treatment Not Indicated VTE Drug Contraindication: N/A - Med Ordered
[2024-05-30] MEDS: Nystatin Powder 15 GM BOTTLE 1 APPL TOPICAL (09:59)
--- NOTE | 2024-05-30 10:25 | P.CDIM_ITS ---
PROVIDER RESPONSE TEXT: To clarify, the appropriate diagnosis supported by the clinical indicators: Diastolic: Chronic QUERY TEXT: PHYSICIAN'S DOCUMENTATION REQUEST Date of Query: 05/30/2024 09:59 AM EST Patient Name: Soto Duran Admit Date: 05/29/2024 Dear Torrey Malone MD, A review of the medical record indicates additional documentation may be needed. Please review below and update the documentation accordingly. Clinical Indicators: ED 05/29 - Focused exam: Hypotension did not improve with IV fluids/albumin boluses cannot get the pat ient 30 cc/kg secondary to CHF, will start on Levophed drip. ICU admit. BNP 194 Lasix/2+ edema Home medication: Furosemide 40 mg PO BID. Sepsis bolus exclusion: CHF/Renal Failure ICU progress note 05/29 - Pulmonary Edema - patient has a history of heart failure, chest x-ray with s ome degree of pulmonary edema. Please provide further specificity regarding the most likely type and acuity of CHF you are evaluatin g, treating, or monitoring. Systolic Please specify if Acute, Chronic, or Acute on chronic, or Unable to determine Diastolic Please specify if Acute, Chronic, or Acute on chronic, or Unable to determine Combined Systolic/Diastolic Please specify if Acute, Chronic, or Acute on chronic, or Unable to determine Other specified Other (explain) Clinically unable to determine (explain) Thank you, Marilin Wick, CCS, CDIS Use of terms such as suspected, likely, concern for, or probable (associated with a specific diagnosi s that is being evaluated, monitored, or treated as if it exists) are acceptable and can be coded in the inpatient se tting, when documented at the time of discharge. Please use your independent medical judgment in providing your response. THIS QUERY IS PART OF THE PERMANENT MEDICAL RECORD
[2024-05-30] MEDS: vancomycin HCL 1,000 MG in 0.9 % Sodium Chloride 250 ML 270 MG IV ×2 (10:54→22:31)
--- NOTE | 2024-05-30 15:07 | HO.WOUND ---
Wound Consult: Initial 84yr old Male admitted to [facility] on 05/29/24 - See progress notes and H&P for detailed history.? Wound consult placed for BLE.? Patient agreeable to assessment and photo documentation.? Patient reports he was recently discharged from his out pt wound care clinic due to healing. He reports he is prescribed Compression garments for the lower legs but reports he does not wear them consistently. He was educated on the benefits of compression. Bilateral heels assessed for red dry desquamation - intact and blanchable throughout. Bilateral lower legs were noted for redness and swelling. No open wounds noted at this time. Recommend elevation and return to compression when at home or product is available. Recommendations: 1. Turn and Reposition every 2 hours and as needed for patient comfort.? Use pillows or wedges to support off loading positions. 2. Off Load all bony prominences with use of pillows and heel boots if needed.? Apply Preventative foams where needed. ? 3. Monitor for incontinence and moisture control, use barrier creams when needed for prevention and treatment. 4. Provide adequate and supplemental nutrition.? 5. Order low air loss mattress. 6. When applicable maintain blood glucose levels per Providers order. 7. Bilateral Heels and Legs - Elevate lower legs and heels off of bed surface with use of pillows. Use foam dressing for prevention, peel back and assess Q shift and change every 5 days and PRN. Re-consult wound care Nurse for wound deterioration or wound changes.
--- NOTE | 2024-05-30 15:32 | MHC.CM.PN ---
Addendum entered by Celina Orourke 05/30/24 15:36: Received notification from [facility], pt is not active with them. Message left w/pt's spouse Lisa requesting call back to inquire on agency name for re referral. Original Note: Met with pt to discuss d/c planning. Pt states he resides with spouse and has VNA through [facility]. Pt states his PCP is Dr. Heath in [facility] as well as care providers through the [place] where he is 100% service connected. Spouse to transport: HCP copy from home requested. Referred back to [facility] for continuation of skilled RN visits. CM to follow
[2024-05-30] MEDS: rOPINIRole HCL 0.5 MG TABLET 1.5 MG PO (20:18)
[2024-05-30] MEDS: Atorvastatin Calcium 40 MG TABLET PO (20:18)
[2024-05-30] MEDS: Metoprolol Tartrate 25 MG TABLET PO (20:19)
[2024-05-31] VITALS (7 sets, daily range): BP systolic 100–131; BP diastolic 58–63; PULSE 62–90; RESP 16–18; TEMP 36.2–37; O2SAT 94–97
[2024-05-31 06:27] LABS: MANUAL DIFF FLAG NO
[2024-05-31 06:52] LABS: Albumin Level 3.1 g/dL (3.5-5.0); Anion Gap 10 (12-20); Blood Urea Nitrogen 25 mg/dL (9-16); Calcium 9.1 mg/dL (8.4-10.2); Carbon Dioxide 27 mmol/L (22-29); Chloride 109 mmol/L (96-108); Creatinine Clr Calc Pharmacy 120.9; Estimated Glomerular Filt Rate > 60; Glucose Random 141 mg/dL (60-115); Magnesium 2.2 mg/dL (1.6-2.6); Phosphorus 2.2 mg/dL (2.7-4.5); Potassium 3.8 mmol/L (3.3-5.1); Sodium 142 mmol/L (135-145)
[2024-05-31 07:05] LABS: Basophils Percent Auto 0.1 % (0-2); Eosinophils Percent Auto 0.1 % (0-4); Hematocrit 34.9 % (42.0-52.0); Hemoglobin 11.6 g/dl (14.0-18.0); Imm Gran Abs Auto 0.04 X10*3/uL (0.00-0.03); Imm Gran Pct Auto 0.4 % (0.0-0.4); Lymphocytes Absolute Auto 1.1 X10*3/uL (1.2-4.9); Lymphocytes Percent Auto 9.2 % (20-40); Mean Corpuscular HGB Conc 33.2 g/dl (31.0-36.0); Mean Corpuscular Hemoglobin 34.5 pg (27.0-33.0); Mean Corpuscular Volume 103.9 fL (80.0-98.0); Mean Platelet Volume 10.8 fL (9.4-12.4); Monocytes Absolute Auto 0.7 X10*3/uL (0.1-1.2); Monocytes Percent Auto 5.7 % (2-11); Neutrophils Absolute Auto 9.7 x10*3/uL (2.0-8.3); Neutrophils Percent Auto 84.5 % (45-73); Platelet Count 104 X10*3/uL (160-400); Red Blood Count 3.36 X10*6/uL (4.60-5.80); Red Cell Distribution Width 15.4 % (11.0-16.0); White Blood Count 11.4 X10*3/uL (4.8-10.8)
[2024-05-31 07:46] LABS: Venous Blood Gas Refer to POC result
[2024-05-31 07:47] LABS: VBG Base Excess 5.5 mmol/L; VBG HCO3 30 mmol/L (22-26); VBG pCO2 45 mmHg; VBG pH 7.43 (7.32-7.43); VBG pO2 34 mmHg
[2024-05-31 09:14] LABS: Vancomycin Random 14.6 mcg/mL (15-20)
[2024-05-31] MEDS: Apixaban 5 MG TABLET PO ×2 (09:18→20:10)
[2024-05-31] MEDS: Metoprolol Tartrate 25 MG TABLET PO ×2 (09:18→20:10)
[2024-05-31] MEDS: Gabapentin 300 MG CAPSULE 900 MG PO ×3 (09:18→20:10)
[2024-05-31] MEDS: cefEPime HCl/D5W 2 GM/50 ML PIGGYBACK IV ×2 (09:18→20:12)
--- NOTE | 2024-05-31 09:24 | HE.PHANOTE ---
JOSELYN Changed dose to 1250mg Q12H to try and target a little higher as indication is sepsis. Pt's renal function also has improved so targeting AUC of 546, predicted trough 16.5. To be rechecked afte 2 doses on 06/01 @0900.
[2024-05-31] MEDS: vancomycin HCL 1,250 MG in 0.9 % Sodium Chloride 250 ML 166.67 MG IV ×2 (11:03→23:04)
[2024-05-31] MEDS: Potassium Chloride ER 20 MEQ TAB.ER.PRT PO ×2 (11:04→20:11)
[2024-05-31] MEDS: allopurinoL 300 MG TABLET PO (11:04)
[2024-05-31] MEDS: Fluticasone/Umeclidinium/Vilanterol 200/62.5/25 BLST.W.DEV 1 PUFF INHALE (11:24)
--- NOTE | 2024-05-31 12:09 | MHC.CM.PN ---
PT is recommending home with services; CM will follow.
--- NOTE | 2024-05-31 12:23 | MHC.CM.PN ---
CM spoke with Patient's /HCP/Lisa @ [phone]. Per Lisa, Patient is active with home services through [facility] ([phone] or Juan Manuel @ [phone]); she and Patient have been pleased with their home services.CM will follow.
--- NOTE | 2024-05-31 13:48 | P.CDIM_ITS ---
PROVIDER RESPONSE TEXT: To clarify, the appropriate diagnosis supported by the clinical indicators: Obesity Due to excess calories QUERY TEXT: PHYSICIAN'S DOCUMENTATION REQUEST Date of Query: 05/31/2024 12:12 PM EST Patient Name: Soto Duran Admit Date: 05/29/2024 Dear Yola Romero MD, A review of the medical record indicates additional documentation may be needed. Please review below and update the documentation accordingly. Clinical Indicators: Height: 5ft 10 in Weight: 142kg BMI: 44.9kg If possible, please provide an associated diagnosis related to the abnormal BMI, such as: Obesity Due to excess calories Obesity Drug induced Obesity Due to other cause Specify the other cause Severe or Morbid Obesity Other (explain) Clinically unable to determine (explain) Thank you, Marilin Wick, CCS, CDIS Use of terms such as suspected, likely, concern for, or probable (associated with a specific diagnosi s that is being evaluated, monitored, or treated as if it exists) are acceptable and can be coded in the inpatient se tting, when documented at the time of discharge. Please use your independent medical judgment in providing your response. THIS QUERY IS PART OF THE PERMANENT MEDICAL RECORD
--- NOTE | 2024-05-31 14:24 | HO.PM.IMPN ---
Subjective Subjective Date of Service: 05/31/24 Interval History: seen and evaluated this morning feels better denies fever or chills pending cultures no other events Review of Systems Review of Systems: Yes all other systems are reviewed and are negative Physical Exam Vital Signs: Vital Signs: Last Vital Signs Temp 98.6 F 05/31/24 11:12 Pulse 82 05/31/24 11:25 Resp 18 05/31/24 11:25 BP 100/60 05/31/24 11:12 Pulse Ox 96 05/31/24 11:12 O2 Del Method Room Air 05/31/24 11:12 O2 Flow Rate 2 05/30/24 09:00 BMI result Body Mass Index 44.9 Const: Other: Constitutional : interactive, not in distress Cardiovascular : no JVP, chornic mild lower extremity edema +1, chronic stasis dermatitis Respiratory : bilateral chest movement, not in resp distress Gastrointestinal: soft, lax, Non tender Skin : Warm, Dry Neurological : Alert & oriented , No focal deficit Objective Data Active Medications Allopurinol (Allopurinol 300 Mg Tablet) 300 mg PO DAILY [facility] Last Admin: 05/31/24 11:04 Dose: 300 mg Documented By: MELINA Apixaban (Apixaban 5 Mg Tablet) 5 mg PO BID [facility] Last Admin: 05/31/24 09:18 Dose: 5 mg Documented By: MELINA Atorvastatin Calcium (Atorvastatin Calcium 40 Mg Tablet) 40 mg PO BEDTIME [facility] Last Admin: 05/30/24 20:18 Dose: 40 mg Documented By: DANIELLE-ZADRStefany Fluticasone/Umeclidinium/Vilanterol (Fluticasone/Umeclidinium/Vilanterol 200/62.5/25 Blst.W.Dev) 1 puff INHALE RDAILY [facility] Last Admin: 05/31/24 11:24 Dose: 1 puff Documented By: KAIT Furosemide (Furosemide 40 Mg Tablet) 40 mg PO BID [facility]; Protocol Last Admin: 05/31/24 11:34 Dose: Not Given Documented By: MELINA Non-Admin Reason: Physician Held Med Gabapentin (Gabapentin 300 Mg Capsule) 900 mg PO TID [facility] Last Admin: 05/31/24 09:18 Dose: 900 mg Documented By: MELINA Cefepime HCl (Maxipime) 2 gm in 50 mls @ 100 mls/hr IV Q12H [facility] Last Infusion: 05/31/24 11:34 Dose: Infused Documented By: MELINA Vancomycin HCl 1,250 mg/ (Sodium Chloride) 250 mls @ 166.667 mls/hr IV Q12H [facility] Last Infusion: 05/31/24 13:59 Dose: Infused Documented By: MELINA Metoprolol Tartrate (Metoprolol Tartrate 25 Mg Tablet) 25 mg PO BID [facility]; Protocol Last Admin: 05/31/24 09:18 Dose: 25 mg Documented By: MELINA Nystatin (Nystatin Powder 15 Gm Bottle) 1 appl TOPICAL BID [facility]; Protocol Last Admin: 05/31/24 09:22 Dose: Not Given Documented By: MELINA Non-Admin Reason: Med Not Available Pharmacy Consult (Consult Rx Vancomycin Dosing) 1 each MISCELLANE DAILY PRN PRN Reason: Consult order Potassium Chloride (Potassium Chloride Er 20 Meq Tab.Er.Prt) 20 meq PO BID [facility] Last Admin: 05/31/24 11:04 Dose: 20 meq Documented By: MELINA Ropinirole HCl (Ropinirole Hcl 0.5 Mg Tablet) 1.5 mg PO BEDTIME [facility] Last Admin: 05/30/24 20:18 Dose: 1.5 mg Documented By: PATTI Tamsulosin HCl (Tamsulosin Hcl 0.4 Mg Capsule) 0.4 mg PO BEDTIME [facility] Labs 05/31/24 06:10 05/31/24 06:10 Labs: Laboratory Results - last 24 hr 05/31/24 05/31/24 05/31/24 06:10 07:42 08:47 MCV 103.9 H MCH 34.5 H MCHC 33.2 RDW 15.4 Plt Count 104 L MPV 10.8 Immature Gran % (Auto) 0.4 Neut % (Auto) 84.5 H Lymph % (Auto) 9.2 L [place] % (Auto) 5.7 Eos % (Auto) 0.1 Baso % (Auto) 0.1 Lymph # (Auto) 1.1 L [place] # (Auto) 0.7 Eos # (Auto) 0.0 Baso # (Auto) 0.0 Abs Immat Gran (auto) 0.04 H Absolute Neuts (auto) 9.7 H Absolute Nucleated RBC 0.000 Nucleated RBC % (auto) 0.0 VBG pH 7.43 VBG pCO2 45 VBG pO2 34 VBG HCO3 30 H VBG O2 Saturation 51.0 VBG Base Excess 5.5 Anion Gap 10 L Estim Creat Clear Calc 120.9 Estimated GFR > 60 Random Glucose 141 H Calcium 9.1 D Phosphorus 2.2 L Magnesium 2.2 Albumin 3.1 L Random Vancomycin 14.6 L Microbiology Microbiology Results: Microbiology 05/29/24 16:29 Urine Culture - Final Urine clean catch - Clean Catch Midstream 05/29/24 15:07 Blood Culture - Preliminary Blood - Venous No growth after 24 hours. 05/29/24 15:07 Blood Culture - Preliminary Blood - Venous No growth after 24 hours. Assessment and Plan (1) LES (obstructive sleep apnea): Status: Acute (2) Lymphedema: Status: Acute (3) Atrial fibrillation: Status: Acute (4) Acute UTI: Status: Acute (5) Cellulitis: Status: Acute (6) Septic shock: Status: Acute Plan 84-year-old gentleman with underlying history of AFib on Eliquis, congestive heart failure, hypertension, bronchiectasis, asthma LES on CPAP, chronic lower extremity lymphedema and alcohol dependence admitted on 05/29/2024 with septic shock with versus skin source. Septic shock Secondary to Cellulitis vs UTI Post ICU stay, BP ok Continue Vancomycin and Cefepime Pending final cultures Afib , chronic Continue Eliquis, Metoprolol Diastolic CHF Restart lasix lower dose (daily) Statin Gout Allopurinol Hx LES on CPAP DVT PPx Eliquis The patient will need overnight stay pending blood cultures while on IV antibiotics Quality Stroke Does the patient have a stroke diagnosis?: No VTE Prior VTE?: No VTE Risk Level:: Medical - moderate - high VTE Device Contraindication: Treatment Not Indicated VTE Drug Contraindication: N/A - Med Ordered
[2024-05-31] MEDS: Atorvastatin Calcium 40 MG TABLET PO (20:10)
[2024-05-31] MEDS: Tamsulosin HCL 0.4 MG CAPSULE PO (20:11)
[2024-05-31] MEDS: rOPINIRole HCL 0.5 MG TABLET 1.5 MG PO (20:11)
[2024-06-01] VITALS: BP 121/67; PULSE 85; RESP 16; TEMP 37.1; O2SAT 95
[2024-06-01 03:44] VITALS: BP 131/74; PULSE 79; RESP 16; TEMP 36; O2SAT 97
[2024-06-01 07:05] LABS: Anion Gap 9 (12-20); Blood Urea Nitrogen 21 mg/dL (9-16); Calcium 8.7 mg/dL (8.4-10.2); Carbon Dioxide 25 mmol/L (22-29); Chloride 110 mmol/L (96-108); Creatinine Clr Calc Pharmacy 128.6; Estimated Glomerular Filt Rate > 60; Glucose Random 113 mg/dL (60-115); Potassium 3.4 mmol/L (3.3-5.1); Sodium 141 mmol/L (135-145)
[2024-06-01 07:13] LABS: B Type Natriuretic Peptide 297 pg/mL (<100)
[2024-06-01 07:23] VITALS: BP 116/70; PULSE 89; RESP 18; TEMP 36.2; O2SAT 96
[2024-06-01] MEDS: Fluticasone/Umeclidinium/Vilanterol 200/62.5/25 BLST.W.DEV 1 PUFF INHALE (08:03)
[2024-06-01 08:04] VITALS: PULSE 112; RESP 18; O2SAT 96
[2024-06-01] MEDS: Metoprolol Tartrate 25 MG TABLET PO (08:47)
[2024-06-01] MEDS: cefEPime HCl/D5W 2 GM/50 ML PIGGYBACK IV (08:47)
[2024-06-01] MEDS: Apixaban 5 MG TABLET PO (08:47)
[2024-06-01] MEDS: allopurinoL 300 MG TABLET PO (08:47)
[2024-06-01] MEDS: Potassium Chloride ER 20 MEQ TAB.ER.PRT PO (08:47)
[2024-06-01] MEDS: Gabapentin 300 MG CAPSULE 900 MG PO (08:47)
[2024-06-01] MEDS: Furosemide 40 MG TABLET PO (08:47)
[2024-06-01 09:38] LABS: Vancomycin Random 19.5 mcg/mL (15-20)
--- NOTE | 2024-06-01 09:47 | HE.PHANOTE ---
RE: vanco trough came back at 19.5; changed dose to 750mg Q8H with predicted trough of 17.2 mg/L, auc of 510. Next level to be drawn 06/02 @0900
[2024-06-01 10:55] VITALS: BP 124/59; PULSE 81; RESP 18; TEMP 36.7; O2SAT 97
[2024-06-01] MEDS: vancomycin HCL 750 MG in 0.9 % Sodium Chloride 250 ML 265 MG IV (11:20)
[2024-06-01] MEDS: Nystatin Powder 15 GM BOTTLE 1 APPL TOPICAL (11:26)
--- NOTE | 2024-06-01 11:53 | PM.DS ---
DS: Providers Provider Date of Service: 06/01/24 Date of admission: 05/29/24 18:29 Date of discharge: 06/01/24 Primary care physician: Salvatore Heath DO Consults: 05/29/24 20:15 Consult to Wound Care Routine Reason for consultation: BLE Cellulitis DS: Diagnosis Discharge Diagnosis (1) LES (obstructive sleep apnea): Status: Acute (2) Lymphedema: Status: Acute (3) Atrial fibrillation: Status: Acute (4) Acute UTI: Status: Acute (5) Cellulitis: Status: Acute (6) Septic shock: Status: Acute DS: Summary Hospital Course Hospital Course: History of presenting illness Date of Service: 05/29/24 Attending physician on admission: Torrey Malone Chief Complaint: AMS The patient is a 84-year-old male with a past medical history of atrial fibrillation ( on Eliquis), congestive heart failure,? hypertension, hyperlipidemia,? bronchiectasis, asthma,? LES, bilateral lower extremity lymphedema, and alcohol abuse? admits to drinking? 1-2 glass of whiskey daily,? who presented to the emergency department via ambulance with altered mental status.? According to EMS,? patient?s reported patient was altered,? and more confused today than he was yesterday.? EMS also reported AFib RVR to 150s en route to hospital.? ?On arrival to the emergency department,? patient is? febrile? to 104.2,? heart rate 150s? in AFib,? tachypneic to 40s,? and initially normotensive but later? blood pressures systolic of 70s.? ?Laboratory data significant for WBC 17.4, ? potassium 3.3, phos 1.5, alk phos 127, ?Urine positive for UTI? IMAGING:? Abdominal US: ? concerning for cholelithiasis Abdominal CT:? pending ED COURSE:? ?Due to patient history of congestive heart failure he received a total of 1.5 L fluid bolus and 100 mL of albumin,? Tylenol 1 g IV, magnesium 2 g, ceftriaxone 1 g, and vancomycin 1500 mg.? ? Despite fluid administration,? patient continued to be hypotensive? requiring initiation of vasopressors Hospital course: 84-year-old gentleman admitted with septic shock with cellulitis to ICU, patient treated with pressors, broad-spectrum antibiotics, IV cefepime and vancomycin,WBC improved , blood cultures x 2 showed no growth, urine culture grew mixed kiet, patient is hemodynamically stable with no recurrent fevers, blood pressure is stable therefore being discharged home on all of his baseline medications, recommend to take Augmentin 1 tablet twice daily for 5 days. Afib , chronic Continue Eliquis and Metoprolol Diastolic CHF no acute exacerbation noted resume Lasix and potassium supplement Gout no acute flare continue allopurinol Allopurinol Hx LES on CPAP Time Attestation Discharge Coordination Time (in mins): 40 Quality: Safe Use of Opioids Does Pt have an Active Cancer Diagnosis on the Problem List?: No Quality: Stroke Does the patient have a stroke diagnosis?: No Physical Exam Vital Signs: Vital Signs: Last Vital Signs Temp 98.0 F 06/01/24 10:55 Pulse 81 06/01/24 10:55 Resp 18 06/01/24 10:55 BP 124/59 L 06/01/24 10:55 Pulse Ox 97 06/01/24 10:55 O2 Del Method Room Air 06/01/24 10:55 O2 Flow Rate 2 05/30/24 09:00 BMI result Body Mass Index 44.9 Const: Other: General in no acute distress. Neck no JVD. CVS regular rate rhythm, Respiratory lungs clear to auscultation, no respiratory distress, no wheeze, no rhonchi. Gastrointestinal abdomen soft, nontender, bowel sounds audible, no no guarding , no rigidity. Extremities right leg chronically bigger than left/mild bilateral discoloration both lower extremity seems chronic due to prior cellulitis and edema, no warmth, no tenderness, no open sores. Neuro non focal Psych appropriate affect DS: Data Data Completed and Pending Labs on day of discharge: Laboratory Results - last 24 hr 06/01/24 06/01/24 06:20 08:53 Sodium 141 Potassium 3.4 Chloride 110 H Carbon Dioxide 25 Anion Gap 9 L BUN 21 H Creatinine 0.63 Estim Creat Clear Calc 128.6 Estimated GFR > 60 Random Glucose 113 Calcium 8.7 B-Natriuretic Peptide 297 H Random Vancomycin 19.5 Preliminary micro results at discharge 05/29/24 15:07 Blood Culture - Preliminary Blood - Venous No growth after 48 hours. 05/29/24 15:07 Blood Culture - Preliminary Blood - Venous No growth after 48 hours. Discharge Plan Discharge Anticipated Discharge Date/Time: 06/01/24 11:53 Patient Disposition: Home, Self-Care Discharge Diagnosis: Septic shock Cellulitis Chronic AFib Referrals: Salvatore Heath DO [Primary Care Provider] - 1 Week Discharge Medications: New amoxicillin-pot clavulanate 875-125 mg tablet 1 tab PO BID Qty: 10 0RF Continued furosemide 40 mg tablet 40 mg PO BID atorvastatin 40 mg tablet 40 mg PO BEDTIME ropinirole 1 mg tablet 1.5 mg PO BEDTIME triamcinolone acetonide 0.1 % cream 1 appl topical DAILY PRN (Reason: Inflammation) tamsulosin 0.4 mg capsule 0.4 mg PO BEDTIME gabapentin 300 mg capsule 900 mg PO TID allopurinol 300 mg tablet 300 mg PO DAILY metoprolol tartrate 25 mg tablet 25 mg PO BID Eliquis 5 mg tablet 5 mg PO BID potassium chloride 20 mEq tablet extended release 20 meq PO BID Trelegy Ellipta 200-62.5-25 mcg blister with device 1 ea INHALATION DAILY Discharge Orders: Discharge Order (Routine); Ordered 06/01/24 Ordered By: Jaleel Meraz Diet: Advance to usual diet Activity on Discharge: As tolerated Stand Alone Forms: Patient Portal Discharge page Print Language: Georgian Care Plan Goals: Septic shock likely due to cellulitis resolved Take Augmentin 1 tablet twice daily for 5 more days Acute encephalopathy resolved Acute hypoxic respiratory failure likely due to mild pulmonary edema on admission resolved continue home medication Atrial fibrillation with RVR on admission likely due to underlying infection/use of alcohol/hypoxia now resolved Health Concerns: Chronic AFib Obstructive sleep apnea continue CPAP Plan of Treatment: Outpatient follow-up with primary care physician call for appointment Assessment: As above
[2024-06-01] MEDS: Sodium,Potassium Phosphates POWD.PACK 1 PACKET PO (12:13)
--- NOTE | 2024-06-01 12:58 | MHC.CM.PN ---
Patient has been medically cleared for dc to home today; Patient was receiving services through [facility]. [facility] spoke with Shahida @ [facility] @ [phone], who confirmed that they can provide home PT (it is Patient and 's choice to resume services with [facility]). TE[facility]O has faxed the dc summary and PT Eval to Shahida @ [facility] @ fax # [phone].
== END 2024-06-01 15:35 | disposition home or self-care (01) | DRG 871 ==
LOC: HO.ED 17:11 → HO.EDOVER 18:34 → HO.ICU 19:17 → HO.IMC 05-30 17:17
PROVIDERS: Registered Nurse Community Health; Student in an Organized Health Care Education/Training Program; Admitting Provider Internal Medicine Pulmonary Disease; Emergency Provider Emergency Medicine; PCP Family Medicine; Visit Provider Hospitalist
DX: A41.9 Sepsis, unspecified organism (principal); J96.01 Acute respiratory failure with hypoxia; R65.21 Severe sepsis with septic shock; I50.32 Chronic diastolic (congestive) heart failure; Z68.41 Body mass index [BMI] 40.0-44.9, adult; L03.115 Cellulitis of right lower limb; L03.116 Cellulitis of left lower limb; I48.20 Chronic atrial fibrillation, unspecified; M10.9 Gout, unspecified; J47.9 Bronchiectasis, uncomplicated; G47.33 Obstructive sleep apnea (adult) (pediatric); I11.0 Hypertensive heart disease with heart failure; E66.09 Other obesity due to excess calories; Z20.822 Contact with and (suspected) exposure to COVID-19; Z87.891 Personal history of nicotine dependence; Z79.01 Long term (current) use of anticoagulants; Z79.899 Other long term (current) drug therapy
CPT/HCPCS: 0241U; 36415; 71045; 74176; 76705; 80048; 80076; 80202; 81001; 82040; 82803; 83605; 83690; 83735; 83880; 84100; 84484; 85007; 85025; 85027; 87040; 87086; 93005; 94640; 94660; 97162; 99285; J0131; J0692; J0696; J1940; J2919; J3370; J3371; J3475; P9047

== ENCOUNTER → 2024-05-29 14:32 | Outpatient (BNV) | payer OTHER, MEDICARE, SELFPAY | PROVIDERS: Admitting Provider Internal Medicine Pulmonary Disease; Emergency Provider Emergency Medicine; Visit Provider Internal Medicine | DX: R06.02 Shortness of breath (principal); R94.31 Abnormal electrocardiogram [ECG] [EKG]; I48.91 Unspecified atrial fibrillation | CPT/HCPCS: 93010 ==

== ENCOUNTER → 2024-05-29 14:32 | Outpatient (BNV) | payer OTHER, MEDICARE, SELFPAY | PROVIDERS: Emergency Provider Emergency Medicine; Visit Provider Radiology Diagnostic Radiology | DX: N39.0 Urinary tract infection, site not specified (principal); K80.20 Calculus of gallbladder without cholecystitis without obstruction; N28.1 Cyst of kidney, acquired; R06.02 Shortness of breath | CPT/HCPCS: 71045; 74176; 76705 ==

== ENCOUNTER → 2024-05-29 18:29 | Outpatient (BNV) | payer OTHER, MEDICARE, SELFPAY | PROVIDERS: Admitting Provider Internal Medicine Pulmonary Disease; Emergency Provider Emergency Medicine; Visit Provider Registered Nurse Community Health | DX: A41.9 Sepsis, unspecified organism (principal); R65.21 Severe sepsis with septic shock; N39.0 Urinary tract infection, site not specified; L03.90 Cellulitis, unspecified; J81.1 Chronic pulmonary edema; I50.9 Heart failure, unspecified; I48.91 Unspecified atrial fibrillation; I89.0 Lymphedema, not elsewhere classified; F10.10 Alcohol abuse, uncomplicated | CPT/HCPCS: 99291 ==

== ENCOUNTER → 2024-05-29 18:29 | Outpatient (BNV) | payer OTHER, MEDICARE, SELFPAY | PROVIDERS: Admitting Provider Internal Medicine Pulmonary Disease; Emergency Provider Emergency Medicine; Visit Provider Internal Medicine Pulmonary Disease | DX: I50.9 Heart failure, unspecified (principal); I48.91 Unspecified atrial fibrillation; N39.0 Urinary tract infection, site not specified; I89.0 Lymphedema, not elsewhere classified; G47.33 Obstructive sleep apnea (adult) (pediatric) | CPT/HCPCS: 99291 ==

== ENCOUNTER → 2024-05-29 18:29 | Outpatient (BNV) | payer OTHER, SELFPAY | PROVIDERS: Admitting Provider Internal Medicine Pulmonary Disease; Emergency Provider Emergency Medicine; PCP Family Medicine; Visit Provider Student in an Organized Health Care Education/Training Program | DX: G47.33 Obstructive sleep apnea (adult) (pediatric) (principal); I89.0 Lymphedema, not elsewhere classified; I48.91 Unspecified atrial fibrillation; N39.0 Urinary tract infection, site not specified; L03.90 Cellulitis, unspecified; A41.9 Sepsis, unspecified organism; R65.21 Severe sepsis with septic shock | CPT/HCPCS: 99233 ==

== ENCOUNTER 2024-10-18 12:25 | Outpatient (AMB) | payer MEDICARE, SELFPAY ==
--- OUTSIDE RECORDS SUMMARY | 2024-07-26 10:00 | XMS_ITS | Encounter Summary ---
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 Name Role Phone DESAI, SOTO Primary Care [...] Apr 05, 2007 MEDICAR E SUPPLEM E [id number] MILLER,WILL MATTEO PATIENT [facility] MEDICARE SUPPLEMEN JUAN BANKE RS Apr 05, 2007 NONE [id number] MILLER,WILL MATTEO PATIENT MEDICARE (WNR) MEDICARE (M) PART A Apr 05, 2007 PART A [id number] [phone] ANGELA,WILL MATTEO PATIENT MEDICARE (WNR) MEDICARE (M) PART B Apr 05, 2007 PART B [id number] MILLER,WILL MATTEO PATIENT MEDICARE (WNR) MEDICARE (M) PART A Apr 05, 2007 PART A [id number] MILLER,WILL MATTEO PATIENT MEDICARE (WNR) MEDICARE (M) PART B Apr 05, 2007 PART B [id number] MILLER,WILL MATTEO PATIENT MEDICARE (WNR) MEDICARE (M) PART A Apr 05, 2007 PART A [id number] MILLER,WILL MATTEO PATIENT MEDICARE (WNR) MEDICARE (M) PART B Apr 05, 2007 PART B [id number] MILLER,WILL MATTEO PATIENT Selected Encounter This section includes the information on record at [place] for the Encounter. Date/Time Encounter Type Encounter Description Reason Provider Source Jul 26, 2024 02:00 PM OFFICE O/P EST MOD 30 MIN PRIMARY CARE/MEDICINE ICD-10-CM I48.91 Unspecified atrial fibrillation DESAI,WILL [facility] Encounter Template Text not used by [place] Assessments - Encounter Diagnoses This section includes the primary and secondary diagnoses documented for the Encounter. Date/Time Primary/Secondary Diagnosis Diagnosis Name Provider Source Jul 26, 2024 02:24 PM PRIMARY Unspecified atrial fibrillation DESAI[facility] Jul 26, 2024 02:24 PM SECONDARY Cervicalgia DESAI,W[facility] Jul 26, 2024 02:24 PM SECONDARY Essential (primary) hypertension DESAI[facility] Jul 26, 2024 02:24 PM SECONDARY Impacted cerumen, bilateral DESAI,WILL [facility] Jul 26, 2024 02:24 PM SECONDARY Mild intermittent asthma with (acute) exacerbation DESAI,WILL [facility] Plan of Treatment: Future Appointments (+ 6 months) and Future Tests (+/- 45 days) The Plan of Treatment section includes future care activities for the patient from all [place] treatmentfacilities. This section includes future appointments and future orders which are active, pending or scheduled. Future Appointments This section includes appointments that were scheduled to occur 6 months from the date of the Encounter, up to a maximum of 20 appointments. The data comes from all [place] treatment facilities. Appointment Date/Time Appointment Type Appointme nt Facility Name August 10, 2024 08:00 AM AMBULATORY - MEDICINE [facility] August 16, 2024 02:00 PM [facility] Nov 28, 2024 03:00 PM [facility] Active, Pending, and Scheduled Orders This section includes a listing of several types of active, pending, and scheduled orders, including clinic medications orders, diagnostic test orders, procedure orders and consult orders; where the start date of the order is 45 days before the date of the Encounter or 45 days after the date of theEncounter. The data comes from all [place] treatment facilities. 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 Date/Time Temperature Pulse Blood Pressure Respiratory Rate SP02 Pain Height Weight Body Mass Index Source Jul 26, 2024 01:55 PM 98.3 97 106/67 20 95 5 305 43 [facility] Social History: Smoking Status (Most current) and Tobacco Use (All prior to encounter date) This section includes the most current, and the historical, smoking and tobacco- related health factors from the [place] facility where the Encounter took place. Current Smoking Status This section includes the most current smoking, or tobacco-related health factor, from the [place] facility where the Encounter took place. Date/Time Current Smoking Status Comment Isael ritter Jul 26, 2024 02:00 PM VA-TOBACCO USE FOR JI CIGARETTES [facility] Tobacco Use History This section includes a history of the smoking, or tobacco-related health factors, that were collected on or before the date of the Encounter. The data comes from the [place] facility where the Encounter took place. Date/Time Smoking Status/Tobac co Use Comment Facility Jul 26, 2024 02:00 PM VA-TOBACCO [facility] Jul 29, 2023 02:00 PM [facility]ACCO [facility] Jul 29, 2023 02:00 PM VA-TOBACCO QUIT 15 YRS OR MORE [facility] Jul 09, 2022 02:00 PM VA-TOBACCO NEVER USED [facility] [place] [facility] Jul 10, 2021 02:30 PM VA-TOBACCO FORMER USER [facility] [place] [facility] Jul 10, 2021 02:30 PM VA-TOBACCO QUIT 15 YRS OR MORE [facility] [place] [facility] May 28, 2020 10:30 AM VA-TOBACCO FORMER USER [facility] [place] [facility] May 28, 2020 10:30 AM VA-TOBACCO QUIT 15 YRS OR MORE [facility] [place] [facility] May 21, 2019 08:03 AM VA-TOBACCO FORMER USER [facility] [place] [facility] May 21, 2019 08:03 AM VA-TOBACCO QUIT 15 YRS OR MORE [facility] [place] [facility] May 24, 2018 11:31 AM VA-TOBACCO FORMER USER [facility] [place] [facility] May 24, 2018 11:31 AM VA-TOBACCO QUIT 15 YRS OR MORE [place] [facility] [place] [facility] Mar 09, 2017 10:08 AM QUIT TOBACCO USE > 7 YEARS AGO [facility] [place] [facility] Feb 19, 2016 10:24 AM QUIT TOBACCO USE > 7 YEARS AGO quit 40 yrs ago [facility] [place] [facility] Mar 08, 2015 01:01 PM QUIT TOBACCO USE > 7 YEARS AGO 40 yrs ago [facility] [place] [facility] Feb 02, 2007 10:39 AM QUIT TOBACCO USE > 7 YEARS AGO quit 40 years ago [place] [facility] [place] [facility] Encounter Notes: All associated encounter notes This section contains the clinical notes associated to the Encounter. Date/Time Encounter Note(s) Provider Source Jul 26, 2024 02:19 PM PRIMARY CARE NURSE PRACTITIONER OUTPATIENT NOTE: LOCAL TITLE: NURSE PRACTITIONER OUTPATIENT NOTE STANDARD TITLE: PRIMARY CARE NURSE PRACTITIONER OUTPATIENT NOTE DATE OF NOTE: JUL 26, 2024@14:19 ENTRY DATE: JUL 26, 2024@14:19:27 AUTHOR: SOTO DESAI COSIGNER: URGENCY: STATUS: COMPLETED Chief complaint: Patient is a 84 year old . 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 Allergies: CEFAZOLIN The following VA and Non-VA meds were reconciled with patient. The patient was educated on the use of the medications including indication and side effects. Active and Recently Outpatient Medications (excluding Supplies): Active Outpatient Medications Status ====== 1) ALBUTEROL 3/IPRATROP 0.5MG/3ML INHL 3ML INHALE [...] TAKE ONE TABLET BY MOUTH ONCE ACTIVE DAILY FOR CHOLESTEROL 6) FLUTICAS 500/SALMETEROL 50 INHL DISK 60 INHALE 1 PUFF BY ACTIVE MOUTH TWICE DAILY - RINSE MOUTH AFTER USE 7) FUROSEMIDE 40MG TAB TAKE ONE TABLET BY MOUTH ONCE DAILY TO ACTIVE REMOVE FLUID/CONTROL BLOOD PRESSURE 8) GABAPENTIN 300MG CAP TAKE THREE CAPSULES BY MOUTH THREE ACTIVE TIMES A DAY 9) LOSARTAN 25MG TAB TAKE ONE TABLET BY MOUTH ONCE DAILY FOR ACTIVE BLOOD PRESSURE/HEART 10) METOPROLOL TARTRATE 25MG TAB TAKE ONE TABLET BY MOUTH TWICE ACTIVE DAILY FOR BLOOD PRESSURE/HEART Indication: FOR HIGH [...] MOUTH ONCE DAILY Pending Outpatient Medications Status ====== 1) CARBAMIDE PEROXIDE 6.5% OTIC SOLN INSTILL 5 DROPS INTO EACH PENDING EAR ONCE DAILY Indication: FOR EAR WAX BLOCKAGE Inactive Outpatient Medications Status ====== 1) DOXYCYCLINE HYCLATE 100MG TAB TAKE ONE TABLET BY MOUTH EVERY 12 HOURS Indication: FOR INFECTION CAUSED BY BACTERIA Active Non-VA Medications Status ====== 1) Non-VA CHOLECALCIF 25MCG (D3-1,000UNIT) TAB 2000UNIT BY ACTIVE MOUTH DAILY 2) Non-VA COENZYME Q10 CAP/TAB 200MG BY MOUTH DAILY ACTIVE 3) Non-VA MULTIVITAMIN/MINERALS CAP/TAB 1 TABLET BY MOUTH DAILY ACTIVE 4) Non-VA TIZANIDINE HCL TAB DIRECTED BY MOUTH DIRECTED ACTIVE 5) Non-VA TRIAMCINOLONE ACETONIDE 0.1% CREAM THIN LAYER ACTIVE TOPICALLY TWICE DAILY NEEDED 20 Total Medications Review of Systems: Constitutional: (-)for Fevers, chills, weakness, nights sweats On examination: 98.3 F [36.8 C] (07/26/2024 13:55)106/67 (07/26/2024 13:55)97 (07/26/2024 13:55)20 (07/26/2024 13:55)5 (07/26/2024 13:55)BMI: 42.6305 lb [138.35 kg] (07/26/2024 13:55) is alert and oriented X3 Cardiovasc: 2plus carotids without bruits, no JVD Heart Reguler irreg rate and rhythm NL S1S2 no S3 [...] - rate controlled 2. Parkinson's disease - doing ok, uses a walker 3. Hypertension - well controlled 4. Hearing Loss - follows in [facility] with instructions, refer to nursing for lavage. 5. Asthma - stable, follows non va pulm Health Care Maintenance: up to date Today I spent 40 minutes on some or all of the following: chart review, history, physical examination, treatment planning, education and counseling of the patient/family/acute care nurse, placing orders, communicating with other health care providers, completing health and wellness screenings (see below) and documentation in the electronic health record. Follow up visit in 6 mos. Medication Reconciliation: Outpatient: Has the patient been taking medications as documented in the EMLR? YES: The patient has been taking medications as documented in the EMLR. Essential Medication List for Review used to complete this medication reconciliation. INCLUDED IN THIS LIST: Alphabetical list of active outpatient prescriptions dispensed from this [place] (local) and dispensed from another [place] or [facility] facility (remote) as well as inpatient orders [...] whether with a VA or non-VA provider. RSV Immunization: Record prior RSV Vaccine (historical) Patient received a prior dose of Pfizer RSV vaccine. Documented: RSV, BIVALENT, PROTEIN SUBUNIT RSVPREF, DILUENT RECONSTITUTED, 0.5 ML, PF Historical Date Administered: Dec 05, 2023 Outside Location: Outside Healthcare Provider Information Source: SOURCE UNSPECIFIED /es/ Soto Desai DNP, RAW FINISH MILL OPERATOR-BC, CNL Primary Care Nurse Practitioner Signed: 07/26/2024 14:22 SOTO DESAI [place] [facility] [place] [facility] Jul 26, 2024 01:52 PM PREVENTIVE MEDICINE NURSING NOTE: LOCAL TITLE: CLINICAL REMINDERS/NURSING STANDARD TITLE: PREVENTIVE MEDICINE NURSING NOTE DATE OF NOTE: JUL 26, 2024@13:52 ENTRY DATE: JUL 26, 2024@13:52:37 AUTHOR: TEJA WILLIAMSON EXP COSIGNER: URGENCY: STATUS: COMPLETED Suicide Screen: C-SSRS Screening [place] Suicide Severity Rating Scale (C-SSRS) screener 1. Over the past month, have you [...] required due to responses to other questions. Depression Screening: Perform PHQ-2 A PHQ-2 screen was performed. The score was 0 which is a negative screen for depression. Over the past two weeks, how often have you been bothered by the following problems? 1. Little interest or pleasure in doing things Not at all 2. Feeling down, depressed, or hopeless Not at all Alcohol Use Screen (AUDIT-C): Alcohol Screen: SCREEN FOR ALCOHOL (AUDIT-C) An alcohol screening test (AUDIT-C) was negative (score=4). 1. How often did you have a drink containing alcohol in the past year? Consider a drink to be a 12 ounce can or bottle of regular beer, 8 ounces of malt liquor, a 5 ounce glass of table wine, or a 1.5 ounce shot of liquor (like scotch, gin, or vodka). Four or more times a week 2. How many drinks containing alcohol did you have on a typical day when you were drinking in the past year? One or two drinks 3. How often did you have six or more drinks on one occasion in the past year? Never Sexual Orientation: The patient thinks of their sexual orientation as: Straight or Heterosexual Influenza Immunization: The patient has received the seasonal influenza vaccine for the current season at another location. Documented: INFLUENZA, UNSPECIFIED FORMULATION Historical Date Administered: Dec 14, 2023 Series: Complete Outside Location: Outside Healthcare Provider Information Source: FROM PATIENT'S RECALL Tobacco Use Screening: The patient is a former cigarette smoker. The patient has never used other types of tobacco. /eliu/ TEJA WILLIAMSON LPN License Practical Nurse Signed: 07/26/2024 13:54 TEJA WILLIAMSON [facility] [facility]
--- NOTE | 2024-10-18 12:34 | A.OFFVIS_ITS ---
Vital Signs 10/18/24 12:50 Height 5 ft 11 in Weight 293 lb 3.437 oz BMI 40.9 BP 96/47 L Blood Pressure Location Lt brachial Position Sitting Pulse 91 Intake Visit Reasons: hepatocellular disease Intake Note: Soto presents in the office as a new patient for hepatocellular disease. CC: states that he has no concerns. States he was seen at [facility] before. Pie Cutter Required: No Allergies cefazolin Allergy (Verified 10/18/24 12:54) Rash HPI HPI hepatocellular disease: Details: 84-year-old male with past medical history of LES, ETOH abuse, lymphedema, AFib, Congestive heart failure, pulmonary edema, hypertension, hyperlipidemia is here today for initial consultation. Patient was sent to us by his primary care provider for evaluation of his liver. Patient is on sure why he is here today. He was seen by Gastroenterology in the past. Patient reports that he was seen previously in [facility]. He was told that he has known liver disease. Patient denies any abdominal pain or discomfort. Not taking any PPI. Denies any nausea or vomiting. States that he has no GI concerning symptoms. He does admit that he is overweight and currently is taking Lasix to help with management of Congestive heart failure. Patient was taking Lasix twice a day and currently is taking it 80 mg in the morning. His blood pressure is little labile and the office. Patient is not complaining of any dizziness. Patient does admit that he is drinking alcohol every day. Usually is hard liquor 2-3 drinks every single day. Patient has been drinking for as long as he can remember. Increased echogenicity seen on both ultrasound and CT scan back in May [facility] Medical History (Updated 06/09/24 @ 00:03 by Fawn Gibbs) Alcohol abuse Lymphedema LES (obstructive sleep apnea) Asthma Hyperlipidemia Hypertension Atrial fibrillation Congestive heart failure Surgical History (Updated 10/18/24 @ 12:56 by GIOVANA Garduno) History of lung surgery Hx of cataract surgery History of right knee joint replacement History of left knee replacement Hx of carpal tunnel repair History of back surgery History of esophagogastroduodenoscopy (EGD) Hx of colonoscopy Social History Household Members: Spouse Housing: House Do you presently have visiting nurse or other home services: No Alcohol intake: current Alcohol intake frequency: a few times a week Patient Tobacco Use Status: Former Tobacco user Tobacco use type: Cigarette e-Cigarette/Vaping Use: Former Use Advance Directives Date on File: 05/29/24 service: Yes Review of Systems Const Denies weight gain and Denies weight loss ENT Reports no additional complaints, Denies dysphagia and Denies odynophagia Card Reports no additional complaints Resp Reports no additional complaints GI Denies abdominal pain, Denies belching, Denies melena, Denies bloating, Denies change in bowel habits, Denies dysphagia, Denies excessive flatus, Denies dyspepsia, Denies heartburn, Denies diarrhea, Denies loose stools, Denies nausea, Denies odynophagia and Denies vomiting Reports no additional complaints Musc Reports no additional complaints Neuro Reports no additional complaints Psych Reports no additional complaints Endo Reports no additional complaints Physical Exam Vital Signs: Last Vital Signs Pulse 91 10/18/24 12:50 BP 96/47 L 10/18/24 12:50 BMI result Body Mass Index 40.9 Const General: healthy appearing, no acute distress and well developed Nutritional Appearance: well nourished Orientation/consciousness: patient oriented x3 Resp Effort & Inspection: normal respiratory effort, able to speak in complete sentences, no tracheal deviation and symmetric chest movement Auscultation: clear to auscultation bilaterally Cardio Rate: regular rate GI Inspection: Yes normal to inspection and No distended Palpation (GI): Soft to palpation, not firm, nontender and No hepatosplenomegaly present Auscultation: normal bowel sounds General: Yes no CVA tenderness Back/Spine/Pelvis Back: no CVA tenderness Skin General skin exam: elasticity normal, turgor normal and dry skin Neuro General: patient oriented x3 Psych Appearance: grossly normal Mental Status: mental status grossly normal Results Reviewed Results Reviewed: 7.08?points 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 Will repeat liver panel. Patient was encouraged to avoid alcohol. Low-fat, low- salt, low carbon high protein diet recommended. Patient will follow-up in our office in 6 months, sooner on as needed basis. He is agreeable to this plan and verbalizes understanding of instructions. He was given the opportunity to ask questions and all questions answered. Thank you for allowing me to participate in his care Orders: Orders Liver Fibrosis Pnl 10/18/24 K76.0 - Fatty (change of) liver, not elsewhere classified US abdomen comp w elastography 10/18/24 R79.89 - Other specified abnormal findings of blood chemistry Liver Panel 10/18/24 R74.01 - Elevation of levels of liver transaminase levels Coding Level of Care Code New Pt Level 3 (64022) Diagnoses Alcohol abuse F10.10 Fatty liver, alcoholic K70.0 Time Spent (min) 40 Comment 30 minutes spent with patient and additional 10 minutes spent reviewing his records
[2024-10-18 12:50] VITALS: BP 96/47; PULSE 91; BMI 40.9
--- OUTSIDE RECORDS SUMMARY | 2024-10-18 13:22 | XMS_ITS ---
Author Name [facility] Organization Unknown Results Test Name/Text Value Interpretation Date Range Source Glucose Bld-mCnc 145.0 mg/dL Above high normal 04/06/2024 70 - 105 [facility] Glucose Bld-mCnc 113.0 mg/dL Above high normal 04/06/2024 70 - 105 [facility] Chloride SerPl-sCnc 106.0 mmol/L Normal 04/06/2024 98 - 1 07 [facility] Calcium SerPl-mCnc 9.6 mg/dL Normal 04/06/2024 8.7 - 10.4 [facility] Sodium SerPl-sCnc 141.0 mmol/L Normal 04/06/2024 136 - 14 5 [facility] BUN/Creat SerPl 27.6 Above high normal 04/06/2024 12 - 20 [facility] Creat SerPl-mCnc 0.76 mg/dL Normal 04/06/2024 0.7 - 1.3 C [facility] BUN SerPl-mCnc 21.0 mg/dL Normal 04/06/2024 9 - 23 [facility] Glucose SerPl-mCnc 111.0 mg/dL Normal 04/06/2024 70 - 199 [facility] eGFRcr SerPlBld CKD-EPI 2020 90.0 mL/min/1.73m2 Normal 04/06/2024 - [facility] Potassium SerPl-sCnc 3.8 mmol/L Normal 04/06/2024 3.5 - 5 .1 [facility] Anion Gap SerPl-sCnc 6.0 Normal 04/06/2024 5 - 14 [facility] CO2 SerPl-sCnc 29.0 mmol/L Normal 04/06/2024 20 - 31 [facility] Magnesium SerPl-mCnc 1.8 mg/dL Normal 04/06/2024 1.6 - 2. 6 [facility] Glucose Bld-mCnc 170.0 mg/dL Above high normal 04/06/2024 70 - 105 [facility] Glucose Bld-mCnc 190.0 mg/dL Above high normal 04/05/2024 70 - 105 [facility] Glucose Bld-mCnc 172.0 mg/dL Above high normal 04/05/2024 70 - 105 [facility] Glucose Bld-mCnc 125.0 mg/dL Above high normal 04/05/2024 70 - 105 [facility] POCT Comment Notified Nurse Normal 04/05/2024 C [facility] Sodium SerPl-sCnc 141.0 mmol/L Normal 04/05/2024 136 - 14 5 [facility] Chloride SerPl-sCnc 106.0 mmol/L Normal 04/05/2024 98 - 1 07 [facility] Glucose SerPl-mCnc 124.0 mg/dL Normal 04/05/2024 70 - 199 [facility] Anion Gap SerPl-sCnc 8.0 Normal 04/05/2024 5 - 14 [facility] Potassium SerPl-sCnc 4.0 mmol/L Normal 04/05/2024 3.5 - 5 .1 [facility] eGFRcr SerPlBld CKD-EPI 2020 90.0 mL/min/1.73m2 Normal 04/05/2024 - [facility] Creat SerPl-mCnc 0.77 mg/dL Normal 04/05/2024 0.7 - 1.3 C [facility] CO2 SerPl-sCnc 27.0 mmol/L Normal 04/05/2024 20 - 31 [facility] BUN/Creat SerPl 24.7 Above high normal 04/05/2024 12 - 20 [facility] Calcium SerPl-mCnc 9.2 mg/dL Normal 04/05/2024 8.7 - 10.4 [facility] BUN SerPl-mCnc 19.0 mg/dL Normal 04/05/2024 9 - 23 [facility] Magnesium SerPl-mCnc 2.0 mg/dL Normal 04/05/2024 1.6 - 2. 6 [facility] Phosphate SerPl-mCnc 3.3 mg/dL Normal 04/05/2024 2.4 - 5. 1 [facility] RBC # Bld Auto 3.72 M/mcL Below low normal 04/05/2024 4.7 - 6 [facility] WBC # Bld Auto 10.0 K/mcL Normal 04/05/2024 4 - 10.5 [facility] Hgb Bld-mCnc 12.4 g/dL Below low normal 04/05/2024 13.5 - 18 [facility] Platelet # Bld Auto 149.0 K/mcL Below low normal 04/05/2024 150 - 450 [facility] MCH RBC Qn Auto 33.3 pcg Above high normal 04/05/2024 27 - 31 [facility] MCV RBC Auto 105.4 FL Above high normal 04/05/2024 78 - 100 [facility] Hct VFr Bld Auto 39.2 % Below low normal 04/05/2024 42 - 54 [facility] PMV Bld Auto 10.4 FL Normal 04/05/2024 8.3 - 11.8 [facility] MCHC RBC Auto-mCnc 31.6 g/dL Below low normal 04/05/2024 32 - 36 [facility] RDW RBC Auto-Rto 14.1 % Above high normal 04/05/2024 11.5 - 14 [facility] Glucose Bld-mCnc 229.0 mg/dL Above high normal 04/05/2024 70 - 105 [facility] Glucose Bld-mCnc 252.0 mg/dL Above high normal 04/04/2024 70 - 105 [facility] Glucose Bld-mCnc 151.0 mg/dL Above high normal 04/04/2024 70 - 105 [facility] MRB mecC Islt/Spm Ql Negative Normal 04/04/2024 - [facility] Glucose Bld-mCnc 195.0 mg/dL Above high normal 04/04/2024 70 - 105 [facility] Vancomycin Trough SerPl-mCnc 23.7 mcg/mL Critically high 04/04/2024 5 - 10 [facility] Anion Gap SerPl-sCnc 6.0 Normal 04/04/2024 5 - 14 [facility] CO2 SerPl-sCnc 24.0 mmol/L Normal 04/04/2024 20 - 31 [facility] BUN SerPl-mCnc 17.0 mg/dL Normal 04/04/2024 9 - 23 [facility] Glucose SerPl-mCnc 182.0 mg/dL Normal 04/04/2024 70 - 199 [facility] Creat SerPl-mCnc 0.66 mg/dL Below low normal 04/04/2024 0.7 - 1.3 [facility] Sodium SerPl-sCnc 139.0 mmol/L Normal 04/04/2024 136 - 14 5 [facility] Calcium SerPl-mCnc 8.8 mg/dL Normal 04/04/2024 8.7 - 10.4 [facility] BUN/Creat SerPl 25.8 Above high normal 04/04/2024 12 - 20 [facility] eGFRcr SerPlBld CKD-EPI 2020 94.0 mL/min/1.73m2 Normal 04/04/2024 - [facility] Chloride SerPl-sCnc 109.0 mmol/L Above high normal 98 - 107 [facility] Potassium SerPl-sCnc 3.9 mmol/L Normal 04/04/2024 3.5 - 5 .1 [facility] Prot SerPl-mCnc 6.0 g/dL Normal 04/04/2024 5.7 - 8.2 [facility] AST SerPl-cCnc 29.0 unit/L Normal 04/04/2024 - 34 [facility] ALP SerPl-cCnc 100.0 unit/L Normal 04/04/2024 46 - 116 [facility] Globulin Ser Calc-mCnc 3.0 g/dL Normal 04/04/2024 2.3 - 3.5 [facility] Bilirub Direct SerPl-mCnc 0.8 mg/dL Above high normal 04/04/2024 0 - 0.3 [facility] Albumin/Glob SerPl 1.0 Normal 04/04/2024 1 - 1.7 [facility] Bilirub SerPl-mCnc 1.9 mg/dL Above high normal 04/04/2024 0. 2 - 1.1 [facility] ALT SerPl-cCnc 12.0 unit/L Normal 04/04/2024 10 - 49 [facility] Albumin SerPl-mCnc 3.0 g/dL Below low normal 04/04/2024 3.2 - 4.8 [facility] Phosphate SerPl-mCnc 2.3 mg/dL Below low normal 04/04/2024 2 .4 - 5.1 [facility] Magnesium SerPl-mCnc 2.1 mg/dL Normal 04/04/2024 1.6 - 2. 6 [facility] RDW RBC Auto-Rto 14.1 % Above high normal 04/04/2024 11.5 - 14 [facility] RBC # Bld Auto 3.1 M/mcL Below low normal 04/04/2024 4.7 - 6 [facility] MCH RBC Qn Auto 34.2 pcg Above high normal 04/04/2024 27 - 31 [facility] Hct VFr Bld Auto 32.8 % Below low normal 04/04/2024 42 - 54 [facility] MCHC RBC Auto-mCnc 32.3 g/dL Normal 04/04/2024 32 - 36 [facility] Hgb Bld-mCnc 10.6 g/dL Below low normal 04/04/2024 13.5 - 18 [facility] Platelet # Bld Auto 128.0 K/mcL Below low normal 04/04/2024 150 - 450 [facility] MCV RBC Auto 105.8 FL Above high normal 04/04/2024 78 - 100 [facility] PMV Bld Auto 10.8 FL Normal 04/04/2024 8.3 - 11.8 [facility] WBC # Bld Auto 10.2 K/mcL Normal 04/04/2024 4 - 10.5 [facility] POCT Comment Notified Nurse Normal 04/04/2024 C [facility] Glucose Bld-mCnc 279.0 mg/dL Above high normal 04/04/2024 70 - 105 [facility] POCT Comment Notified Nurse Normal 04/03/2024 C [facility] Glucose Bld-mCnc 199.0 mg/dL Above high normal 04/03/2024 70 - 105 [facility] Glucose Bld-mCnc 168.0 mg/dL Above high normal 04/03/2024 70 - 105 [facility] Glucose Bld-mCnc 135.0 mg/dL Above high normal 04/03/2024 70 - 105 [facility] Glucose Bld-mCnc 148.0 mg/dL Normal 04/03/2024 [facility] HbA1c MFr Bld 6.8 % Above high normal 04/03/2024 - 5.7 [facility] LDH SerPl L to P-cCnc 225.0 unit/L Normal 04/03/2024 120 - 246 [facility] Haptoglob SerPl-mCnc 114.0 mg/dL Normal 04/03/2024 30 - 2 00 [facility] Retics/100 RBC NFr Auto 1.4 % Normal 04/03/2024 0.7 - 1.7 [facility] Phosphate SerPl-mCnc 3.5 mg/dL Normal 04/03/2024 2.4 - 5. 1 [facility] CO2 SerPl-sCnc 24.0 mmol/L Normal 04/03/2024 20 - 31 [facility] Chloride SerPl-sCnc 110.0 mmol/L Above high normal 98 - 107 [facility] eGFRcr SerPlBld CKD-EPI 2020 91.0 mL/min/1.73m2 Normal 04/03/2024 - [facility] Creat SerPl-mCnc 0.75 mg/dL Normal 04/03/2024 0.7 - 1.3 C [facility] BUN/Creat SerPl 24.0 Above high normal 04/03/2024 12 - 20 [facility] BUN SerPl-mCnc 18.0 mg/dL Normal 04/03/2024 9 - 23 [facility] Anion Gap SerPl-sCnc 8.0 Normal 04/03/2024 5 - 14 [facility] Calcium SerPl-mCnc 8.9 mg/dL Normal 04/03/2024 8.7 - 10.4 [facility] Glucose SerPl-mCnc 144.0 mg/dL Normal 04/03/2024 70 - 199 [facility] Potassium SerPl-sCnc 3.6 mmol/L Normal 04/03/2024 3.5 - 5 .1 [facility] Sodium SerPl-sCnc 142.0 mmol/L Normal 04/03/2024 136 - 14 5 [facility] Bilirub Direct SerPl-mCnc 0.9 mg/dL Above high normal 04/03/2024 0 - 0.3 [facility] Albumin SerPl-mCnc 3.4 g/dL Normal 04/03/2024 3.2 - 4.8 [facility] Globulin Ser Calc-mCnc 3.2 g/dL Normal 04/03/2024 2.3 - 3.5 [facility] Albumin/Glob SerPl 1.1 Normal 04/03/2024 1 - 1.7 [facility] Bilirub SerPl-mCnc 3.4 mg/dL Above high normal 04/03/2024 0. 2 - 1.1 [facility] AST SerPl-cCnc 23.0 unit/L Normal 04/03/2024 - 34 [facility] Prot SerPl-mCnc 6.6 g/dL Normal 04/03/2024 5.7 - 8.2 [facility] ALP SerPl-cCnc 113.0 unit/L Normal 04/03/2024 46 - 116 C [facility] ALT SerPl-cCnc 9.0 unit/L Below low normal 04/03/2024 10 - 4 9 [facility] Magnesium SerPl-mCnc 1.4 mg/dL Below low normal 04/03/2024 1 .6 - 2.6 [facility] INR PPP 1.6 Above high normal 04/03/2024 0.8 - 1.1 C [facility] PT Bld 18.5 sec Above high normal 04/03/2024 10.5 - 13.3 [facility] aPTT PPP 38.1 sec Above high normal 04/03/2024 25 - 37 C [facility] Hct VFr Bld Auto 39.2 % Below low normal 04/03/2024 42 - 54 [facility] MCHC RBC Auto-mCnc 32.1 g/dL Normal 04/03/2024 32 - 36 [facility] RBC # Bld Auto 3.7 M/mcL Below low normal 04/03/2024 4.7 - 6 [facility] MCH RBC Qn Auto 34.1 pcg Above high normal 04/03/2024 27 - 31 [facility] Platelet # Bld Auto 141.0 K/mcL Below low normal 04/03/2024 150 - 450 [facility] PMV Bld Auto 10.7 FL Normal 04/03/2024 8.3 - 11.8 [facility] RDW RBC Auto-Rto 14.1 % Above high normal 04/03/2024 11.5 - 14 [facility] WBC # Bld Auto 19.1 K/mcL Above high normal 04/03/2024 4 - 1 0.5 [facility] Hgb Bld-mCnc 12.6 g/dL Below low normal 04/03/2024 13.5 - 18 [facility] MCV RBC Auto 105.9 FL Above high normal 04/03/2024 78 - 100 [facility] HPIV4 RNA Nph Ql FRANK+probe Not Detected Normal 04/03/2024 - [facility] Rhinovirus Not Detected Normal 04/03/2024 - [facility] FLUBV RNA Nph Ql FRANK+probe Not Detected Normal 04/03/2024 - [facility] FLUAV H3 RNA Nph Ql FRANK+probe Not Detected Normal 04/03/2024 - [facility] FLUAV H1 RNA Nph Ql FRANK+probe Not Detected Normal 04/03/2024 - [facility] HPIV2 RNA Nph Ql FRANK+probe Not Detected Normal 04/03/2024 - [facility] RSV A RNA Nph Ql FRANK+probe Not Detected Normal 04/03/2024 - [facility] HAdV DNA Upper resp Ql FRANK+probe Not Detected Normal 04/03/2024 - [facility] RSV B RNA Nph Ql FRANK+probe Not Detected Normal 04/03/2024 - [facility] HPIV1 RNA Nph Ql FRANK+probe Not Detected Normal 04/03/2024 - [facility] hMPV B RNA Spec Ql FRANK+probe Not Detected Normal 04/03/2024 - [facility] FLUAV RNA Nph Ql FRANK+probe Not Detected Normal 04/03/2024 - [facility] HPIV3 RNA Nph Ql FRANK+probe Not Detected Normal 04/03/2024 - [facility] Legionella Ag Spec Ql Negative Normal 04/03/2024 - [facility] Sp Gr Ur 1.009 Normal 04/03/2024 1.005 - 1.03 [facility] Clarity Ur Clear Normal 04/03/2024 - [facility] Urobilinogen Ur-mCnc Normal Normal 04/03/2024 - [facility] Bilirub Ur Ql Negative Normal [facility]24 [facility] Ketones [facility]-mCnc Negative Normal 04/03/2024 - [facility] Hgb Ur Ql 0.1 Abnormal 04/03/2024 - [facility] Nitrite Ur Ql Negative Normal 04/03/2024 - [facility] Leukocyte esterase Ur Ql Strip Negative Normal 04/03/2024 - [facility] Glucose Ur Ql Normal Normal 04/03/2024 - [facility] Color Ur Yellow Normal 04/03/2024 - [facility] Prot Ur Strip-mCnc Negative Normal 04/03/2024 - [facility] pH Ur 6.0 pH Normal 04/03/2024 5 - 8 [facility] Anion Gap 7.0 mmol/L Normal 04/03/2024 6 - 14 [facility] BUN/Creat Ratio 24.7 Above high normal 04/03/2024 10 - 20 [facility] Glucose Level 122.0 mg/dL Above high normal 04/03/2024 74 - 106 [facility] eGFR Afri-Amer >60.0 mL/min Normal 04/03/2024 [facility] Chloride 106.0 mmol/L Normal 04/03/2024 98 - 107 [facility] CO2 28.0 mmol/L Normal 04/03/2024 20 - 31 [facility] Potassium Level 3.3 mmol/L Below low normal 04/03/2024 3.5 - 5.1 [facility] eGFR >60.0 mL/min Normal 04/03[facility]2024 [facility] Creat[facility] 0.81 mg/dL Normal 04/03/2024 0.7 - 1.3 [facility] Calcium Level 8.9 mg/dL Normal 04/03/2024 8.7 - 10.4 [facility] Sodium Level 141.0 mmol/L Normal 04/03/2024 136 - 145 [facility] BUN 20.0 mg/dL Normal 04/03/2024 9 - 23 [facility] pCO2 Venous 43.0 mmHg Normal 04/03/2024 40 - 52 [facility] pH Venous 7.42 Normal 04/03/2024 7.32 - 7.42 [facility] Device SYRINGE 04/03/2024 [facility] pO2 Venous 31.0 mmHg Normal 04/03/2024 30 - 50 [facility] HCO3 Venous 27.0 mEq/L Normal 04/03/2024 22 - 28 [facility] Base Excess 2.2 04/03/2024 [facility] Time Analyzed 20:20:17 04/03/2024 [facility] WH Final No growth at 5 days. Normal 04/08/2024 [facility] History of Medication Use Medication Directions Dispensed Refills Start Date End Date Stat predniSONE (DELTASONE) 10 mg tablet Take 2 tablets (20 mg total) by mouth 1 (one) time each day for 1 day, THEN 1 tablet (10 mg total) 1 (one) time each day for 2 days. 04/07/2024 5 active furosemide (LASIX) injection 40 mg 40 mg, intravenous, Daily, First dose (after last modification) on Catarina 04/06/24 at 1000, Hold if SBP , 110 hg 04/04/2024 5 active perflutren lipid microsphere (DEFINITY) 1.3 mL in sodium chloride 0.9% 8.7 mL injection 10 mL, intravenous, Administer over 10 Minutes, Once in imaging, Starting on Wed04/04/24 at 0931, For 1 dose, CV Medication Orders 04/04/2024 4 completed rOPINIRole (REQUIP) tablet 1.5 mg 1.5 mg, oral, Nightly, First dose on Wed04/03/24 at 2100, Indications: restless leg syndrome 04/04/2024 4 aborted cefTAZidime (FORTAZ) 2 g in sodium chloride 0.9 % 100 mL IVPB - MBP 2 g, intravenous, at 200 mL/hr, Administer over 30 Minutes, Every 8 hours, First dose on Wed04/03/24 at 0945, For 5 days, Mini-Bag Plus bag, Indication: Pneumonia, Nosocomial 04/03/2024 4 aborted magnesium sulfate 2 gram/50 mL (4 %) IVPB 2 g 2 g, intravenous, at 25 mL/hr, Administer over 2 Hours, Once, On Wed04/03/24 at 0915, For 1 dose 04/03/2024 4 completed dextrose (D50W) 50% injection 12.5 g 12.5 g, intravenous, Every 15 min PRN, low blood sugar, moderate hypoglycemia *Patient is Unconscious, NPO, unable to swallow: BG 54 - 69 mg/dl*, Starting on Wed04/03/24 at 0147 04/03/2024 active furosemide (LASIX) injection 60 mg 60 mg, intravenous, Once, On Wed04/03/24 at 0245, For 1 dose 04/03/2024 active Glucagon HCl (rDNA) injection 1 mg 1 mg, intramuscular, Once as needed, low blood sugar, severe hypoglycemia, Starting on Wed04/03/24 at 0147, For 1 dose 04/03/2024 active polyethylene glycol (MIRALAX) packet 17 g 17 g, oral, Daily, First dose on Wed04/03/24 at 0900, Bowel Regimen - for prevention of constipation 04/03/2024 active Triamcinolone 0.1% Cream 30 gm tube - Patient's Own Med Topical, Daily, First dose on Wed04/05/24 at 1345, Both lower extremities 02/23/2024 active gabapentin (NEURONTIN) capsule 900 mg 900 mg, oral, 3 times daily, First dose on Wed04/03/24 at 0900 09/23/2023 active fluticasone propion-salmeteroL (ADVAIR DISKUS) 500-50 mcg/dose diskus inhaler Inhale by mouth. 05/05/2022 acti ve zinc acetate 50 mg (zinc) capsule Take 50 mg by mouth. 02/26/2020 active tamsulosin (FLOMAX) 24 hr capsule 0.4 mg 0.4 mg, oral, Daily, First dose on Wed04/03/24 at 0900, Withhold if SBP <90 For oral administration: capsules should be swallowed whole (Do not crush, chew, or open). For tube administration: open capsule and administer with water (granules should NOT be crushed). 01/19/2020 active furosemide (LASIX) 40 mg tablet Take 1 tablet (40 mg total) by mouth. 01/16/2020 active potassium citrate (UROCIT-K) 10 mEq (1,080 mg) CR tablet Take 1 tablet (10 mEq total) by mouth 2 times daily. 01/16/2020 active ascorbic acid (VITAMIN C) 500 mg CR capsule Take 1 capsule (500 mg total) by mouth 1 (one) time each day. active cyanocobalamin (VITAMIN B-12) 250 mcg tablet Take 1 tablet (250 mcg total) by mouth 1 (one) time each day. active Allergies Allergen Reaction Severity Comment Documented Date Source Statu s CEFAZOLIN RASH Tolerated ceftazidime at 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 active 2024-02-09 ProblemAct [facility] Wheezing active EncounterDiagnosisAct [facility] Non-pressure chronic ulcer of other part of left lower leg limited to breakdown of skin active 2024-02-09 ProblemAct [facility] Chronic venous hypertension (idiopathic) with ulcer and inflammation of left lower extremity active 2024-02-09 ProblemAct [facility] Community acquired pneumonia active 2024-04-06 ProblemAct [facility] Congestive heart failure, unspecified HF chronicity, unspecified heart failure type (CMS/HCC) active EncounterDiagnosisAct [facility] Non-pressure chronic ulcer of other part of right lower leg limited to breakdown of skin active 2024-02-09 ProblemAct [facility] Hyperlipidemia (disorder) active [facility]Act [facility] Hypertensive disorder, systemic arterial (disorder) active ProblemAct [facility] Atrial fibrillation (disorder) active ProblemAct [facility] Encounters Encounter Type Encounter Reason Primary Diagnosis Location Date Inpatient Sob Sepsis Heart failure, unspecified oNE [facility] 04/03/2024 Emergency Diff breathing [facility] Care Team Organization Name Specialty Phone Email Start Date End Da dane [facility] Kumar DO Primary Care 04/05/2024 [facility] Kumar DO Primary Care 04/03/2024 [facility] Primary Care
--- OUTSIDE RECORDS SUMMARY | 2024-10-18 13:22 | XMS_ITS | Patient Health Record ---
Author Organization [facility] misael RodriguezWill Address [address] [facility] [place] [address] Care Team Providers Care Pipe Fitter Gas Pipe Name Role Phone MD Nettie Leonard Primary Care Provider UnavailAiyana Holland Unavailable [phone] José Cook Unavailable [phone] Ivone Layton Unavailable [phone] Allergies Allergen (clinical drug ingredient) Drug/Non Drug Allergy documented on EMR Reaction Allergy Type Onset Date Status PredniSONE afib Drug Allergy Active Medicinal cephalosporin and acting as antibacterial agent (FN) Cephalosporins redness Drug Allergy Active Results Component Value Reference Range Notes HEMOGLOBIN A1C (GLYCOHEMOGLO BIN) Reviewed date:12/21/2023 11:05:02 AM Interpretation: Performing Lab: Notes/Report: HEMOGLOBIN A1C (HH) 6.4 HEMOGLOBIN A1C (GLYCOHEMOGLO BIN) Reviewed date:06/20/2024 03:04:50 PM Interpretation: Performing Lab: Notes/Report: HEMOGLOBIN A1C % (HH) 6.6 HEMOGLOBIN A1C (GLYCOHEMOGLO BIN) Reviewed date:01/10/2024 10:26:28 AM Interpretation: Performing Lab: Notes/Report: TOTAL HEMOGLOBIN (HGBA1C) 7.0 Reason For Referral No Information Medications Medication SIG (Take, Route, Frequency, Duration) Notes Start Date End Date Status Diclofenac 1 % top gel Not-Carlos ing Coumadin Not-Taking Tamsulosin HCl Activ e Econazole Nitrate 1 % 1 application to affected area Externally Once a day; Duration: 30 days Not-Taking Allopurinol 100 MG 1 tablet Orally Once a day; Duration: 30 day(s) Active Pradaxa 150 MG 1 capsule Orally Twice a day; Duration: 30 day(s) Not-Taking Albuterol Sulfate 0.63 MG/3ML as directed Inhalation PRN Active Potassium & Magnesium Aspartat 250-250 MG 1 capsule with a meal Orally Once a day; Duration: 30 day(s) Not-Taking Eliquis Active Atorvastatin Calcium Active Systane Not-Taking Calcium + D Active Clindamycin HCl 300 MG 1 capsule Orally every 12 hrs; Duration: 10 days 06/24/2023 Not-Taking Pantoprazole Sodium Active Clindamycin HCl 10days Not- Taking zinc Active [employer] as directed 07/04/2014 Not-Taking potassium Active Symbicort 80-4.5 MCG/ACT 2 puffs Inhalation Twice a day Not-Taking Vitamin D3 Active Vitamin C Active rOPINIRole HCl Activ e Wixela Inhub Active Ciclopirox Olamine 0.77 % 1 application Externally Twice a day; Duration: 30 days Active Doxycycline Monohydrate 100 MG 1 capsule Orally Twice a day; Duration: 7 days 12/21/2023 Not-Taking Voltaren 1 % as directed Externally Not-Taking Furosemide Active Gabapentin Active Hydrocortisone 2.5 % 1 application to affected area Rectal Twice a day; Duration: 30 day(s) PRN Active Losartan Potassium 50 MG 1 tablet Orally Once a day Active Multivitamins as directed Orally Active Nadolol Active Immunizations Vaccine Route Administration Date Status Comme nts COVID-19 Moderna Vaccine Unknown 05/22/2020 Administere d 1# 04/19/20 Influenza Unknown 12/04/2022 Administered Influenza Unknown 01/04/2024 Administered Social History Tobacco Use: Social History Observation Description Date Details (start date - stop date) Never Smoker NA - NA Alcohol Screen Question Answer Notes Did you have a drink contain ing alcohol in the past year? Yes How often did you have a dri nk containing alcohol in the past year? 4 or more times a week (4 points) Points 4 Interpretation Positive Tobacco use other than smoking: Question Answer Notes Are you an other tobacco user? 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 Vital Signs Blood pressure diastolic 70 mm Hg 09/19/2024 Height 5 ft 11 in in 09/19/2024 Blood pressure systolic 125 mm Hg 09/19/2024 Weight 305 lbs 09/19/2024 BMI 42.53 kg/m2 09/19/2024 Procedures Procedure Date Ordered Date Performed Result Body Sit e 03701 - Tenotomy, open flexor 08/16/2024 N/A Encounters Encounter Location Date Provider Diagnosis [address] [address] 12/14/2023 Aiyana Perica Hammer toe of left foot M20.42 ; Unspecified atherosclerosis of lower [place] arteries of extremities, bilateral legs I70.203 and Non-pressure chronic ulcer of other part of left foot limited to breakdown of skin L97.[address] [address] 12/21/2023 Aiyana Perica Hammer toe of left foot M20.42 ; Unspecified atherosclerosis of lower [place] arteries of extremities, bilateral legs I70.203 and Non-pressure chronic ulcer of other part of left foot limited to breakdown of skin L97.[address] [address] 12/29/2023 Aiyana Perica Unspecified atherosclerosis of lower [place] arteries of extremities, bilateral legs I70.203 and Hammer toe of left foot M20.[address] [address] 03/22/2024 Aiyana Perica Unspecified atherosclerosis of lower [place] arteries of extremities, bilateral legs I70.203 ; Pain in left toe(s) M79.675 ; Pain in right toe(s) M79.674 and Tinea unguium B35.[address] [address] 06/20/2024 Aiyana Perica Unspecified atherosclerosis of lower [place] arteries of extremities, bilateral legs I70.203 ; Pain in left toe(s) M79.675 ; Pain in right toe(s) M79.674 and Tinea unguium B35.[address] [address] 08/16/2024 Ivone Layton Hammer toe of left foot M20.[address] [address] 08/23/2024 Ivone Layton Hammer toe of left foot M20.[address] [address] 09/19/2024 Aiyana Hetal Unspecified atherosclerosis of lower [place] arteries of extremities, bilateral legs I70.203 ; Other hammer toe(s) (acquired), left foot M20.42 ; Tinea unguium B35.1 and Type 2 diabetes mellitus with polyneuropathy E11.[address] [address] 12/14/2023 José Cook [address] [address] 02/04/2024 José Cook Assessments Encounter Date Diagnosis (ICD Code) Assessment Notes Treatment Notes Treatment Clinical Notes Section Notes 12/14/2023 Unspecified atherosclerosis of lower [place] arteries of extremities, bilateral legs (ICD-10 - I70.203) 12/21/2023 Hammer toe of left foot (ICD-10 - M20.42) 12/29/2023 Unspecified atherosclerosis of lower [place] arteries of extremities, bilateral legs (ICD-10 - I70.203) 12/29/2023 Hammer toe of left foot (ICD-10 - M20.42) 12/14/2023 Hammer toe of left foot (ICD-10 - M20.42) 12/21/2023 Unspecified atherosclerosis of lower [place] arteries of extremities, bilateral legs (ICD-10 - I70.203) 03/22/2024 Pain in left toe(s) (ICD-10 - M79.675) 03/22/2024 Unspecified atherosclerosis of lower [place] arteries of extremities, bilateral legs (ICD-10 - I70.203) 06/20/2024 Unspecified atherosclerosis of lower [place] arteries of extremities, bilateral legs (ICD-10 - I70.203) 08/16/2024 Hammer toe of left foot (ICD-10 - M20.42) 08/23/2024 Hammer toe of left foot (ICD-10 - M20.42) 09/19/2024 Unspecified atherosclerosis of lower [place] arteries of extremities, bilateral legs (ICD-10 - I70.203) 09/19/2024 Other hammer toe(s) (acquired), left foot (ICD-10 - M20.42) 03/22/2024 Pain in right toe(s) (ICD-10 - M79.674) 09/19/2024 Tinea unguium (ICD-10 - B35.1) 06/20/2024 Pain in left toe(s) (ICD-10 - M79.675) 12/21/2023 Non-pressure chronic ulcer of other part of left foot limited to breakdown of skin (ICD-10 - L97.521) 12/14/2023 Non-pressure chronic ulcer of other part of left foot limited to breakdown of skin (ICD-10 - L97.521) 03/22/2024 Tinea unguium (ICD-10 - B35.1) 06/20/2024 Pain in right toe(s) (ICD-10 - M79.674) 09/19/2024 Type 2 diabetes mellitus with polyneuropathy (ICD-10 - E11.42) 06/20/2024 Tinea unguium (ICD-10 - B35.1) Plan Of Treatment Pending Test Test Name Order Date X ray : Foot, left 3V 01/28/2017 X ray : Foot, left 3V 04/06/2017 47238-SNEUCCD NAIL, 6 OR MORE 01/28/2017 92695-ARDALSI NAIL, 6 OR MORE 10/15/2016 19378-WDLVPRM NAIL, 6 OR MORE 09/09/2015 19944-YTFXGYW NAIL, 6 OR MORE 12/26/2015 20678-CASMYOU NAIL, 6 OR MORE 04/16/2016 08522-GXYBEJF NAIL, 6 OR MORE 07/16/2016 36189-HLMKEKK NAIL, 6 OR MORE 05/06/2017 69717-ACFXOEF NAIL, 6 OR MORE 07/15/2017 57320-UEETIPT NAIL, 6 OR MORE 09/20/2017 03538-IYLOWCD NAIL, 6 OR MORE 12/20/2017 45093-MUUFFFI NAIL, 6 OR MORE 01/08/2011 19215-NCGIXLQ NAIL, 6 OR MORE 04/16/2011 10499-FHOXAGF NAIL, 6 OR MORE 08/05/2011 29167-XQOQDTS NAIL, 6 OR MORE 11/04/2011 09189-TNGBAYG NAIL, 6 OR MORE 03/02/2012 61365-BZDRRWB NAIL, 6 OR MORE 06/01/2012 43682-SYHZRZL NAIL, 6 OR MORE 08/17/2012 98488-SVTBUUG NAIL, 6 OR MORE 11/16/2012 50941-ECRETEE NAIL, 6 OR MORE 03/13/2013 53805-PHYRIAG NAIL, 6 OR MORE 06/19/2013 87488-OJNHVLN NAIL, 6 OR MORE 09/18/2013 08951-QMMSBYQ NAIL, 6 OR MORE 12/20/2013 99144-SFQBYWH NAIL, 6 OR MORE 03/14/2014 12902-RONBCPL NAIL, 6 OR MORE 07/04/2014 20401-SKQXGMJ NAIL, 6 OR MORE 10/01/2014 44143-TDEJJBQ NAIL, 6 OR MORE 01/30/2015 89939-MAQSNOG NAIL, 6 OR MORE 06/03/2015 25798-Gkljanmh Plate 03/13/2013 38174- Debride <25 sq cm 01/28/2017 34749- Debride <25 sq cm 02/11/2017 46416- Debride <25 sq cm 10/13/2023 03348-QBNCYCJ SKIN/TISSUE 03/10/2023 87630-IIALZNF SKIN/TISSUE 04/21/2023 95122-DYAPCTP SKIN/TISSUE 06/24/2023 29790-KQYY SKIN LESIONS, OVER 4 05/06/19 18 17007-MECH SKIN LESIONS, OVER 4 01/29/20 17 38547-KGHL SKIN LESIONS, OVER 4 07/17/19 17 88360-RNFK SKIN LESIONS, OVER 4 10/16/19 17 71919-DHNK SKIN LESIONS, OVER 4 04/16/19 17 80083-JJRH SKIN LESIONS, OVER 4 12/26/19 16 29555-EBAT SKIN LESIONS, OVER 4 09/09/19 16 74785-IHFW SKIN LESIONS, OVER 4 12/21/19 18 90839-RMKB SKIN LESIONS, OVER 4 09/21/19 18 21373-CSSP SKIN LESIONS, OVER 4 07/16/19 18 88443-NHSQ SKIN LESIONS, OVER 4 04/21/19 19 78657-OZWT SKIN LESIONS, OVER 4 07/29/19 19 87783-QSHT SKIN LESIONS, OVER 4 10/28/19 19 30736-HQSR SKIN LESIONS, OVER 4 01/24/20 19 06347-SWCN SKIN LESIONS, OVER 4 05/01/19 20 22296-AHPI SKIN LESIONS, OVER 4 01/03/20 20 17090-RNNZ SKIN LESIONS, OVER 4 05/29/19 21 42933-BDLH SKIN LESIONS, OVER 4 08/30/19 21 97529-IMWF SKIN LESIONS, OVER 4 06/03/19 16 60561-VOEO SKIN LESIONS, OVER 4 01/31/20 15 18114-XVBZ SKIN LESIONS, OVER 4 10/02/19 15 00640-QKRC SKIN LESIONS, OVER 4 07/05/19 15 33662-ANMX SKIN LESIONS, OVER 4 03/14/20 14 92501-FRGG SKIN LESIONS, OVER 4 12/21/19 14 65594-VECU SKIN LESIONS, OVER 4 09/19/19 14 65637-RGPN SKIN LESIONS, OVER 4 06/20/19 14 36237-PRSY SKIN LESIONS, OVER 4 03/13/20 13 22388-SCJS SKIN LESIONS, 2 TO 4 11/17/19 13 25509-VBRU SKIN LESIONS, 2 TO 4 08/18/19 13 92861-ADZG SKIN LESIONS, 2 TO 4 06/01/19 13 35278-HQES SKIN LESIONS, 2 TO 4 03/02/20 12 58486-CECZ SKIN LESIONS, 2 TO 4 11/04/19 12 74686-IMLX SKIN LESIONS, 2 TO 4 08/05/19 12 43656-ZNLV SKIN LESIONS, 2 TO 4 04/16/19 12 90123-RRZXNJEW OF HEMATOMA/FLUID 018 01796 - Tenotomy, open flexor 08/16/2024 Next Appt Details Provider Name:Aiyana camilo, 12/19/2024 01:30:00 PM, [address] [facility], [place], [address], Insurance Providers Payer Name Payer Address Payer Phone Subscriber Number Group Number Insured Name Patient Relationship to Insured Coverage Start Date Coverage End Date Medicare National [employer] [address] [place] [address] [id number] Soto Duran Self - patient is the insured [employer] [address] [place] [address] [id number] Soto Duran Self - patient is the insured Medical (General) History Medical History History ICD Code measles chicken pox joint implants/screws kidney disease hypertension cataracts cancer back, hip, knee pain asthma Arthritis afib Cellulitis Diabetes mellitus Surgical History Surgery Date(Month/Year) back surgery 2004 carpal tunnel surgery 2002 left knee replacement, right knee replac ement 2006, 2008 left lower lobe of lung removed 2010 cataracts OU 2008, 2009 right hand trigger finger 2011 AFIB correction 12/2011 flex n times 2 12/2023 carpel tunnel 09/27 Hospitalization History Reason Date(Month/Year) [facility] [place] 05[place]2024 [place]- CHF, low blood pressure 04/2024 [facility] - Fall stay 2 nights 01/11/20 [facility] 2 days for Pneumonia 01/2016
--- OUTSIDE RECORDS SUMMARY | 2024-10-18 13:22 | XMS_ITS | Encounter Summary ---
Author Organization [facility] Address [address] [place] [address] Care Team Providers Care Gaming Pit Boss Name Role Phone Salvatore Heath Bashir Primary Care Provider [phone] Encounter Details Date Type Department Care Team (Late st Contact Info) Description 04/07/2024 Lab Requisition [facility] - Main Lab [address] [facility] [employer] [place] [address] Isabel Cardona MD [address] [place] [id number] Encounter for other general examination Social History Tobacco Use Types Packs/Day Years Used Date Smoking Tobacco: Former Cigarettes 0.5 11 1 964 - 4302 Smokeless Tobacco: Never Alcohol Use Standard Drinks/Week [...] K/mcL LAB HEMETOLOGY METHOD 04/07/2024 9:28 AM [facility] RBC 4.10(L) 4.50 - 5.50 M/mcL LAB HEMETOLOGY METHOD 04/07/2024 9:28 AM [facility] Hemoglobin 13.9 13.5 - 17.5 g/dL LAB HEMETOLOGY METHOD 04/07/2024 9:28 AM [facility] Hematocrit 43.7 42.0 - 54.0 % LAB HEMETOLOGY METHOD 04/07/2024 9:28 AM [facility] MCV 106.3(H) 79.0 - 98.0 FL LAB HEMETOLOGY METHOD 04/07/2024 9:28 AM [facility] MCH 33.8(H) 27.0 - 32.0 pcg LAB HEMETOLOGY METHOD 04/07/2024 9:28 AM [facility] MCHC 31.8(L) 32.0 - 37.0 g/dL LAB HEMETOLOGY METHOD 04/07/2024 9:28 AM [facility] RDW 13.9 11.0 - 15.0 % LAB HEMETOLOGY METHOD 04/07/2024 9:28 AM [facility] Platelets 175 130 - 400 K/mcL LAB HEMETOLOGY METHOD 04/07/2024 9:28 AM [facility] MPV 11.0 7.0 - 11.0 FL LAB HEMETOLOGY METHOD 04/07/2024 9:28 AM [facility] NRBC 0.0 <1.0 % LAB HEMETOLOGY METHOD 04/07/2024 9:28 AM [facility] NRBC Absolute 0.00 <0.10 K/mcL LAB HEMETOLOGY METHOD 04/07/2024 9:28 AM [facility] Neutrophils Relative 67.2 % LAB HEMETOLOGY METHOD 04/07/2024 9:28 AM [facility] Lymphocytes Relative 22.4 % LAB HEMETOLOGY METHOD 04/07/2024 9:28 AM [facility] Monocytes Relative 9.0 % LAB HEMETOLOGY METHOD 04/07/2024 9:28 AM [facility] Eosinophils Relative 0.7 % LAB HEMETOLOGY METHOD 04/07/2024 9:28 AM [facility] Basophils Relative 0.2 % LAB HEMETOLOGY METHOD 04/07/2024 9:28 AM [facility] Immature Granulocytes Relative 0.5 % LAB HEMETOLOGY METHOD 04/07/2024 9:28 AM [facility] Neutrophils Absolute 5.56 1.50 - 7.00 K/mcL LAB HEMETOLOGY METHOD 04/07/2024 9:28 AM EST [facility] Lymphocytes Absolute 1.86 1.00 - 5.00 K/[facility] LAB HEMETOLOGY METHOD 04/07/2024 9:28 AM EST [facility] Monocytes Absolute 0.75 0.20 - 1.00 K/[facility] LAB HEMETOLOGY METHOD 04/07/2024 9:28 AM EST [facility] Eosinophils Absolute 0.06 0.00 - 0.50 K/[facility] LAB HEMETOLOGY METHOD 04/07/2024 9:28 AM EST [facility] Basophils Absolute 0.02 0.00 - 0.20 K/[facility] LAB HEMETOLOGY METHOD 04/07/2024 9:28 AM EST [facility] Immature Granulocytes Absolute 0.04(H) 0.00 - 0.03 K/[facility] LAB HEMETOLOGY METHOD 04/07/2024 9:28 AM EST [facility] Blood Venous blood specimen / Unknown Venipuncture / Unknown 04/07/2024 5:36 AM EST 04/07/2024 8:31 AM EST us Isabel Cardona MD LAB BLOOD ORDERABLES Final Resu lt Performing Organization Address [facility] Co de Phone Number [facility] [address] [place] [address], * Magnesium (04/07/2024 5:36 AM EST) Magnesium 2.1 1.9 - 2.6 mg/dL LAB CHEMISTRY METHOD 04/07/2024 9:55 AM EST [facility] Blood Venous blood specimen / Unknown Venipuncture / Unknown 04/07/2024 5:36 AM EST 04/07/2024 8:31 AM EST us Isabel Cardona MD LAB BLOOD ORDERABLES Final Resu lt [facility] [address] [place] [address], * (ABNORMAL) Comprehensive metabolic panel (04/07/2024 5:36 AM EST) Sodium 137 133 - 145 mmol/L LAB CHEMISTRY METHOD 04/07/2024 9:55 AM EST [facility] Potassium 3.8 3.5 - 5.5 mmol/L LAB CHEMISTRY METHOD 04/07/2024 9:55 AM [facility] Chloride 100 96 - 110 mmol/L LAB CHEMISTRY METHOD 04/07/2024 9:55 AM [facility] CO2 32 21 - 32 mmol/L LAB CHEMISTRY METHOD 04/07/2024 9:55 AM [facility] Anion Gap 5 3 - 11 LAB CHEMISTRY METHOD 04/07/2024 9:55 AM [facility] Glucose 83 70 - 100 mg/dL LAB CHEMISTRY METHOD 04/07/2024 9:55 AM [facility] BUN 26(H) 5 - 25 mg/dL LAB CHEMISTRY METHOD 04/07/2024 9:55 AM [facility] Creatinine 0.81 0.70 - 1.30 mg/dL LAB CHEMISTRY METHOD 04/07/2024 9:55 AM [facility] eGFR 89 >=60 mL/min/1. 73m2 LAB CHEMISTRY METHOD 04/07/2024 9:55 AM [facility] Comment:Calculation based on the Chronic Kidney Disease Epidemiology Collaboration (CKD-EPI) equation refit without adjustment for race. BUN/Creatinine Ratio 32.1 LAB CHEMISTRY METHOD 04/07/2024 9:55 AM [facility] Calcium 8.7 8.5 - 10.5 mg/dL LAB CHEMISTRY METHOD 04/07/2024 9:55 AM [facility] AST (SGOT) 19 10 - 42 unit/L LAB CHEMISTRY METHOD 04/07/2024 9:55 AM [facility] ALT (SGPT) 19 10 - 60 unit/L LAB CHEMISTRY METHOD 04/07/2024 9:55 AM [facility] Alkaline Phosphatase 124(H) 42 - 121 unit/L LAB CHEMISTRY METHOD 04/07/2024 9:55 AM [facility] Total Protein 6.7 6.0 - 8.0 g/dL LAB CHEMISTRY METHOD 04/07/2024 9:55 AM [facility] Albumin 2.9(L) 3.2 - 5.0 g/dL LAB CHEMISTRY METHOD 04/07/2024 9:55 AM [facility] Total Bilirubin 1.6(H) 0.0 - 1.4 mg/dL LAB CHEMISTRY METHOD 04/07/2024 9:55 AM [facility] Blood Venous blood specimen / Unknown Venipuncture / Unknown 04/07/2024 5:36 AM EST 04/07/2024 8:31 AM EST us Isabel Cardona MD LAB BLOOD ORDERABLES Final Resu lt [facility] [address] [place] [address], documented in this encounter Visit Diagnoses Diagnosis Encounter for other general examination documented in this encounter Additional Health Concerns Active Problems Noted Date Diagnosed Date Impaired Tissue 02/23/2024 Education needed on impact of smoking on wound 1 04/24/2023 Education needed related to ulceration/compromised skin integrity. 02/23/2024 documented as of this encounter Care Teams Gaming Pit Boss Relationship Specialty Start Date End Date [facility] [place] [place] [facility] - General Family Medicine 02/09/24 documented as of this encounter
--- OUTSIDE RECORDS SUMMARY | 2024-10-18 13:22 | XMS_ITS | Data Portability ---
Author Organization [place] - [facility] Address [address] [place] [id number] Care Team Providers Care Incinerator Plant Laborer Name Role Phone [facility]NAG[facility] OTHER [facility] OTHER Assessment Encounter Date Assessment Date Assessment LastModified by Organization Details LastModified Time 10/16/2020 10/16/2020 Overview/History :This is a 80-year-old male that is a new patient [facility]. He sustains a fall in driveway several days ago. [facility] was contacted to evaluate for a wound on his left hand. He reports he had a small wound and then when changing his dressings he accidentally removed the layer of skin. He has been applying Vaseline to this area and covering it with a bandage. Exam: On exam she is awake alert afebrile in stable. Appears in no acute distress. He does have what appears to be old or ecchymoses on his right knee and a small scrape there that appears to be healing well, no drainage. He has a skin tear a bit smaller and a half dollar size on his left hand, there is no surrounding erythema or calor. Wound bed is pink with a small amount of slough, no odor. DDx considered, but not limited to: The patient has a traumatic skin tear on his left hand. Cellulitis considered but does not seem to be an issue at this time as he has no fever, no color and no surrounding erythema. Work up/Results: Plan/Discussion: I discussed with the patient and his wound care procedures for this. I had given her a prescription for mupirocin topical ointment. I advised to use a nonadherent dressing and a small amount of mupirocin ointment at least daily to the heel. I did advise that when changing the dressing if dressing were to stick at all then they should when the dressing with water prior to pulling off the nonadherent gauze. I did review signs and symptoms of infection with the patient and his . In order to obtain further information and compare any laboratory results/values, I have accessed old patient records. This information was pertinent in my medical decision making today. Proper Personal Protective Equipment (PPE), including gloves, eye protection and masks were donned and doffed appropriately and all equipment cleaned using approved technique with germicidal disposable wipes prior to and after care of this patient according to [facility] infection prevention protocols. Time On Scene with Patient: 00:49:41 [email or web address] Not available 10/16/2020 15:52:56 10/23/2020 10/23/2020 Brief History:Pt is a 80 y/o obese M who presents after mechanical fall in October onto R knee with persistent discomfort. Pt is h/o b/l remote knee replacements. He is on blood thinners for AFIB. Pt is new to this provider. He is new to this issue. He is not new to . Summary of Exam: No pain with weight bearing. +Anterior marc and medial knee with TTP R knee with swelling and bruising noted. FROM R knee noted. Sensation, pulses strength otherwise intact. Pt is non-toxic appearing. Work up/Results: Xrays ordered DDx considered & Medical Decision Making: R knee pain and continued swelling with various stages of bruising after sustaining a fall October 11. Pt is using Voltaren gel- although limited systemic absorption, there still is some and he is on blood thinners. Counseled to stop any NSAIDs at this time and we will obtain Xrays for further evaluation. I am concerned for fracture, hardware issue/internal derangement. Hemarthrosis is a risk, but lower suspicion as he can fully range the joint. No indication for ER escalation at this time. If anything concerning on Xray he will need referral back to his original surgeon to re-establish care. Otherwise he needs to follow up with PCP and his [facility] ortho and follow up for PT. Counseled regarding safe use OTC Tylenol and Lidocaine 4% topical at this time as well as non-pharmacologi miguel ice/hot packs until follow up. In order to obtain further information and compare any laboratory results/values, I have accessed old patient records. This information was pertinent in my medical decision making today. Proper Personal Protective Equipment (PPE), including gloves, surgical mask were donned and doffed appropriately and all equipment cleaned using approved technique with germicidal disposable wipes prior to and after care of this patient according to [facility]'s infection prevention protocols. Time On Scene with Patient: 00:28:27 [email or web address] Not available 10/23/2020 16:34:41 Plan of Treatment Reminders Order Date Submit Date Provider Last Modified By Organization Details Last Modified Time Details Appointments None recorded. Lab None recorded. Referral None recorded. Procedures None recorded. Surgeries None recorded. Imaging XR, knee, 3 view 2020 [facility] [address] [place] [address], [address], 1 10:41:56 XR, tibia + fibula, 2 view 2020 [facility] ([facility] [address] [place], [address], 1 10:41:56 Medication Orders mupirocin 2 % topical ointment 2020 [email or web address] [id number], [address] , [place], [address], 1 08:30:42 Patient TargetsNo targets recorded. Patient Instructions Encounter Date Encounter Id Patient Instructions Last Modified By Organization Details Last Modified Time 10/16/2020 [id number] WE CAME TO SEE Y [facility] TODAY FOR CONCERNS OF SKIN TEAR ON YOUR RIGHT HAND THIS DOES NOT APPEAR TO BE INFECTED- NO NEED FOR ORAL ANTIBIOTICS I HAVE PRESCRIBED FOR YOU A TOPICAL ANTIBIOTIC TO APPLY TO THE HAND 2X DAILY I REVIEWED WOULD CARE INSTRUCTIONS WITH YOUR Thank you for your visit with [facility] today. We cannot always find the exact cause of your symptoms during your initial visit. Please follow up with your primary care provider or specialist as needed to be rechecked or seek medical attention if your symptoms do not go away or get worse. If you develop any new or worsening symptoms and need after hours care, please go to nearest ER and/or call 911. If you have additional concerns or develop a change in your condition between 8am-10pm, please call [facility] at [phone] to help navigate your care. [email or web address] Not available 10/16/2020 15:33:17 10/23/2020 [id number] preventing falls : care instructions [email or web address] Not available 10/24/2020 08:08:30 In order to meet our goal of providing quality acute care in your home, additional imaging has been ordered as discussed. The company we have partnered with that will be completing the exam listed above is: [employer] Phone Number: Ph. You will be notified by [employer] for scheduling. A [employer] technologist will call you 30-45 minutes prior to arrival of your appointment. Should you need to make special scheduling arrangements please call the number listed above and ask to speak with a [employer] dispatcher. You can also request your technologist s Estimated Time of Arrival (ETA) by calling the number listed above. After the exam is complete, please allow time for radiology imaging review. We will notify you of the final results. Rest. Ice the joint 3-4 times a day for 20-30 min on your skin and at least 20-30min off your skin. Use a protective layer such as a pillowcase in between the ice bag and you skin. Keep the joint elevated above the level of your heart as much as you can during the day (this is pretty high!) Medications: Based on your history and examination your provider will design a medication regimen specifically for your condition, this may include some of the following medications. Acetaminophen/Tyleno l: 1,000 mg every 8 hours if you do not have any liver issues, Not to exceed 3000 mg in 24 hours. Non-steroidal anti-inflammatories/ NSAIDS: You need to avoid these, even topically, because you are on blood thinners! Adjunct Therapies such as muscle relaxants may be prescribed. These medications cause drowsiness. Do not drive, drink alcohol, take recreational drugs, or operate machinery while on these medications. NARCOTICS/OPIOIDS ARE NOT RECOMMENDED FOR JOINT PAIN. IN FACT, THEY MAKE THE PAIN WORSE AND CAN LEAD DOWN A PATH OF ADDITION. We do not prescribed these unless you have had surgery in the last two weeks and it needs to be prescribed and re-evaluated by your surgeon or primary care doctor. If I have placed an orthopedic splint, this needs to be kept in place at all times! This means you broke something and we need to keep it stable. Do not get the splint wet! You will need to follow up with orthopedics at the first available appointment and with your PCP. If I applied a temporary velcro splint or NORRIS compression dressing, you will need to wear while weight bearing or using the limb. You may take this off to shower. Sometimes it helps to sleep in the splint or dressing. Remember to keep the limb elevated above the level of your heart! This means you have an injury that likely is not broken. You will need to follow up with your PCP within the week. If you have persistent pain in 1-2 weeks you may need additional imaging and orthopedics follow up. Often injuries are soft tissue injuries such as muscle sprains or strains, tendon or ligament sprains, bruises, or small blood blisters that are not causing any emergent issues. Tendons and ligaments are tough elastic-like tissues. Tendons connect muscles to bones. Ligaments connect bone to bone. These often take several months to heal as do bones. Do not expect healing overnight. But again, if you are having pain for more than 2 weeks it is time to follow up with orthopedics. Sometimes if it is too painful to bear weight, then you should remain non-weight bearing until you can do so without pain or until you are re-evaluated by your regular provider or orthopedist. Early range of motion is important in recovery. If you cannot bear weight, you should perform range of motion exercises as demonstrated by your BOBBIN COLLECTOR today. You may use crutches or a walker as needed. Avoid high impact activities. If you are in a job that requires a lot of standing and walking or you are an athlete, you will need to see your PCP for clearance prior to resuming these activities. There is no contraindication to working, but you may need to adjust your activities at work. You may have an order for an outpatient XRay. Your [facility] Nurse Practitioner will discuss how to obtain results of the XRay. Air-Cast: You may have been given a removable ankle splint called an aircast to help give your ankle stability. Wear this whenever you are up and walking around for the next 2 weeks. You may use an norris wrap under the aircast and you MAY wear the aircast in bed if you would like. We do not use slings to immobilize shoulders in most cases, only in VERY rare instances as this causes something called a Frozen Shoulder. We can permanently damage your shoulder this way and we typically avoid this at all costs unless you have severely broken your humerus bone. Take over the counter medications per managed care provider instructions as needed for pain. Av Seek Care Immediately If: The pain gets suddenly worse or is not helped with [id number]-[id number] or prescription medications. 2) Your fingers or toes become cold, blue or numb 3) If you still cannot tolerate weight bearing 1 week after injury 4) If the swelling initially goes away and then returns again several weeks later, especially if you are short of breath. If you develop any new or worsening symptoms and need after hours care, please go to nearest ER and/or call 911. If you have additional concerns or develop a change in your condition between 8am-10pm, please call [facility] at [phone] to help navigate your care. [email or web address] Not available 10/23/2020 13:43:01 Reason for Referral None Reported. Results Created Date Observation Date Name Description Value Unit Range Abnormal Flag Note LastModifiedBy Organization Detail LastModifiedTime 10/26/19 21 XR, tibia + fibul a, 2 view No observ ation record ed. [employer] [facility] ([employer]) [address] [place], [address], 10/25/2020 12:51:17 10/26/19 21 XR, knee, 3 view No observ ation record ed. [employer] [facility] ([employer]) [address] [place], [address], 10/25/2020 12:51:17 Result Notes None recorded. Procedures Surgical History Date Name Laterality Status Provider Name and Address Organization Details Recorded Time Total knee arthroplasty completed BELLA PEREIRA NP [address], [place], [address], [place] [facility] 10/23/2020 13:25:36 Imaging Results None recorded. Procedure Notes None recorded. Medical Equipment None Reported. Allergies Allergen ID Allergen Name Allergen Category Reaction Reaction Severity Criticality Documentation Date Start Date Code Code System Note Provider Name and Address Organization Details Recorded Time 298001 cefazolin medicatio n Not available Not available Not available 10/16/2020 2180 [facility] SANGEETHA LYONS NP [address], [place], [address], [place] [facility] 15:05:41 Medications Name Sig Start Date Stop Date Status Note LastModified by Organization Details LastModified Time losartan 50 mg tablet TAKE 1 TABLET BY MOUTH EVERY DAY active Not Available Not Available No t Available ipratropium 0.5 mg-albutero l 3 mg (2.5 mg base)/3 mL nebulizatio n soln INHALE 1 AMPULE 4 TIMES DAILY active Not Available Not Available No t Available tramadol 50 mg tablet TAKE 1 TABLET BY MOUTH UP TO THREE TIMES A DAY FOR MODERATE TO SEVERE PAIN active Not Available Not Available No t Available oxycodone-a cetaminophe n 5 mg-325 mg tablet TAKE 1 TABLET BY MOUTH EVERY 6 HOURS NEEDED FOR SEVERE PAIN active Not Available Not Available No t Available hydrocortis one 2.5 % lotion APPLY TO EXTREMITI ES TWICE A DAY NEEDED FOR ITCHINESS . active Not Available Not Available No t Available tamsulosin 0.4 mg capsule TAKE 1 CAPSULE BY MOUTH EVERYDAY AT BEDTIME active Not Available Not Available No t Available triamcinolo ne acetonide 0.1 % topical ointment APPLY TO AFFECTED AREA TWICE A DAY active Not Available Not Available No t Available mupirocin 2 % topical ointment APPLY A SMALL AMOUNT TO THE AFFECTED AREA BY TOPICAL ROUTE 3 TIMES PER DAY active Not Available Not Available No t Available levofloxaci n 500 mg tablet TAKE 1 TABLET BY MOUTH EVERY 24 HOURS FOR 7 DAYS 10/16 completed Not Available Not Available Not Available ipratropium bromide 42 mcg (0.06 %) nasal spray USE 1 SPRAY INTO THE NOSTRILS TWICE DAILY active Not Available Not Available No t Available atorvastati n active Not Available Not Available Not Available ropinirole active Not Available Not Av ailable Not Available furosemide active Not Available Not Av ailable Not Available allopurinol active Not Available Not A vailable Not Available metoprolol succinate active Not Available Not Available No t Available gabapentin active Not Available Not Av ailable Not Available Symbicort active Not Available Not Olga ilable Not Available Eliquis active Not Available Not Avail able Not Available Vitals Date Recorded Body temperature Respiratory rate Heart rate Oxygen saturation Oxygen saturation in Arterial blood by Pulse oximetry Systolic And Diastolic Provider Name and Address Organization Details Last Updated DateTime 98.8 [degF] 20 /min 90 /min 96 % 96 % 132/78 mm[Hg] Not Available [facility] 15:12:53 Date Recorded Respiratory rate Body temperature Oxygen saturation Oxygen saturation in Arterial blood by Pulse oximetry Heart rate Systolic And Diastolic Provider Name and Address Organization Details Last Updated DateTime 20 /min 98.4 [degF] 97 % 97 % 78 /min 118/70 mm[Hg] Not Available [facility] 13:28:16 Social History Question Answer Notes LastModified by Organizat ion Details LastModified Time Tobacco Smoking Status Former Smoker SANGEETHA LYONS NP [address], [place], [address], [place] [facility] 10/16/2020 15:11:42 What Is Your Code Status? Full Code [email or web address] Information not available 10/16/2020 Within The Past 12 Months, Has It Happened That The Food You Bought Just Didn't Last And You Didn't Have Money To Get More. No [email or web address] Information not available 10/16/2020 Within The Past 12 Months, Have You Worried That Your Food Would Run Out Before You Got Money To Buy More. No [email or web address] Information not available 10/16/2020 Fall Risk: Do You Feel Unsteady When Standing Or Walking? Yes [email or web address] Information not available 10/16/2020 We Know That How And When People Interact With Friends And Family Can Be Very Different From Person To Person. How Often Do You Have The Opportunity To See Or Talk To People That You Care About And Feel Close To? (Ex: Talking To Friends On The Phone Or Visiting Friends Or Family Or Going To Religious Or Club Meetings) 3 Or 4 Times Per Week [email or web address] Information not available 10/16/2020 Does This Patient Have A PCP? Yes [email or web address] Information not available 10/16/2020 We Know From Many Of Our Patients That Covering All Of Their Costs Can Be Difficult At Times. This Can Cause Stress And Impact Health. In The Past Year, Have You Been Unable To Get Any Of The Following When It Was Really Needed? No [email or web address] Information not available 10/16/2020 What Is Your Housing Situation Today? I Have Housing [email or web address] Information not available 10/16/2020 Would You Like Help Connecting To Resources? None [email or web address] Information not available 10/16/2020 Sex: Unknown Functional Status None recorded. Mental Status None recorded. Family History Relationship Description Onset Age of this Age Resolved Age Notes LastModified by Organization Details LastModified Time Mother Congestive heart failure [email or web address] Not available 15:13:09 Medical History Condition Response High Cholesterol Y Asthma Y Hypertension Y Past Encounters Encounter ID Performer Location Encounter Start Date Encounter Closed Date Diagnosis/Indication Diagnosis SNOMED-CT Code Diagnosis ICD10 Code Diagnosis Note [id number] SANGEETHA LYONS NP [facility] [address] [place] [address] 10/16/2020 15:05:39 10/17/2020 14:04:46 Tear of skin 065041892 T14.8XXA [id number] BELLA PEREIRA NP [facility] [address] [facility] [address] 10/23/2020 12:59:31 10/24/2020 20:12:46 Fall on same level from slipping, tripping or stumbling 266783441 W01.0XXA subacute Pain in right knee 00781 [address] M25.561 acute Health Concerns Section Related Observation LastModified by Organization Detai ls LastModified Time None Recorded Concern Status LastModified by Organization Details LastModified Time None Recorded Advance Directives Directive None Recorded Payers Insurance Date Sequence Insurance Name Policy Number Policy Cano Covered Member ID Cano Member ID Guarantor Name 10/24/2020 1 [place] [facility] Soto Duran [id number] 4 Soto Duran 10/24/2020 1 [place] [facility] Soto Duran [id number] Soto Duran 11/06/2020 2 UNSPECIFIED REMIT PAYOR Soto Duran 10/24/2020 1 [place] [facility] Soto Duran [id number] 4 Soto Duran Notes Date Note Type Note Provider Name and Address Organization Details Recorded Time 10/16/2020 text/html This is a 80-year-old male that is a new patient [facility]. He has a medical history significant for asthma, bronchiectasis, LES, hyperlipidemia, hypertension, gout and atrial fibrillation. The patient tells me that he sustained a fall outside several days ago, he had difficulty getting into his car and lowered himself to the ground. He did hit his right knee for which he has bruising and he has already been to [facility] and [email or web address]. He had a small skin tear on his left hand. He reports that when trying to change the dressing he got confused pulling off the Band-Aid and actually reamed off a large piece of the skin. It sounds as though 1 of his major case detective arrange for [facility] visit today to evaluate the skin tear. He reports that he has been applying Vaseline to the area. He says he saw dermatology in the past and they advised against over use of Neosporin. He will be starting physical therapy next week. SANGEETHA LYONS, JUAN JOSE [address] [place], [address], [place] [facility] 10/16/2020 16:57:43 10/23/2020 text/html Soto Duran is a 80 y/o M PMH AFib, Asthma, Bronchiectasis, LES, HChol, HTN, s/p b/l knee replacements who presents with R knee pain since mechanical fall R knee. Pt reports he had a fall on October 11 and fell onto his R knee. Pt reports he had remote b/l knee replacements in the past. He had difficulty getting up from that fall, almost a half hour. He had PT last fall on the same knee. He never sought medical treatment since the fall but he reports he has had several home health caregivers look at it and report that he can fully range the knee. The pain in the R knee gets to 10/10 one to two times an hour, mostly R medial side, occasionally R thigh. He uses Voltaren gel, ice and hot packs. He has trouble getting up on the R knee since the fall. Pt is on blood thinners for AFib. 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 He has been trying to coordinate care with [facility] to see what else to do. He has not seen his knee surgeon in a while (reports due to no need.) BELLA PEREIRA, JUAN JOSE [address], [place], [address], [place] [facility] 10/23/2020 16:34:48
== END 2024-10-18 13:29 | disposition home or self-care (01) ==
LOC: HO.HGI 12:25
PROVIDERS: PCP Family Medicine; Visit Provider Nurse Practitioner Family
DX: F10.10 Alcohol abuse, uncomplicated (principal); K70.0 Alcoholic fatty liver
CPT/HCPCS: 99203

== ENCOUNTER → 2024-10-18 12:25 | Outpatient (BNVA) | payer MEDICARE, SELFPAY | PROVIDERS: PCP Family Medicine; Visit Provider Nurse Practitioner Family | DX: K70.0 Alcoholic fatty liver (principal); F10.10 Alcohol abuse, uncomplicated | CPT/HCPCS: 99202 ==

== ENCOUNTER 2024-12-27 08:31 | Outpatient (REF) | payer MEDICARE, SELFPAY ==
--- OUTSIDE RECORDS SUMMARY | 2024-12-19 09:30 | XMS_ITS ---
Author Organization [facility] Address [address] [place] [address] Care Team Providers Care Pad Cutter Name Role Phone MD Nettie Leonard Primary Care Provider Aiyana Carver Unavailable [phone] Encounters Encounter Location Date Provider Diagnosis [address] [address] 12/19/2024 Aiyana Fong Plan Of Treatment Next Appt Details Provider Name:Aiyana camilo, 02/06/2025 02:30:00 PM, [address] [place] [address], [phone], Progress Notes * Soto MILLERDOB:1940 (84 yo M)Acc No.[id number]:12/19/2024 Progress Note Patient: Soto ROCHE Provider: Krish Fong DPM :1940 A ge:84 Y S ex:Male Date:12/19/2024 Address:[address] [place] [id number] Pcp:MD Nettie Leonard Subjective: * Chief Complaints: * * Medical History: Objective: * Vitals: Assessment: Plan: * Treatment: * Images: * The named appointment provid er may or may not be the originator of this progress note, and it is not deemed complete until electronically signed by the appointment provider. Sign off status: Pending * Provider: Krish Fong DPM Date: 0 12/19/2024 Generated for Printi ng/Fadorothyg/eTransmitting on: 0 12/27/2024 09:26 AM EDT
--- NOTE | ~2024-12-27 | US_ITS ---
EXAMINATION: US COMPLETE ABDOMEN WITH LIVER ELASTOGRAPHY CLINICAL INFORMATION: R79.89 - Other specified abnormal findings of blood chemistry COMPARISON: CT on May 29, 2024 TECHNIQUE: Real-time imaging of the abdominal viscera. Noninvasive ultrasound liver fibrosis assessment is performed using Tiffany Elast[employer] point quantification shear wave elastography (pSWE) with a C5-2 MHz transducer. Multiple elastography samples are obtained. FINDINGS: PANCREAS: The visualized pancreatic head and body are normal in appearance. The remainder of the pancreas is obscured from visualization by the overlying bowel gas. ABDOMINAL AORTA: No aortic aneurysm is seen. INFERIOR VENA CAVA: Visualized portions are normal. LIVER: The liver demonstrates normal size, contour with course echogenicity. No focal lesion or intrahepatic biliary duct dilatation. The right lobe measures 14 cm in length. The left lobe measures 7 cm in length. Main portal vein is patent with normal direction of flow and a continuous venous waveform. Shear wave liver elastography median stiffness is 1.5 m/s (reference: normal median stiffness is 1.3 m/s or less). IQR/median stiffness to assess sampling precision is 0.11 (reference: good quality data set is IQR/median stiffness of 0.15 or less). GALLBLADDER: Nonvisualized COMMON BILE DUCT: Normal in caliber measuring 0.2 cm in diameter. RIGHT KIDNEY: No hydronephrosis. No renal calculi were documented. The kidney measures 11 cm in maximum dimension. There is 7.5 x 3.4 x 6.5 cm mostly anechoic cyst with increased through transmission. It contains low-level internal echogenicity and a hairline septation possibly with a small mural nodule. LEFT KIDNEY: No hydronephrosis. No renal calculi were demonstrated. The kidney measures 12 cm in maximum dimension. Multiple anechoic cysts are present. The largest is in the upper pole measuring 4.4 x 4.2 x 4.5 cm with a 3 mm thick septation. SPLEEN: Unremarkable. The spleen measures 11 cm in maximum dimension. FREE FLUID: None seen. US/US abdomen comp w elastography IMPRESSION: 1. Coarse echogenicity of the liver suggest hepatic steatosis or mild hepatic parenchymal disease. 2. Liver elastography: In the absence of other known clinical signs, measurements rule out compensated advanced chronic liver disease. If there are known clinical signs, further testing may be needed for confirmation. The gallbladder was not visualized. Patient stated the aorta fasting state and reports no cholecystectomy. Significance is uncertain. Gallbladder was clearly present on CT May 29, 2024-containing stones. Indeterminate renal cysts bilaterally with septations. Follow-up MRI abdomen without and with contrast using a renal protocol to further characterize. REFERENCE: Society of [employer] in Ultrasound Liver Stiffness Thresholds (2020): LIVER STIFFNESS THRESHOLDS: *Liver Stiffness equal or less than 1.3 m/s: High probability of being normal. *Liver Stiffness less than 1.7 m/s: In the absence of other known clinical signs, rules out compensated advanced chronic liver disease. *Liver Stiffness 1.7-2.1 m/s: Suggestive of compensated advanced chronic liver disease but need further test for confirmation. *Liver Stiffness over 2.1 m/s: Rules in compensated advanced chronic liver disease. *Liver Stiffness over 2.4 m/s: Suggestive of clinically significant portal hypertension. QUALITY OF DATA SET: *IQR/Median value equal or less than 0.15 implies a quality data set. *IQR/Median value over 0.15 implies a poor quality data set. SIGNIFICANT CHANGE FROM PRIOR EXAM: Significant change if liver stiffness measurement is 10% or greater from prior exam. OTHER CONSIDERATIONS: The stage of liver fibrosis may be overestimated in the setting of acute hepatitis, liver inflammation, elevated liver function tests, hepatic vascular congestion, obstructive cholestasis, non-fasting state, and infiltrative diseases such as amyloidosis and lymphoma. In some patients with NAFLD, the liver stiffness thresholds for compensated advanced chronic liver disease may be lower. In causes other than viral hepatitis and NAFLD, liver stiffness thresholds are not well established. Electronically signed by: Yuri Granado MD 12/27/2024 11:22 AM EDT
--- OUTSIDE RECORDS SUMMARY | 2024-12-27 09:26 | XMS_ITS | Patient Health Record ---
Author Organization [facility] misael RodriguezWill Address [address] [place] [address] Care Team Providers Care Medical Charge Entry Specialist Name Role Phone MD Nettie Leonard Primary Care Provider UnavailAiyana Holland Unavailable [phone] José Cook Unavailable [phone] Ivone Layton Unavailable [phone] Allergies Allergen (clinical drug ingredient) Drug/Non Drug Allergy documented on EMR Reaction Allergy Type Onset Date Status PredniSONE afib Drug Allergy Active Medicinal cephalosporin and acting as antibacterial agent (FN) Cephalosporins redness Drug Allergy Active Results Component Value Reference Range Notes HEMOGLOBIN A1C (GLYCOHEMOGLO BIN) Reviewed date:06/20/2024 03:04:50 PM Interpretation: Performing Lab: Notes/Report: HEMOGLOBIN A1C % (HH) 6.6 Reason For Referral No Information Medications Medication [...] Vaccine Route Administration Date Status Comme nts Influenza Unknown 12/04/2022 Administered Influenza Unknown 01/04/2024 Administered COVID-19 Moderna Vaccine Unknown 05/22/2020 Administere d 1# 04/19/20 Social History Tobacco Use: Social History Observation [...] atherosclerosis of arteries of lower limbs (disorder) ([id number] ) Unspecified atherosclerosis of [place] arteries of extremities, 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 Problem Polyneuropathy due to type 2 diabetes mellitus (542697591) 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 Vital Signs Blood pressure diastolic 70 mm Hg 09/19/2024 Height 5 ft 11 in in 09/19/2024 Blood pressure systolic 125 mm Hg 09/19/2024 Weight 305 lbs 09/19/2024 BMI 42.53 kg/m2 09/19/2024 Procedures Procedure Date Ordered Date Performed Result Body Sit e 38760 - Tenotomy, open flexor 08/16/2024 N/A Encounters Encounter Location Date Provider Diagnosis [address] [address] 12/29/2023 Aiyana Fong Unspecified atherosclerosis of [place] arteries of extremities, bilateral legs I70.203 and Hammer toe of left foot M20.[address] [address] 03/22/2024 Aiyana Fong Unspecified atherosclerosis of [place] arteries of extremities, bilateral legs I70.203 ; Pain in left toe(s) M79.675 ; Pain in right toe(s) M79.674 and Tinea unguium B35.[address] [address] 06/20/2024 Aiyana Fong Unspecified atherosclerosis of [place] arteries of extremities, bilateral legs I70.203 ; Pain in left toe(s) M79.675 ; Pain in right toe(s) M79.674 and Tinea unguium B35.[address] [address] 08/16/2024 Ivone Layton Hammer toe of left foot M20.[address] [address] 08/23/2024 Ivone Layton Hammer toe of left foot M20.[address] [address] 09/19/2024 Aiyana Fong Unspecified atherosclerosis of [place] arteries of extremities, bilateral legs I70.203 ; Other hammer toe(s) (acquired), left foot M20.42 ; Tinea unguium B35.1 and Type 2 diabetes mellitus with polyneuropathy E11.[address] [address] 02/04/2024 [facility] [address] [address] 12/05/2024 Aiyana Fong Assessments Encounter Date Diagnosis (ICD Code) Assessment Notes Treatment Notes Treatment Clinical Notes Section Notes 12/29/2023 Unspecified atherosclerosis of [place] arteries of extremities, bilateral legs (ICD-10 - I70.203) 12/29/2023 Hammer toe of left foot (ICD-10 - M20.42) 03/22/2024 Pain in left toe(s) (ICD-10 - M79.675) 03/22/2024 Unspecified atherosclerosis of [place] arteries of extremities, bilateral legs (ICD-10 - I70.203) 06/20/2024 Unspecified atherosclerosis of [place] arteries of extremities, bilateral legs (ICD-10 - I70.203) 08/16/2024 Hammer toe of left foot (ICD-10 - M20.42) 08/23/2024 Hammer toe of left foot (ICD-10 - M20.42) 09/19/2024 Unspecified atherosclerosis of [place] arteries of extremities, bilateral legs (ICD-10 - I70.203) 09/19/2024 Other hammer toe(s) (acquired), left foot (ICD-10 - M20.42) 03/22/2024 Pain in right toe(s) (ICD-10 - M79.674) 09/19/2024 Tinea unguium (ICD-10 - B35.1) 06/20/2024 Pain in left toe(s) (ICD-10 - M79.675) 03/22/2024 Tinea unguium (ICD-10 - B35.1) 06/20/2024 Pain in right toe(s) (ICD-10 - M79.674) 09/19/2024 Type 2 diabetes mellitus with polyneuropathy (ICD-10 - E11.42) 06/20/2024 Tinea unguium (ICD-10 - B35.1) Plan Of Treatment Pending Test Test Name Order Date X ray : Foot, left 3V 01/28/2017 X ray : Foot, left 3V 04/06/2017 67775-YAMYARS NAIL, 6 OR MORE 01/28/2017 24496-BWXZYRB NAIL, 6 OR MORE 10/15/2016 29714-JKGQEMY NAIL, 6 OR MORE 09/09/2015 26295-FJSOGZY NAIL, 6 OR MORE 12/26/2015 34718-FBOGSDO NAIL, 6 OR MORE 04/16/2016 87854-UZBRBCP NAIL, 6 OR MORE 07/16/2016 15084-SIXSJFS NAIL, 6 OR MORE 05/06/2017 08048-WJQTAKG NAIL, 6 OR MORE 07/15/2017 94137-XBZOKJZ NAIL, 6 OR MORE 09/20/2017 76687-OXGJCAL NAIL, 6 OR MORE 12/20/2017 72227-QNRQANX NAIL, 6 OR MORE 01/08/2011 89207-HUQXCRO NAIL, 6 OR MORE 04/16/2011 16963-STWOREM NAIL, 6 OR MORE 08/05/2011 12614-JAXLAIP NAIL, 6 OR MORE 11/04/2011 08403-APLGCVB NAIL, 6 OR MORE 03/02/2012 61387-WEOHEBI NAIL, 6 OR MORE 06/01/2012 00068-AIKLHNP NAIL, 6 OR MORE 08/17/2012 82377-JGXFNYI NAIL, 6 OR MORE 11/16/2012 23272-ZGNOEUV NAIL, 6 OR MORE 03/13/2013 86426-RMWHQLY NAIL, 6 OR MORE 06/19/2013 26915-HAUHBGI NAIL, 6 OR MORE 09/18/2013 75903-PWDABJC NAIL, 6 OR MORE 12/20/2013 14851-ATELETJ NAIL, 6 OR MORE 03/14/2014 43128-AMALNAB NAIL, 6 OR MORE 07/04/2014 53044-WAYYINS NAIL, 6 OR MORE 10/01/2014 43200-EYFDLJZ NAIL, 6 OR MORE 01/30/2015 63563-LDWUYVB NAIL, 6 OR MORE 06/03/2015 10325-Uoecbxcu Plate 03/13/2013 45969- Debride <25 sq cm 01/28/2017 99311- Debride <25 sq cm 02/11/2017 58970- Debride <25 sq cm 10/13/2023 24253-TATEOQV SKIN/TISSUE 03/10/2023 05486-OYMQGWG SKIN/TISSUE 04/21/2023 16006-VTZCJFV SKIN/TISSUE 06/24/2023 70879-NXBV SKIN LESIONS, OVER 4 05/06/19 18 82061-RDQB SKIN LESIONS, OVER 4 01/29/20 17 36956-CWTB SKIN LESIONS, OVER 4 07/17/19 17 37492-KTYK SKIN LESIONS, OVER 4 10/16/19 17 25190-DFYG SKIN LESIONS, OVER 4 04/16/19 17 29844-CDTI SKIN LESIONS, OVER 4 12/26/19 16 42131-SBDZ SKIN LESIONS, OVER 4 09/09/19 16 12436-STFI SKIN LESIONS, OVER 4 12/21/19 18 57753-EIDY SKIN LESIONS, OVER 4 09/21/19 18 05258-PBDT SKIN LESIONS, OVER 4 07/16/19 18 53687-AWNN SKIN LESIONS, OVER 4 04/21/19 19 31342-OXUM SKIN LESIONS, OVER 4 07/29/19 19 08075-QTKY SKIN LESIONS, OVER 4 10/28/19 19 70981-CYIX SKIN LESIONS, OVER 4 01/24/20 19 84727-HUBC SKIN LESIONS, OVER 4 05/01/19 20 49697-IIEH SKIN LESIONS, OVER 4 01/03/20 20 51438-AMMW SKIN LESIONS, OVER 4 05/29/19 21 70627-XYGJ SKIN LESIONS, OVER 4 08/30/19 21 50078-YFHC SKIN LESIONS, OVER 4 06/03/19 16 73578-QLOB SKIN LESIONS, OVER 4 01/31/20 15 53843-HQZS SKIN LESIONS, OVER 4 10/02/19 15 91120-SZTF SKIN LESIONS, OVER 4 07/05/19 15 43643-QXGG SKIN LESIONS, OVER 4 03/14/20 14 23802-GPAK SKIN LESIONS, OVER 4 12/21/19 14 88324-PNHW SKIN LESIONS, OVER 4 09/19/19 14 74520-KIYA SKIN LESIONS, OVER 4 06/20/19 14 59144-QZCD SKIN LESIONS, OVER 4 03/13/20 13 27078-JPAT SKIN LESIONS, 2 TO 4 11/17/19 13 40181-PXSW SKIN LESIONS, 2 TO 4 08/18/19 13 79123-NVKY SKIN LESIONS, 2 TO 4 06/01/19 13 36546-YPOQ SKIN LESIONS, 2 TO 4 03/02/20 12 72705-VPKC SKIN LESIONS, 2 TO 4 11/04/19 12 26023-DJLK SKIN LESIONS, 2 TO 4 08/05/19 12 57065-SHYH SKIN LESIONS, 2 TO 4 04/16/19 12 46597-EMWNIYXW OF HEMATOMA/FLUID 018 15099 - Tenotomy, open flexor 08/16/2024 Next Appt Details Provider Name:Aiyana camilo, 02/06/2025 02:30:00 PM, [address] [place], [address], Insurance Providers Payer Name Payer Address Payer Phone Subscriber Number Group Number Insured Name Patient Relationship to Insured Coverage Start Date Coverage End Date Medicare National Govt [employer] [address] [place] [address] [id number] Soto Duran Self - patient is the insured 8 [employer] [address] [place], [place] [id number] Soto Duran Self - patient is the insured Medical (General) History Medical History History ICD Code measles chicken pox joint implants/screws kidney disease hypertension cataracts cancer back, hip, knee pain asthma Arthritis afib Cellulitis Diabetes mellitus Surgical History Surgery Date(Month/Year) back surgery 2005 carpal tunnel surgery 2002 left knee replacement, right knee replac ement 2006, 2008 left lower lobe of lung removed 2010 cataracts OU 2008, 2009 right hand trigger finger 2011 AFIB correction 12/2011 flex n times 2 12/2023 carpel tunnel 09/27 Hospitalization History Reason Date(Month/Year) [facility] [place] 05[place]2024 CT- CHF, low blood pressure 04/2024 [facility] - Fall stay 2 nights 01/11/20 [facility] 2 days for Pneumonia 01/2016
--- OUTSIDE RECORDS SUMMARY | 2024-12-27 09:27 | XMS_ITS | Encounter Summary ---
Author Organization [facility] [address] [place] [address] Care Team Providers Care Nuclear Plant Technical Advisor Name Role Phone Kumar Salvatore Camejo Primary Care Provider [phone] Encounter Details Date Type Department Care Team (Late st Contact Info) Description 04/07/2024 Lab Requisition [facility] Main Lab [address] [facility] [place] [address] Isabel Cardona MD [address] [place] [address] Encounter for other general examination Social History Tobacco Use Types Packs/Day Years Used Date Smoking Tobacco: Former Cigarettes 0.5 11 1 964 - 1237 Smokeless Tobacco: Never Alcohol Use Standard Drinks/Week [...] K/mcL LAB HEMETOLOGY METHOD 04/07/2024 9:28 AM [facility] RBC 4.10(L) 4.50 - 5.50 M/mcL LAB HEMETOLOGY METHOD 04/07/2024 9:28 AM [facility] Hemoglobin 13.9 13.5 - 17.5 g/dL LAB HEMETOLOGY METHOD 04/07/2024 9:28 AM [facility] Hematocrit 43.7 42.0 - 54.0 % LAB HEMETOLOGY METHOD 04/07/2024 9:28 AM [facility] MCV 106.3(H) 79.0 - 98.0 FL LAB HEMETOLOGY METHOD 04/07/2024 9:28 AM [facility] MCH 33.8(H) 27.0 - 32.0 pcg LAB HEMETOLOGY METHOD 04/07/2024 9:28 AM [facility] MCHC 31.8(L) 32.0 - 37.0 g/dL LAB HEMETOLOGY METHOD 04/07/2024 9:28 AM [facility] RDW 13.9 11.0 - 15.0 % LAB HEMETOLOGY METHOD 04/07/2024 9:28 AM [facility] Platelets 175 130 - 400 K/mcL LAB HEMETOLOGY METHOD 04/07/2024 9:28 AM [facility] MPV 11.0 7.0 - 11.0 FL LAB HEMETOLOGY METHOD 04/07/2024 9:28 AM [facility] NRBC 0.0 <1.0 % LAB HEMETOLOGY METHOD 04/07/2024 9:28 AM [facility] NRBC Absolute 0.00 <0.10 K/mcL LAB HEMETOLOGY METHOD 04/07/2024 9:28 AM [facility] Neutrophils Relative 67.2 % LAB HEMETOLOGY METHOD 04/07/2024 9:28 AM [facility] Lymphocytes Relative 22.4 % LAB HEMETOLOGY METHOD 04/07/2024 9:28 AM [facility] Monocytes Relative 9.0 % LAB HEMETOLOGY METHOD 04/07/2024 9:28 AM [facility] Eosinophils Relative 0.7 % LAB HEMETOLOGY METHOD 04/07/2024 9:28 AM [facility] Basophils Relative 0.2 % LAB HEMETOLOGY METHOD 04/07/2024 9:28 AM [facility] Immature Granulocytes Relative 0.5 % LAB HEMETOLOGY METHOD 04/07/2024 9:28 AM [facility] Neutrophils Absolute 5.56 1.50 - 7.00 K/mcL LAB HEMETOLOGY METHOD 04/07/2024 9:[address] [facility] Lymphocytes Absolute 1.86 1.00 - 5.00 K/[facility] LAB HEMETOLOGY METHOD 04/07/2024 9:[address] [facility] Monocytes Absolute 0.75 0.20 - 1.00 K/[facility] LAB HEMETOLOGY METHOD 04/07/2024 9:28 AM EST [facility] Eosinophils Absolute 0.06 0.00 - 0.50 K/[facility] LAB HEMETOLOGY METHOD 04/07/2024 9:[address] [facility] Basophils Absolute 0.02 0.00 - 0.20 K/[facility] LAB HEMETOLOGY METHOD 04/07/2024 9:28 AM EST [facility] Immature Granulocytes Absolute 0.04(H) 0.00 - 0.03 K/[facility] LAB HEMETOLOGY METHOD 04/07/2024 9:[address] [facility] Blood Venous blood specimen / Unknown Venipuncture / Unknown 04/07/2024 5:36 AM EST 04/07/2024 8:31 AM EST us Isabel Cardona MD LAB BLOOD ORDERABLES Final Resu lt Performing Organization Address [facility] Co de Phone Number [facility] [address] [place] [address], * Magnesium (04/07/2024 5:36 AM EST) Magnesium 2.1 1.9 - 2.6 mg/dL LAB CHEMISTRY METHOD 04/07/2024 9:[address] [facility] Blood Venous blood specimen / Unknown Venipuncture / Unknown 04/07/2024 5:36 AM EST 04/07/2024 8:31 AM EST us Isabel Cardona MD LAB BLOOD ORDERABLES Final Resu lt [facility] [address] [place] [address], * (ABNORMAL) Comprehensive metabolic panel (04/07/2024 5:36 AM EST) Sodium 137 133 - 145 mmol/L LAB CHEMISTRY METHOD 04/07/2024 9:[address] [facility] Potassium 3.8 3.5 - 5.5 mmol/L LAB CHEMISTRY METHOD 04/07/2024 9:55 AM [facility] Chloride 100 96 - 110 mmol/L LAB CHEMISTRY METHOD 04/07/2024 9:55 AM [facility] CO2 32 21 - 32 mmol/L LAB CHEMISTRY METHOD 04/07/2024 9:55 AM [facility] Anion Gap 5 3 - 11 LAB CHEMISTRY METHOD 04/07/2024 9:55 AM [facility] Glucose 83 70 - 100 mg/dL LAB CHEMISTRY METHOD 04/07/2024 9:55 AM [facility] BUN 26(H) 5 - 25 mg/dL LAB CHEMISTRY METHOD 04/07/2024 9:55 AM [facility] Creatinine 0.81 0.70 - 1.30 mg/dL LAB CHEMISTRY METHOD 04/07/2024 9:55 AM [facility] eGFR 89 >=60 mL/min/1. 73m2 LAB CHEMISTRY METHOD 04/07/2024 9:55 AM [facility] Comment:Calculation based on the Chronic Kidney Disease Epidemiology Collaboration (CKD-EPI) equation refit without adjustment for race. BUN/Creatinine Ratio 32.1 LAB CHEMISTRY METHOD 04/07/2024 9:55 AM [facility] Calcium 8.7 8.5 - 10.5 mg/dL LAB CHEMISTRY METHOD 04/07/2024 9:55 AM [facility] AST (SGOT) 19 10 - 42 unit/L LAB CHEMISTRY METHOD 04/07/2024 9:55 AM [facility] ALT (SGPT) 19 10 - 60 unit/L LAB CHEMISTRY METHOD 04/07/2024 9:55 AM [facility] Alkaline Phosphatase 124(H) 42 - 121 unit/L LAB CHEMISTRY METHOD 04/07/2024 9:55 AM [facility] Total Protein 6.7 6.0 - 8.0 g/dL LAB CHEMISTRY METHOD 04/07/2024 9:55 AM [facility] Albumin 2.9(L) 3.2 - 5.0 g/dL LAB CHEMISTRY METHOD 04/07/2024 9:55 AM [facility] Total Bilirubin 1.6(H) 0.0 - 1.4 mg/dL LAB CHEMISTRY METHOD 04/07/2024 9:55 AM [facility] Blood Venous blood specimen / Unknown Venipuncture / Unknown 04/07/2024 5:36 AM EST 04/07/2024 8:31 AM EST us Isabel Cardona MD LAB BLOOD ORDERABLES Final Resu lt [facility] [address] [place] [address], documented in this encounter Visit Diagnoses Diagnosis Encounter for other general examination documented in this encounter Additional Health Concerns Active Problems Noted Date Diagnosed Date Impaired Tissue 02/23/2024 Education needed on impact of smoking on wound 1 04/24/2023 Education needed related to ulceration/compromised skin integrity. 02/23/2024 documented as of this encounter Care Teams Nuclear Plant Technical Advisor Relationship Specialty Start Date End Date [facility] [place] [place] P[facility] - General Family Medicine 02/09/24 documented as of this encounter
--- OUTSIDE RECORDS SUMMARY | 2024-12-27 09:27 | XMS_ITS | Encounter Summary ---
Author Organization [facility] Address [address] [place] [address] Phone Care Team Providers Care Sewer Pipe Cleaner Name Role Phone Chacho Mann MD Primary Care Provider [phone] Encounter Details Date Type Department Care Team (Late st Contact Info) Description 11/03/2020 Procedure Pass [facility], Ct Scan - [address] [address] Social History Tobacco Use Types Packs/Day Years Used Date Smoking Tobacco: Former Alcohol Use Standard Drinks/Week Comments Yes 0 (1 standard drink = 0.6 oz pur e alcohol) Sex and Gender Information Value Date Recorded Sex Assigned at Male 11/03/2020 3:23 PM EDT Legal Sex Male 11:33 AM EDT Gender Identity Male 11/03/2020 3:23 PM EDT Sexual Orientation Not on file documented as of this encounter Functional Status * Calculated C-SSRS Risk Score (Lifetime/Recent) Answer Date of Assessment Author No Risk Indicated 11/03/2020 3:23 PM EDT Katina Pham RN * [place] Suicide Severity Rating Scale (Screener/Recent Self-Report) Question Answer Date of Assessment Author 1. Wish to be (Past 1 Month) No 11/03/2020 3:23 PM EDT Neno Siddiqui RN 2. Non-Specific Active Suicidal Thoughts (Past 1 Month) No 11/03/2020 3:23 PM EDT Neno Siddiqui RN 6. Suicidal Behavior (Lifetime) No 11/03/2020 3:23 PM EDT Neno Siddiqui RN documented as of this encounter Plan of Treatment Not on file documented as of this encounter Visit Diagnoses Not on filedocumented in this encounter Care Teams Sewer Pipe Cleaner Relationship Specialty Start Date End Date Chacho Mann MD PCP - General Internal Medicine 01/14/20 documented as of this encounter Additional Source Comments The information contained in this document represents components of the legal health record. It is not the complete legal health record.[facility]
--- OUTSIDE RECORDS SUMMARY | 2024-12-27 09:27 | XMS_ITS | Clinical Summary ---
Author Organization [facility] Address [address] [place] [address] Phone Care Team Providers Care Hydraulic Plumber Helper Name Role Phone Salvatore Heath DO Primary Care Provider [phone] Allergies Active Allergy Reactions Criticality Noted Date Comments Amoxicillin-Pot Clavulanate Diarrhea Low 02/09/2024 Cefazolin Rash Medium 02/09/2024 Tolerated ceftazidime at [facility] 04/04/24 Medications albuterol HFA (PROAIR HFA ; [...] mg total) by mouth daily. 0 Active cholecalciferol (VITAMIN D-3) 50 mcg (2,000 unit) capsule Take 1 capsule (2,000 Units total) by mouth daily. 0 Active fluticasone propion-salmete roL (ADVAIR DISKUS) 500-50 mcg/dose diskus inhaler Inhale [...] 2 (two) times a day. 5 Active ipratropium-alb uteroL (DUONEB) 0.5-2.5 mg/3 mL nebulizer solutionIndicat ions:Wheezing Take 3 mL by nebulization 4 (four) times a day if needed for wheezing. 5 Active fluticasone/ume clidin/vilanter (TRELEGY ELLIPTA INHL) Inhale by mouth. 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 ([facility] V24, [facility] V28) 02/09/2024 Chronic venous hypertension (idiopathic) with ulcer and inflammation of left lower extremity ([facility]24, [facility] V28) 02/09/2024 Non-pressure chronic ulcer o f other part of left lower leg limited to breakdown of skin ([facility] V24, [facility] V28) 02/09/2024 Lymphedema, not elsewhere classified 02/09/2024 Resolved Problems Problem Noted Date Diagnosed Date Resolved Date Hypotension 04/03/2024 04/06/2024 Surgical History Surgery Date Site/Laterality Comments CATARACT EXTRACTION Bilateral LUNG LOBECTOMY 04/05/2010 - 04/04/2011 Left KNEE SURGERY Bilateral CARPAL TUNNEL RELEASE Bilateral Medical History Medical History Date Comments Lymphedema Hypertension Arthritis Asthma Bronchiectasis ([facility], [facility] V28) Cataract Skin cancer A-fib ([facility] V24, [facility] V28) CHF (congestive heart failure) ([facility] V24, [facility] V28) Pneumonia Family History Medical History Relation Name [...] 78 04/26/2024 2:39 PM EST Temperature 36.2 C (97.2 F) 04/26/2024 2:39 PM EST Respiratory Rate 18 04/26/2024 2:39 PM EST [...] series) 1959 Cholesterol Screening (Lipid Panel) 03/04/2022 Medicare Annual Wellness Visit 03/04/2022 Social Influencers of Health Screening 03/04/2022 DTaP,Tdap,and Td Vaccines (5 - Td or Tdap) 04/11/2023 04/11/2013, 04/05/2012, 10/20/2010, Additional history exists Diabetes: Annual Urine Albumin-Creatinine Ratio (uACR) 02/09/2024 Depression Screening 04/05/2024 Diabetes: Blood Sugar Control Test (HGBA1C) 10/02/2024 04/03/2024 COVID-19 Vaccine (8 - Mixed Product risk season) 2024 01/28/2024, 01/13/2023, 03/05/2022, Additional history exists Influenza Vaccine (#1) 2024 , 12/28/2022, 01/30/2022, Additional history exists Falls Risk Assessment 04/06/2025 04/06/2024 Diabetes: Annual GFR (Glomerular Filtration Rate) 04/14/2025 04/14/2024, 04/10/2024, 04/07/2024, Additional history exists Hypertension/CHF/CAD Annual BMP Blood Test 04/14/2025 04/14/2024, 04/10/2024, 04/07/2024, Additional history exists Pneumococcal Vaccine: 50+ Years Completed 07/18/2014, 06/03/2014, 10/20/2010, Additional history exists Zoster Vaccines Completed 05/24/2018, 110 05/2017, 07/19/2008 RSV Immunization Adult Patients Completed 12/15/2023 HIB Vaccines Aged Out No longer eligi [...] age to complete this topic Meningococcal B Vaccine Aged Out No l onger eligible based on patient's age to complete [...] by week 4 Care Plan Impaired Tissue Paola Leslie RN Wound volume breakdown reduced by X% by week 8 Care Plan Impaired Tissue Paola Leslie RN Wound volume breakdown reduced by X% by week 12 Care Plan Impaired Tissue Paola Leslie RN Quit using tobacco (cigarettes, smokeless, etc) Care Plan Education needed on impact of smoking on wound Paola Leslie RN Reduce tobacco use (cigarettes, smokeless, etc) Care Plan Education needed on impact of smoking on wound Paola Leslie RN Decrease Wound Volume by X% by date (in notes) Care Plan Education needed on impact of smoking on wound Paola Leslie RN Patient and Caregiver Understand Wound Care Education Care Plan Education needed related to ulceration/compr omised skin integrity. No Paola Villalobos RN Procedures Procedure Name Priority Date/Time Associated Diagnosis Comments BASIC METABOLIC PANEL Routine 04/14/2024 6:24 AM EST Encounter for other general examination HEMOGLOBIN A1C Add-On 04/03/2024 5:47 AM EST from Last 3 Months or Most Recently Relevant to Health Maintenance Results * (ABNORMAL) Basic metabolic panel (04/14/2024 6:24 AM EST) Sodium 135 133 - 145 mmol/L LAB CHEMISTRY METHOD 04/14/2024 8:16 AM EST [facility] Potassium 4.0 3.5 - 5.5 mmol/L LAB CHEMISTRY METHOD 04/14/2024 8:16 AM EST [facility] Chloride 101 96 - 110 mmol/L LAB CHEMISTRY METHOD 04/14/2024 8:16 AM [facility] CO2 30 21 - 32 mmol/L LAB CHEMISTRY METHOD 04/14/2024 8:16 AM [facility] Anion Gap 4 3 - 11 LAB CHEMISTRY METHOD 04/14/2024 8:16 AM [facility] Glucose 142(H) 70 - 100 mg/dL LAB CHEMISTRY METHOD 04/14/2024 8:16 AM [facility] BUN 29(H) 5 - 25 mg/dL LAB CHEMISTRY METHOD 04/14/2024 8:16 AM [facility] Creatinine 0.71 0.70 - 1.30 mg/dL LAB CHEMISTRY METHOD 04/14/2024 8:16 AM [facility] eGFR 92 >=60 mL/min/1. 73m2 LAB CHEMISTRY METHOD 04/14/2024 8:16 AM [facility] Comment:Calculation based on the Chronic Kidney Disease Epidemiology Collaboration (CKD-EPI) equation refit without adjustment for race. BUN/Creatinine Ratio 40.8 LAB CHEMISTRY METHOD 04/14/2024 8:16 AM [facility] Calcium 8.8 8.5 - 10.5 mg/dL LAB CHEMISTRY METHOD 04/14/2024 8:16 AM [facility] Blood Venous blood specimen / Unknown Venipuncture / Unknown 04/14/2024 6:24 AM EST 04/14/2024 7:39 AM EST us Isabel Cardona MD LAB BLOOD ORDERABLES Final Resu lt [facility] [address] [place] [address], * (ABNORMAL) Hemoglobin A1c (04/03/2024 5:47 AM EST) Hemoglobin A1C 6.8(H) <5.7 % LAB CHEMISTRY METHOD 04/03/2024 11:26 AM EST [facility] Mean Bld Glu Estim. 148 mg/dL LAB CHEMISTRY METHOD 04/03/2024 11:26 AM EST [facility] Blood Venous blood specimen / Unknown Venipuncture / Unknown 04/03/2024 5:47 AM EST 04/03/2024 6:13 AM EST Narrative [facility] - 04/03/2024 11:26 AM EST ADA Guidelines: Increased risk Diabetes Mellitus A1C 5.7 - 6.4% and Fasting Blood Glucose 100 - 125 mg/dl Diabetes Mellitus: A1C >6.5% and Fasting Blood Glucose >125 mg/dl Da Mckeon MD LAB BLOOD ORDERABLES Final Resul t [facility] [address] [place] [address], from Last 3 Months or Most Recently Relevant to Health Maintenance Additional Health Concerns Active Problems Noted Date Diagnosed Date Impaired Tissue 02/23/2024 Education needed on impact of smoking on wound 1 04/24/2023 Education needed related to ulceration/compromised skin integrity. 02/23/2024 Insurance MEDICARE [employer] Advance Directives * Full [...] currently active code status orders. Care Teams Hydraulic Plumber Helper Relationship Specialty Start Date End Date Salvatore Heath DO [address] [place] [address] PCP - General Family Medicine 02/09/24
--- OUTSIDE RECORDS SUMMARY | 2024-12-27 09:27 | XMS_ITS | Encounter Summary ---
Author Organization [facility] Address [address] [place] [address] Care Team Providers Care Fiscal Analyst Name Role Phone Kumar Salvatore Camejo Primary Care Provider [phone] Encounter Details Date Type Department Care Team (Late st Contact Info) Description 04/14/2024 Lab Requisition [facility] Main Lab [address] [facility] [employer] [place] [address] Isabel Cardona MD [address] [place] [address] Encounter for other general examination Social History Tobacco Use Types Packs/Day Years Used Date Smoking Tobacco: Former Cigarettes 0.5 11 1 [phone] 4771 Smokeless Tobacco: Never Alcohol Use Standard Drinks/Week [...] Hold for add-ons. 04/14/2024 9:01 AM EST [facility] Comment:Auto resulted. Blood Venous blood specimen / Unknown Venipuncture / Unknown 04/14/2024 6:24 AM EST 04/14/2024 7:39 AM EST us Isabel Cardona MD LAB BLOOD ORDERABLES Final Resu lt [facility] [address] [place] [address], [place] [phone] * (ABNORMAL) Magnesium (04/14/2024 6:24 AM EST) Magnesium 1.8(L) 1.9 - 2.6 mg/dL LAB CHEMISTRY METHOD 04/14/2024 8:16 AM EST [facility] Blood Venous blood specimen / Unknown Venipuncture / Unknown 04/14/2024 6:24 AM EST 04/14/2024 7:39 AM EST us Isabel Cardona MD LAB BLOOD ORDERABLES Final Resu lt [facility] [address] [place] [address], [place] [phone] * (ABNORMAL) Basic metabolic panel (04/14/2024 6:24 AM EST) Sodium 135 133 - 145 mmol/L LAB CHEMISTRY METHOD 04/14/2024 8:16 AM [facility] Potassium 4.0 3.5 - 5.5 mmol/L LAB CHEMISTRY METHOD 04/14/2024 8:16 AM [facility] Chloride 101 96 - 110 mmol/L LAB CHEMISTRY METHOD 04/14/2024 8:16 AM [facility] CO2 30 21 - 32 mmol/L LAB CHEMISTRY METHOD 04/14/2024 8:16 AM [facility] Anion Gap 4 3 - 11 LAB CHEMISTRY METHOD 04/14/2024 8:16 AM [facility] Glucose 142(H) 70 - 100 mg/dL LAB CHEMISTRY METHOD 04/14/2024 8:16 AM [facility] BUN 29(H) 5 - 25 mg/dL LAB CHEMISTRY METHOD 04/14/2024 8:16 AM [facility] Creatinine 0.71 0.70 - 1.30 mg/dL LAB CHEMISTRY METHOD 04/14/2024 8:16 AM [facility] eGFR 92 >=60 mL/min/1. 73m2 LAB CHEMISTRY METHOD 04/14/2024 8:16 AM [facility] Comment:Calculation based on the Chronic Kidney Disease Epidemiology Collaboration (CKD-EPI) equation refit without adjustment for race. BUN/Creatinine Ratio 40.8 LAB CHEMISTRY METHOD 04/14/2024 8:16 AM [facility] Calcium 8.8 8.5 - 10.5 mg/dL LAB CHEMISTRY METHOD 04/14/2024 8:16 AM EST [facility] Blood Venous blood specimen / Unknown Venipuncture / Unknown 04/14/2024 6:24 AM EST 04/14/2024 7:39 AM EST us Isabel Cardona MD LAB BLOOD ORDERABLES Final Resu lt [facility] [address] [place] [address], documented in this encounter Visit Diagnoses Diagnosis Encounter for other general examination documented in this encounter Additional Health Concerns Active Problems Noted Date Diagnosed Date Impaired Tissue 02/23/2024 Education needed on impact of smoking on wound 1 04/24/2023 Education needed related to ulceration/compromised skin integrity. 02/23/2024 documented as of this encounter Care Teams Fiscal Analyst Relationship Specialty Start Date End Date Salvatore Heath DO [address] [place] [address] PCP - General Family Medicine 02/09/24 documented as of this encounter
--- OUTSIDE RECORDS SUMMARY | 2024-12-27 09:27 | XMS_ITS | Encounter Summary ---
Author Organization [facility] Address [address] [place] [address] Care Team Providers Care Fire Control Officer Name Role Phone Kumar Salvatore Camejo Primary Care Provider [phone] Encounter Details Date Type Department Care Team (Late st Contact Info) Description 04/10/2024 Lab Requisition [facility] - Main Lab [address] [facility] [place] [address] Isabel Cardona MD [address] [place] [address] Encounter for other general examination Social History Tobacco Use Types Packs/Day Years Used Date Smoking Tobacco: Former Cigarettes 0.5 11 1 964 - 2382 Smokeless Tobacco: Never Alcohol Use Standard Drinks/Week [...] K/mcL LAB HEMETOLOGY METHOD 04/10/2024 1:37 PM [facility] RBC 4.20(L) 4.50 - 5.50 M/mcL LAB HEMETOLOGY METHOD 04/10/2024 1:37 PM [facility] Hemoglobin 14.2 13.5 - 17.5 g/dL LAB HEMETOLOGY METHOD 04/10/2024 1:37 PM [facility] Hematocrit 44.1 42.0 - 54.0 % LAB HEMETOLOGY METHOD 04/10/2024 1:37 PM [facility] MCV 104.5(H) 79.0 - 98.0 FL LAB HEMETOLOGY METHOD 04/10/2024 1:37 PM [facility] MCH 33.6(H) 27.0 - 32.0 pcg LAB HEMETOLOGY METHOD 04/10/2024 1:37 PM [facility] MCHC 32.2 32.0 - 37.0 g/dL LAB HEMETOLOGY METHOD 04/10/2024 1:37 PM [facility] RDW 14.0 11.0 - 15.0 % LAB HEMETOLOGY METHOD 04/10/2024 1:37 PM [facility] Platelets 197 130 - 400 K/mcL LAB HEMETOLOGY METHOD 04/10/2024 1:37 PM [facility] MPV 11.1(H) 7.0 - 11.0 FL LAB HEMETOLOGY METHOD 04/10/2024 1:37 PM [facility] NRBC 0.0 <1.0 % LAB HEMETOLOGY METHOD 04/10/2024 1:37 PM [facility] NRBC Absolute 0.00 <0.10 K/mcL LAB HEMETOLOGY METHOD 04/10/2024 1:37 PM [facility] Neutrophils Relative 65.7 % LAB HEMETOLOGY METHOD 04/10/2024 1:37 PM [facility] Lymphocytes Relative 21.7 % LAB HEMETOLOGY METHOD 04/10/2024 1:37 PM [facility] Monocytes Relative 8.6 % LAB HEMETOLOGY METHOD 04/10/2024 1:37 PM [facility] Eosinophils Relative 2.4 % LAB HEMETOLOGY METHOD 04/10/2024 1:37 PM [facility] Basophils Relative 0.5 % LAB HEMETOLOGY METHOD 04/10/2024 1:37 PM [facility] Immature Granulocytes Relative 1.1 % LAB HEMETOLOGY METHOD 04/10/2024 1:37 PM [facility] Neutrophils Absolute 5.46 1.50 - 7.00 K/mcL LAB HEMETOLOGY METHOD 04/10/2024 1:37 PM EST [facility] Lymphocytes Absolute 1.80 1.00 - 5.00 K/[facility] LAB HEMETOLOGY METHOD 04/10/2024 1:37 PM EST [facility] Monocytes Absolute 0.71 0.20 - 1.00 K/[facility] LAB HEMETOLOGY METHOD 04/10/2024 1:37 PM EST [facility] Eosinophils Absolute 0.20 0.00 - 0.50 K/[facility] LAB HEMETOLOGY METHOD 04/10/2024 1:37 PM EST [facility] Basophils Absolute 0.04 0.00 - 0.20 K/[facility] LAB HEMETOLOGY METHOD 04/10/2024 1:37 PM EST [facility] Immature Granulocytes Absolute 0.09(H) 0.00 - 0.03 K/[facility] LAB HEMETOLOGY METHOD 04/10/2024 1:37 PM EST [facility] Blood Venous blood specimen / Unknown Venipuncture / Unknown 04/10/2024 5:55 AM EST 04/10/2024 12:12 PM EST us Isabel Cardona MD LAB BLOOD ORDERABLES Final Resu lt Performing Organization Address [facility] Co de Phone Number [facility] [address] [place] [address], * Magnesium (04/10/2024 5:55 AM EST) Magnesium 1.9 1.9 - 2.6 mg/dL LAB CHEMISTRY METHOD 04/10/2024 1:23 PM EST [facility] Blood Venous blood specimen / Unknown Venipuncture / Unknown 04/10/2024 5:55 AM EST 04/10/2024 12:12 PM EST us Isabel Cardona MD LAB BLOOD ORDERABLES Final Resu lt [facility] [address] [place] [address], [place] [phone] * (ABNORMAL) Comprehensive metabolic panel (04/10/2024 5:55 AM EST) Sodium 136 133 - 145 mmol/L LAB CHEMISTRY METHOD 04/10/2024 5:14 PM EST [facility] Potassium 3.9 3.5 - 5.5 mmol/L LAB CHEMISTRY METHOD 04/10/2024 5:14 PM [facility] Chloride 99 96 - 110 mmol/L LAB CHEMISTRY METHOD 04/10/2024 5:14 PM [facility] CO2 30 21 - 32 mmol/L LAB CHEMISTRY METHOD 04/10/2024 5:14 PM [facility] Anion Gap 7 3 - 11 LAB CHEMISTRY METHOD 04/10/2024 5:14 PM [facility] Glucose 102(H) 70 - 100 mg/dL LAB CHEMISTRY METHOD 04/10/2024 5:14 PM [facility] BUN 29(H) 5 - 25 mg/dL LAB CHEMISTRY METHOD 04/10/2024 5:14 PM [facility] Creatinine 0.70 0.70 - 1.30 mg/dL LAB CHEMISTRY METHOD 04/10/2024 5:14 PM [facility] eGFR 92 >=60 mL/min/1. 73m2 LAB CHEMISTRY METHOD 04/10/2024 5:14 PM [facility] Comment:Calculation based on the Chronic Kidney Disease Epidemiology Collaboration (CKD-EPI) equation refit without adjustment for race. BUN/Creatinine Ratio 41.4 LAB CHEMISTRY METHOD 04/10/2024 5:14 PM [facility] Calcium 8.7 8.5 - 10.5 mg/dL LAB CHEMISTRY METHOD 04/10/2024 5:14 PM [facility] AST (SGOT) 14 10 - 42 unit/L LAB CHEMISTRY METHOD 04/10/2024 5:14 PM [facility] ALT (SGPT) 21 10 - 60 unit/L LAB CHEMISTRY METHOD 04/10/2024 5:14 PM [facility] Alkaline Phosphatase 126(H) 42 - 121 unit/L LAB CHEMISTRY METHOD 04/10/2024 5:14 PM [facility] Total Protein 6.6 6.0 - 8.0 g/dL LAB CHEMISTRY METHOD 04/10/2024 5:14 PM [facility] Albumin 3.0(L) 3.2 - 5.0 g/dL LAB CHEMISTRY METHOD 04/10/2024 5:14 PM [facility] Total Bilirubin 1.8(H) 0.0 - 1.4 mg/dL LAB CHEMISTRY METHOD 04/10/2024 5:14 PM [facility] Blood Venous blood specimen / Unknown Venipuncture / Unknown 04/10/2024 5:55 AM EST 04/10/2024 12:12 PM EST us Isabel Cardona MD LAB BLOOD ORDERABLES Final Resu lt [facility] [address] [place] [address], documented in this encounter Visit Diagnoses Diagnosis Encounter for other general examination documented in this encounter Additional Health Concerns Active Problems Noted Date Diagnosed Date Impaired Tissue 02/23/2024 Education needed on impact of smoking on wound 1 04/24/2023 Education needed related to ulceration/compromised skin integrity. 02/23/2024 documented as of this encounter Care Teams Fire Control Officer Relationship Specialty Start Date End Date [facility] [place] [place] [facility] - General Family Medicine 02/09/24 documented as of this encounter
--- OUTSIDE RECORDS SUMMARY | 2024-12-27 09:27 | XMS_ITS | Clinical Summary ---
Author Organization [facility] Address [address] [place] [phone] Phone Care Team Providers Care Hot Metal Crane Operator Name Role Phone Chacho Mann MD Primary Care Provider [phone] Allergies Active Allergy Reactions Criticality Noted Date Comments Cefazolin Low 01/18/2020 Medications mometasone (ELOCON) 0.1 % cream Apply 1 application topically daily. apply topically as needed 0 Active albuterol 90 mcg/actuation inhaler Inhale 2 puffs into the lungs every 6 (six) hours as needed for shortness of breath/dyspnea or wheezing. 0 Active allopurinol (ZYLOPRIM) 300 MG tablet Take 300 mg by mouth daily. 0 Active apixaban (ELIQUIS) 5 mg tablet Take 5 mg by mouth 2 (two) times a day. 0 Active atorvastatin (LIPITOR) 40 MG tablet Take 40 mg by mouth daily. 0 Active budesonide-form oterol (SYMBICORT) 160-4.5 mcg/actuation inhaler Inhale 2 puffs into the lungs 2 (two) times a day. 0 Active cholecalciferol (VITAMIN D3) 2,000 unit capsule Take 2,000 Units by mouth daily. 0 Active furosemide (LASIX) 40 MG tablet Take 40 mg by mouth daily. 0 Active gabapentin (NEURONTIN) 600 MG tablet Take 600 mg by mouth 3 (three) times a day. 0 Active losartan (COZAAR) 100 MG tablet Take 50 mg by mouth daily. changed from 100 mg to 50 mg 0 Active potassium citrate (UROCIT-K) 10 mEq SR tablet Take 10 mEq by mouth 2 (two) times a day. 0 Active rOPINIRole (REQUIP) 0.5 MG tablet Take 0.5 mg by mouth 3 (three) times a day. 0 Active multivitamins capsule Take 1 capsule by mouth daily. 0 Active coenzyme Q10 100 mg capsule Take 100 mg by mouth daily. 0 Active tamsulosin (FLOMAX) 0.4 mg Cap Take 0.4 mg by mouth daily. one tab at HS. Per Dr Diamond urology 0 Active metoprolol tartrate (LOPRESSOR) 50 MG tablet Take 25 mg by mouth 2 (two) times a day. 0 Active Social History Tobacco Use Types Packs/Day Years Used Date Smoking Tobacco: Former Alcohol Use Standard Drinks/Week Comments Yes 0 (1 standard drink = 0.6 oz pur e alcohol) Education Answer Date Recorded Are you interested in more education? Not on jen e 07/31/2022 Are you concerned about learning? Not on file 07/31/2022 No 07/31/2022 No 07/31/2022 Digital Access Answer Date Recorded No 09/01/2022 No 09/01/2022 Reliable internet access at home? Not on file 09/01/2022 Device with a working camera? Not on file Sex and Gender Information Value Date Recorded Sex Assigned at Male 11/03/2020 3:23 PM EDT Legal Sex Male 11:33 AM EDT Gender Identity Male 11/03/2020 3:23 PM EDT Sexual Orientation Not on file Last Filed Vital Signs Vital Sign Reading Time Taken Comments Blood Pressure 120/75 11/03/2020 9:06 PM EDT Pulse 102 11/03/2020 9:06 PM EDT Temperature 37.5 C (99.5 F) 11/03/2020 3:22 PM EDT Respiratory Rate 18 11/03/2020 9:06 PM EDT Oxygen Saturation 96% 11/03/2020 9:06 PM EDT Inhaled Oxygen Concentration - - Weight 154.2 kg (340 lb) 11/03/2020 3:22 PM EDT Height 180.3 cm (5' 11 ) 11/03/2020 3:22 PM EDT Body Mass Index 47.42 11/03/2020 3:22 PM EDT Plan of Treatment Not on file Medical Devices Not on file Insurance MEDICARE PART A & B [employer] [place] [id number] [place] [id number] MEDICARE PART A & B [employer] MEDICARE PART A & B [email or web address] MEDICARE PART A & B Member Subscriber Plan / Payer (Ef fective 2007-Present) Name:Soto Duran Member ID:[id number] Relation to Subscriber:Self Name:Soto Duran Subscriber ID:[id number] Payer ID:[id number] Group ID:Not on file Type:Medicare Address: [facility] [address] [place] [phone] [employer] [place] PART A [place] [id number] MEDICARE PART A & B Member Subscriber Plan / Payer (Ef fective 2007-Present) Name:Soto Duran Member ID:[id number] Relation to Subscriber:Self Name:Soto Duran Subscriber ID:[id number] Payer ID:[id number] Group ID:Not on file Type:Medicare Address: [facility] [address] [place] [phone] [employer] MEDICARE PART A & B [email or web address] Care Teams Hot Metal Crane Operator Relationship Specialty Start Date End Date Chacho Mann MD PCP - General Internal Medicine 01/14/20 Additional Source Comments The information contained in this document represents components of the legal health record. It is not the complete legal health record.[facility]
== END 2024-12-27 08:32 | disposition home or self-care (01) ==
LOC: HO.US 08:31
PROVIDERS: PCP Student in an Organized Health Care Education/Training Program; Visit Provider Nurse Practitioner Family
DX: R79.89 Other specified abnormal findings of blood chemistry (principal)
CPT/HCPCS: 76700; 76981

== ENCOUNTER → 2024-12-27 08:33 | Outpatient (BNV) | payer MEDICARE, SELFPAY | PROVIDERS: PCP Student in an Organized Health Care Education/Training Program; Visit Provider Radiology Diagnostic Radiology | DX: K76.89 Other specified diseases of liver (principal) | CPT/HCPCS: 76700 ==